=== PATIENT | male | born 1935 | race American Indian/Alaskan Native ===

== ENCOUNTER 2021-07-28 20:30 | Inpatient (IN) | payer MEDICARE, OTHER ==
[2021-07-28] MEDS ORDERED: SODIUM CHLORIDE 0.9% 1000 ML 1,000 ML IV ONE (20:50)
[2021-07-28] MEDS ORDERED: cefTRIAXone/NS 1 GM/50 ML 1 GM/50 ML BAG IV ONE (20:51)
--- NOTE | 2021-07-28 21:35 | XRay Report ---
CHEST 1 VIEW INDICATION / CLINICAL INFORMATION: Chest Pain. COMPARISON: 06/24/2020 FINDINGS: SUPPORT DEVICES: None. HEART / MEDIASTINUM: Stable. LUNGS / PLEURA: Widespread airspace disease involving the majority of the right lung and left mid and lower lung zones. No significant effusion. No pneumothorax. ADDITIONAL FINDINGS: No significant additional findings. IMPRESSION: 1. Fairly diffuse bilateral airspace opacities, suggesting multifocal pneumonia. Signer Name: Juancarlos Rust MD Signed: 07/28/2021 9:31 PM Workstation Name: [id number]
[2021-07-28 22:05] LABS: Hematocrit 28.9 % (35.5-45.6); Mean Corpuscular HGB Conc 31 % (32-34); Mean Corpuscular Volume 98 fl (84-94); Platelet Count 397 K/mm3 (140-440); Red Blood Count 2.96 M/mm3 (3.65-5.03)
[2021-07-28 22:06] LABS: Red Cell Distribution Width 25.1 % (13.2-15.2)
[2021-07-28 22:09] LABS: Basophils # (Auto) 0.1 K/mm3 (0.0-0.1); Monocytes # (Auto) 0.4 K/mm3 (0.0-0.8)
[2021-07-28 22:14] LABS: INR 1.09 (0.87-1.13)
[2021-07-28 22:15] LABS: Partial Thromboplastin Time 23.5 Sec. (24.2-36.6)
[2021-07-28 22:26] LABS: Albumin 2.5 g/dL (3.9-5); Calcium 7.6 mg/dL (8.4-10.2)
[2021-07-28] MEDS ORDERED: METOPROLOL TARTRATE 5 MG/5 ML INJ IV ONE (23:16)
[2021-07-28 23:30] LABS: Anisocytosis 2+; Basophils % (Manual) 0 % (0.0-1.8); Eosinophils % (Manual) 0 % (0.0-4.3); Monocytes % (Manual) 0 % (0.0-7.3); Total Cells Counted 100
[2021-07-28 23:31] LABS: Hypochromasia Few; Ovalocytes Few
[2021-07-28 23:32] LABS: Platelet Estimate Consistent w Auto
--- NOTE | 2021-07-29 00:39 | Emergency Department Report ---
ED General Adult HPI - General Chief complaint: Dyspnea/Respdistress Stated complaint: LETHARGIC Time Seen by Provider: 07/28/21 20:49 Source: family, EMS Mode of arrival: Stretcher Limitations: Other - History of Present Illness Initial comments: Pt IS 85 YEARS OLD NON VERBAL WITH dm htn RENAL DISEASE AND DEMENTIA came in due to family stating of being unresponsive with possible stemi. Pt's baseline is non verbal. Pt was 75% O2 on RA. FAMILY CALLED AMBULANCE FOR ALTERED MENTAL STATUS , HE IS NON VERBAL BASELINE BUT TODAY HE DIDN;T FOLLOW COMMANDS USUAL, HE WAS RECENTLY DISCHARGED FROM [facility] FOR ACUTE METABOLIC ENCEPHALOPATHY -: Gradual, hour(s) Severity scale (0 -10): 0 Improves with: none Worsens with: none Associated Symptoms: other (FEVER ) - Related Data Home Medications Medication Instructions Recorded Confirmed Last Taken Aspirin [Aspirin BABY CHEW TAB] 81 mg PO QDAY 06/23/20 06/23/20 Unknown Clopidogrel [Plavix] 1 tab PO DAILY 06/23/20 06/23/20 Unknown Finasteride 1 tab PO DAILY 06/23/20 06/23/20 Unknown Memantine 5 mg PO QDAY 06/23/20 06/23/20 Unknown OLANZapine [Zyprexa] 1 tab PO HS 06/23/20 06/23/20 Unknown PARoxetine HCL [PARoxetine] 1 tab PO DAILY 06/23/20 06/23/20 Unknown amLODIPine 1 tab PO DAILY 06/23/20 06/23/20 Unknown Previous Rx's Medication Instructions Recorded Last Taken Type AtorvaSTATin [Lipitor] 80 mg PO QHS #60 tablet 06/29/20 Unknown Rx Dextrose/Maltodextrin [Glucose 1 each PO DAILY #30 powd.pack 06/29/20 Unknown Rx Powder Packets] Lactose-Reduced Food [Ensure 237 ml PO DAILY #30 liquid 06/29/20 Unknown Rx Liquid] Metoprolol [Lopressor TAB] 25 mg PO BID #60 tablet 06/29/20 Unknown Rx Pantoprazole [Protonix TAB] 40 mg PO BIDAC #60 tablet 06/29/20 Unknown Rx Allergies Allergy/AdvReac Type Severity Reaction Status Date / Time No Known Allergies Allergy Unverified 06/23/20 11:35 ED Review of Systems ROS: Stated complaint: LETHARGIC Other details as noted in HPI Comment: Unobtainable due to pts medical conditions ED Past Medical Hx - Past Medical History Hx Hypertension: Yes Hx CVA: Yes (non verbal) Hx Diabetes: Yes Hx GERD: Yes Hx Renal Disease: Yes Hx Dementia: Yes Additional medical history: renal failure hd m/w/f, gerd, - Surgical History Hx Appendectomy: Yes Additional Surgical History: left arm fistula - Social History Smoking Status: Unknown if ever smoked - Medications Home Medications: Home Medications Medication Instructions Recorded Confirmed Last Taken Type Aspirin [Aspirin BABY CHEW TAB] 81 mg PO QDAY 06/23/20 06/23/20 Unknown History Clopidogrel [Plavix] 1 tab PO DAILY 06/23/20 06/23/20 Unknown History Finasteride 1 tab PO DAILY 06/23/20 06/23/20 Unknown History Memantine 5 mg PO QDAY 06/23/20 06/23/20 Unknown History OLANZapine [Zyprexa] 1 tab PO HS 06/23/20 06/23/20 Unknown History PARoxetine HCL [PARoxetine] 1 tab PO DAILY 06/23/20 06/23/20 Unknown History amLODIPine 1 tab PO DAILY 06/23/20 06/23/20 Unknown History AtorvaSTATin [Lipitor] 80 mg PO QHS #60 tablet 06/29/20 Unknown Rx Dextrose/Maltodextrin [Glucose 1 each PO DAILY #30 powd.pack 06/29/20 Unknown Rx Powder Packets] Lactose-Reduced Food [Ensure 237 ml PO DAILY #30 liquid 06/29/20 Unknown Rx Liquid] Metoprolol [Lopressor TAB] 25 mg PO BID #60 tablet 06/29/20 Unknown Rx Pantoprazole [Protonix TAB] 40 mg PO BIDAC #60 tablet 06/29/20 Unknown Rx ED Physical Exam - General Limitations: Other General appearance: other (NON VERBAL , DIAPHORETIC ) - Head Head exam: Present: atraumatic, normocephalic - Eye Eye exam: Present: normal appearance - ENT ENT exam: Present: mucous membranes moist - Neck Neck exam: Present: normal inspection - Respiratory Respiratory exam: Present: normal lung sounds bilaterally. Absent: respiratory distress - Cardiovascular Cardiovascular Exam: Present: normal rhythm, tachycardia. Absent: systolic murmur, diastolic murmur, rubs, gallop - GI/Abdominal GI/Abdominal exam: Present: normal bowel sounds, other (NG TUBE ) - Rectal Rectal exam: Present: deferred - Extremities Exam Extremities exam: Present: normal inspection - Back Exam Back exam: Present: normal inspection - Neurological Exam Neurological exam: Present: other (NON VERAL , POORLY FOLLOWING COMMANDS ) - Psychiatric Psychiatric exam: Present: normal affect, normal mood - Skin Skin exam: Present: warm, dry, intact, normal color. Absent: rash ED Course Vital Signs 07/28/21 07/28/21 07/28/21 21:30 21:54 22:18 Temperature 97.6 F Pulse Rate 95 H 92 H 96 H Respiratory 16 16 16 Rate Blood Pressure Blood Pressure 120/61 115/56 135/57 [Right] O2 Sat by Pulse 96 99 96 Oximetry 07/28/21 07/28/21 23:04 23:39 Temperature Pulse Rate 93 H 97 H Respiratory 16 Rate Blood Pressure 106/49 Blood Pressure 108/51 [Right] O2 Sat by Pulse 98 Oximetry - Reevaluation(s) Reevaluation #1: 07/29/21 00:22 WORK UP SHOWED : - AMS : SECONDAY TO SEPSIS - SEPSIS : PNEUMONIA NOTED , CULTURE FLUIDS AND ABX GIVEN , FEVER CONTROL - STEMI ON EKG : SPOKE WITH DR PASTOR , SENT HIMT HE EKG , THNKS IT IS OLD INFARCT , WE GOT HIS OLD EKG , SHOWED NORMAL SINUS, RE CONTACTED , WILL START HEPARIN , AND B BLOCKERS ED Medical Decision Making - Lab Data Result diagrams: 07/28/21 21:49 07/28/21 21:49 Critical care attestation.: If time is entered above; I have spent that time in minutes in the direct care of this critically ill patient, excluding procedure time. ED Disposition Clinical Impression: SOB (shortness of breath), Altered mental status, Sepsis, Pneumonia, Leukocytosis, CRF (chronic renal failure), Fever Disposition: 09 ADMITTED INPATIENT Is pt being admited?: Yes Does the pt Need Aspirin: No Condition: Stable Instructions: Bacterial Pneumonia (ED) Referrals: MARIKA TOUSSAINT MD [Primary Care Provider] - 3-5 Days
[2021-07-29] MEDS ORDERED: ACETAMINOPHEN 325 MG TAB PO PRN (00:47)
[2021-07-29] MEDS ORDERED: MORPHINE 2 MG/1 ML INJ IV PRN (00:47)
[2021-07-29] MEDS ORDERED: traMADol 50 MG TAB PO PRN (00:47)
[2021-07-29] MEDS ORDERED: NITROGLYCERIN 0.4 MG TAB SUBL SL PRN (00:47)
[2021-07-29] MEDS ORDERED: SODIUM CHLORIDE 0.9% 1000 ML 1,000 ML IV SCH (01:00)
--- NOTE | 2021-07-29 01:08 | History and Physical Report ---
History of Present Illness Date of examination: 07/29/21 Date of admission: 07/29/21 Chief complaint: Dyspnea Altered mental status History of present illness: 85 years male with history of hypertension ,diabetes CVA with hypoxia and debility. End-stage renal disease on hemodialysis, GERD, vascular dementia, cerebral atherosclerosis was brought to the emergency room because of unresponsiveness with possible STEMI. Patient is baseline nonverbal. Patient was found to have O2 sat 75% on room air. Family called ambulance for altered mental status. Patient is nonverbal but patient follows, In the emergency room EKG shows STEMI. Subsequently ER doctor talked with the on-call counter hand Dr. Daniels, who thinks it is old infarct, we got his old EKG. EKG showed normal sinus rhythm. Recontacted counter hand. We are going to put the patient in IMCU, put the patient on heparin and beta-cameron aspirin Plavix Lipitor. Echocardiogram serial cardiac enzyme Dr. orellana see the patient in the morning. In the emergency room room patient is also found to have sepsis chest x-ray shows multifocal pneumonia, WBCs 19.8. We are going to put the patient on pn eumonia pathway we put the patient on IV fluid neb treatment antibiotic. After initiating heparin drip patient is bleeding so we will have to hold the heparin drip aspirin Plavix. Patient hemoglobin dropped to 5.9. We are transfusing 2 unit of packed red blood cell. Consult GI and put the patient on Protonix 40 mg IV every 12 hours Past History Past Medical History: diabetes, ESRD, GERD, hypertension, renal failure, stroke, other (Dementia) Medications and Allergies Allergies Allergy/AdvReac Type Severity Reaction Status Date / Time No Known Allergies Allergy Unverified 06/23/20 11:35 Home Medications Medication Instructions Recorded Confirmed Last Taken Type Aspirin [Aspirin BABY CHEW TAB] 81 mg PO QDAY 06/23/20 06/23/20 Unknown History Clopidogrel [Plavix] 1 tab PO DAILY 06/23/20 06/23/20 Unknown History Finasteride 1 tab PO DAILY 06/23/20 06/23/20 Unknown History Memantine 5 mg PO QDAY 06/23/20 06/23/20 Unknown History OLANZapine [Zyprexa] 1 tab PO HS 06/23/20 06/23/20 Unknown History PARoxetine HCL [PARoxetine] 1 tab PO DAILY 06/23/20 06/23/20 Unknown History amLODIPine 1 tab PO DAILY 06/23/20 06/23/20 Unknown History AtorvaSTATin [Lipitor] 80 mg PO QHS #60 tablet 06/29/20 Unknown Rx Dextrose/Maltodextrin [Glucose 1 each PO DAILY #30 powd.pack 06/29/20 Unknown Rx Powder Packets] Lactose-Reduced Food [Ensure 237 ml PO DAILY #30 liquid 06/29/20 Unknown Rx Liquid] Metoprolol [Lopressor TAB] 25 mg PO BID #60 tablet 06/29/20 Unknown Rx Pantoprazole [Protonix TAB] 40 mg PO BIDAC #60 tablet 06/29/20 Unknown Rx Active Meds: Active Medications Acetaminophen (Acetaminophen 325 Mg Tab) 650 mg PO Q6H PRN PRN Reason: Pain, Mild (1-3) Amlodipine Besylate (Amlodipine 10 Mg Tab) mg PO DAILY [facility] Aspirin (Aspirin 81 Mg Tab Chew) 81 mg PO QDAY [facility]AM Atorvastatin Calcium (Atorvastatin 40 Mg Tab) 40 mg PO QHS LIAM Atorvastatin Calcium (Atorvastatin 40 Mg Tab) 80 mg PO QHS [facility]AM Clopidogrel Bisulfate (Clopidogrel 75 Mg Tab) mg PO DAILY [facility] Dextrose (Dextrose 50% In Water (25gm) 50 Ml Syringe) 50 ml IV Q30MIN PRN; Protocol PRN Reason: Hypoglycemia Finasteride (Finasteride 5 Mg Tab) mg PO DAILY [facility] Sodium Chloride (Nacl 0.9% 1000 Ml) 1,000 mls @ 100 mls/hr IV DIRECT [facility] Ceftriaxone Sodium (Rocephin/Ns 2 Gm/100 Ml) 2 gm in 100 mls @ 200 mls/hr IV Q24H [facility]; Protocol Azithromycin (Zithromax/Ns) 500 mg in 250 mls @ 250 mls/hr IV Q24H [facility]; Protocol Insulin Human Lispro (Insulin Lispro 100 Unit/Ml) 0 unit SUB-Q Q6HR [facility]; Protocol Memantine (Memantine 5 Mg Tab) 5 mg PO QDAY [facility] Metoprolol Tartrate (Metoprolol Tartrate 25 Mg Tab) 25 mg PO BID [facility] Miscellaneous Medication (Lactose-Reduced Food [Ensure Liquid]) 237 ml PO DAILY [facility] Miscellaneous Medication (Paroxetine Hcl [Paroxetine]) 1 tab PO DAILY [facility] Morphine Sulfate (Morphine 4 Mg/1 Ml Inj) 2 mg IV Q5MIN PRN PRN Reason: Chest Pain unrelieved by NTG Nitroglycerin (Nitroglycerin 0.4 Mg Tab Subl) 0.4 mg SL Q5M PRN PRN Reason: Chest Pain Olanzapine (Olanzapine 5 Mg Tab) mg PO HS [facility]AM Pantoprazole Sodium (Pantoprazole 40 Mg Tab) 40 mg PO QDAY [facility] Pantoprazole Sodium (Pantoprazole 40 Mg Tab) 40 mg PO BIDAC [facility] Sodium Chloride (Sodium Chloride 0.9% 10 Ml Flush Syringe) 10 ml IV PRN PRN PRN Reason: LINE FLUSH Tramadol HCl (Tramadol 50 Mg Tab) 50 mg PO Q6H PRN PRN Reason: Pain, Moderate (4-6) Review of Systems Constitutional: malaise, lethargy, other (Altered mental status) Exam - Constitutional Vitals: Temp Pulse Resp BP Pulse Ox 97.6 F 99 H 18 125/63 96 07/28/21 21:30 07/29/21 00:40 07/29/21 00:40 07/29/21 00:40 07/29/21 00:40 HEART Score - HEART Score History: Highly suspicious EKG: Significant ST-depression Age: > 65 Risk factors: > 3 risk factors or hx of atherosclerotic disease Troponin: Troponin T 0.099 ng/mL (0.00-0.029) H 07/28/21 21:49 0.099 Troponin: 1-3x normal limit HEART Score: 9 Results - Labs CBC & Chem 7: 07/29/21 04:23 07/29/21 04:23 Labs: Laboratory Last Values WBC 19.8 K/mm3 (4.5-11.0) H 07/28/21 21:49 RBC 2.96 M/mm3 (3.65-5.03) L 07/28/21 21:49 Hgb 9.0 gm/dl (11.8-15.2) L 07/28/21 21:49 Hct 28.9 % (35.5-45.6) L 07/28/21 21:49 MCV 98 fl (84-94) H 07/28/21 21:49 MCH 31 pg (28-32) 07/28/21 21:49 MCHC 31 % (32-34) L 07/28/21 21:49 RDW 25.1 % (13.2-15.2) H 07/28/21 21:49 Plt Count 397 K/mm3 (140-440) 07/28/21 21:49 [place] % (Auto) 2.0 % (0.0-7.3) 07/28/21 21:49 Eos % (Auto) 0.0 % (0.0-4.3) 07/28/21 21:49 [place] # (Auto) 0.4 K/mm3 (0.0-0.8) 07/28/21 21:49 Eos # (Auto) 0.0 K/mm3 (0.0-0.4) 07/28/21 21:49 Baso # (Auto) 0.1 K/mm3 (0.0-0.1) 07/28/21 21:49 Add Manual Diff Complete 07/28/21 21:49 Total Counted 100 07/28/21 21:49 Seg Neutrophils % [place] 07/28/21 21:49 Seg Neuts % (Manual) 97.0 % (40.0-70.0) H 07/28/21 21:49 Band Neutrophils % 0 % 07/28/21 21:49 Lymphocytes % (Manual) 3.0 % (13.4-35.0) L 07/28/21 21:49 Reactive Lymphs % (Man) 0 % 07/28/21 21:49 Monocytes % (Manual) 0 % (0.0-7.3) 07/28/21 21:49 Eosinophils % (Manual) 0 % (0.0-4.3) 07/28/21 21:49 Basophils % (Manual) 0 % (0.0-1.8) 07/28/21 21:49 Metamyelocytes % 0 % 07/28/21 21:49 Myelocytes % 0 % 07/28/21 21:49 Promyelocytes % 0 % 07/28/21 21:49 Blast Cells % 0 % 07/28/21 21:49 Nucleated RBC % Not Reportable 07/28/21 21:49 Seg Neutrophils # 19.6 K/mm3 (1.8-7.7) H 07/28/21 21:49 Seg Neutrophils # Man 19.2 K/mm3 (1.8-7.7) H 07/28/21 21:49 Band Neutrophils # 0.0 K/mm3 07/28/21 21:49 Lymphocytes # (Manual) 0.6 K/mm3 (1.2-5.4) L 07/28/21 21:49 Abs React Lymphs (Man) 0.0 K/mm3 07/28/21 21:49 Monocytes # (Manual) 0.0 K/mm3 (0.0-0.8) 07/28/21 21:49 Eosinophils # (Manual) 0.0 K/mm3 (0.0-0.4) 07/28/21 21:49 Basophils # (Manual) 0.0 K/mm3 (0.0-0.1) 07/28/21 21:49 Metamyelocytes # 0.0 K/mm3 07/28/21 21:49 Myelocytes # 0.0 K/mm3 07/28/21 21:49 Promyelocytes # 0.0 K/mm3 07/28/21 21:49 Blast Cells # 0.0 K/mm3 07/28/21 21:49 WBC Morphology Not Reportable 07/28/21 21:49 Hypersegmented Neuts Not Reportable 07/28/21 21:49 Hyposegmented Neuts Not Reportable 07/28/21 21:49 Hypogranular Neuts Not Reportable 07/28/21 21:49 Smudge Cells Not Reportable 07/28/21 21:49 Toxic Granulation Not Reportable 07/28/21 21:49 Toxic Vacuolation Not Reportable 07/28/21 21:49 Dohle Bodies Not Reportable 07/28/21 21:49 Pelger-Huet Anomaly Not Reportable 07/28/21 21:49 Bong Rods Not Reportable 07/28/21 21:49 Platelet Estimate Consistent w auto 07/28/21 21:49 Clumped Platelets Not Reportable 07/28/21 21:49 Plt Clumps, EDTA Not Reportable 07/28/21 21:49 Large Platelets Not Reportable 07/28/21 21:49 Giant Platelets Not Reportable 07/28/21 21:49 Platelet Satelliting Not Reportable 07/28/21 21:49 Plt Morphology Comment Not Reportable 07/28/21 21:49 RBC Morphology Not Reportable 07/28/21 21:49 Dimorphic RBCs Not Reportable 07/28/21 21:49 Polychromasia Not Reportable 07/28/21 21:49 Hypochromasia Few 07/28/21 21:49 Poikilocytosis Not Reportable 07/28/21 21:49 Anisocytosis 2+ 07/28/21 21:49 Microcytosis Few 07/28/21 21:49 Macrocytosis Not Reportable 07/28/21 21:49 Spherocytes Not Reportable 07/28/21 21:49 Pappenheimer Bodies Not Reportable 07/28/21 21:49 Sickle Cells Not Reportable 07/28/21 21:49 Target Cells Not Reportable 07/28/21 21:49 Tear Drop Cells Not Reportable 07/28/21 21:49 Ovalocytes Few 07/28/21 21:49 Helmet Cells Not Reportable 07/28/21 21:49 [place] Bodies Not Reportable 07/28/21 21:49 [place] Rings Not Reportable 07/28/21 21:49 [place] Cells Not Reportable 07/28/21 21:49 Bite Cells Not Reportable 07/28/21 21:49 Crenated Cell Not Reportable 07/28/21 21:49 Elliptocytes Not Reportable 07/28/21 21:49 Acanthocytes (Spur) Not Reportable 07/28/21 21:49 Rouleaux Not Reportable 07/28/21 21:49 Hemoglobin C Crystals Not Reportable 07/28/21 21:49 Schistocytes Not Reportable 07/28/21 21:49 Malaria parasites Not Reportable 07/28/21 21:49 Andrés Bodies Not Reportable 07/28/21 21:49 Hem Pathologist Commnt No 07/28/21 21:49 PT 15.3 Sec. (12.2-14.9) H 07/28/21 21:49 INR 1.09 (0.87-1.13) 07/28/21 21:49 APTT 23.5 Sec. (24.2-36.6) L 07/28/21 21:49 Sodium 134 mmol/L (137-145) L 07/28/21 21:49 Potassium 3.2 mmol/L (3.6-5.0) L 07/28/21 21:49 Chloride 97.2 mmol/L (98-107) L 07/28/21 21:49 Carbon Dioxide 22 mmol/L (22-30) 07/28/21 21:49 Anion Gap 18 mmol/L 02/21/22 21:49 BUN 46 mg/dL (9-20) H 07/28/21 21:49 Creatinine 3.8 mg/dL (0.8-1.3) H 07/28/21 21:49 Estimated GFR 18 ml/min 07/28/21 21:49 BUN/Creatinine Ratio 12 % 07/28/21 21:49 Glucose 188 mg/dL (75-100) H 07/28/21 21:49 Lactic Acid 1.90 mmol/L (0.7-2.0) 07/28/21 23:08 Calcium 7.6 mg/dL (8.4-10.2) L 07/28/21 21:49 Total Bilirubin 0.30 mg/dL (0.1-1.2) 07/28/21 21:49 AST 20 units/L (5-40) 07/28/21 21:49 ALT 6 units/L (7-56) L 07/28/21 21:49 Alkaline Phosphatase 89 units/L (35-129) 07/28/21 21:49 Troponin T 0.099 ng/mL (0.00-0.029) H 07/28/21 21:49 NT-Pro-B Natriuret Pep 81228 pg/mL (0-900) H 07/28/21 21:49 Total Protein 6.2 g/dL (6.3-8.2) L 07/28/21 21:49 Albumin 2.5 g/dL (3.9-5) L 07/28/21 21:49 Albumin/Globulin Ratio 0.7 % 07/28/21 21:49 Lipase 96 units/L (13-60) H 07/28/21 21:49 - Imaging and Cardiology Chest x-ray: report reviewed Assessment and Plan VTE prophylaxis?: Chemical Plan of care discussed with patient/family: Yes - Patient Problems (1) ACS (acute coronary syndrome) Current Visit: Yes Status: Acute Plan to address problem: Admit the patient to the IMCU. Aspirin 81 mg p.o. daily. Plavix 75 mg p.o. daily. Lipitor 40 mg p.o. daily. Echocardiogram. Cardiology evaluation. Heparin drip was initiated but patient was bleeding and hemoglobin dropped to 5.9. We need to hold the heparin. We are giving 2 unit of packed red blood cell. Recheck CBC in the morning (2) Pneumonia Current Visit: Yes Status: Acute Plan to address problem: Oxygen by nasal cannula 3 L/min. DuoNeb by nebulizer every 4 hours. Rocephin 2 g IV daily. Zithromax 500 mg IV daily. Blood cultures sputum culture. Recheck CBC in the morning (3) Fever Current Visit: Yes Status: Acute Plan to address problem: Tylenol 650 mg p.o. every 6 hours as needed. Rocephin 2 g IV daily. Zithromax 500 mg IV daily. Blood cultures sputum culture (4) Leukocytosis Current Visit: Yes Status: Acute Plan to address problem: Tylenol 650 mg p.o. every 6 hours as needed. Rocephin 2 g IV daily. Zithromax 500 mg IV daily. Blood cultures sputum culture (5) Sepsis Current Visit: Yes Status: Acute Plan to address problem: IV fluid normal saline at the rate of 100 cc/h. Rocephin 2 g IV daily. Zithromax 500 mg IV daily. Blood cultures sputum culture. Recheck CBC and lactic acid in the morning (6) Diabetes Current Visit: No Status: Acute Plan to address problem: Accu-Chek every 6 hours with Humalog moderate dose coverage. Diabetic education. Recheck BMP in the morning (7) End stage renal disease Current Visit: No Status: Acute Plan to address problem: Avoid nephrotoxic drug. Renally dose medication. Reconsult nephrology for hemodialysis. Recheck BMP in the morning (8) Gastroesophageal reflux disease Current Visit: No Status: Acute Qualifiers: Esophagitis presence: without esophagitis Qualified Code(s): K21.9 - Gastro-esophageal reflux disease without esophagitis Plan to address problem: Protonix 40 mg p.o. daily. We will continue the home medication (9) Hypertension Current Visit: No Status: Acute Qualifiers: Hypertension type: essential hypertension (10) Vascular dementia Current Visit: No Status: Acute Qualifiers: Dementia behavioral disturbance: without behavioral disturbance Qualified Code(s): F01.50 - Vascular dementia without behavioral disturbance Plan to address problem: . We will continue the home medication. Outpatient follow-up with neurologist (11) GIB (gastrointestinal bleeding) Current Visit: Yes Status: Acute Plan to address problem: After initiating heparin drip patient is bleeding so we will have to hold the heparin drip aspirin Plavix. Patient hemoglobin dropped to 5.9. We are transfusing 2 unit of packed red blood cell. Consult GI and put the patient on Protonix 40 mg IV every 12 hours (12) DVT prophylaxis Current Visit: No Status: Acute Plan to address problem: scd for DVT prophylaxis. Protonix 40 mg p.o. daily for GI prophylaxis. Patient is a full code
[2021-07-29] MEDS ORDERED: HEPARIN 10,000 UNITS/10 ML VIAL IV PRN (01:13)
--- NOTE | 2021-07-29 01:26 | Cat Scan Report ---
CT HEAD WITHOUT CONTRAST INDICATION / CLINICAL INFORMATION: Altered Mental Status. TECHNIQUE: All CT scans at this location are performed using CT dose reduction for ALARA by means of automated exposure control. COMPARISON: None available. FINDINGS: BRAIN PARENCHYMA: No acute intracranial hemorrhage. No evidence of recent infarct. No mass effect or midline shift. Severe chronic small vessel ischemic changes with confluent areas of hypoattenuation w ithin the periventricular and subcortical white matter. There is chronic encephalomalacia of the left cerebral hemisphere related to remote left MCA distribution infarct. Chronic left cerebellar hemisph ere infarct. VENTRICULAR SYSTEM/EXTRA-AXIAL SPACES: Age-related cerebral atrophy. No extra-axial fluid collection. ORBITS: Normal as visualized. SKELETAL SYSTEM/SOFT TISSUES: Normal bones and soft tissues. PARANASAL SINUSES/MASTOID AIR CELLS: No significant abnormality. ADDITIONAL FINDINGS: None. IMPRESSION: 1. No acute intracranial abnormality. 2. Age-related cerebral atrophy with severe chronic ischemic changes, to include large area of enceph alomalacia of the left cerebral hemisphere related to remote left MCA distribution infarct. Signer Name: Kelton Bunn MD Signed: 07/29/2021 1:22 AM Workstation Name: [id number]
[2021-07-29] MEDS ORDERED: HEPARIN/ 0.45% NACL DRIP 25,000 UNIT/500 ML BAG IV SCH (02:00)
[2021-07-29] MEDS: AZITHROMYCIN/NS 500 MG/250 ML 500 MG/250 ML BAG IV SCH ×2 (02:09→11:32)
[2021-07-29] MEDS ORDERED: ONDANSETRON 4 MG/2 ML INJ ONE (05:09)
[2021-07-29 05:13] LABS: Mean Corpuscular HGB Conc 31 % (32-34); Mean Corpuscular Volume 98 fl (84-94); Platelet Count 425 K/mm3 (140-440); Red Blood Count 1.95 M/mm3 (3.65-5.03)
[2021-07-29 05:14] LABS: Red Cell Distribution Width 25.3 % (13.2-15.2)
[2021-07-29 05:15] LABS: Hemoglobin 5.9 gm/dl (11.8-15.2)
[2021-07-29 05:16] LABS: Hematocrit 19.1 % (35.5-45.6)
[2021-07-29 05:17] LABS: Calcium 7.6 mg/dL (8.4-10.2)
[2021-07-29] MEDS ORDERED: SODIUM CHLORIDE 0.9% 500 ML 500 ML IV ONE (05:26)
[2021-07-29] MEDS ORDERED: ONDANSETRON 4 MG/2 ML INJ IV PRN (05:46)
[2021-07-29] MEDS ORDERED: PANTOPRAZOLE 40 MG INJ IV ONE (06:00)
[2021-07-29] MEDS: PANTOPRAZOLE 80 MG in SODIUM CHLORIDE 0.9% 100 ML IV SCH ×2 (06:15→17:17)
[2021-07-29 06:25] LABS: Anisocytosis 2+; Basophils % (Manual) 0 % (0.0-1.8); Eosinophils % (Manual) 0 % (0.0-4.3); Total Cells Counted 100
[2021-07-29 06:27] LABS: Hypochromasia 1+; Ovalocytes Few
[2021-07-29 06:28] LABS: Platelet Estimate Consistent w Auto; Tear Drop Cells Rare
[2021-07-29] MEDS ORDERED: PANTOPRAZOLE 40 MG TAB PO SCH ×2 (07:30→10:00)
--- NOTE | 2021-07-29 07:36 | Progress Note ---
Assessment and Plan Assessment and plan: History of present illness: 85 years male with history of hypertension ,diabetes CVA with hypoxia and debility. End-stage renal disease on hemodialysis, GERD, vascular dementia, cerebral atherosclerosis was brought to the emergency room because of unresponsiveness with possible STEMI. Patient is baseline nonverbal. Patient was found to have O2 sat 75% on room air. Family called ambulance for altered mental status. Patient is nonverbal but patient follows, In the emergency room EKG shows STEMI. Subsequently ER doctor talked with the on-call maintenance fitter Dr. Daniels, who thinks it is old infarct, we got his old EKG. EKG showed normal sinus rhythm. Recontacted maintenance fitter. We are going to put the patient in IMCU, put the patient on heparin and beta-cameron aspirin Plavix Lipitor. Echocardiogram serial cardiac enzyme Dr. orellana see the patient in the morning. In the emergency room room patient is also found to have sepsis chest x-ray shows multifocal pneumonia, WBCs 19.8. We are going to put the patient on pneumonia pathway we put the patient on IV fluid neb treatment antibiotic. After initiating heparin drip patient is bleeding so we will have to hold the heparin drip aspirin Plavix. Patient hemoglobin dropped to 5.9. We are transfusing 2 unit of packed red blood cell. Consult GI and put the patient on Protonix 40 mg IV every 12 hours hospital course: 07/29: hypotensive this AM. Ordered 1L NS bolus to which patient blood prssure responded. Has been normotensive since. Antiplatelet/anticoagulants held. Held antihtn meds due to hypotension this AM. IVF+Protonix gtt currently in light of GI bleed. CTA abd/pelvis ordered. Will follow GI recommendations. Assessment and Plan: #Gastrointestinal hemorrhage - GI bleed source rectal, was started on heparin initially overnight due to presumed ACS/STEMI and subsequently developed GI bleed. - Hgb: 5.9 - all anticoauglants and antiplatelets discontinued, d/w cardiology - NS bolus + NS maintenance fluid currently. - 2 units prbc ordered, follow up repeat h/h ordered - NPO - Protonix Gtt - serial H/H. - stat CTA abd and pelvis ordered, d/w nephrology. ok with contrast, plan for dialysis tomorrow if patient is stable. - Gastroenterology consulted, d/w Dr. Newton who will see patient. #melena - noted on rectal exam and in stool #Community acquired pneumonia - diffuse bilateral airspace disease - covid status unknown, will order RT PCR. - CXR: multifocal patchy airspace disease. appears to have RLL pneumonic process (please refer to official radiology report) - Ceftriaxone/Azithromycin IV x 5 day therapy ordered. # Sepsis -WBC: 24.9, HR: 100 -Bcx, Scx orderd on admission -Coronavirus pcr ordered - abx therapy as above #ESRD on hemodialysis - has left arm fistula. - Nephrology consulted, d/w Dr. Carlin, plan for dialysis tomorrrow. # CAD s/p PCI with stent - no symptoms of chest pain. - stent placed last year Jun 2020 for inferior wall [place] - presentation initially appeared to be stemi to ED physician but cardiology determined this was an old inf wall infarct noted by QS complexes in EKG this admission. - cardiology consulted. D/w Dr Ron who does not believe this is a stemi. Ok with d/c of antiplatelet agents and anticoagulants at this time - troponin 0.09, unchanged on serial measurements. Patient is an esrd patient thus cannot be extrapolated from. - atorvastatin 80 mg qhs #history of CVA - resume home atorvastatin - atorvastatin 80 mg qhs #blood loss anemia - GI related - managmeent as above - serial H/H measurements. #Advance care planning Disease education conducted, care plan discussed, diagnoses discussed, prognosis discussed, patient is full code, patient acknowledges understanding and agree with care plan, +30 minutes. Dispo: IMCU The high probability of a clinically significant, sudden or life threatening de terioration of the [multi] system(s) required my full and direct attention, intervention and personal management. The aggregate critical care time was [60] minutes. This time is in addition to time spent performing reported procedures but includes the following: [x] Data Review and interpretation [x] Patient assessment and monitoring of vital signs [x] Documentation [x] Medication orders and management Hospitalist Physical - Constitutional Vitals: Temp Pulse Resp BP Pulse Ox 98.6 F 100 H 24 94/41 96 07/29/21 07:01 07/29/21 07:01 07/29/21 07:01 07/29/21 07:01 07/29/21 07:01 HEART Score - HEART Score EKG: Significant ST-depression Age: > 65 Risk factors: > 3 risk factors or hx of atherosclerotic disease Troponin: Troponin T 0.095 ng/mL (0.00-0.029) H 07/29/21 05:49 Troponin: 1-3x normal limit Results - Labs CBC & Chem 7: 07/29/21 04:23 07/29/21 04:23 Labs: Laboratory Last Values WBC 24.9 K/mm3 (4.5-11.0) H 07/29/21 04:23 RBC 1.95 M/mm3 (3.65-5.03) L 07/29/21 04:23 Hgb 5.9 gm/dl (11.8-15.2) L* D 07/29/21 04:23 Hct 19.1 % (35.5-45.6) L* D 07/29/21 04:23 MCV 98 fl (84-94) H 07/29/21 04:23 MCH 30 pg (28-32) 07/29/21 04:23 MCHC 31 % (32-34) L 07/29/21 04:23 RDW 25.3 % (13.2-15.2) H 07/29/21 04:23 Plt Count 425 K/mm3 (140-440) 07/29/21 04:23 [place] % (Auto) 2.0 % (0.0-7.3) 07/28/21 21:49 Eos % (Auto) 0.0 % (0.0-4.3) 07/28/21 21:49 [place] # (Auto) 0.4 K/mm3 (0.0-0.8) 07/28/21 21:49 Eos # (Auto) 0.0 K/mm3 (0.0-0.4) 07/28/21 21:49 Baso # (Auto) 0.1 K/mm3 (0.0-0.1) 07/28/21 21:49 Add Manual Diff Complete 07/29/21 04:23 Total Counted 100 07/29/21 04:23 Seg Neutrophils % [employer] 07/29/21 04:23 Seg Neuts % (Manual) 95.0 % (40.0-70.0) H 07/29/21 04:23 Band Neutrophils % 0 % 07/29/21 04:23 Lymphocytes % (Manual) 4.0 % (13.4-35.0) L 07/29/21 04:23 Reactive Lymphs % (Man) 0 % 07/29/21 04:23 Monocytes % (Manual) 1.0 % (0.0-7.3) 07/29/21 04:23 Eosinophils % (Manual) 0 % (0.0-4.3) 07/29/21 04:23 Basophils % (Manual) 0 % (0.0-1.8) 07/29/21 04:23 Metamyelocytes % 0 % 07/29/21 04:23 Myelocytes % 0 % 07/29/21 04:23 Promyelocytes % 0 % 07/29/21 04:23 Blast Cells % 0 % 07/29/21 04:23 Nucleated RBC % 1.0 % (0.0-0.9) H 07/29/21 04:23 Seg Neutrophils # 19.6 K/mm3 (1.8-7.7) H 07/28/21 21:49 Seg Neutrophils # Man 23.7 K/mm3 (1.8-7.7) H 07/29/21 04:23 Band Neutrophils # 0.0 K/mm3 07/29/21 04:23 Lymphocytes # (Manual) 1.0 K/mm3 (1.2-5.4) L 07/29/21 04:23 Abs React Lymphs (Man) 0.0 K/mm3 07/29/21 04:23 Monocytes # (Manual) 0.2 K/mm3 (0.0-0.8) 07/29/21 04:23 Eosinophils # (Manual) 0.0 K/mm3 (0.0-0.4) 07/29/21 04:23 Basophils # (Manual) 0.0 K/mm3 (0.0-0.1) 07/29/21 04:23 Metamyelocytes # 0.0 K/mm3 07/29/21 04:23 Myelocytes # 0.0 K/mm3 07/29/21 04:23 Promyelocytes # 0.0 K/mm3 07/29/21 04:23 Blast Cells # 0.0 K/mm3 07/29/21 04:23 WBC Morphology Not Reportable 07/29/21 04:23 Hypersegmented Neuts Not Reportable 07/29/21 04:23 Hyposegmented Neuts Not Reportable 07/29/21 04:23 Hypogranular Neuts Not Reportable 07/29/21 04:23 Smudge Cells Not Reportable 07/29/21 04:23 Toxic Granulation Not Reportable 07/29/21 04:23 Toxic Vacuolation Not Reportable 07/29/21 04:23 Dohle Bodies Not Reportable 07/29/21 04:23 Pelger-Huet Anomaly Not Reportable 07/29/21 04:23 Bong Rods Not Reportable 07/29/21 04:23 Platelet Estimate Consistent w auto 07/29/21 04:23 Clumped Platelets Not Reportable 07/29/21 04:23 Plt Clumps, EDTA Not Reportable 07/29/21 04:23 Large Platelets Not Reportable 07/29/21 04:23 Giant Platelets Not Reportable 07/29/21 04:23 Platelet Satelliting Not Reportable 07/29/21 04:23 Plt Morphology Comment Not Reportable 07/29/21 04:23 RBC Morphology Not Reportable 07/29/21 04:23 Dimorphic RBCs Not Reportable 07/29/21 04:23 Polychromasia Not Reportable 07/29/21 04:23 Hypochromasia 1+ 07/29/21 04:23 Poikilocytosis Not Reportable 07/29/21 04:23 Anisocytosis 2+ 07/29/21 04:23 Microcytosis Not Reportable 07/29/21 04:23 Macrocytosis Not Reportable 07/29/21 04:23 Spherocytes Not Reportable 07/29/21 04:23 Pappenheimer Bodies Not Reportable 07/29/21 04:23 Sickle Cells Not Reportable 07/29/21 04:23 Target Cells Not Reportable 07/29/21 04:23 Tear Drop Cells Rare 07/29/21 04:23 Ovalocytes Few 07/29/21 04:23 Helmet Cells Not Reportable 07/29/21 04:23 [place] [employer] Bodies Not Reportable 07/29/21 04:23 [place] Rings Not Reportable 07/29/21 04:23 [place] Cells Not Reportable 07/29/21 04:23 Bite Cells Not Reportable 07/29/21 04:23 Crenated Cell Not Reportable 07/29/21 04:23 Elliptocytes Not Reportable 07/29/21 04:23 Acanthocytes (Spur) Not Reportable 07/29/21 04:23 Rouleaux Not Reportable 07/29/21 04:23 Hemoglobin C Crystals Not Reportable 07/29/21 04:23 Schistocytes Not Reportable 07/29/21 04:23 Malaria parasites Not Reportable 07/29/21 04:23 Andrés Bodies Not Reportable 07/29/21 04:23 Hem Pathologist Commnt No 07/29/21 04:23 PT 15.3 Sec. (12.2-14.9) H 07/28/21 21:49 INR 1.09 (0.87-1.13) 07/28/21 21:49 APTT 23.5 Sec. (24.2-36.6) L 07/28/21 21:49 Sodium 133 mmol/L (137-145) L 07/29/21 04:23 Potassium 3.6 mmol/L (3.6-5.0) 07/29/21 04:23 Chloride 99.4 mmol/L (98-107) 07/29/21 04:23 Carbon Dioxide 20 mmol/L (22-30) L 07/29/21 04:23 Anion Gap 17 mmol/L 07/29/21 04:23 BUN 72 mg/dL (9-20) H 07/29/21 04:23 Creatinine 4.2 mg/dL (0.8-1.3) H 07/29/21 04:23 Estimated GFR 16 ml/min 07/29/21 04:23 BUN/Creatinine Ratio 17 % 07/29/21 04:23 Glucose 168 mg/dL (75-100) H 07/29/21 04:23 Lactic Acid 1.90 mmol/L (0.7-2.0) 07/28/21 23:08 Calcium 7.6 mg/dL (8.4-10.2) L 07/29/21 04:23 Total Bilirubin 0.30 mg/dL (0.1-1.2) 07/28/21 21:49 AST 20 units/L (5-40) 07/28/21 21:49 ALT 6 units/L (7-56) L 07/28/21 21:49 Alkaline Phosphatase 89 units/L (35-129) 07/28/21 21:49 Troponin T 0.095 ng/mL (0.00-0.029) H 07/29/21 05:49 NT-Pro-B Natriuret Pep 80842 pg/mL (0-900) H 07/28/21 21:49 Total Protein 6.2 g/dL (6.3-8.2) L 07/28/21 21:49 Albumin 2.5 g/dL (3.9-5) L 07/28/21 21:49 Albumin/Globulin Ratio 0.7 % 07/28/21 21:49 Lipase 96 units/L (13-60) H 07/28/21 21:49 Blood Type AB POSITIVE 07/29/21 05:49 Antibody Screen Negative 07/29/21 05:49 Crossmatch See Detail 07/29/21 05:49 Active Medications - Current Medications Current Medications: Generic Name Dose Route Start Last Admin Trade Name Freq PRN Reason Stop Dose Admin Acetaminophen 650 mg 07/29/21 00:47 Acetaminophen 325 Mg Tab PO Q6H PRN Pain, Mild (1-3) Amlodipine Besylate 10 mg 07/29/21 10:00 Amlodipine 10 Mg Tab PO DAILY [facility] Aspirin 81 mg 07/29/21 10:00 Aspirin 81 Mg Tab Chew PO QDAY [facility] Atorvastatin Calcium 80 mg 07/29/21 22:00 Atorvastatin 40 Mg Tab PO QHS [facility] [place] Clopidogrel Bisulfate 75 mg 07/29/21 10:00 Clopidogrel 75 Mg Tab PO DAILY [facility] [place] Dextrose 0 ml 07/29/21 01:06 Dextrose 10% *Hypoglycemia IV DIRECT PRN Hypoglycemia Protocol Finasteride 5 mg 07/29/21 10:00 Finasteride 5 Mg Tab PO DAILY [facility] [place] Sodium Chloride 1,000 mls @ 100 mls/hr 07/29/21 01:00 Nacl 0.9% 1000 Ml IV DIRECT LIAM Ceftriaxone Sodium 2 gm in 100 mls @ 200 mls/hr 07/29/21 10:00 Rocephin/Ns 2 Gm/100 Ml IV Q24HR LIAM Protocol Azithromycin 500 mg in 250 mls @ 250 mls/hr 07/29/21 01:00 07/29/21 02:09 Zithromax/Ns IV 250 mls/hr Q24HR LIAM Administration Protocol Heparin Sodium/Sodium Chloride 25,000 unit in 500 mls @ 16 mls/hr 07/29/21 02:00 07/29/21 02:11 Heparin/ 0.45% Nacl-25,000 Unit/500 Ml IV 800 units/hr TITR LIAM 16 mls/hr Administration Protocol 800 UNITS/HR Pantoprazole Sodium 80 mg/ 100 mls @ 10 mls/hr 07/29/21 06:00 07/29/21 06:15 Sodium Chloride IV 8 mg/hr DIRECT LIAM 10 mls/hr Administration 8 MG/HR Insulin Human Lispro 0 unit 07/29/21 06:00 Insulin Lispro 100 Unit/Ml SUB-Q Q6HR [facility] [place] Protocol Memantine 5 mg 07/29/21 10:00 Memantine 5 Mg Tab PO QDAY [facility] Metoprolol Tartrate 25 mg 07/29/21 08:00 Metoprolol Tartrate 25 Mg Tab PO BID@0800,1700 [facility] Miscellaneous Medication 237 ml 07/29/21 10:00 Lactose-Reduced Food [Ensure Liquid] PO DAILY [facility] [place] Morphine Sulfate 2 mg 07/29/21 00:47 Morphine 2 Mg/1 Ml Inj IV Q5MIN PRN Chest Pain unrelieved by NTG Nitroglycerin 0.4 mg 07/29/21 00:47 Nitroglycerin 0.4 Mg Tab Subl SL Q5M PRN Chest Pain Olanzapine 5 mg 07/29/21 22:00 Olanzapine 5 Mg Tab PO HS [facility] [place] Ondansetron HCl 4 mg 07/29/21 05:46 Ondansetron 4 Mg/2 Ml Inj IV Q8H PRN Nausea And Vomiting Paroxetine HCl 40 mg 07/29/21 10:00 Paroxetine 20 Mg Tab PO DAILY [facility] [place] Sodium Chloride 10 ml 07/29/21 00:47 Sodium Chloride 0.9% 10 Ml Flush Syringe IV PRN PRN LINE FLUSH Tramadol HCl 50 mg 07/29/21 00:47 Tramadol 50 Mg Tab PO Q6H PRN Pain, Moderate (4-6)
[2021-07-29] MEDS ORDERED: METOPROLOL TARTRATE 25 MG TAB PO SCH (08:00)
[2021-07-29] MEDS: INSULIN LISPRO 100 UNIT/ML SUB-Q SCH ×3 (08:05→18:07)
--- NOTE | 2021-07-29 09:53 | Consultation ---
History of Present Illness - Reason for Consult Consult date: 07/29/21 end stage renal disease - History of Present Illness The patient is an 85 YO male with history significant for HTN, DM, CVA complicated by Aphasia, ESRD on HD(MWF), GERD, Anemia, Cerebral Atherosclerosis and Dementia who presented to [facility] ED 07/29 because of unresponsiveness. Patient is non-verbal at baseline. Patient was found to have O2 sat 75% on room air. In the emergency room EKG showed changes suspected of STEMI. Patient was started on Heparin, Beta-cameron, Aspirin, Plavix and Lipitor. CXR showed showed multifocal pneumonia and suspected of sepsis. He was placed on Pneumonia pathway. After initiating heparin drip patient was bleeding so the anticoagulants were stopped. Hemoglobin dropped to 5.9, s/p 2 units of pRBC with improvement in H/H. Nephrology was consulted for ESRD management. Past History Past Medical History: diabetes, ESRD, GERD, hypertension, renal failure, stroke, other (Dementia) Medications and Allergies Allergies Allergy/AdvReac Type Severity Reaction Status Date / Time No Known Allergies Allergy Unverified 06/23/20 11:35 Home Medications Medication Instructions Recorded Confirmed Last Taken Type Aspirin [Aspirin BABY CHEW TAB] 81 mg PO QDAY 06/23/20 06/23/20 Unknown History Clopidogrel [Plavix] 1 tab PO DAILY 06/23/20 06/23/20 Unknown History Finasteride 1 tab PO DAILY 06/23/20 06/23/20 Unknown History Memantine 5 mg PO QDAY 06/23/20 06/23/20 Unknown History OLANZapine [Zyprexa] 1 tab PO HS 06/23/20 06/23/20 Unknown History PARoxetine HCL [PARoxetine] 1 tab PO DAILY 06/23/20 06/23/20 Unknown History amLODIPine 1 tab PO DAILY 06/23/20 06/23/20 Unknown History AtorvaSTATin [Lipitor] 80 mg PO QHS #60 tablet 06/29/20 Unknown Rx Dextrose/Maltodextrin [Glucose 1 each PO DAILY #30 powd.pack 06/29/20 Unknown Rx Powder Packets] Lactose-Reduced Food [Ensure 237 ml PO DAILY #30 liquid 06/29/20 Unknown Rx Liquid] Metoprolol [Lopressor TAB] 25 mg PO BID #60 tablet 06/29/20 Unknown Rx Pantoprazole [Protonix TAB] 40 mg PO BIDAC #60 tablet 06/29/20 Unknown Rx Active Meds: Active Medications Acetaminophen (Acetaminophen 325 Mg Tab) 650 mg PO Q6H PRN PRN Reason: Pain, Mild (1-3) Aspirin (Aspirin 81 Mg Tab Chew) 81 mg PO QDAY [facility] Atorvastatin Calcium (Atorvastatin 40 Mg Tab) 80 mg PO QHS [facility] Clopidogrel Bisulfate (Clopidogrel 75 Mg Tab) 75 mg PO DAILY [facility] Dextrose (Dextrose 10% *Hypoglycemia) 0 ml IV DIRECT PRN; Protocol PRN Reason: Hypoglycemia Finasteride (Finasteride 5 Mg Tab) 5 mg PO QDAY [facility] Sodium Chloride (Nacl 0.9% 1000 Ml) 1,000 mls @ 100 mls/hr IV DIRECT LIAM Ceftriaxone Sodium (Rocephin/Ns 2 Gm/100 Ml) 2 gm in 100 mls @ 200 mls/hr IV Q24HR LIAM; Protocol Azithromycin (Zithromax/Ns) 500 mg in 250 mls @ 250 mls/hr IV Q24HR LIAM; Protocol Last Admin: 07/29/21 02:09 Dose: 250 mls/hr Pantoprazole Sodium 80 mg/ (Sodium Chloride) 100 mls @ 10 mls/hr IV DIRECT LIAM Last Admin: 07/29/21 06:15 Dose: 8 mg/hr, 10 mls/hr Insulin Human Lispro (Insulin Lispro 100 Unit/Ml) 0 unit SUB-Q Q6HR LIAM; Protocol Last Admin: 07/29/21 08:05 Dose: 2 unit Memantine (Memantine 5 Mg Tab) 5 mg PO QDAY [facility] Morphine Sulfate (Morphine 2 Mg/1 Ml Inj) 2 mg IV Q5MIN PRN PRN Reason: Chest Pain unrelieved by NTG Nitroglycerin (Nitroglycerin 0.4 Mg Tab Subl) 0.4 mg SL Q5M PRN PRN Reason: Chest Pain Olanzapine (Olanzapine 5 Mg Tab) 5 mg PO HS LIAM Ondansetron HCl (Ondansetron 4 Mg/2 Ml Inj) 4 mg IV Q8H PRN PRN Reason: Nausea And Vomiting Paroxetine HCl (Paroxetine 20 Mg Tab) 40 mg PO DAILY [facility] Sodium Chloride (Sodium Chloride 0.9% 10 Ml Flush Syringe) 10 ml IV PRN PRN PRN Reason: LINE FLUSH Tramadol HCl (Tramadol 50 Mg Tab) 50 mg PO Q6H PRN PRN Reason: Pain, Moderate (4-6) Review of Systems ROS unobtainable: due to mental status Exam - Vital Signs Vital signs: Vital Signs Temp Pulse Resp BP Pulse Ox 97.6 F 95 H 16 120/61 96 07/28/21 21:30 07/28/21 21:30 07/28/21 21:30 07/28/21 21:30 07/28/21 21:30 Results - Lab Results 07/29/21 19:39 07/29/21 04:23 Most recent lab results Calcium 7.6 mg/dL (8.4-10.2) L 07/29/21 04:23 Assessment and Plan 1. ESRD: Patient is on maintenance hemodialysis three times a week, MWF schedule. Hemodialysis: 06/24, 06/26, 06/28. 2. FEN: Mild hyperkalemia, improved. Monitor lytes and volume status. 3. Acute blood loss Anemia: 2/2 GI bleed. S/p PRBC. Epogen on dialysis days. Monitor. 4. GI bleed: Rectal bleed in the setting of anticoauglants and antiplatelets, now discontinued. Protonix gtt. Monitor H/H. CTA abd and pelvis ordered. Gastroenterology consulted. 5. Sepsis / Community acquired pneumonia, pOA: CXR showed diffuse bilateral airspace disease. Covid status unknown, test ordered. Ceftriaxone/Azithromycin. 6. H/o CAD s/p PCI with stent: No symptoms of chest pain. Stent placed last year Jun 2020 for inferior wall [place]. 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 Cardiology consulted. Atorvastatin. 7. H/o CVA with residual aphasia. 8. DM type: Monitor bl. glucose. Subjective: Patient seen and examined at the bedside. Examination: General appearance: well-developed, appears stated age, not in distress HEENT: atraumatic, dried blood in the face Neck: trachea midline Respiratory: Clear to Auscultation Heart: regular, S1S2, no murmur Abdomen: soft, normoactive bowel sounds, not tender, not distended Integumentary: no obvious rash Neurologic: able to move extremities, aphasic Ext: no edema Hemodialysis access: L FA AVF
[2021-07-29] MEDS ORDERED: ASPIRIN 81 MG TAB CHEW PO SCH (10:00)
[2021-07-29] MEDS ORDERED: LACTOSE REDUCED FOOD PO SCH (10:00)
[2021-07-29] MEDS ORDERED: amLODIPine 10 MG TAB PO SCH (10:00)
[2021-07-29] MEDS ORDERED: FINASTERIDE 5 MG TAB PO SCH (10:00)
[2021-07-29] MEDS ORDERED: CLOPIDOGREL 75 MG TAB PO SCH (10:00)
[2021-07-29] MEDS ORDERED: PANTOPRAZOLE 40 MG INJ IV SCH (10:00)
--- NOTE | 2021-07-29 10:23 | Electrocardiograph Report ---
[facility] Test Date: 2021-07-28 Test Time: 20:22:46 Pat Name: Fara [place] Department: Room: [facility] Gender: M Graduate Teaching Assistant: ORQUIDEA : [id number] Requested By: MARIAM TOLEDO Order Number: [id number] Reading MD: Mehran Castrejon Measurements Intervals [place] Rate: 111 P: 75 DE: 171 QRS: -16 QRSD: 92 T: 106 QT: 348 QTc: 460 Interpretive Statements Sinus tachycardia Paired ventricular premature complexes Inferior infarct, age undetermined. No previous ECG available for comparison Electronically Signed On 07-29-2021 10:22:40 EST by Mehran Castrejon
--- NOTE | 2021-07-29 11:17 | Consultation ---
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 Last evening, radiology asst were called to his house for alteration in mental status. On his presentation to the emergency room with fever of 101, leukocytosis with a white count of 20,000. Chest x-ray reported a right lower lobe pneumonia. ECG on presentation was reported as a possible STEMI. On my review, there were QS complexes in the inferior leads that more likely suggested an old inferior WA, and it was notable that the patient had no chest pain or cardiac symptomatology. 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 On his discharge EKG, there are QS complexes inferiorly, with residual ST elevation, no different from the current ECG. The ECG changes therefore represent his old inferior infarct. Laboratory exam shows a troponin level of 0.09, unchanged on serial measurements, not consistent with acute coronary syndrome more likely due to his chronic renal disease. This morning, his hematocrit on presentation dropped from 29 to 19, we have therefore directed that the heparin that was started earlier should be discontinued, and oral antiplatelet therapy will be on hold until possible GI bleeding status is ruled out and anemia stabilized. Past History Past Medical History: acute WA, CAD, diabetes, ESRD, GERD, hypertension, renal failure, stroke, other (Dementia) Past Surgical History: PTCA Medications and Allergies Allergies Allergy/AdvReac Type Severity Reaction Status Date / Time No Known Allergies Allergy Unverified 06/23/20 11:35 Home Medications Medication Instructions Recorded Confirmed Last Taken Type Aspirin [Aspirin BABY CHEW TAB] 81 mg PO QDAY 06/23/20 06/23/20 Unknown History Clopidogrel [Plavix] 1 tab PO DAILY 06/23/20 06/23/20 Unknown History Finasteride 1 tab PO DAILY 06/23/20 06/23/20 Unknown History Memantine 5 mg PO QDAY 06/23/20 06/23/20 Unknown History OLANZapine [Zyprexa] 1 tab PO HS 06/23/20 06/23/20 Unknown History PARoxetine HCL [PARoxetine] 1 tab PO DAILY 06/23/20 06/23/20 Unknown History amLODIPine 1 tab PO DAILY 06/23/20 06/23/20 Unknown History AtorvaSTATin [Lipitor] 80 mg PO QHS #60 tablet 06/29/20 Unknown Rx Dextrose/Maltodextrin [Glucose 1 each PO DAILY #30 powd.pack 06/29/20 Unknown Rx Powder Packets] Lactose-Reduced Food [Ensure 237 ml PO DAILY #30 liquid 06/29/20 Unknown Rx Liquid] Metoprolol [Lopressor TAB] 25 mg PO BID #60 tablet 06/29/20 Unknown Rx Pantoprazole [Protonix TAB] 40 mg PO BIDAC #60 tablet 06/29/20 Unknown Rx Active Meds: Active Medications Acetaminophen (Acetaminophen 325 Mg Tab) 650 mg PO Q6H PRN PRN Reason: Pain, Mild (1-3) Atorvastatin Calcium (Atorvastatin 40 Mg Tab) 80 mg PO QHS LIAM Dextrose (Dextrose 10% *Hypoglycemia) 0 ml IV DIRECT PRN; Protocol PRN Reason: Hypoglycemia Finasteride (Finasteride 5 Mg Tab) 5 mg PO QDAY LIAM Sodium Chloride (Nacl 0.9% 1000 Ml) 1,000 mls @ 100 mls/hr IV DIRECT LIAM Last Admin: 07/29/21 08:00 Dose: 100 mls/hr Ceftriaxone Sodium (Rocephin/Ns 2 Gm/100 Ml) 2 gm in 100 mls @ 200 mls/hr IV Q24HR LIAM; Protocol Azithromycin (Zithromax/Ns) 500 mg in 250 mls @ 250 mls/hr IV Q24HR LIAM; Protocol Last Admin: 07/29/21 02:09 Dose: 250 mls/hr Pantoprazole Sodium 80 mg/ (Sodium Chloride) 100 mls @ 10 mls/hr IV DIRECT LIAM Last Admin: 07/29/21 06:15 Dose: 8 mg/hr, 10 mls/hr Insulin Human Lispro (Insulin Lispro 100 Unit/Ml) 0 unit SUB-Q Q6HR LIAM; Protocol Last Admin: 07/29/21 08:05 Dose: 2 unit Memantine (Memantine 5 Mg Tab) 5 mg PO QDAY LIAM Morphine Sulfate (Morphine 2 Mg/1 Ml Inj) 2 mg IV Q5MIN PRN PRN Reason: Chest Pain unrelieved by NTG Nitroglycerin (Nitroglycerin 0.4 Mg Tab Subl) 0.4 mg SL Q5M PRN PRN Reason: Chest Pain Olanzapine (Olanzapine 5 Mg Tab) 5 mg PO HS LIAM Ondansetron HCl (Ondansetron 4 Mg/2 Ml Inj) 4 mg IV Q8H PRN PRN Reason: Nausea And Vomiting Paroxetine HCl (Paroxetine 20 Mg Tab) 40 mg PO DAILY LIAM Sodium Chloride (Sodium Chloride 0.9% 10 Ml Flush Syringe) 10 ml IV PRN PRN PRN Reason: LINE FLUSH Tramadol HCl (Tramadol 50 Mg Tab) 50 mg PO Q6H PRN PRN Reason: Pain, Moderate (4-6) Review of Systems ROS unobtainable: due to mental status Physical Examination Vital Signs Temp Pulse Resp BP Pulse Ox 97.6 F 95 H 16 120/61 96 07/28/21 21:30 07/28/21 21:30 07/28/21 21:30 07/28/21 21:30 07/28/21 21:30 General appearance: no acute distress, cachectic HEENT: Positive: PERRL Neck: Positive: neck supple Cardiac: Positive: Reg Rate and Rhythm Lungs: Positive: Decreased Breath Sounds Neuro: Positive: Grossly Intact Abdomen: Positive: Soft Male genitourinary: Positive: deferred Skin: Positive: Clear Extremities: Absent: edema Results 07/29/21 04:23 07/29/21 04:23 Cardiac Enzymes 07/28/21 Range/Units 21:49 AST 20 (5-40) units/L Coagulation 07/28/21 Range/Units 21:49 PT 15.3 H (12.2-14.9) Sec. INR 1.09 (0.87-1.13) APTT 23.5 L (24.2-36.6) Sec. CBC 07/28/21 07/29/21 Range/Units 21:49 04:23 WBC 19.8 H 24.9 H (4.5-11.0) K/mm3 RBC 2.96 L 1.95 L (3.65-5.03) M/mm3 Hgb 9.0 L 5.9 L* D (11.8-15.2) gm/dl Hct 28.9 L 19.1 L* D (35.5-45.6) % Plt Count 397 425 (140-440) K/mm3 [place] # (Auto) 0.4 (0.0-0.8) K/mm3 Eos # (Auto) 0.0 (0.0-0.4) K/mm3 Baso # (Auto) 0.1 (0.0-0.1) K/mm3 Comprehensive Metabolic Panel 07/28/21 07/29/21 Range/Units 21:49 04:23 Sodium 134 L 133 L (137-145) mmol/L Potassium 3.2 L 3.6 (3.6-5.0) mmol/L Chloride 97.2 L 99.4 (98-107) mmol/L Carbon Dioxide 22 20 L (22-30) mmol/L BUN 46 H 72 H (9-20) mg/dL Creatinine 3.8 H 4.2 H (0.8-1.3) mg/dL Glucose 188 H 168 H (75-100) mg/dL Calcium 7.6 L 7.6 L (8.4-10.2) mg/dL AST 20 (5-40) units/L ALT 6 L (7-56) units/L Alkaline Phosphatase 89 (35-129) units/L Total Protein 6.2 L (6.3-8.2) g/dL Albumin 2.5 L (3.9-5) g/dL EKG interpretations - Telemetry EKG Rhythm: Sinus Rhythm (With QS complexes and residual ST elevation in inferior leads consistent with prior WA) Assessment and Plan - Patient Problems (1) Coronary artery disease Current Visit: Yes Status: Acute Plan to address problem: Patient presented with fever, leukocytosis and a right lower lobe pneumonia chest x-ray. 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 Current ECG is not consistent with an acute STEMI, instead represents residual changes from his old inferior infarct. We will stop heparin therapy, and hold aspirin and Plavix until his anemia is stabilized and full evaluation of possible GI bleed is completed. Continue other guideline directed therapy for his coronary artery disease.
[2021-07-29] MEDS: cefTRIAXone/NS 2 GM/100 ML 2 GM/100 ML BAG IV SCH (11:32)
[2021-07-29] MEDS: MEMANTINE 5 MG TAB PO SCH (13:24)
[2021-07-29] MEDS: PARoxetine 20 MG TAB PO SCH (13:24)
--- NOTE | 2021-07-29 16:15 | Cat Scan Report ---
CTA ABDOMEN AND PELVIS WITHOUT AND WITH IV CONTRAST INDICATION: hematochezia. 100 ML OMNI 350 . TECHNIQUE: Axial CT images were obtained through the abdomen and pelvis before and after after injection of IV c ontrast. 3 plane MIP reconstructions were produced. All CT scans at this location are performed using CT dose reduction for ALARA by means of automated exposure control. COMPARISON: One view of the chest performed today. FINDINGS: VASCULAR FINDINGS: AORTA: Normal in caliber and contains diffuse calcified and noncalcified plaques. No dissection or ot her significant abnormality. CELIAC TRUNK: There is mild nonobstructive atherosclerosis without other significant abnormalities. SUPERIOR MESENTERIC ARTERY: There is mild nonobstructive atherosclerosis without other significant ab normalities. RENAL ARTERIES: Moderately obstructive calcified plaques are seen at the origin of the right renal ar james. Mildly obstructive calcified plaques are seen at the origin of the left renal artery. No other significant abnormality. INFERIOR MESENTERIC ARTERY: Not visualized. RIGHT ILIAC ARTERIES: Diffuse calcification is seen throughout the right iliac arteries with secondar y severe obstruction versus near total occlusion at the origin of the internal iliac artery. Severe o bstruction is also seen along the distal third of the right common iliac artery. No other significant obstruction or other significant abnormality. LEFT ILIAC ARTERIES: Diffuse calcification is seen throughout the left iliac arteries with secondary severe obstruction versus near total occlusion at the origin of the internal iliac artery. No other s ignificant obstruction or other significant abnormality. FEMORAL ARTERIES: There is moderate generalized atherosclerosis with secondary mild obstruction seen along the common femoral arteries. No other significant abnormality. NONTARGET STRUCTURES: ABDOMEN: The gallbladder is mildly distended and contains sludge and stones without wall thickening o r significant pericholecystic inflammation. There are numerous bilateral renal cysts and a nonenhanci ng solid posterior right lower renal pole measuring 2.5 x 2.4 cm on image 137 of series 5. An indeter minate complex lesion is seen along the left upper renal pole posteriorly measuring 1.8 x 1.6 cm on i mage 104 series 5. No active contrast extravasation is identified along the GI tract. A PEG tube is i n expected position. No other significant abnormalities. PELVIS: The prostate gland is mildly enlarged and moderately calcified. Multiple bladder diverticula are seen with generalized mild bladder wall thickening. No other significant abnormality. SKELETAL: The bones are demineralized. There are moderate degenerative changes throughout the spine a nd along the SI joints. No acute findings. ADDITIONAL FINDINGS: There is bibasilar pneumonia/atelectasis with small pleural effusions. There is severe coronary atherosclerosis. IMPRESSION: 1. No CT evidence of active contrast extravasation along the GI tract to suggest an active GI bleed. 2. No other acute findings to explain the patient's hematochezia. 3. Additional findings as above including indeterminate bilateral renal lesions and probable bibasila r pneumonia/atelectasis. A nonemergent renal ultrasound is suggested for further evaluation. 4. Additional vascular and nonvascular findings as above. Signer Name: Cristian Crane MD Signed: 07/29/2021 4:11 PM Workstation Name: [id number]
--- NOTE | 2021-07-29 17:38 | Consultation ---
History of Present Illness - Reason for Consult Consult date: 07/29/21 GI bleed Requesting physician: STEPHANIA MENDOZA - History of Present Illness Mr. Mg is an 85-year-old man with a history of CVA and aphasia, dementia, and end-stage renal disease on hemodialysis, who was brought to the hospital with mental status changes. Here, he was found to be septic with a fever and has multifocal pneumonia. His hemoglobin was noted to drop from 9 on admission to 5.9 with volume repletion. He was also hypotensive and noted to have dark stools that were Hemoccult positive. GI consultation is obtained for GI bleed. Patient is on Plavix after having had a stent placed in his coronary arteries in June 2020. His last hemoglobin was 8.2 in June 2020. I spoke with pt's . She states that he was hospitalized at [facility] for 13 days and was discharged to home a week ago. She states he had a feeding tube placed during that admission as he was admitted for poor p.o. intake and difficulty swallowing. She states that he also had another endoscopy done during that admission for coffee-ground emesis. She is not sure of the findings. Of note, she states that the patient had bowel movements where it looked like he was passing portions of a button or some other structure. She will bring it into the hospital and give it to the nurses for us to look at later. Past History Past Medical History: acute CO (June/2020), CAD, diabetes, ESRD, GERD, hypertension, renal failure, stroke, other (Dementia) Past Surgical History: PTCA, bowel surgery (Ruptured appendectomy with temporary colostomy approximately 1999), Other (G-tube placementin June 2020 per ) Medications and Allergies Allergies Allergy/AdvReac Type Severity Reaction Status Date / Time No Known Allergies Allergy Unverified 06/23/20 11:35 Home Medications Medication Instructions Recorded Confirmed Last Taken Type Aspirin [Aspirin BABY CHEW TAB] 81 mg PO QDAY 06/23/20 06/23/20 Unknown History Clopidogrel [Plavix] 1 tab PO DAILY 06/23/20 06/23/20 Unknown History Finasteride 1 tab PO DAILY 06/23/20 06/23/20 Unknown History Memantine 5 mg PO QDAY 06/23/20 06/23/20 Unknown History OLANZapine [Zyprexa] 1 tab PO HS 06/23/20 06/23/20 Unknown History PARoxetine HCL [PARoxetine] 1 tab PO DAILY 06/23/20 06/23/20 Unknown History amLODIPine 1 tab PO DAILY 06/23/20 06/23/20 Unknown History AtorvaSTATin [Lipitor] 80 mg PO QHS #60 tablet 06/29/20 Unknown Rx Dextrose/Maltodextrin [Glucose 1 each PO DAILY #30 powd.pack 06/29/20 Unknown Rx Powder Packets] Lactose-Reduced Food [Ensure 237 ml PO DAILY #30 liquid 06/29/20 Unknown Rx Liquid] Metoprolol [Lopressor TAB] 25 mg PO BID #60 tablet 06/29/20 Unknown Rx Pantoprazole [Protonix TAB] 40 mg PO BIDAC #60 tablet 06/29/20 Unknown Rx Active Meds: Active Medications Acetaminophen (Acetaminophen 325 Mg Tab) 650 mg PO Q6H PRN PRN Reason: Pain, Mild (1-3) Atorvastatin Calcium (Atorvastatin 40 Mg Tab) 80 mg PO QHS LIAM Dextrose (Dextrose 10% *Hypoglycemia) 0 ml IV DIRECT PRN; Protocol PRN Reason: Hypoglycemia Sodium Chloride (Nacl 0.9% 1000 Ml) 1,000 mls @ 100 mls/hr IV DIRECT LIAM Last Admin: 07/29/21 08:00 Dose: 100 mls/hr Ceftriaxone Sodium (Rocephin/Ns 2 Gm/100 Ml) 2 gm in 100 mls @ 200 mls/hr IV Q24HR LIAM; Protocol Last Admin: 07/29/21 11:32 Dose: 200 mls/hr Azithromycin (Zithromax/Ns) 500 mg in 250 mls @ 250 mls/hr IV Q24HR LIAM; Protocol Last Admin: 07/29/21 11:32 Dose: 250 mls/hr Pantoprazole Sodium 80 mg/ (Sodium Chloride) 100 mls @ 10 mls/hr IV DIRECT LIAM Last Admin: 07/29/21 17:17 Dose: 8 mg/hr, 10 mls/hr Insulin Human Lispro (Insulin Lispro 100 Unit/Ml) 0 unit SUB-Q Q6HR LIAM; Protocol Last Admin: 07/29/21 13:25 Dose: Not Given Memantine (Memantine 5 Mg Tab) 5 mg PO QDAY LIAM Last Admin: 07/29/21 13:24 Dose: 5 mg Morphine Sulfate (Morphine 2 Mg/1 Ml Inj) 2 mg IV Q5MIN PRN PRN Reason: Chest Pain unrelieved by NTG Nitroglycerin (Nitroglycerin 0.4 Mg Tab Subl) 0.4 mg SL Q5M PRN PRN Reason: Chest Pain Olanzapine (Olanzapine 5 Mg Tab) 5 mg PO HS [facility] Ondansetron HCl (Ondansetron 4 Mg/2 Ml Inj) 4 mg IV Q8H PRN PRN Reason: Nausea And Vomiting Paroxetine HCl (Paroxetine 20 Mg Tab) 40 mg PO DAILY [facility] Last Admin: 07/29/21 13:24 Dose: 40 mg Sodium Chloride (Sodium Chloride 0.9% 10 Ml Flush Syringe) 10 ml IV PRN PRN PRN Reason: LINE FLUSH Tramadol HCl (Tramadol 50 Mg Tab) 50 mg PO Q6H PRN PRN Reason: Pain, Moderate (4-6) Review of Systems ROS unobtainable: due to mental status Exam - Constitutional Vitals: Temp Pulse Resp BP Pulse Ox 98.6 F 97 H 13 165/63 96 07/29/21 07:01 07/29/21 16:34 07/29/21 16:46 07/29/21 16:31 07/29/21 16:46 General appearance: Present: no acute distress, cachectic - EENT Eyes: Present: PERRL, EOM intact - Respiratory Respiratory effort: normal Respiratory: bilateral: CTA (Anteriorly) - Cardiovascular Rhythm: regular Heart Sounds: Present: S1 & S2 - Abdominal General gastrointestinal: Present: soft, non-tender, other (Gastrostomy tube noted to be in place with normal surrounding skin. No blood noted in G-tube, and some black specks noted) - Rectal Rectal Exam: other (Dark brown stool, liquid.) Results - Labs CBC & Chem 7: 07/29/21 04:23 07/29/21 04:23 Labs: Abnormal lab results 07/28/21 07/28/21 07/28/21 Range/Units 21:49 21:49 21:49 WBC 19.8 H (4.5-11.0) K/mm3 RBC 2.96 L (3.65-5.03) M/mm3 Hgb 9.0 L (11.8-15.2) gm/dl Hct 28.9 L (35.5-45.6) % MCV 98 H (84-94) fl MCHC 31 L (32-34) % RDW 25.1 H (13.2-15.2) % Seg Neuts % (Manual) 97.0 H (40.0-70.0) % Lymphocytes % (Manual) 3.0 L (13.4-35.0) % Nucleated RBC % (0.0-0.9) % Seg Neutrophils # 19.6 H (1.8-7.7) K/mm3 Seg Neutrophils # Man 19.2 H (1.8-7.7) K/mm3 Lymphocytes # (Manual) 0.6 L (1.2-5.4) K/mm3 PT 15.3 H (12.2-14.9) Sec. APTT 23.5 L (24.2-36.6) Sec. Heparin Anti-Xa Level (0.3-0.7) U.I./ml Sodium 134 L (137-145) mmol/L Potassium 3.2 L (3.6-5.0) mmol/L Chloride 97.2 L (98-107) mmol/L Carbon Dioxide (22-30) mmol/L BUN 46 H (9-20) mg/dL Creatinine 3.8 H (0.8-1.3) mg/dL Glucose 188 H (75-100) mg/dL POC Glucose (70-105) mg/dL Lactic Acid (0.7-2.0) mmol/L Calcium 7.6 L (8.4-10.2) mg/dL ALT 6 L (7-56) units/L Troponin T 0.099 H (0.00-0.029) ng/mL NT-Pro-B Natriuret Pep (0-900) pg/mL Total Protein 6.2 L (6.3-8.2) g/dL Albumin 2.5 L (3.9-5) g/dL Lipase 96 H (13-60) units/L Crossmatch 07/28/21 07/28/21 07/29/21 Range/Units 21:49 21:49 04:23 WBC 24.9 H (4.5-11.0) K/mm3 RBC 1.95 L (3.65-5.03) M/mm3 Hgb 5.9 L* D (11.8-15.2) gm/dl Hct 19.1 L* D (35.5-45.6) % MCV 98 H (84-94) fl MCHC 31 L (32-34) % RDW 25.3 H (13.2-15.2) % Seg Neuts % (Manual) 95.0 H (40.0-70.0) % Lymphocytes % (Manual) 4.0 L (13.4-35.0) % Nucleated RBC % 1.0 H (0.0-0.9) % Seg Neutrophils # (1.8-7.7) K/mm3 Seg Neutrophils # Man 23.7 H (1.8-7.7) K/mm3 Lymphocytes # (Manual) 1.0 L (1.2-5.4) K/mm3 PT (12.2-14.9) Sec. APTT (24.2-36.6) Sec. Heparin Anti-Xa Level (0.3-0.7) U.I./ml Sodium (137-145) mmol/L Potassium (3.6-5.0) mmol/L Chloride (98-107) mmol/L Carbon Dioxide (22-30) mmol/L BUN (9-20) mg/dL Creatinine (0.8-1.3) mg/dL Glucose (75-100) mg/dL POC Glucose (70-105) mg/dL Lactic Acid 2.20 H* (0.7-2.0) mmol/L Calcium (8.4-10.2) mg/dL ALT (7-56) units/L Troponin T (0.00-0.029) ng/mL NT-Pro-B Natriuret Pep 97530 H (0-900) pg/mL Total Protein (6.3-8.2) g/dL Albumin (3.9-5) g/dL Lipase (13-60) units/L Crossmatch 07/29/21 07/29/21 07/29/21 Range/Units 04:23 05:49 05:49 WBC (4.5-11.0) K/mm3 RBC (3.65-5.03) M/mm3 Hgb (11.8-15.2) gm/dl Hct (35.5-45.6) % MCV (84-94) fl MCHC (32-34) % RDW (13.2-15.2) % Seg Neuts % (Manual) (40.0-70.0) % Lymphocytes % (Manual) (13.4-35.0) % Nucleated RBC % (0.0-0.9) % Seg Neutrophils # (1.8-7.7) K/mm3 Seg Neutrophils # Man (1.8-7.7) K/mm3 Lymphocytes # (Manual) (1.2-5.4) K/mm3 PT (12.2-14.9) Sec. APTT (24.2-36.6) Sec. Heparin Anti-Xa Level (0.3-0.7) U.I./ml Sodium 133 L (137-145) mmol/L Potassium (3.6-5.0) mmol/L Chloride (98-107) mmol/L Carbon Dioxide 20 L (22-30) mmol/L BUN 72 H (9-20) mg/dL Creatinine 4.2 H (0.8-1.3) mg/dL Glucose 168 H (75-100) mg/dL POC Glucose (70-105) mg/dL Lactic Acid (0.7-2.0) mmol/L Calcium 7.6 L (8.4-10.2) mg/dL ALT (7-56) units/L Troponin T 0.095 H (0.00-0.029) ng/mL NT-Pro-B Natriuret Pep (0-900) pg/mL Total Protein (6.3-8.2) g/dL Albumin (3.9-5) g/dL Lipase (13-60) units/L Crossmatch See Detail 07/29/21 07/29/21 Range/Units 07:39 12:41 WBC (4.5-11.0) K/mm3 RBC (3.65-5.03) M/mm3 Hgb (11.8-15.2) gm/dl Hct (35.5-45.6) % MCV (84-94) fl MCHC (32-34) % RDW (13.2-15.2) % Seg Neuts % (Manual) (40.0-70.0) % Lymphocytes % (Manual) (13.4-35.0) % Nucleated RBC % (0.0-0.9) % Seg Neutrophils # (1.8-7.7) K/mm3 Seg Neutrophils # Man (1.8-7.7) K/mm3 Lymphocytes # (Manual) (1.2-5.4) K/mm3 PT (12.2-14.9) Sec. APTT (24.2-36.6) Sec. Heparin Anti-Xa Level < 0.10 L (0.3-0.7) U.I./ml Sodium (137-145) mmol/L Potassium (3.6-5.0) mmol/L Chloride (98-107) mmol/L Carbon Dioxide (22-30) mmol/L BUN (9-20) mg/dL Creatinine (0.8-1.3) mg/dL Glucose (75-100) mg/dL POC Glucose 151 H (70-105) mg/dL Lactic Acid (0.7-2.0) mmol/L Calcium (8.4-10.2) mg/dL ALT (7-56) units/L Troponin T (0.00-0.029) ng/mL NT-Pro-B Natriuret Pep (0-900) pg/mL Total Protein (6.3-8.2) g/dL Albumin (3.9-5) g/dL Lipase (13-60) units/L Crossmatch Assessment and Plan 1. GI bleed -etiology unclear. I suspect that the drop in hemoglobin may be in part due to volume repletion. We do not know what his baseline hemoglobin is. Per , patient has had 2 recent endoscopies and a G-tube placed within the last month at [facility]. We will need to obtain those records. Meantime, I agree with stopping Plavix and aspirin. -IV PPI -Monitor hemoglobin and transfuse as needed -Treat sepsis -Review old records
[2021-07-29 20:02] LABS: Hemoglobin 9.6 gm/dl (11.8-15.2)
[2021-07-30] MEDS: INSULIN LISPRO 100 UNIT/ML SUB-Q SCH ×4 (00:52→19:52)
[2021-07-30] MEDS: PANTOPRAZOLE 80 MG in SODIUM CHLORIDE 0.9% 100 ML IV SCH (05:00)
[2021-07-30 05:34] LABS: Hematocrit 23.9 % (35.5-45.6); Hemoglobin 7.8 gm/dl (11.8-15.2); Mean Corpuscular HGB Conc 33 % (32-34); Mean Corpuscular Volume 92 fl (84-94); Platelet Count 303 K/mm3 (140-440); Red Blood Count 2.59 M/mm3 (3.65-5.03); Red Cell Distribution Width 18.8 % (13.2-15.2)
[2021-07-30 05:53] LABS: Calcium 7.4 mg/dL (8.4-10.2)
[2021-07-30 06:29] LABS: Basophils % (Manual) 0 % (0.0-1.8); Monocytes % (Manual) 0 % (0.0-7.3); Total Cells Counted 100
[2021-07-30 06:30] LABS: Anisocytosis 1+; Eosinophils % (Manual) 0 % (0.0-4.3); Hypochromasia 1+; Macrocytosis Few; Ovalocytes Few; Platelet Estimate Consistent w Auto
--- NOTE | 2021-07-30 08:50 | Progress Note ---
Assessment and Plan Assessment and plan: History of present illness: 85 years male with history of hypertension ,diabetes CVA with hypoxia and debility. End-stage renal disease on hemodialysis, GERD, vascular dementia, cerebral atherosclerosis was brought to the emergency room because of unresponsiveness with possible STEMI. Patient is baseline nonverbal. Patient was found to have O2 sat 75% on room air. Family called ambulance for altered mental status. Patient is nonverbal but patient follows, In the emergency room EKG shows STEMI. Subsequently ER doctor talked with the on-call tennis ball coverer hand Dr. Daniels, who thinks it is old infarct, we got his old EKG. EKG showed normal sinus rhythm. Recontacted tennis ball coverer hand. We are going to put the patient in IMCU, put the patient on heparin and beta-cameron aspirin Plavix Lipitor. Echocardiogram serial cardiac enzyme Dr. orellana see the patient in the morning. In the emergency room room patient is also found to have sepsis chest x-ray shows multifocal pneumonia, WBCs 19.8. We are going to put the patient on pneumonia pathway we put the patient on IV fluid neb treatment antibiotic. After initiating heparin drip patient is bleeding so we will have to hold the heparin drip aspirin Plavix. Patient hemoglobin dropped to 5.9. We are transfusing 2 unit of packed red blood cell. Consult GI and put the patient on Protonix 40 mg IV every 12 hours hospital course: 07/29: hypotensive this AM. Ordered 1L NS bolus to which patient blood prssure responded. Has been normotensive since. Antiplatelet/anticoagulants held. Held antihtn meds due to hypotension this AM. IVF+Protonix gtt currently in light of GI bleed. CTA abd/pelvis ordered. Will follow GI recommendations. 07/30: GI has no plans for endoscopy this admission. Bleeding appears to be resolved. Patient had prior endoscopy showing esophageal ulcers. No further GI bleed. H/H stable s/p 2 units prbc. D/w nephrology who plans dialysis for patient with UF. Advise RN to d/c fluids due to pulmonary congestion. Transfer to floor bed. Will order CBC for AM. Can likely be d/c in next 24-48hrs. Assessment and Plan: #Gastrointestinal hemorrhage - GI bleed source rectal, was started on heparin initially overnight due to presumed ACS/STEMI and subsequently developed GI bleed. - Hgb: 5.9 on admission, now 7.8. - all anticoauglants and antiplatelets discontinued, d/w cardiology - NS bolus + NS maintenance fluid currently. - 2 units prbc ordered, follow up repeat h/h ordered - NPO - Protonix Gtt, change to bid protonix. - serial H/H. - stat CTA abd and pelvis ordered, d/w nephrology. ok with contrast, plan for dialysis tomorrow if patient is stable. - Gastroenterology consulted, d/w Dr. Newton who will see patient. #acute hypoxic respiratory failure - likely volume overload, on 4l NC - d/c ivf - CXR ordered for AM. - fluid to be removed by dialysis. #melena - noted on rectal exam and in stool #Community acquired pneumonia - diffuse bilateral airspace disease - covid status unknown, will order RT PCR. - CXR: multifocal patchy airspace disease. appears to have RLL pneumonic process (please refer to official radiology report) - Ceftriaxone/Azithromycin IV x 5 day therapy ordered. # Sepsis -WBC: 24.9, HR: 100 -Bcx, Scx orderd on admission -Coronavirus pcr ordered - abx therapy as above #ESRD on hemodialysis - has left arm fistula. - Nephrology consulted, d/w Dr. Carlin, plan for dialysis tomorrrow. # CAD s/p PCI with stent - no symptoms of chest pain. - stent placed last year Jun 2020 for inferior wall GA - presentation initially appeared to be stemi to ED physician but cardiology determined this was an old inf wall infarct noted by QS complexes in EKG this admission. - cardiology consulted. D/w Dr Ron who does not believe this is a stemi. Ok with d/c of antiplatelet agents and anticoagulants at this time - troponin 0.09, unchanged on serial measurements. Patient is an esrd patient thus cannot be extrapolated from. - atorvastatin 80 mg qhs #history of CVA - resume home atorvastatin - atorvastatin 80 mg qhs #blood loss anemia - GI related - managmeent as above - serial H/H measurements. #Advance care planning Disease education conducted, care plan discussed, diagnoses discussed, prognosis discussed, patient is full code, patient acknowledges understanding and agree with care plan, +30 minutes. Dispo: IMCU The high probability of a clinically significant, sudden or life threatening deterioration of the [multi] system(s) required my full and direct attention, intervention and personal management. The aggregate critical care time was [60] minutes. This time is in addition to time spent performing reported procedures but includes the following: [x] Data Review and interpretation [x] Patient assessment and monitoring of vital signs [x] Documentation [x] Medication orders and management History Interval history: No complaints this AM. Hospitalist Physical - Physical exam Narrative exam: Physical Exam: VITAL SIGNS: Reviewed. GENERAL: The patient appears normally developed, Vital signs as documented. on 4l nc. HEAD: No signs of head trauma. EYES: Pupils are equal. Extraocular motions intact. EARS: Hearing grossly intact. MOUTH: Oropharynx is normal. NECK: No adenopathy, no JVD. CHEST: Chest with clear breath sounds bilaterally. No wheezes, rales, or rhonchi. CARDIAC: Regular rate and rhythm. S1 and S2, without murmurs, gallops, or rubs. VASCULAR: No Edema. Peripheral pulses normal and equal in all extremities. ABDOMEN: Soft, non tender and non distended. No rebound or guarding, and no masses palpated. Bowel Sounds normal. MUSCULOSKELETAL: Good range of motion of all major joints. Extremities without clubbing, cyanosis or edema. NEUROLOGIC EXAM: Alert and oriented x 4. no focal sensory or strength deficits. PSYCHIATRIC: Mood normal. SKIN: detail exam as documented in skin assessment - Constitutional Vitals: Temp Pulse Resp BP Pulse Ox 97.8 F 81 12 139/44 100 07/30/21 07:21 07/30/21 03:45 07/30/21 02:00 07/30/21 02:00 07/30/21 02:00 General appearance: Present: no acute distress, cachectic HEART Score - HEART Score EKG: Significant ST-depression Age: > 65 Risk factors: > 3 risk factors or hx of atherosclerotic disease Troponin: Troponin T 0.095 ng/mL (0.00-0.029) H 07/29/21 05:49 Troponin: 1-3x normal limit Results - Labs CBC & Chem 7: 07/30/21 05:13 07/30/21 05:13 Labs: Laboratory Last Values WBC 17.3 K/mm3 (4.5-11.0) H 07/30/21 05:13 RBC 2.59 M/mm3 (3.65-5.03) L 07/30/21 05:13 Hgb 7.8 gm/dl (11.8-15.2) L 07/30/21 05:13 Hct 23.9 % (35.5-45.6) L 07/30/21 05:13 MCV 92 fl (84-94) 07/30/21 05:13 MCH 30 pg (28-32) 07/30/21 05:13 MCHC 33 % (32-34) 07/30/21 05:13 RDW 18.8 % (13.2-15.2) H 07/30/21 05:13 Plt Count 303 K/mm3 (140-440) 07/30/21 05:13 [place] % (Auto) 2.0 % (0.0-7.3) 07/28/21 21:49 Eos % (Auto) 0.0 % (0.0-4.3) 07/28/21 21:49 [place] # (Auto) 0.4 K/mm3 (0.0-0.8) 07/28/21 21:49 Eos # (Auto) 0.0 K/mm3 (0.0-0.4) 07/28/21 21:49 Baso # (Auto) 0.1 K/mm3 (0.0-0.1) 07/28/21 21:49 Add Manual Diff Complete 07/30/21 05:13 Total Counted 100 07/30/21 05:13 Seg Neutrophils % Retail Operations Manager 07/30/21 05:13 Seg Neuts % (Manual) 97.0 % (40.0-70.0) H 07/30/21 05:13 Band Neutrophils % 0 % 07/30/21 05:13 Lymphocytes % (Manual) 3.0 % (13.4-35.0) L 07/30/21 05:13 Reactive Lymphs % (Man) 0 % 07/30/21 05:13 Monocytes % (Manual) 0 % (0.0-7.3) 07/30/21 05:13 Eosinophils % (Manual) 0 % (0.0-4.3) 07/30/21 05:13 Basophils % (Manual) 0 % (0.0-1.8) 07/30/21 05:13 Metamyelocytes % 0 % 07/30/21 05:13 Myelocytes % 0 % 07/30/21 05:13 Promyelocytes % 0 % 07/30/21 05:13 Blast Cells % 0 % 07/30/21 05:13 Nucleated RBC % Not Reportable 07/30/21 05:13 Seg Neutrophils # 19.6 K/mm3 (1.8-7.7) H 07/28/21 21:49 Seg Neutrophils # Man 16.8 K/mm3 (1.8-7.7) H 07/30/21 05:13 Band Neutrophils # 0.0 K/mm3 07/30/21 05:13 Lymphocytes # (Manual) 0.5 K/mm3 (1.2-5.4) L 07/30/21 05:13 Abs React Lymphs (Man) 0.0 K/mm3 07/30/21 05:13 Monocytes # (Manual) 0.0 K/mm3 (0.0-0.8) 07/30/21 05:13 Eosinophils # (Manual) 0.0 K/mm3 (0.0-0.4) 07/30/21 05:13 Basophils # (Manual) 0.0 K/mm3 (0.0-0.1) 07/30/21 05:13 Metamyelocytes # 0.0 K/mm3 07/30/21 05:13 Myelocytes # 0.0 K/mm3 07/30/21 05:13 Promyelocytes # 0.0 K/mm3 07/30/21 05:13 Blast Cells # 0.0 K/mm3 07/30/21 05:13 WBC Morphology Not Reportable 07/30/21 05:13 Hypersegmented Neuts Not Reportable 07/30/21 05:13 Hyposegmented Neuts Not Reportable 07/30/21 05:13 Hypogranular Neuts Not Reportable 07/30/21 05:13 Smudge Cells Not Reportable 07/30/21 05:13 Toxic Granulation Not Reportable 07/30/21 05:13 Toxic Vacuolation Not Reportable 07/30/21 05:13 Dohle Bodies Not Reportable 07/30/21 05:13 Pelger-Huet Anomaly Not Reportable 07/30/21 05:13 Bong Rods Not Reportable 07/30/21 05:13 Platelet Estimate Consistent w auto 07/30/21 05:13 Clumped Platelets Not Reportable 07/30/21 05:13 Plt Clumps, EDTA Not Reportable 07/30/21 05:13 Large Platelets Not Reportable 07/30/21 05:13 Giant Platelets Not Reportable 07/30/21 05:13 Platelet Satelliting Not Reportable 07/30/21 05:13 Plt Morphology Comment Not Reportable 07/30/21 05:13 RBC Morphology Not Reportable 07/30/21 05:13 Dimorphic RBCs Not Reportable 07/30/21 05:13 Polychromasia Not Reportable 07/30/21 05:13 Hypochromasia 1+ 07/30/21 05:13 Poikilocytosis Not Reportable 07/30/21 05:13 Anisocytosis 1+ 07/30/21 05:13 Microcytosis Not Reportable 07/30/21 05:13 Macrocytosis Few 07/30/21 05:13 Spherocytes Not Reportable 07/30/21 05:13 Pappenheimer Bodies Not Reportable 07/30/21 05:13 Sickle Cells Not Reportable 07/30/21 05:13 Target Cells Not Reportable 07/30/21 05:13 Tear Drop Cells Not Reportable 07/30/21 05:13 Ovalocytes Few 07/30/21 05:13 Helmet Cells Not Reportable 07/30/21 05:13 [place] Bodies Not Reportable 07/30/21 05:13 [place] Rings Not Reportable 07/30/21 05:13 [place] Cells Not Reportable 07/30/21 05:13 Bite Cells Not Reportable 07/30/21 05:13 Crenated Cell Not Reportable 07/30/21 05:13 Elliptocytes Not Reportable 07/30/21 05:13 Acanthocytes (Spur) Not Reportable 07/30/21 05:13 Rouleaux Not Reportable 07/30/21 05:13 Hemoglobin C Crystals Not Reportable 07/30/21 05:13 Schistocytes Not Reportable 07/30/21 05:13 Malaria parasites Not Reportable 07/30/21 05:13 Andrés Bodies Not Reportable 07/30/21 05:13 Hem Pathologist Commnt No 07/30/21 05:13 PT 15.3 Sec. (12.2-14.9) H 07/28/21 21:49 INR 1.09 (0.87-1.13) 07/28/21 21:49 APTT 23.5 Sec. (24.2-36.6) L 07/28/21 21:49 Heparin Anti-Xa Level < 0.10 U.I./ml (0.3-0.7) L 07/29/21 12:41 Sodium 137 mmol/L (137-145) 07/30/21 05:13 Potassium 3.4 mmol/L (3.6-5.0) L 07/30/21 05:13 Chloride 106.4 mmol/L (98-107) 07/30/21 05:13 Carbon Dioxide 17 mmol/L (22-30) L 07/30/21 05:13 Anion Gap 17 mmol/L 07/30/21 05:13 BUN 88 mg/dL (9-20) H 07/30/21 05:13 Creatinine 5.3 mg/dL (0.8-1.3) H 07/30/21 05:13 Estimated GFR 13 ml/min 07/30/21 05:13 BUN/Creatinine Ratio 17 % 07/30/21 05:13 Glucose 81 mg/dL (75-100) 07/30/21 05:13 POC Glucose 72 mg/dL (70-105) 07/30/21 05:30 Lactic Acid 1.90 mmol/L (0.7-2.0) 07/28/21 23:08 Calcium 7.4 mg/dL (8.4-10.2) L 07/30/21 05:13 Total Bilirubin 0.30 mg/dL (0.1-1.2) 07/28/21 21:49 AST 20 units/L (5-40) 07/28/21 21:49 ALT 6 units/L (7-56) L 07/28/21 21:49 Alkaline Phosphatase 89 units/L (35-129) 07/28/21 21:49 Troponin T 0.095 ng/mL (0.00-0.029) H 07/29/21 05:49 NT-Pro-B Natriuret Pep 00843 pg/mL (0-900) H 07/28/21 21:49 Total Protein 6.2 g/dL (6.3-8.2) L 07/28/21 21:49 Albumin 2.5 g/dL (3.9-5) L 07/28/21 21:49 Albumin/Globulin Ratio 0.7 % 07/28/21 21:49 Lipase 96 units/L (13-60) H 07/28/21 21:49 Blood Type AB POSITIVE 07/29/21 05:49 Antibody Screen Negative 07/29/21 05:49 Crossmatch See Detail 07/29/21 05:49 Microbiology: Microbiology 07/29/21 19:39 Peripheral/Venous Blood Culture - Preliminary Culture in Progress 07/29/21 19:39 Peripheral/Venous Blood Culture - Preliminary Culture in Progress Active Medications - Current Medications Current Medications: Generic Name Dose Route Start Last Admin Trade Name Freq PRN Reason Stop Dose Admin Acetaminophen 650 mg 07/29/21 00:47 07/29/21 23:23 Acetaminophen 325 Mg Tab PO 650 mg Q6H PRN Administration Pain, Mild (1-3) Atorvastatin Calcium 80 mg 07/29/21 22:00 07/29/21 23:23 Atorvastatin 40 Mg Tab PO 80 mg QHS LIAM Administration Dextrose 0 ml 07/29/21 01:06 Dextrose 10% *Hypoglycemia IV DIRECT PRN Hypoglycemia Protocol Sodium Chloride 1,000 mls @ 100 mls/hr 07/29/21 01:00 07/29/21 08:00 Nacl 0.9% 1000 Ml IV 100 mls/hr DIRECT LIAM Administration Ceftriaxone Sodium 2 gm in 100 mls @ 200 mls/hr 07/29/21 10:00 07/29/21 11:32 Rocephin/Ns 2 Gm/100 Ml IV 200 mls/hr Q24HR LIAM Administration Protocol Azithromycin 500 mg in 250 mls @ 250 mls/hr 07/29/21 01:00 07/29/21 11:32 Zithromax/Ns IV 250 mls/hr Q24HR LIAM Administration Protocol Pantoprazole Sodium 80 mg/ 100 mls @ 10 mls/hr 07/29/21 06:00 07/30/21 05:00 Sodium Chloride IV 8 mg/hr DIRECT LIAM 10 mls/hr Administration 8 MG/HR Potassium Chloride 10 meq in 100 mls @ 100 mls/hr 07/30/21 09:00 Kcl 10meq/100ml IV 07/30/21 12:59 Q1H LIAM Insulin Human Lispro 0 unit 07/29/21 06:00 07/30/21 06:33 Insulin Lispro 100 Unit/Ml SUB-Q Not Given Q6HR LIAM Protocol Memantine 5 mg 07/29/21 10:00 07/29/21 13:24 Memantine 5 Mg Tab PO 5 mg QDAY LIAM Administration Morphine Sulfate 2 mg 07/29/21 00:47 Morphine 2 Mg/1 Ml Inj IV Q5MIN PRN Chest Pain unrelieved by NTG Nitroglycerin 0.4 mg 07/29/21 00:47 Nitroglycerin 0.4 Mg Tab Subl SL Q5M PRN Chest Pain Olanzapine 5 mg 07/29/21 22:00 07/29/21 23:23 Olanzapine 5 Mg Tab PO 5 mg HS LIAM Administration Ondansetron HCl 4 mg 07/29/21 05:46 Ondansetron 4 Mg/2 Ml Inj IV Q8H PRN Nausea And Vomiting Paroxetine HCl 40 mg 07/29/21 10:00 07/29/21 13:24 Paroxetine 20 Mg Tab PO 40 mg DAILY LIAM Administration Sodium Chloride 10 ml 07/29/21 00:47 Sodium Chloride 0.9% 10 Ml Flush Syringe IV PRN PRN LINE FLUSH Tramadol HCl 50 mg 07/29/21 00:47 Tramadol 50 Mg Tab PO Q6H PRN Pain, Moderate (4-6) Nutrition/Malnutrition Assess - Dietary Evaluation Nutrition/Malnutrition Findings: Nutrition Notes Start: 07/29/21 15:44 Freq: Status: Active Protocol: Document 07/29/21 15:44 CHUY (Rec: 07/29/21 15:53 CHUY [id number]) Nutrition Notes Need for Assessment generated from: MD Order,Education Initial or Follow up Brief Note Current Diagnosis CKD (stage V CKD),Coronary Artery Disease,Diabetes,Sepsis ,Hypertension,Stroke Other Pertinent Diagnosis GI bleed, ESRD+HD, CAP, Anemia , Dementia, GERD, GA. Current Diet NPO (From 07/30 00:01). Height 5 ft 4 in Weight 58.967 kg [place] Body Weight (kg) 59.09 BMI 22.3 Weight change and time frame None reported at admission. Weight Status Appropriate Subjective/Other Information RD consult for Nutrition Education. Pt currently on NPO. Pt still on ED, not a candidate for Nutrition Education at the time, will assess feasibility on F/U. Percent of energy/protein needs met: Pt currently on NPO. Nutrition Intervention Follow-Up By: 08/05/21 Additional Comments Nutrition education will be provided on F/U, if feasible. When pertinent, monitor food tolerance, %PO intake of meals , and BM.
[2021-07-30] MEDS ORDERED: POTASSIUM CHLORIDE 10 MEQ 10 MEQ/100 ML BAG IV SCH (09:00)
[2021-07-30] MEDS ORDERED: HEPARIN 10,000 UNITS/10 ML VIAL IV PRN (10:05)
[2021-07-30] MEDS ORDERED: SODIUM CHLORIDE 0.9% 100 ML IV PRN (10:05)
--- NOTE | 2021-07-30 10:05 | Progress Note ---
Assessment and Plan 1. ESRD: Patient is on maintenance hemodialysis three times a week, MWF schedule. Hemodialysis: 07/30. 2. FEN: Hyperkalemia, replete K. Monitor lytes and volume status. 3. Acute blood loss Anemia: 2/2 GI bleed. S/p PRBC. Epogen on dialysis days. Monitor. 4. GI bleed: Rectal bleed in the setting of anticoauglants and antiplatelets, now discontinued. Protonix. Monitor H/H. Followed by GI. 5. Sepsis / Community acquired pneumonia, pOA: CXR showed diffuse bilateral airspace disease. Covid status unknown, test ordered. Ceftriaxone/Azithromycin. 6. H/o CAD s/p PCI with stent: No symptoms of chest pain. Stent placed last year Jun [address] 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 Followed by Cards. Atorvastatin. 7. H/o CVA with residual aphasia. 8. DM type: Monitor bl. glucose. Subjective: Patient seen and examined at the bedside. Examination: General appearance: well-developed, appears stated age, not in distress HEENT: atraumatic, dried blood in the face Neck: trachea midline Respiratory: Clear to Auscultation Heart: regular, S1S2, no murmur Abdomen: soft, normoactive bowel sounds, not tender, not distended Integumentary: no obvious rash Neurologic: able to move extremities, aphasic Ext: no edema Hemodialysis access: L FA AVF Subjective Date of service: 07/30/21 Objective - Vital Signs Vital signs: Vital Signs - 12hr 07/29/21 07/29/21 07/29/21 22:15 23:00 23:23 Temperature 98.5 F Pulse Rate 88 Pulse Rate [ From Monitor] Respiratory 13 15 Rate Blood Pressure O2 Sat by Pulse 100 Oximetry 07/29/21 07/30/21 07/30/21 23:30 00:00 00:02 Temperature 98.2 F Pulse Rate 86 92 H 87 Pulse Rate [ From Monitor] Respiratory 13 12 Rate Blood Pressure 97/43 O2 Sat by Pulse 100 100 Oximetry 07/30/21 07/30/21 07/30/21 00:30 01:00 01:30 Temperature Pulse Rate 83 81 82 Pulse Rate [ From Monitor] Respiratory 12 11 L 13 Rate Blood Pressure 118/38 118/38 139/44 O2 Sat by Pulse 100 100 100 Oximetry 07/30/21 07/30/21 07/30/21 02:00 03:45 04:00 Temperature 97.2 F L Pulse Rate 85 81 Pulse Rate [ 85 From Monitor] Respiratory 12 Rate Blood Pressure 139/44 O2 Sat by Pulse 100 Oximetry 07/30/21 07:21 Temperature 97.8 F Pulse Rate Pulse Rate [ From Monitor] Respiratory Rate Blood Pressure O2 Sat by Pulse Oximetry - Lab 07/31/21 07:00 07/31/21 07:00 Most recent lab results Calcium 7.4 mg/dL (8.4-10.2) L 07/30/21 05:13 Medications & Allergies - Medications Allergies/Adverse Reactions: Allergies No Known Allergies Allergy (Unverified 06/23/20 11:35) Home Medications: Home Medications Medication Instructions Recorded Confirmed Last Taken Type Aspirin [Aspirin BABY CHEW TAB] 81 mg PO QDAY 06/23/20 07/30/21 07/28/21 14:00 History Clopidogrel [Plavix] 1 tab PO DAILY 06/23/20 07/30/21 07/28/21 14:00 History Finasteride 1 tab PO DAILY 06/23/20 07/30/21 07/28/21 14:00 History Memantine 5 mg PO QDAY 06/23/20 07/30/21 07/28/21 14:00 History OLANZapine [Zyprexa] 1 tab PO HS 06/23/20 07/30/21 07/28/21 14:00 History PARoxetine HCL [PARoxetine] 1 tab PO DAILY 06/23/20 07/30/21 07/28/21 14:00 History amLODIPine 1 tab PO DAILY 06/23/20 07/30/21 07/28/21 14:00 History AtorvaSTATin [Lipitor] 80 mg PO QHS #60 tablet 06/29/20 07/30/21 07/28/21 14:00 Rx Dextrose/Maltodextrin [Glucose 1 each PO DAILY #30 powd.pack 06/29/20 07/30/21 07/28/21 14:00 Rx Powder Packets] Lactose-Reduced Food [Ensure 237 ml PO DAILY #30 liquid 06/29/20 07/30/21 07/28/21 14:00 Rx Liquid] Metoprolol [Lopressor TAB] 25 mg PO BID #60 tablet 06/29/20 07/30/21 07/28/21 14:00 Rx Pantoprazole [Protonix TAB] 40 mg PO BIDAC #60 tablet 06/29/20 07/30/21 07/28/21 14:00 Rx Active Medications: Generic Name Dose Route Start Last Admin Trade Name Freq PRN Reason Stop Dose Admin Acetaminophen 650 mg 07/29/21 00:47 07/29/21 23:23 Acetaminophen 325 Mg Tab PO 650 mg Q6H PRN Administration Pain, Mild (1-3) Atorvastatin Calcium 80 mg 07/29/21 22:00 07/29/21 23:23 Atorvastatin 40 Mg Tab PO 80 mg QHS LIAM Administration Dextrose 0 ml 07/29/21 01:06 Dextrose 10% *Hypoglycemia IV DIRECT PRN Hypoglycemia Protocol Sodium Chloride 1,000 mls @ 100 mls/hr 07/29/21 01:00 07/29/21 08:00 Nacl 0.9% 1000 Ml IV 100 mls/hr DIRECT LIAM Administration Ceftriaxone Sodium 2 gm in 100 mls @ 200 mls/hr 07/29/21 10:00 07/29/21 11:32 Rocephin/Ns 2 Gm/100 Ml IV 200 mls/hr Q24HR LIAM Administration Protocol Azithromycin 500 mg in 250 mls @ 250 mls/hr 07/29/21 01:00 07/29/21 11:32 Zithromax/Ns IV 250 mls/hr Q24HR LIAM Administration Protocol Pantoprazole Sodium 80 mg/ 100 mls @ 10 mls/hr 07/29/21 06:00 07/30/21 05:00 Sodium Chloride IV 8 mg/hr DIRECT LIAM 10 mls/hr Administration 8 MG/HR Potassium Chloride 10 meq in 100 mls @ 100 mls/hr 07/30/21 09:00 Kcl 10meq/100ml IV 07/30/21 12:59 Q1H LIAM Insulin Human Lispro 0 unit 07/29/21 06:00 07/30/21 06:33 Insulin Lispro 100 Unit/Ml SUB-Q Not Given Q6HR LIAM Protocol Memantine 5 mg 07/29/21 10:00 07/29/21 13:24 Memantine 5 Mg Tab PO 5 mg QDAY LIAM Administration Morphine Sulfate 2 mg 07/29/21 00:47 Morphine 2 Mg/1 Ml Inj IV Q5MIN PRN Chest Pain unrelieved by NTG Nitroglycerin 0.4 mg 07/29/21 00:47 Nitroglycerin 0.4 Mg Tab Subl SL Q5M PRN Chest Pain Olanzapine 5 mg 07/29/21 22:00 07/29/21 23:23 Olanzapine 5 Mg Tab PO 5 mg HS LIAM Administration Ondansetron HCl 4 mg 07/29/21 05:46 Ondansetron 4 Mg/2 Ml Inj IV Q8H PRN Nausea And Vomiting Paroxetine HCl 40 mg 07/29/21 10:00 07/29/21 13:24 Paroxetine 20 Mg Tab PO 40 mg DAILY LIAM Administration Sodium Chloride 10 ml 07/29/21 00:47 Sodium Chloride 0.9% 10 Ml Flush Syringe IV PRN PRN LINE FLUSH Tramadol HCl 50 mg 07/29/21 00:47 Tramadol 50 Mg Tab PO Q6H PRN Pain, Moderate (4-6)
[2021-07-30] MEDS: cefTRIAXone/NS 2 GM/100 ML 2 GM/100 ML BAG IV SCH (10:10)
[2021-07-30] MEDS: AZITHROMYCIN/NS 500 MG/250 ML 500 MG/250 ML BAG IV SCH (10:10)
[2021-07-30] MEDS ORDERED: POTASSIUM CHLORIDE 20 MEQ PACKET PO SCH (10:30)
[2021-07-30] MEDS: DEXTROSE 10% *Hypoglycemia IV PRN (11:46)
--- NOTE | 2021-07-30 11:48 | Electrocardiograph Report ---
[facility] Test Date: 2021-07-30 Test Time: 07:53:34 Pat Name: Fara [place] Department: Room: A264 1 Gender: M Central Office Associate: JEFF : 1935 Requested By: MARIAM TOLEDO Order Number: [id number] Reading MD: Mehran Castrejon Measurements Intervals [place] Rate: 95 P: 94 LA: 186 QRS: 46 QRSD: 102 T: 117 QT: 442 QTc: 556 Interpretive Statements Sinus rhythm Ventricular premature complex Prolonged QT interval Compared to ECG 07/28/2021 20:22:46 Prolonged QT interval now present Sinus tachycardia no longer present Myocardial infarct finding no longer present Electronically Signed On 07-30-2021 10:54:37 EST by Mehran Castrejon
[2021-07-30 16:33] LABS: Hepatitis B Surface Antigen Non-Reactive (Negative); Hepatitis C Virus Antibody Non-Reactive (NonReactive)
--- NOTE | 2021-07-30 16:58 | Progress Note ---
Assessment and Plan - Patient Problems (1) Coronary artery disease Current Visit: Yes Status: Acute Plan to address problem: Patient presented with fever, leukocytosis and a right lower lobe pneumonia chest x-ray. 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 Current ECG is not consistent with an acute STEMI, instead represents residual changes from his old inferior infarct. We will stop heparin therapy, and hold aspirin and Plavix until his anemia is stabilized and full evaluation of possible GI bleed is completed. Continue other guideline directed therapy for his coronary artery disease. Subjective Date of service: 07/30/21 Principal diagnosis: Pneumonia, sepsis Interval history: Patient appears lethargic, but is breathing comfortably no acute respiratory distress. No new cardiac events reported. Objective Vital Signs Temp Pulse Pulse Resp BP BP Pulse Ox 07/30/21 16:31 97.6 F 07/30/21 14:00 86 17 100 07/30/21 11:45 97.5 F L 07/30/21 10:00 85 83 18 98 07/30/21 07:21 97.8 F 07/30/21 04:00 97.2 F L 07/30/21 03:45 81 07/30/21 02:00 85 85 12 139/44 100 07/30/21 01:30 82 13 139/44 100 07/30/21 01:00 81 11 L 118/38 100 07/30/21 00:30 83 12 118/38 100 07/30/21 00:02 87 12 100 07/30/21 00:00 98.2 F 92 H 07/29/21 23:30 86 13 97/43 100 07/29/21 23:23 15 07/29/21 23:00 88 13 100 07/29/21 22:15 98.5 F 07/29/21 22:00 104 H 29 H 168/71 98 07/29/21 21:00 92 H 15 162/76 07/29/21 20:00 96 H 14 151/47 97 07/29/21 19:20 98.2 F 95 H 13 145/61 100 07/29/21 19:00 96 H 14 126/61 93 07/29/21 18:16 97 H 14 134/71 96 07/29/21 18:00 96 H 13 149/72 97 07/29/21 17:45 97 H 12 128/74 98 07/29/21 17:30 95 H 13 120/66 96 07/29/21 17:15 95 H 13 121/69 97 07/29/21 17:00 95 H 14 123/66 96 - Physical Examination General: Cachectic, Other (Chronically ill-appearing) HEENT: Positive: PERRL Neck: Positive: neck supple Cardiac: Positive: Reg Rate and Rhythm Lungs: Positive: Decreased Breath Sounds Neuro: Positive: Weakness (Generalized lethargy) Abdomen: Positive: Soft Skin: Positive: Clear Extremities: Absent: edema - Labs and Meds CBC 07/29/21 07/30/21 Range/Units 19:39 05:13 WBC 17.3 H (4.5-11.0) K/mm3 RBC 2.59 L (3.65-5.03) M/mm3 Hgb 9.6 L D 7.8 L (11.8-15.2) gm/dl Hct 29.0 L D 23.9 L (35.5-45.6) % Plt Count 303 (140-440) K/mm3 Comprehensive Metabolic Panel 07/30/21 Range/Units 05:13 Sodium 137 (137-145) mmol/L Potassium 3.4 L (3.6-5.0) mmol/L Chloride 106.4 (98-107) mmol/L Carbon Dioxide 17 L (22-30) mmol/L BUN 88 H (9-20) mg/dL Creatinine 5.3 H (0.8-1.3) mg/dL Glucose 81 (75-100) mg/dL Calcium 7.4 L (8.4-10.2) mg/dL
[2021-07-30] MEDS: MEMANTINE 5 MG TAB PO SCH (17:00)
[2021-07-30] MEDS: PARoxetine 20 MG TAB PO SCH (17:00)
[2021-07-30] MEDS ORDERED: MIDODRINE 5 MG TAB FEEDTUBE SCH (17:00)
[2021-07-30] MEDS: EPOETIN ALFA-EPBX 20,000 UNIT/1 ML VIAL SUB-Q PRN (18:45)
--- NOTE | 2021-07-30 21:19 | Progress Note ---
Assessment and Plan 1. GI bleed -etiology unclear. I suspect that the drop in hemoglobin may be in part due to volume repletion. Pt had Hgb = 7.2 on 07/18, at discharge from [facility]. On 07/10, IR placed a G-tube for malnutrition. On 07/15/21, he had an EGD showing ulcerative distal esophagitis, and a 4 cm HH. Hgb today 7.8, after transfusion yesterday. No clear ongoing bleed, with no blood in G-tube. -IV PPI -Monitor hemoglobin and transfuse as needed -Treat sepsis Subjective Date of service: 07/30/21 Principal diagnosis: Pneumonia, sepsis Interval history: No complaints of abd pain, N/V. Pt reportedly had dark stool overnight. Objective - Constitutional Vitals: Vital Signs - 12hr 07/30/21 07/30/21 07/30/21 10:00 11:45 14:00 Temperature 97.5 F L Pulse Rate 85 Pulse Rate [ 83 86 From Monitor] Respiratory 18 17 Rate Blood Pressure O2 Sat by Pulse 98 100 Oximetry O2 Sat by Pulse Oximetry [ Bilateral Throughout] 07/30/21 07/30/21 07/30/21 16:31 16:40 16:45 Temperature 97.6 F Pulse Rate 92 H 94 H Pulse Rate [ From Monitor] Respiratory Rate Blood Pressure 111/74 115/64 O2 Sat by Pulse Oximetry O2 Sat by Pulse Oximetry [ Bilateral Throughout] 07/30/21 07/30/21 07/30/21 17:00 17:04 17:05 Temperature Pulse Rate 97 H 95 H Pulse Rate [ 84 From Monitor] Respiratory 20 18 Rate Blood Pressure 116/60 100/64 O2 Sat by Pulse 100 Oximetry O2 Sat by Pulse 95 Oximetry [ Bilateral Throughout] 07/30/21 07/30/21 07/30/21 17:15 17:30 17:45 Temperature Pulse Rate 98 H 96 H 100 H Pulse Rate [ From Monitor] Respiratory Rate Blood Pressure 126/53 119/32 127/64 O2 Sat by Pulse Oximetry O2 Sat by Pulse Oximetry [ Bilateral Throughout] 07/30/21 07/30/21 07/30/21 18:00 18:15 18:30 Temperature Pulse Rate 103 H 100 H 96 H Pulse Rate [ From Monitor] Respiratory Rate Blood Pressure 120/57 113/63 109/74 O2 Sat by Pulse Oximetry O2 Sat by Pulse Oximetry [ Bilateral Throughout] 07/30/21 07/30/21 07/30/21 18:45 19:00 19:15 Temperature Pulse Rate 93 H 102 H 97 H Pulse Rate [ From Monitor] Respiratory Rate Blood Pressure 112/66 109/60 124/64 O2 Sat by Pulse Oximetry O2 Sat by Pulse Oximetry [ Bilateral Throughout] 07/30/21 07/30/21 07/30/21 19:30 19:40 19:55 Temperature 98.2 F Pulse Rate 98 H 86 98 H Pulse Rate [ From Monitor] Respiratory 21 Rate Blood Pressure 120/62 126/40 110/61 O2 Sat by Pulse Oximetry O2 Sat by Pulse 93 Oximetry [ Bilateral Throughout] 07/30/21 20:00 Temperature 97.4 F L Pulse Rate Pulse Rate [ From Monitor] Respiratory Rate Blood Pressure O2 Sat by Pulse Oximetry O2 Sat by Pulse Oximetry [ Bilateral Throughout] General appearance: Present: no acute distress, cachectic - EENT Eyes: PERRL, EOM intact - Gastrointestinal General gastrointestinal: Present: soft, non-tender, other (Gtube in place) - Labs CBC & Chem 7: 07/30/21 05:13 07/30/21 05:13 Labs: Abnormal lab results 07/30/21 07/30/21 07/30/21 Range/Units 05:13 05:13 11:25 WBC 17.3 H (4.5-11.0) K/mm3 RBC 2.59 L (3.65-5.03) M/mm3 Hgb 7.8 L (11.8-15.2) gm/dl Hct 23.9 L (35.5-45.6) % RDW 18.8 H (13.2-15.2) % Seg Neuts % (Manual) 97.0 H (40.0-70.0) % Lymphocytes % (Manual) 3.0 L (13.4-35.0) % Seg Neutrophils # Man 16.8 H (1.8-7.7) K/mm3 Lymphocytes # (Manual) 0.5 L (1.2-5.4) K/mm3 Potassium 3.4 L (3.6-5.0) mmol/L Carbon Dioxide 17 L (22-30) mmol/L BUN 88 H (9-20) mg/dL Creatinine 5.3 H (0.8-1.3) mg/dL POC Glucose 61 L (70-105) mg/dL Calcium 7.4 L (8.4-10.2) mg/dL 07/30/21 Range/Units 16:06 WBC (4.5-11.0) K/mm3 RBC (3.65-5.03) M/mm3 Hgb (11.8-15.2) gm/dl Hct (35.5-45.6) % RDW (13.2-15.2) % Seg Neuts % (Manual) (40.0-70.0) % Lymphocytes % (Manual) (13.4-35.0) % Seg Neutrophils # Man (1.8-7.7) K/mm3 Lymphocytes # (Manual) (1.2-5.4) K/mm3 Potassium (3.6-5.0) mmol/L Carbon Dioxide (22-30) mmol/L BUN (9-20) mg/dL Creatinine (0.8-1.3) mg/dL POC Glucose 68 L (70-105) mg/dL Calcium (8.4-10.2) mg/dL Medications & Allergies - Medications Allergies/Adverse Reactions: Allergies No Known Allergies Allergy (Unverified 06/23/20 11:35) Home Medications: Home Medications Medication Instructions Recorded Confirmed Last Taken Type Aspirin [Aspirin BABY CHEW TAB] 81 mg PO QDAY 06/23/20 07/30/21 07/28/21 14:00 History Clopidogrel [Plavix] 1 tab PO DAILY 06/23/20 07/30/21 07/28/21 14:00 History Finasteride 1 tab PO DAILY 06/23/20 07/30/21 07/28/21 14:00 History Memantine 5 mg PO QDAY 06/23/20 07/30/21 07/28/21 14:00 History OLANZapine [Zyprexa] 1 tab PO HS 06/23/20 07/30/21 07/28/21 14:00 History PARoxetine HCL [PARoxetine] 1 tab PO DAILY 06/23/20 07/30/21 07/28/21 14:00 History amLODIPine 1 tab PO DAILY 06/23/20 07/30/21 07/28/21 14:00 History AtorvaSTATin [Lipitor] 80 mg PO QHS #60 tablet 06/29/20 07/30/21 07/28/21 14:00 Rx Dextrose/Maltodextrin [Glucose 1 each PO DAILY #30 powd.pack 06/29/20 07/30/21 07/28/21 14:00 Rx Powder Packets] Lactose-Reduced Food [Ensure 237 ml PO DAILY #30 liquid 06/29/20 07/30/21 14:00 Rx Liquid] Metoprolol [Lopressor TAB] 25 mg PO BID #60 tablet 06/29/20 07/30/21 07/28/21 14:00 Rx Pantoprazole [Protonix TAB] 40 mg PO BIDAC #60 tablet 06/29/20 07/30/21 07/28/21 14:00 Rx Active Medications: Generic Name Dose Route Start Last Admin Trade Name Freq PRN Reason Stop Dose Admin Acetaminophen 650 mg 07/29/21 00:47 07/29/21 23:23 Acetaminophen 325 Mg Tab PO 650 mg Q6H PRN Administration Pain, Mild (1-3) Atorvastatin Calcium 80 mg 07/29/21 22:00 07/29/21 23:23 Atorvastatin 40 Mg Tab PO 80 mg QHS LIAM Administration Dextrose 0 ml 07/29/21 01:06 07/30/21 11:46 Dextrose 10% *Hypoglycemia IV 15 ml DIRECT PRN Administration Hypoglycemia Protocol Epoetin Nicolas-[id number] 20,000 unit 07/30/21 10:05 07/30/21 18:45 Epoetin Nicolas-Epbx 20,000 Unit/1 Ml Vial SUB-Q 20,000 unit ADRIENNE PRN Administration hemodialysis Heparin Sodium (Porcine) 3,000 unit 07/30/21 10:05 Heparin 10,000 Units/10 Ml Vial IV ADRIENNE PRN hemodialysis Ceftriaxone Sodium 2 gm in 100 mls @ 200 mls/hr 07/29/21 10:00 07/30/21 10:10 Rocephin/Ns 2 Gm/100 Ml IV 200 mls/hr Q24HR LIAM Administration Protocol Azithromycin 500 mg in 250 mls @ 250 mls/hr 07/29/21 01:00 07/30/21 10:10 Zithromax/Ns IV 250 mls/hr Q24HR LIAM Administration Protocol Sodium Chloride 100 mls @ 999 mls/hr 07/30/21 10:05 Nacl 0.9% IV ADRIENNE PRN Hypotension Insulin Human Lispro 0 unit 07/29/21 06:00 07/30/21 19:52 Insulin Lispro 100 Unit/Ml SUB-Q Not Given Q6HR [facility] Protocol Memantine 5 mg 07/29/21 10:00 07/30/21 17:00 Memantine 5 Mg Tab PO 5 mg QDAY LIAM Administration Morphine Sulfate 2 mg 07/29/21 00:47 Morphine 2 Mg/1 Ml Inj IV Q5MIN PRN Chest Pain unrelieved by NTG Nitroglycerin 0.4 mg 07/29/21 00:47 Nitroglycerin 0.4 Mg Tab Subl SL Q5M PRN Chest Pain Olanzapine 5 mg 07/29/21 22:00 07/29/21 23:23 Olanzapine 5 Mg Tab PO 5 mg HS [facility] Administration Ondansetron HCl 4 mg 07/29/21 05:46 Ondansetron 4 Mg/2 Ml Inj IV Q8H PRN Nausea And Vomiting Pantoprazole Sodium 40 mg 07/30/21 22:00 Pantoprazole 40 Mg Inj IV BID [facility] Paroxetine HCl 40 mg 07/29/21 10:00 07/30/21 17:00 Paroxetine 20 Mg Tab PO 40 mg DAILY LIAM Administration Sodium Chloride 10 ml 07/29/21 00:47 Sodium Chloride 0.9% 10 Ml Flush Syringe IV PRN PRN LINE FLUSH Tramadol HCl 50 mg 07/29/21 00:47 Tramadol 50 Mg Tab PO Q6H PRN Pain, Moderate (4-6) HEART Score - HEART Score EKG: Significant ST-depression Age: > 65 Risk factors: > 3 risk factors or hx of atherosclerotic disease Troponin: Troponin T 0.095 ng/mL (0.00-0.029) H 07/29/21 05:49 Troponin: 1-3x normal limit
[2021-07-30] MEDS: PANTOPRAZOLE 40 MG INJ IV SCH (22:29)
[2021-07-31] MEDS: DEXTROSE 10% *Hypoglycemia IV PRN (02:05)
[2021-07-31] MEDS: INSULIN LISPRO 100 UNIT/ML SUB-Q SCH ×3 (02:09→11:50)
[2021-07-31 07:34] LABS: Calcium 7.5 mg/dL (8.4-10.2)
--- NOTE | 2021-07-31 07:34 | Progress Note ---
Assessment and Plan Assessment and plan: History of present illness: 85 years male with history of hypertension ,diabetes CVA with hypoxia and debility. End-stage renal disease on hemodialysis, GERD, vascular dementia, cerebral atherosclerosis was brought to the emergency room because of unresponsiveness with possible STEMI. Patient is baseline nonverbal. Patient was found to have O2 sat 75% on room air. Family called ambulance for altered mental status. Patient is nonverbal but patient follows, In the emergency room EKG shows STEMI. Subsequently ER doctor talked with the on-call hand rounder Dr. Daniels, who thinks it is old infarct, we got his old EKG. EKG showed normal sinus rhythm. Recontacted hand rounder. We are going to put the patient in IMCU, put the patient on heparin and beta-cameron aspirin Plavix Lipitor. Echocardiogram serial cardiac enzyme Dr. orellana see the patient in the morning. In the emergency room room patient is also found to have sepsis chest x-ray shows multifocal pneumonia, WBCs 19.8. We are going to put the patient on pneumonia pathway we put the patient on IV fluid neb treatment antibiotic. After initiating heparin drip patient is bleeding so we will have to hold the heparin drip aspirin Plavix. Patient hemoglobin dropped to 5.9. We are transfusing 2 unit of packed red blood cell. Consult GI and put the patient on Protonix 40 mg IV every 12 hours hospital course: 07/29: hypotensive this AM. Ordered 1L NS bolus to which patient blood prssure responded. Has been normotensive since. Antiplatelet/anticoagulants held. Held antihtn meds due to hypotension this AM. IVF+Protonix gtt currently in light of GI bleed. CTA abd/pelvis ordered. Will follow GI recommendations. 07/30: GI has no plans for endoscopy this admission. Bleeding appears to be resolved. Patient had prior endoscopy showing esophageal ulcers. No further GI bleed. H/H stable s/p 2 units prbc. D/w nephrology who plans dialysis for patient with UF. Advise RN to d/c fluids due to pulmonary congestion. Transfer to floor bed. Will order CBC for AM. Can likely be d/c in next 24-48hrs. 07/31: HD yesterday. S/p removal of fluid. Home O2 eval ordered. Optimization of pulmonary function prior to dc. Transfer to floor. CXR demonstrates extensive pneumonia. Will order CT Chest to further characterize. Assessment and Plan: #Gastrointestinal hemorrhage - GI bleed source rectal, was started on heparin initially overnight due to presumed ACS/STEMI and subsequently developed GI bleed. - Hgb: 5.9 on admission, now 7.8. - all anticoauglants and antiplatelets discontinued, d/w cardiology - NS bolus + NS maintenance fluid currently. - 2 units prbc ordered, follow up repeat h/h ordered - NPO - Protonix Gtt, change to bid protonix. - serial H/H. - stat CTA abd and pelvis ordered, d/w nephrology. ok with contrast, plan for dialysis tomorrow if patient is stable. - Gastroenterology consulted, d/w Dr. Newton who will see patient. #acute hypoxic respiratory failure - likely volume overload and pneumonia, on 4l NC - d/c ivf - CXR demonstrates extensive pneumonia - fluid to be removed by dialysis. - CT Chest ordered #melena - noted on rectal exam and in stool #Community acquired pneumonia - diffuse bilateral airspace disease - covid status unknown, will order RT PCR. - CXR: multifocal patchy airspace disease. appears to have RLL pneumonic process (please refer to official radiology report) - Ceftriaxone/Azithromycin IV x 5 day therapy ordered. - CT Chest ordered. # Sepsis -WBC: 24.9, HR: 100 -Bcx, Scx orderd on admission -Coronavirus pcr ordered - abx therapy as above #ESRD on hemodialysis - has left arm fistula. - Nephrology consulted, d/w Dr. Carlin, plan for dialysis tomorrrow. # CAD s/p PCI with stent - no symptoms of chest pain. 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 - cardiology consulted. D/w Dr Ron who does not believe this is a stemi. Ok with d/c of antiplatelet agents and anticoagulants at this time - troponin 0.09, unchanged on serial measurements. Patient is an esrd patient thus cannot be extrapolated from. - atorvastatin 80 mg qhs #history of CVA - resume home atorvastatin - atorvastatin 80 mg qhs #blood loss anemia - GI related - managmeent as above - serial H/H measurements. #Advance care planning Disease education conducted, care plan discussed, diagnoses discussed, prognosis discussed, patient is full code, patient acknowledges understanding and agree with care plan, +30 minutes. Dispo: IMCU The high probability of a clinically significant, sudden or life threatening deterioration of the [multi] system(s) required my full and direct attention, intervention and personal management. The aggregate critical care time was [60] minutes. This time is in addition to time spent performing reported procedures but includes the following: [x] Data Review and interpretation [x] Patient assessment and monitoring of vital signs [x] Documentation [x] Medication orders and management Hospitalist Physical - Physical exam Narrative exam: Physical Exam: VITAL SIGNS: Reviewed. GENERAL: The patient appears normally developed, Vital signs as documented. on 4l nc. HEAD: No signs of head trauma. EYES: Pupils are equal. Extraocular motions intact. EARS: Hearing grossly intact. MOUTH: Oropharynx is normal. NECK: No adenopathy, no JVD. CHEST: Chest with clear breath sounds bilaterally. No wheezes, rales, or rhonchi. CARDIAC: Regular rate and rhythm. S1 and S2, without murmurs, gallops, or rubs. VASCULAR: No Edema. Peripheral pulses normal and equal in all extremities. ABDOMEN: Soft, non tender and non distended. No rebound or guarding, and no masses palpated. Bowel Sounds normal. MUSCULOSKELETAL: Good range of motion of all major joints. Extremities without clubbing, cyanosis or edema. NEUROLOGIC EXAM: Alert and oriented x 4. no focal sensory or strength deficits. PSYCHIATRIC: Mood normal. SKIN: detail exam as documented in skin assessment - Constitutional Vitals: Temp Pulse Resp BP Pulse Ox 98.2 F 89 15 112/40 95 07/31/21 07:18 07/31/21 06:00 07/31/21 06:00 07/31/21 06:00 07/31/21 06:00 General appearance: Present: no acute distress, cachectic HEART Score - HEART Score EKG: Significant ST-depression Age: > 65 Risk factors: > 3 risk factors or hx of atherosclerotic disease Troponin: Troponin T 0.095 ng/mL (0.00-0.029) H 07/29/21 05:49 Troponin: 1-3x normal limit Results - Labs CBC & Chem 7: 07/31/21 07:00 07/31/21 07:00 Labs: Laboratory Last Values WBC 17.3 K/mm3 (4.5-11.0) H 07/30/21 05:13 RBC 2.59 M/mm3 (3.65-5.03) L 07/30/21 05:13 Hgb 7.8 gm/dl (11.8-15.2) L 07/30/21 05:13 Hct 23.9 % (35.5-45.6) L 07/30/21 05:13 MCV 92 fl (84-94) 07/30/21 05:13 MCH 30 pg (28-32) 07/30/21 05:13 MCHC 33 % (32-34) 07/30/21 05:13 RDW 18.8 % (13.2-15.2) H 07/30/21 05:13 Plt Count 303 K/mm3 (140-440) 07/30/21 05:13 [place] % (Auto) 2.0 % (0.0-7.3) 07/28/21 21:49 Eos % (Auto) 0.0 % (0.0-4.3) 07/28/21 21:49 [place] # (Auto) 0.4 K/mm3 (0.0-0.8) 07/28/21 21:49 Eos # (Auto) 0.0 K/mm3 (0.0-0.4) 07/28/21 21:49 Baso # (Auto) 0.1 K/mm3 (0.0-0.1) 07/28/21 21:49 Add Manual Diff Complete 07/30/21 05:13 Total Counted 100 07/30/21 05:13 Seg Neutrophils % Stone Carriage Operator 07/30/21 05:13 Seg Neuts % (Manual) 97.0 % (40.0-70.0) H 07/30/21 05:13 Band Neutrophils % 0 % 07/30/21 05:13 Lymphocytes % (Manual) 3.0 % (13.4-35.0) L 07/30/21 05:13 Reactive Lymphs % (Man) 0 % 07/30/21 05:13 Monocytes % (Manual) 0 % (0.0-7.3) 07/30/21 05:13 Eosinophils % (Manual) 0 % (0.0-4.3) 07/30/21 05:13 Basophils % (Manual) 0 % (0.0-1.8) 07/30/21 05:13 Metamyelocytes % 0 % 07/30/21 05:13 Myelocytes % 0 % 07/30/21 05:13 Promyelocytes % 0 % 07/30/21 05:13 Blast Cells % 0 % 07/30/21 05:13 Nucleated RBC % Not Reportable 07/30/21 05:13 Seg Neutrophils # 19.6 K/mm3 (1.8-7.7) H 07/28/21 21:49 Seg Neutrophils # Man 16.8 K/mm3 (1.8-7.7) H 07/30/21 05:13 Band Neutrophils # 0.0 K/mm3 07/30/21 05:13 Lymphocytes # (Manual) 0.5 K/mm3 (1.2-5.4) L 07/30/21 05:13 Abs React Lymphs (Man) 0.0 K/mm3 07/30/21 05:13 Monocytes # (Manual) 0.0 K/mm3 (0.0-0.8) 07/30/21 05:13 Eosinophils # (Manual) 0.0 K/mm3 (0.0-0.4) 07/30/21 05:13 Basophils # (Manual) 0.0 K/mm3 (0.0-0.1) 07/30/21 05:13 Metamyelocytes # 0.0 K/mm3 07/30/21 05:13 Myelocytes # 0.0 K/mm3 07/30/21 05:13 Promyelocytes # 0.0 K/mm3 07/30/21 05:13 Blast Cells # 0.0 K/mm3 07/30/21 05:13 WBC Morphology Not Reportable 07/30/21 05:13 Hypersegmented Neuts Not Reportable 07/30/21 05:13 Hyposegmented Neuts Not Reportable 07/30/21 05:13 Hypogranular Neuts Not Reportable 07/30/21 05:13 Smudge Cells Not Reportable 07/30/21 05:13 Toxic Granulation Not Reportable 07/30/21 05:13 Toxic Vacuolation Not Reportable 07/30/21 05:13 Dohle Bodies Not Reportable 07/30/21 05:13 Pelger-Huet Anomaly Not Reportable 07/30/21 05:13 Bong Rods Not Reportable 07/30/21 05:13 Platelet Estimate Consistent w auto 07/30/21 05:13 Clumped Platelets Not Reportable 07/30/21 05:13 Plt Clumps, EDTA Not Reportable 07/30/21 05:13 Large Platelets Not Reportable 07/30/21 05:13 Giant Platelets Not Reportable 07/30/21 05:13 Platelet Satelliting Not Reportable 07/30/21 05:13 Plt Morphology Comment Not Reportable 07/30/21 05:13 RBC Morphology Not Reportable 07/30/21 05:13 Dimorphic RBCs Not Reportable 07/30/21 05:13 Polychromasia Not Reportable 07/30/21 05:13 Hypochromasia 1+ 07/30/21 05:13 Poikilocytosis Not Reportable 07/30/21 05:13 Anisocytosis 1+ 07/30/21 05:13 Microcytosis Not Reportable 07/30/21 05:13 Macrocytosis Few 07/30/21 05:13 Spherocytes Not Reportable 07/30/21 05:13 Pappenheimer Bodies Not Reportable 07/30/21 05:13 Sickle Cells Not Reportable 07/30/21 05:13 Target Cells Not Reportable 07/30/21 05:13 Tear Drop Cells Not Reportable 07/30/21 05:13 Ovalocytes Few 07/30/21 05:13 Helmet Cells Not Reportable 07/30/21 05:13 Rivas-Rodeo Bodies Not Reportable 07/30/21 05:13 Butler Rings Not Reportable 07/30/21 05:13 Grady Cells Not Reportable 07/30/21 05:13 Bite Cells Not Reportable 07/30/21 05:13 Crenated Cell Not Reportable 07/30/21 05:13 Elliptocytes Not Reportable 07/30/21 05:13 Acanthocytes (Spur) Not Reportable 07/30/21 05:13 Rouleaux Not Reportable 07/30/21 05:13 Hemoglobin C Crystals Not Reportable 07/30/21 05:13 Schistocytes Not Reportable 07/30/21 05:13 Malaria parasites Not Reportable 07/30/21 05:13 Andrés Bodies Not Reportable 07/30/21 05:13 Hem Pathologist Commnt No 07/30/21 05:13 PT 15.3 Sec. (12.2-14.9) H 07/28/21 21:49 INR 1.09 (0.87-1.13) 07/28/21 21:49 APTT 23.5 Sec. (24.2-36.6) L 07/28/21 21:49 Heparin Anti-Xa Level < 0.10 U.I./ml (0.3-0.7) L 07/29/21 12:41 Sodium 137 mmol/L (137-145) 07/30/21 05:13 Potassium 3.4 mmol/L (3.6-5.0) L 07/30/21 05:13 Chloride 106.4 mmol/L (98-107) 07/30/21 05:13 Carbon Dioxide 17 mmol/L (22-30) L 07/30/21 05:13 Anion Gap 17 mmol/L 07/30/21 05:13 BUN 88 mg/dL (9-20) H 07/30/21 05:13 Creatinine 5.3 mg/dL (0.8-1.3) H 07/30/21 05:13 Estimated GFR 13 ml/min 07/30/21 05:13 BUN/Creatinine Ratio 17 % 07/30/21 05:13 Glucose 81 mg/dL (75-100) 07/30/21 05:13 POC Glucose 106 mg/dL (70-105) H 07/31/21 05:57 Lactic Acid 1.90 mmol/L (0.7-2.0) 07/28/21 23:08 Calcium 7.4 mg/dL (8.4-10.2) L 07/30/21 05:13 Total Bilirubin 0.30 mg/dL (0.1-1.2) 07/28/21 21:49 AST 20 units/L (5-40) 07/28/21 21:49 ALT 6 units/L (7-56) L 07/28/21 21:49 Alkaline Phosphatase 89 units/L (35-129) 07/28/21 21:49 Troponin T 0.095 ng/mL (0.00-0.029) H 07/29/21 05:49 NT-Pro-B Natriuret Pep 64775 pg/mL (0-900) H 07/28/21 21:49 Total Protein 6.2 g/dL (6.3-8.2) L 07/28/21 21:49 Albumin 2.5 g/dL (3.9-5) L 07/28/21 21:49 Albumin/Globulin Ratio 0.7 % 07/28/21 21:49 Lipase 96 units/L (13-60) H 07/28/21 21:49 Nasal Screen MRSA (PCR) Negative (Negative) 07/30/21 06:15 Coronavirus (PCR) Negative (Negative) 07/30/21 08:34 Hepatitis A IgM Ab Non-reactive (NonReactive) 07/30/21 09:22 Hep Bs Antigen Non-reactive (Negative) 07/30/21 09:22 Hep B Core IgM Ab Non-reactive (NonReactive) 07/30/21 09:22 Hepatitis C Antibody Non-reactive (NonReactive) 07/30/21 09:22 Blood Type AB POSITIVE 07/29/21 05:49 Antibody Screen Negative 07/29/21 05:49 Crossmatch See Detail 07/29/21 05:49 Microbiology: Microbiology 07/29/21 19:39 Peripheral/Venous Blood Culture - Preliminary NO GROWTH AFTER 24 HOURS 07/29/21 19:39 Peripheral/Venous Blood Culture - Preliminary NO GROWTH AFTER 24 HOURS Active Medications - Current Medications Current Medications: Generic Name Dose Route Start Last Admin Trade Name Freq PRN Reason Stop Dose Admin Acetaminophen 650 mg 07/29/21 00:47 07/29/21 23:23 Acetaminophen 325 Mg Tab PO 650 mg Q6H PRN Administration Pain, Mild (1-3) Atorvastatin Calcium 80 mg 07/29/21 22:00 07/30/21 22:29 Atorvastatin 40 Mg Tab PO 80 mg QHS LIAM Administration Dextrose 0 ml 07/29/21 01:06 07/31/21 02:05 Dextrose 10% *Hypoglycemia IV 75 ml DIRECT PRN Administration Hypoglycemia Protocol Epoetin Nicolas-epbx 20,000 unit 07/30/21 10:05 07/30/21 18:45 Epoetin Nicolas-Epbx 20,000 Unit/1 Ml Vial SUB-Q 20,000 unit ADRIENNE PRN Administration hemodialysis Heparin Sodium (Porcine) 3,000 unit 07/30/21 10:05 Heparin 10,000 Units/10 Ml Vial IV ADRIENNE PRN hemodialysis Ceftriaxone Sodium 2 gm in 100 mls @ 200 mls/hr 07/29/21 10:00 07/30/21 10:10 Rocephin/Ns 2 Gm/100 Ml IV 200 mls/hr Q24HR LIAM Administration Protocol Azithromycin 500 mg in 250 mls @ 250 mls/hr 07/29/21 01:00 07/30/21 10:10 Zithromax/Ns IV 250 mls/hr Q24HR LIAM Administration Protocol Sodium Chloride 100 mls @ 999 mls/hr 07/30/21 10:05 Nacl 0.9% IV ADRIENNE PRN Hypotension Insulin Human Lispro 0 unit 07/29/21 06:00 07/31/21 06:25 Insulin Lispro 100 Unit/Ml SUB-Q Not Given Q6HR [facility] Protocol Memantine 5 mg 07/29/21 10:00 07/30/21 17:00 Memantine 5 Mg Tab PO 5 mg QDAY LIAM Administration Morphine Sulfate 2 mg 07/29/21 00:47 Morphine 2 Mg/1 Ml Inj IV Q5MIN PRN Chest Pain unrelieved by NTG Nitroglycerin 0.4 mg 07/29/21 00:47 Nitroglycerin 0.4 Mg Tab Subl SL Q5M PRN Chest Pain Olanzapine 5 mg 07/29/21 22:00 07/30/21 22:55 Olanzapine 5 Mg Tab PO 5 mg HS LIAM Administration Ondansetron HCl 4 mg 07/29/21 05:46 Ondansetron 4 Mg/2 Ml Inj IV Q8H PRN Nausea And Vomiting Pantoprazole Sodium 40 mg 07/30/21 22:00 07/30/21 22:29 Pantoprazole 40 Mg Inj IV 40 mg BID LIAM Administration Paroxetine HCl 40 mg 07/29/21 10:00 07/30/21 17:00 Paroxetine 20 Mg Tab PO 40 mg DAILY LIAM Administration Sodium Chloride 10 ml 07/29/21 00:47 Sodium Chloride 0.9% 10 Ml Flush Syringe IV PRN PRN LINE FLUSH Tramadol HCl 50 mg 07/29/21 00:47 Tramadol 50 Mg Tab PO Q6H PRN Pain, Moderate (4-6) Nutrition/Malnutrition Assess - Dietary Evaluation Nutrition/Malnutrition Findings: Nutrition Notes Start: 07/29/21 15:44 Freq: Status: Active Protocol: Document 07/30/21 17:22 CHUY (Rec: 07/30/21 17:47 CHUY [email or web address]) Nutrition Notes Initial or Follow up Assessment Current Diagnosis CKD (stage V CKD),Coronary Artery Disease,Diabetes,Sepsis ,Hypertension,Stroke Other Pertinent Diagnosis GI bleed, ESRD+HD, CAP, Anemia , Dementia, GERD, MA. Current Diet Clear Liquids Diet (since D ). Labs/Tests 07/30: K 3.4, CO2 17, BUN 88, Crea 5.3, Ca 7.4. Pertinent Medications 07/30: Nutritionally unremarkable. Height 5 ft 4 in Weight 58.967 kg Sullivan Body Weight (kg) 59.09 BMI 22.3 Weight change and time frame No body weight change reported in 1 day. Subjective/Other Information RD consult for risk of malnutrition assessment. No report available on Pt's PO intake of meals at the time. Pt presents swallow difficulty , Diarrhea, and GI bleed, according to Physical Assessment history notes. No DISPLAY MANAGER screen, nor bedside test for Swallowing Difficulty at the time reporterd; will revise at F/U. In Orders, there is an incomplete order for TF registered by the MD, but not consulted with RD. I will be revising it at F/U. Percent of energy/protein needs met: Prescribed Clear Liquids Diet provides for energy/protein needs (590 Kcal/16 g) during LOS Burn Absent Trauma Absent GI Symptoms Diarrhea,Other Difficulty In Swallowing Food Allergy No Skin Integrity/Comment Assessment WNL. #1 Nutrition Diagnosis No nutrition diagnosis at this time Is patient on ventilator? No Is Patient Ambulatory and/or Out of Bed No REE-([facility]-confined to bed) 1442.064 Calculation Used for Recommendations [facility] Additional Notes Protein: >1.2 g/Kg; >71 g/day. Fluids: 1 ml/Kcal, or as per MD. Nutrition Intervention Follow-Up By: 08/01/21 Additional Comments Continue monitoring food tolerance, %PO intake of meals , and BM.
[2021-07-31 07:41] LABS: Basophils # (Auto) 0.1 K/mm3 (0.0-0.1); Eosinophils # (Auto) 0.2 K/mm3 (0.0-0.4); Eosinophils % (Auto) 1.6 % (0.0-4.3); Monocytes # (Auto) 0.7 K/mm3 (0.0-0.8); Monocytes % (Auto) 4.6 % (0.0-7.3)
[2021-07-31 07:46] LABS: Hematocrit 23.5 % (35.5-45.6); Hemoglobin 7.8 gm/dl (11.8-15.2); Lymphocytes % (Auto) 5.6 % (13.4-35.0); Mean Corpuscular HGB Conc 33 % (32-34); Mean Corpuscular Volume 91 fl (84-94); Platelet Count 335 K/mm3 (140-440); Red Blood Count 2.58 M/mm3 (3.65-5.03); Red Cell Distribution Width 18.8 % (13.2-15.2)
[2021-07-31 07:47] LABS: Basophils % (Auto) 0.4 % (0.0-1.8); Lymphocytes # (Auto) 0.8 K/mm3 (1.2-5.4)
[2021-07-31] MEDS ORDERED: POTASSIUM CHLORIDE 20 MEQ PACKET PO SCH (08:30)
--- NOTE | 2021-07-31 08:58 | XRay Report ---
CHEST 1 VIEW INDICATION: interstitial edema. COMPARISON: 3 days prior FINDINGS: Support devices: None. Heart: Stable. Lungs/Pleura: There are extensive bilateral airspace opacities, significantly worsened. No pneumothor ax. IMPRESSION: 1. Extensive bilateral airspace disease. Signer Name: Markell Obando MD Signed: 07/31/2021 8:53 AM Workstation Name: [id number]
[2021-07-31] MEDS: cefTRIAXone/NS 2 GM/100 ML 2 GM/100 ML BAG IV SCH (10:34)
[2021-07-31] MEDS: AZITHROMYCIN/NS 500 MG/250 ML 500 MG/250 ML BAG IV SCH (10:34)
[2021-07-31] MEDS: MEMANTINE 5 MG TAB PO SCH (10:35)
[2021-07-31] MEDS: PARoxetine 20 MG TAB PO SCH (10:35)
[2021-07-31] MEDS: PANTOPRAZOLE 40 MG INJ IV SCH ×2 (10:35→21:15)
--- NOTE | 2021-07-31 11:07 | Progress Note ---
Assessment and Plan - Patient Problems (1) Coronary artery disease Current Visit: Yes Status: Acute Plan to address problem: Patient presented with fever, leukocytosis and a right lower lobe pneumonia chest x-ray. 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 Current ECG is not consistent with an acute STEMI, instead represents residual changes from his old inferior infarct. Antiplatelet therapy on hold for severe anemia. Continue other guideline directed therapy for his coronary artery disease. Subjective Date of service: 07/31/21 Principal diagnosis: Pneumonia, sepsis Interval history: Patient appears lethargic, but is breathing comfortably no acute respiratory distress. No new cardiac events reported. Objective Vital Signs Temp Pulse Pulse Resp BP Pulse Ox Pulse Ox 07/31/21 07:18 98.2 F 07/31/21 06:00 96 H 89 15 112/40 95 07/31/21 05:31 98 H 18 104/44 96 07/31/21 05:00 103 H 19 106/34 93 07/31/21 04:31 94 H 18 96/33 98 07/31/21 04:01 97 H 18 119/47 95 07/31/21 04:00 97.6 F 07/31/21 03:31 93 H 18 119/47 97 07/31/21 03:00 97 H 17 119/47 96 07/31/21 02:31 96 H 17 102/33 97 07/31/21 02:01 99 H 18 107/45 100 07/31/21 02:00 94 H 16 98 07/31/21 01:31 97 H 17 107/45 99 07/31/21 01:01 98 H 18 107/45 92 07/31/21 00:31 99 H 19 100/35 97 07/31/21 00:00 97.8 F 99 H 19 113/55 07/30/21 23:30 98 H 18 122/45 99 07/30/21 23:00 95 H 19 115/49 100 07/30/21 22:30 98 H 19 121/53 97 07/30/21 22:00 109 H 92 H 24 77/47 92 07/30/21 21:45 94 07/30/21 21:30 100 H 18 101/39 07/30/21 21:00 101 H 18 87/38 96 07/30/21 20:30 99 H 19 115/45 96 07/30/21 20:00 97.4 F L 101 H 22 110/61 83 L 07/30/21 19:55 98.2 F 98 H 21 110/61 93 07/30/21 19:40 86 126/40 07/30/21 19:30 96 H 22 120/62 81 L 07/30/21 19:15 97 H 124/64 07/30/21 19:00 97 H 22 112/66 07/30/21 18:45 93 H 112/66 07/30/21 18:30 96 H 21 113/63 96 07/30/21 18:15 100 H 113/63 07/30/21 18:00 104 H 26 H 127/64 77 L 07/30/21 17:45 100 H 127/64 07/30/21 17:30 97 H 20 126/53 98 07/30/21 17:15 98 H 126/53 07/30/21 17:05 84 18 100 07/30/21 17:04 95 H 20 100/64 95 07/30/21 17:00 97 H 22 116/60 07/30/21 16:45 94 H 115/64 07/30/21 16:40 92 H 111/74 07/30/21 16:31 97.6 F 07/30/21 16:30 95 H 18 105/67 94 07/30/21 16:00 101 H 18 120/52 53 L 07/30/21 15:30 91 H 17 120/52 96 07/30/21 15:00 97 H 21 120/52 97 07/30/21 14:30 97 H 21 124/54 98 07/30/21 14:00 100 H 86 23 118/48 89 07/30/21 13:30 91 H 19 118/48 95 07/30/21 13:00 98 H 20 123/80 96 07/30/21 12:30 94 H 20 123/80 95 07/30/21 12:00 94 H 17 123/80 90 07/30/21 11:45 97.5 F L 07/30/21 11:30 88 13 116/40 85 - Physical Examination General: Cachectic, Other (Chronically ill-appearing) HEENT: Positive: PERRL Neck: Positive: neck supple Cardiac: Positive: Reg Rate and Rhythm Lungs: Positive: Decreased Breath Sounds Neuro: Positive: Weakness (Generalized lethargy) Abdomen: Positive: Soft Skin: Positive: Clear Extremities: Absent: edema - Labs and Meds CBC 07/31/21 Range/Units 07:00 WBC 14.9 H (4.5-11.0) K/mm3 RBC 2.58 L (3.65-5.03) M/mm3 Hgb 7.8 L (11.8-15.2) gm/dl Hct 23.5 L (35.5-45.6) % Plt Count 335 (140-440) K/mm3 Lymph # (Auto) 0.8 L (1.2-5.4) K/mm3 [place] # (Auto) 0.7 (0.0-0.8) K/mm3 Eos # (Auto) 0.2 (0.0-0.4) K/mm3 Baso # (Auto) 0.1 (0.0-0.1) K/mm3 Comprehensive Metabolic Panel 07/31/21 Range/Units 07:00 Sodium 136 L (137-145) mmol/L Potassium 3.1 L (3.6-5.0) mmol/L Chloride 100.8 (98-107) mmol/L Carbon Dioxide 24 D (22-30) mmol/L BUN 35 H (9-20) mg/dL Creatinine 3.0 H (0.8-1.3) mg/dL Glucose 130 H (75-100) mg/dL Calcium 7.5 L (8.4-10.2) mg/dL
--- NOTE | 2021-07-31 11:54 | Consultation ---
History of Present Illness Consult date: 07/31/21 Requesting physician: STEPHANIA MENDOZA Reason for consult: hypoxemia, abnormal CXR/CT History of present illness: 85 y/o male found to have acute change in CXR and worsening respiratory failure. Pulmonary consulted to help with this. Past History Past Medical History: diabetes, ESRD, GERD, hypertension, renal failure, stroke, other (Dementia) Past Surgical History: PTCA, bowel surgery (Ruptured appendectomy with temporary colostomy approximately 1999), Other (G-tube placementin June 2020 per ) Medications and Allergies Allergies Allergy/AdvReac Type Severity Reaction Status Date / Time No Known Allergies Allergy Unverified 06/23/20 11:35 Home Medications Medication Instructions Recorded Confirmed Last Taken Type Aspirin [Aspirin BABY CHEW TAB] 81 mg PO QDAY 06/23/20 07/30/21 07/28/21 14:00 History Clopidogrel [Plavix] 1 tab PO DAILY 06/23/20 07/30/21 07/28/21 14:00 History Finasteride 1 tab PO DAILY 06/23/20 07/30/21 07/28/21 14:00 History Memantine 5 mg PO QDAY 06/23/20 07/30/21 07/28/21 14:00 History OLANZapine [Zyprexa] 1 tab PO HS 06/23/20 07/30/21 07/28/21 14:00 History PARoxetine HCL [PARoxetine] 1 tab PO DAILY 06/23/20 07/30/21 07/28/21 14:00 History amLODIPine 1 tab PO DAILY 06/23/20 07/30/21 07/28/21 14:00 History AtorvaSTATin [Lipitor] 80 mg PO QHS #60 tablet 06/29/20 07/30/21 07/28/21 14:00 Rx Dextrose/Maltodextrin [Glucose 1 each PO DAILY #30 powd.pack 06/29/20 07/30/21 07/28/21 14:00 Rx Powder Packets] Lactose-Reduced Food [Ensure 237 ml PO DAILY #30 liquid 06/29/20 07/30/21 07/28/21 14:00 Rx Liquid] Metoprolol [Lopressor TAB] 25 mg PO BID #60 tablet 06/29/20 07/30/21 07/28/21 14:00 Rx Pantoprazole [Protonix TAB] 40 mg PO BIDAC #60 tablet 06/29/20 07/30/21 07/28/21 14:00 Rx Active Meds: Active Medications Acetaminophen (Acetaminophen 325 Mg Tab) 650 mg PO Q6H PRN PRN Reason: Pain, Mild (1-3) Last Admin: 07/29/21 23:23 Dose: 650 mg Atorvastatin Calcium (Atorvastatin 40 Mg Tab) 80 mg PO QHS LIAM Last Admin: 07/30/21 22:29 Dose: 80 mg Dextrose (Dextrose 10% *Hypoglycemia) 0 ml IV DIRECT PRN; Protocol PRN Reason: Hypoglycemia Last Admin: 07/31/21 02:05 Dose: 75 ml Epoetin Nicolas-epbx (Epoetin Nicolas-Epbx 20,000 Unit/1 Ml Vial) 20,000 unit SUB-Q ADRIENNE PRN PRN Reason: hemodialysis Last Admin: 07/30/21 18:45 Dose: 20,000 unit Heparin Sodium (Porcine) (Heparin 10,000 Units/10 Ml Vial) 3,000 unit IV ADRIENNE PRN PRN Reason: hemodialysis Ceftriaxone Sodium (Rocephin/Ns 2 Gm/100 Ml) 2 gm in 100 mls @ 200 mls/hr IV Q24HR LIAM; Protocol Last Admin: 07/31/21 10:34 Dose: 200 mls/hr Azithromycin (Zithromax/Ns) 500 mg in 250 mls @ 250 mls/hr IV Q24HR LIAM; Protocol Last Admin: 07/31/21 10:34 Dose: 250 mls/hr Sodium Chloride (Nacl 0.9%) 100 mls @ 999 mls/hr IV ADRIENNE PRN PRN Reason: Hypotension Insulin Human Lispro (Insulin Lispro 100 Unit/Ml) 0 unit SUB-Q Q6HR LIAM; Protocol Last Admin: 07/31/21 11:50 Dose: Not Given Memantine (Memantine 5 Mg Tab) 5 mg PO QDAY LIAM Last Admin: 07/31/21 10:35 Dose: 5 mg Morphine Sulfate (Morphine 2 Mg/1 Ml Inj) 2 mg IV Q5MIN PRN PRN Reason: Chest Pain unrelieved by NTG Nitroglycerin (Nitroglycerin 0.4 Mg Tab Subl) 0.4 mg SL Q5M PRN PRN Reason: Chest Pain Olanzapine (Olanzapine 5 Mg Tab) 5 mg PO HS [facility] Last Admin: 07/30/21 22:55 Dose: 5 mg Ondansetron HCl (Ondansetron 4 Mg/2 Ml Inj) 4 mg IV Q8H PRN PRN Reason: Nausea And Vomiting Pantoprazole Sodium (Pantoprazole 40 Mg Inj) 40 mg IV BID [facility] Last Admin: 07/31/21 10:35 Dose: 40 mg Paroxetine HCl (Paroxetine 20 Mg Tab) 40 mg PO DAILY [facility] Last Admin: 07/31/21 10:35 Dose: 40 mg Potassium Chloride (Potassium Chloride 20 Meq Packet) 40 meq PO ONCE@0830 [facility] Stop: 07/31/21 13:00 Last Admin: 07/31/21 10:35 Dose: 40 meq Sodium Chloride (Sodium Chloride 0.9% 10 Ml Flush Syringe) 10 ml IV PRN PRN PRN Reason: LINE FLUSH Tramadol HCl (Tramadol 50 Mg Tab) 50 mg PO Q6H PRN PRN Reason: Pain, Moderate (4-6) Physical Examination Vital signs: Vital Signs Temp Pulse Resp BP Pulse Ox 97.6 F 95 H 16 120/61 96 07/28/21 21:30 07/28/21 21:30 07/28/21 21:30 07/28/21 21:30 07/28/21 21:30 Effort: mildly labored Ascultation: Bilateral: rales Results - Laboratory Findings CBC and BMP: 07/31/21 07:00 08/01/21 04:33 PT/INR, D-dimer PT 15.3 Sec. (12.2-14.9) H 07/28/21 21:49 INR 1.09 (0.87-1.13) 07/28/21 21:49 Abnormal lab findings: Abnormal Labs 07/28/21 07/28/21 07/28/21 21:49 21:49 21:49 WBC 19.8 H RBC 2.96 L Hgb 9.0 L Hct 28.9 L MCV 98 H MCHC 31 L RDW 25.1 H Lymph % (Auto) Lymph # (Auto) Seg Neutrophils % Seg Neuts % (Manual) 97.0 H Lymphocytes % (Manual) 3.0 L Nucleated RBC % Seg Neutrophils # 19.6 H Seg Neutrophils # Man 19.2 H Lymphocytes # (Manual) 0.6 L PT 15.3 H APTT 23.5 L Heparin Anti-Xa Level Sodium 134 L Potassium 3.2 L Chloride 97.2 L Carbon Dioxide BUN 46 H Creatinine 3.8 H Glucose 188 H POC Glucose Lactic Acid Calcium 7.6 L ALT 6 L Troponin T 0.099 H NT-Pro-B Natriuret Pep Total Protein 6.2 L Albumin 2.5 L Lipase 96 H Crossmatch 07/28/21 07/28/21 07/29/21 21:49 21:49 04:23 WBC 24.9 H RBC 1.95 L Hgb 5.9 L* D Hct 19.1 L* D MCV 98 H MCHC 31 L RDW 25.3 H Lymph % (Auto) Lymph # (Auto) Seg Neutrophils % Seg Neuts % (Manual) 95.0 H Lymphocytes % (Manual) 4.0 L Nucleated RBC % 1.0 H Seg Neutrophils # Seg Neutrophils # Man 23.7 H Lymphocytes # (Manual) 1.0 L PT APTT Heparin Anti-Xa Level Sodium Potassium Chloride Carbon Dioxide BUN Creatinine Glucose POC Glucose Lactic Acid 2.20 H* Calcium ALT Troponin T NT-Pro-B Natriuret Pep 77667 H Total Protein Albumin Lipase Crossmatch 07/29/21 07/29/21 07/29/21 04:23 05:49 05:49 WBC RBC Hgb Hct MCV MCHC RDW Lymph % (Auto) Lymph # (Auto) Seg Neutrophils % Seg Neuts % (Manual) Lymphocytes % (Manual) Nucleated RBC % Seg Neutrophils # Seg Neutrophils # Man Lymphocytes # (Manual) PT APTT Heparin Anti-Xa Level Sodium 133 L Potassium Chloride Carbon Dioxide 20 L BUN 72 H Creatinine 4.2 H Glucose 168 H POC Glucose Lactic Acid Calcium 7.6 L ALT Troponin T 0.095 H NT-Pro-B Natriuret Pep Total Protein Albumin Lipase Crossmatch See Detail 07/29/21 07/29/21 07/29/21 07:39 12:41 19:39 WBC RBC Hgb 9.6 L D Hct 29.0 L D MCV MCHC RDW Lymph % (Auto) Lymph # (Auto) Seg Neutrophils % Seg Neuts % (Manual) Lymphocytes % (Manual) Nucleated RBC % Seg Neutrophils # Seg Neutrophils # Man Lymphocytes # (Manual) PT APTT Heparin Anti-Xa Level < 0.10 L Sodium Potassium Chloride Carbon Dioxide BUN Creatinine Glucose POC Glucose 151 H Lactic Acid Calcium ALT Troponin T NT-Pro-B Natriuret Pep Total Protein Albumin Lipase Crossmatch 07/30/21 07/30/21 07/30/21 05:13 05:13 11:25 WBC 17.3 H RBC 2.59 L Hgb 7.8 L Hct 23.9 L MCV MCHC RDW 18.8 H Lymph % (Auto) Lymph # (Auto) Seg Neutrophils % Seg Neuts % (Manual) 97.0 H Lymphocytes % (Manual) 3.0 L Nucleated RBC % Seg Neutrophils # Seg Neutrophils # Man 16.8 H Lymphocytes # (Manual) 0.5 L PT APTT Heparin Anti-Xa Level Sodium Potassium 3.4 L Chloride Carbon Dioxide 17 L BUN 88 H Creatinine 5.3 H Glucose POC Glucose 61 L Lactic Acid Calcium 7.4 L ALT Troponin T NT-Pro-B Natriuret Pep Total Protein Albumin Lipase Crossmatch 07/30/21 07/31/21 07/31/21 16:06 01:49 05:57 WBC RBC Hgb Hct MCV MCHC RDW Lymph % (Auto) Lymph # (Auto) Seg Neutrophils % Seg Neuts % (Manual) Lymphocytes % (Manual) Nucleated RBC % Seg Neutrophils # Seg Neutrophils # Man Lymphocytes # (Manual) PT APTT Heparin Anti-Xa Level Sodium Potassium Chloride Carbon Dioxide BUN Creatinine Glucose POC Glucose 68 L 68 L 106 H Lactic Acid Calcium ALT Troponin T NT-Pro-B Natriuret Pep Total Protein Albumin Lipase Crossmatch 07/31/21 07/31/21 07/31/21 07:00 07:00 11:09 WBC 14.9 H RBC 2.58 L Hgb 7.8 L Hct 23.5 L MCV MCHC RDW 18.8 H Lymph % (Auto) 5.6 L Lymph # (Auto) 0.8 L Seg Neutrophils % 87.8 H Seg Neuts % (Manual) Lymphocytes % (Manual) Nucleated RBC % Seg Neutrophils # 13.1 H Seg Neutrophils # Man Lymphocytes # (Manual) PT APTT Heparin Anti-Xa Level Sodium 136 L Potassium 3.1 L Chloride Carbon Dioxide BUN 35 H Creatinine 3.0 H Glucose 130 H POC Glucose 134 H Lactic Acid Calcium 7.5 L ALT Troponin T NT-Pro-B Natriuret Pep Total Protein Albumin Lipase Crossmatch - Diagnostic Findings Chest x-ray: image reviewed (bilateral ground glass changes with some evidence of consolidation in the bases. CXR was not like this on admission.) Assessment and Plan 85 y/o male with acute respiratory failure and acute change in CXR while in house Aspiration vs pulmonary edema vs both. Continue dialysis and volume removal as tolerated. would not be opposed to abx therapy but if this is true aspiration pneumonitis, will resolve on its own and not necessarily a bacterial infection as oppose to injury from acid. Continue to wean FiO2 as tolerated.
--- NOTE | 2021-07-31 12:51 | Progress Note ---
Assessment and Plan 1. ESRD: Patient is on maintenance hemodialysis three times a week, MWF schedule. Hemodialysis: 07/30. 2. FEN: Hyperkalemia, replete K. Monitor lytes and volume status. 3. Acute blood loss Anemia: 2/2 GI bleed. S/p PRBC. Epogen on dialysis days. Monitor. 4. GI bleed: Rectal bleed in the setting of anticoauglants and antiplatelets, now discontinued. Protonix. Monitor H/H. Followed by GI. 5. Sepsis / Community acquired pneumonia, pOA: CXR showed diffuse bilateral airspace disease. Covid status unknown, test ordered. Ceftriaxone/Azithromycin. 6. H/o CAD s/p PCI with stent: No symptoms of chest pain. Stent placed last year Jun 2020 for inferior wall OR. 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 Followed by Cards. Atorvastatin. 7. H/o CVA with residual aphasia. 8. DM type: Monitor bl. glucose. Subjective: Patient seen and examined at the bedside. Examination: General appearance: well-developed, appears stated age, not in distress HEENT: atraumatic, dried blood in the face Neck: trachea midline Respiratory: Clear to Auscultation Heart: regular, S1S2, no murmur Abdomen: soft, normoactive bowel sounds, not tender, not distended Integumentary: no obvious rash Neurologic: able to move extremities, aphasic Ext: no edema Hemodialysis access: L FA AVF Subjective Date of service: 07/31/21 Principal diagnosis: Pneumonia, sepsis Objective - Vital Signs Vital signs: Vital Signs - 12hr 07/31/21 07/31/21 07/31/21 01:01 01:31 02:00 Temperature Pulse Rate 98 H 97 H Pulse Rate [ 94 H From Monitor] Respiratory 18 17 16 Rate Blood Pressure 107/45 107/45 O2 Sat by Pulse 92 99 98 Oximetry 07/31/21 07/31/21 07/31/21 02:01 02:31 03:00 Temperature Pulse Rate 99 H 96 H 97 H Pulse Rate [ From Monitor] Respiratory 18 17 17 Rate Blood Pressure 107/45 102/33 119/47 O2 Sat by Pulse 100 97 96 Oximetry 07/31/21 07/31/21 07/31/21 03:31 04:00 04:01 Temperature 97.6 F Pulse Rate 93 H 97 H Pulse Rate [ From Monitor] Respiratory 18 18 Rate Blood Pressure 119/47 119/47 O2 Sat by Pulse 97 95 Oximetry 07/31/21 07/31/21 07/31/21 04:31 05:00 05:31 Temperature Pulse Rate 94 H 103 H 98 H Pulse Rate [ From Monitor] Respiratory 18 19 18 Rate Blood Pressure 96/33 106/34 104/44 O2 Sat by Pulse 98 93 96 Oximetry 07/31/21 07/31/21 07/31/21 06:00 06:31 07:00 Temperature Pulse Rate 96 H 99 H 97 H Pulse Rate [ 89 From Monitor] Respiratory 15 20 18 Rate Blood Pressure 112/40 112/40 107/78 O2 Sat by Pulse 95 92 96 Oximetry 07/31/21 07/31/21 07/31/21 07:18 07:31 08:00 Temperature 98.2 F Pulse Rate 108 H 96 H Pulse Rate [ From Monitor] Respiratory 18 17 Rate Blood Pressure 107/78 104/42 O2 Sat by Pulse 97 95 Oximetry 07/31/21 07/31/21 07/31/21 08:31 09:00 09:31 Temperature Pulse Rate 97 H 96 H 103 H Pulse Rate [ From Monitor] Respiratory 17 19 28 H Rate Blood Pressure 104/42 103/37 103/37 O2 Sat by Pulse 93 93 87 Oximetry 07/31/21 07/31/21 07/31/21 10:00 10:31 11:00 Temperature Pulse Rate 96 H 98 H 100 H Pulse Rate [ 76 From Monitor] Respiratory 17 18 17 Rate Blood Pressure 98/38 98/38 97/36 O2 Sat by Pulse 91 89 91 Oximetry 07/31/21 11:27 Temperature 97.8 F Pulse Rate Pulse Rate [ From Monitor] Respiratory Rate Blood Pressure O2 Sat by Pulse Oximetry - Lab 07/31/21 07:00 07/31/21 07:00 Most recent lab results Calcium 7.5 mg/dL (8.4-10.2) L 07/31/21 07:00 Medications & Allergies - Medications Allergies/Adverse Reactions: Allergies No Known Allergies Allergy (Unverified 06/23/20 11:35) Home Medications: Home Medications Medication Instructions Recorded Confirmed Last Taken Type Aspirin [Aspirin BABY CHEW TAB] 81 mg PO QDAY 06/23/20 07/30/21 07/28/21 14:00 History Clopidogrel [Plavix] 1 tab PO DAILY 06/23/20 07/30/21 07/28/21 14:00 History Finasteride 1 tab PO DAILY 06/23/20 07/30/21 07/28/21 14:00 History Memantine 5 mg PO QDAY 06/23/20 07/30/21 07/28/21 14:00 History OLANZapine [Zyprexa] 1 tab PO HS 06/23/20 07/30/21 07/28/21 14:00 History PARoxetine HCL [PARoxetine] 1 tab PO DAILY 06/23/20 07/30/21 07/28/21 14:00 History amLODIPine 1 tab PO DAILY 06/23/20 07/30/21 07/28/21 14:00 History AtorvaSTATin [Lipitor] 80 mg PO QHS #60 tablet 06/29/20 07/30/21 07/28/21 14:00 Rx Dextrose/Maltodextrin [Glucose 1 each PO DAILY #30 powd.pack 06/29/20 07/30/21 07/28/21 14:00 Rx Powder Packets] Lactose-Reduced Food [Ensure 237 ml PO DAILY #30 liquid 06/29/20 07/30/21 07/28/21 14:00 Rx Liquid] Metoprolol [Lopressor TAB] 25 mg PO BID #60 tablet 06/29/20 07/30/21 07/28/21 14:00 Rx Pantoprazole [Protonix TAB] 40 mg PO BIDAC #60 tablet 06/29/20 07/30/21 07/28/21 14:00 Rx Active Medications: Generic Name Dose Route Start Last Admin Trade Name Freq PRN Reason Stop Dose Admin Acetaminophen 650 mg 07/29/21 00:47 07/29/21 23:23 Acetaminophen 325 Mg Tab PO 650 mg Q6H PRN Administration Pain, Mild (1-3) Atorvastatin Calcium 80 mg 07/29/21 22:00 07/30/21 22:29 Atorvastatin 40 Mg Tab PO 80 mg QHS LIAM Administration Dextrose 0 ml 07/29/21 01:06 07/31/21 02:05 Dextrose 10% *Hypoglycemia IV 75 ml DIRECT PRN Administration Hypoglycemia Protocol Epoetin Nicolas-epbx 20,000 unit 07/30/21 10:05 07/30/21 18:45 Epoetin Nicolas-Epbx 20,000 Unit/1 Ml Vial SUB-Q 20,000 unit ADRIENNE PRN Administration hemodialysis Heparin Sodium (Porcine) 3,000 unit 07/30/21 10:05 Heparin 10,000 Units/10 Ml Vial IV ADRIENNE PRN hemodialysis Ceftriaxone Sodium 2 gm in 100 mls @ 200 mls/hr 07/29/21 10:00 07/31/21 10:34 Rocephin/Ns 2 Gm/100 Ml IV 200 mls/hr Q24HR LIAM Administration Protocol Azithromycin 500 mg in 250 mls @ 250 mls/hr 07/29/21 01:00 07/31/21 10:34 Zithromax/Ns IV 250 mls/hr Q24HR LIAM Administration Protocol Sodium Chloride 100 mls @ 999 mls/hr 07/30/21 10:05 Nacl 0.9% IV ADRIENNE PRN Hypotension Insulin Human Lispro 0 unit 07/29/21 06:00 07/31/21 11:50 Insulin Lispro 100 Unit/Ml SUB-Q Not Given Q6HR COUNTS INCLUDE 234 BEDS AT THE [facility] Protocol Memantine 5 mg 07/29/21 10:00 07/31/21 10:35 Memantine 5 Mg Tab PO 5 mg QDAY LIAM Administration Morphine Sulfate 2 mg 07/29/21 00:47 Morphine 2 Mg/1 Ml Inj IV Q5MIN PRN Chest Pain unrelieved by NTG Nitroglycerin 0.4 mg 07/29/21 00:47 Nitroglycerin 0.4 Mg Tab Subl SL Q5M PRN Chest Pain Olanzapine 5 mg 07/29/21 22:00 07/30/21 22:55 Olanzapine 5 Mg Tab PO 5 mg HS LIAM Administration Ondansetron HCl 4 mg 07/29/21 05:46 Ondansetron 4 Mg/2 Ml Inj IV Q8H PRN Nausea And Vomiting Pantoprazole Sodium 40 mg 07/30/21 22:00 07/31/21 10:35 Pantoprazole 40 Mg Inj IV 40 mg BID LIAM Administration Paroxetine HCl 40 mg 07/29/21 10:00 07/31/21 10:35 Paroxetine 20 Mg Tab PO 40 mg DAILY LIAM Administration Potassium Chloride 40 meq 07/31/21 08:30 07/31/21 10:35 Potassium Chloride 20 Meq Packet PO 07/31/21 13:00 40 meq ONCE@0830 LIAM Administration Sodium Chloride 10 ml 07/29/21 00:47 Sodium Chloride 0.9% 10 Ml Flush Syringe IV PRN PRN LINE FLUSH Tramadol HCl 50 mg 07/29/21 00:47 Tramadol 50 Mg Tab PO Q6H PRN Pain, Moderate (4-6)
--- NOTE | 2021-07-31 14:14 | Cat Scan Report ---
CT CHEST WITHOUT CONTRAST INDICATION / CLINICAL INFORMATION: pneumonia. TECHNIQUE: Axial CT images were obtained through the chest without contrast. All CT scans at this [facility] ation are performed using CT dose reduction for ALARA by means of automated exposure control. COMPARISON: Chest x-ray 07/28/2021 FINDINGS: CHEST LOWER NECK: Soft tissues of the lower neck including the thyroid demonstrate no significant abnormali ty evidence of acute pathology. THORACIC AORTA: Moderate atherosclerotic calcification without acute abnormality. PULMONARY ARTERY: Grossly unremarkable. Main pulmonary artery may be upper limits of normal in size t o minimally enlarged. HEART: No significant abnormality. CORONARY ARTERY CALCIFICATION: Present -- Severe. MEDIASTINUM / HODAN: No significant abnormality. ESOPHAGUS: Not well visualized. LYMPH NODES: Borderline minimally enlarged lower right paratracheal lymph nodes are suggested. Hilar adenopathy not excluded. LUNGS: Extensive diffuse bilateral regions of airspace and groundglass attenuation are demonstrated i n the setting of emphysema. Thickening of intralobular septal lines as well as areas of lung consolid ation are present. Additional calcification along the posterior lateral margin of the left upper lobe . Consolidative changes are most apparent within the lower lobes. Multiple thin-walled cysts are pres ent within the right greater than left lower lobe. PLEURA: Small dependent bilateral pleural effusions. Pleural calcifications along the posterior pleur al surfaces of the lower lobes and left upper lobe. No pneumothorax. THORACIC SOFT TISSUES: No significant abnormality of the chest wall or upper thoracic musculature. OSSEOUS STRUCTURES: Remote lateral fractures of the right rib cage. Additional remote anterolateral f ractures of the left rib cage. No acute osseous findings. UPPER ABDOMEN: Percutaneous gastrostomy tube terminates within the mid fundus. Gallbladder demonstrat es high attenuation sludge and/or vicarious excretion of contrast. Trace amount of perihepatic ascite s not excluded. Complex right renal cyst measuring 3.9 cm maximum dimension. Left kidney not well vis ualized. ADDITIONAL CHEST FINDINGS: None. IMPRESSION: 1. Extensive bilateral regions of lung attenuation as detailed above the setting of emphysematous ana gs. The appearance is most suggestive of infectious process, superimposed pulmonary edema not entirel y excluded. 2. Small dependent bilateral pleural effusions. 3. Borderline to minimally enlarged right paratracheal and possibly hilar adenopathy. The reactive. 4. Complex lower pole cyst of the right kidney. When stable and if it would alter management, further imaging using MRI renal mass protocol may be useful. Signer Name: Matthias Hill II, MD Signed: 07/31/2021 2:09 PM Workstation Name: [id number]
--- NOTE | 2021-07-31 16:01 | Progress Note ---
Assessment and Plan 1. GI bleed -hemoglobin stable at 7.8. I suspect that the drop in hemoglobin may be in part due to volume repletion. Pt had Hgb = 7.2 on 07/18, at discharge from [facility]. On 07/10, IR placed a G-tube for malnutrition. On 07/15/21, he had an EGD showing ulcerative distal esophagitis, and a 4 cm HH. No clear ongoing bleed, with no blood in G-tube. -Would keep on twice a day PPI at time of discharge -Monitor hemoglobin and transfuse as needed -Treat sepsis We will sign off. Please call as needed. Subjective Date of service: 07/31/21 Principal diagnosis: Pneumonia, sepsis Interval history: Patient lying in bed with tube feeding infusing. at bedside. No reported complaints. Objective - Constitutional Vitals: Vital Signs - 12hr 07/31/21 07/31/21 07/31/21 04:00 04:01 04:31 Temperature 97.6 F Pulse Rate 97 H 94 H Pulse Rate [ From Monitor] Respiratory 18 18 Rate Blood Pressure 119/47 96/33 O2 Sat by Pulse 95 98 Oximetry 07/31/21 07/31/21 07/31/21 05:00 05:31 06:00 Temperature Pulse Rate 103 H 98 H 96 H Pulse Rate [ 89 From Monitor] Respiratory 19 18 15 Rate Blood Pressure 106/34 104/44 112/40 O2 Sat by Pulse 93 96 95 Oximetry 07/31/21 07/31/21 07/31/21 06:31 07:00 07:18 Temperature 98.2 F Pulse Rate 99 H 97 H Pulse Rate [ From Monitor] Respiratory 20 18 Rate Blood Pressure 112/40 107/78 O2 Sat by Pulse 92 96 Oximetry 07/31/21 07/31/21 07/31/21 07:31 08:00 08:31 Temperature Pulse Rate 108 H 96 H 97 H Pulse Rate [ From Monitor] Respiratory 18 17 17 Rate Blood Pressure 107/78 104/42 104/42 O2 Sat by Pulse 97 95 93 Oximetry 07/31/21 07/31/21 07/31/21 09:00 09:31 10:00 Temperature Pulse Rate 96 H 103 H 96 H Pulse Rate [ 76 From Monitor] Respiratory 19 28 H 17 Rate Blood Pressure 103/37 103/37 98/38 O2 Sat by Pulse 93 87 91 Oximetry 02/24/22 02/24/22 02/24/22 10:31 11:00 11:21 Temperature Pulse Rate 98 H 100 H 100 H Pulse Rate [ From Monitor] Respiratory 18 17 20 Rate Blood Pressure 98/38 97/36 97/36 O2 Sat by Pulse 89 91 86 Oximetry 07/31/21 07/31/21 07/31/21 11:27 11:31 11:41 Temperature 97.8 F Pulse Rate 99 H 101 H Pulse Rate [ From Monitor] Respiratory 20 18 Rate Blood Pressure 97/36 97/36 O2 Sat by Pulse 90 96 Oximetry 07/31/21 07/31/21 11:51 12:01 Temperature Pulse Rate 103 H Pulse Rate [ From Monitor] Respiratory 23 Rate Blood Pressure 97/36 97/36 O2 Sat by Pulse 96 75 L Oximetry General appearance: Present: no acute distress - EENT Eyes: PERRL, EOM intact - Respiratory Respiratory effort: normal - Gastrointestinal General gastrointestinal: Present: soft, non-tender, other (G-tube in place) - Labs CBC & Chem 7: 07/31/21 07:00 07/31/21 07:00 Labs: Abnormal lab results 07/30/21 07/31/21 07/31/21 Range/Units 16:06 01:49 05:57 WBC (4.5-11.0) K/mm3 RBC (3.65-5.03) M/mm3 Hgb (11.8-15.2) gm/dl Hct (35.5-45.6) % RDW (13.2-15.2) % Lymph % (Auto) (13.4-35.0) % Lymph # (Auto) (1.2-5.4) K/mm3 Seg Neutrophils % (40.0-70.0) % Seg Neutrophils # (1.8-7.7) K/mm3 Sodium (137-145) mmol/L Potassium (3.6-5.0) mmol/L BUN (9-20) mg/dL Creatinine (0.8-1.3) mg/dL Glucose (75-100) mg/dL POC Glucose 68 L 68 L 106 H (70-105) mg/dL Calcium (8.4-10.2) mg/dL 07/31/21 07/31/21 07/31/21 Range/Units 07:00 07:00 11:09 WBC 14.9 H (4.5-11.0) K/mm3 RBC 2.58 L (3.65-5.03) M/mm3 Hgb 7.8 L (11.8-15.2) gm/dl Hct 23.5 L (35.5-45.6) % RDW 18.8 H (13.2-15.2) % Lymph % (Auto) 5.6 L (13.4-35.0) % Lymph # (Auto) 0.8 L (1.2-5.4) K/mm3 Seg Neutrophils % 87.8 H (40.0-70.0) % Seg Neutrophils # 13.1 H (1.8-7.7) K/mm3 Sodium 136 L (137-145) mmol/L Potassium 3.1 L (3.6-5.0) mmol/L BUN 35 H (9-20) mg/dL Creatinine 3.0 H (0.8-1.3) mg/dL Glucose 130 H (75-100) mg/dL POC Glucose 134 H (70-105) mg/dL Calcium 7.5 L (8.4-10.2) mg/dL Medications & Allergies - Medications Allergies/Adverse Reactions: Allergies No Known Allergies Allergy (Unverified 06/23/20 11:35) Home Medications: Home Medications Medication Instructions Recorded Confirmed Last Taken Type Aspirin [Aspirin BABY CHEW TAB] 81 mg PO QDAY 06/23/20 07/30/21 07/28/21 14:00 History Clopidogrel [Plavix] 1 tab PO DAILY 06/23/20 07/30/21 07/28/21 14:00 History Finasteride 1 tab PO DAILY 06/23/20 07/30/21 07/28/21 14:00 History Memantine 5 mg PO QDAY 06/23/20 07/30/21 07/28/21 14:00 History OLANZapine [Zyprexa] 1 tab PO HS 06/23/20 07/30/21 07/28/21 14:00 History PARoxetine HCL [PARoxetine] 1 tab PO DAILY 06/23/20 07/30/21 07/28/21 14:00 History amLODIPine 1 tab PO DAILY 06/23/20 07/30/21 07/28/21 14:00 History AtorvaSTATin [Lipitor] 80 mg PO QHS #60 tablet 06/29/20 07/30/21 07/28/21 14:00 Rx Dextrose/Maltodextrin [Glucose 1 each PO DAILY #30 powd.pack 06/29/20 07/30/21 07/28/21 14:00 Rx Powder Packets] Lactose-Reduced Food [Ensure 237 ml PO DAILY #30 liquid 06/29/20 07/30/21 0 07/28/21 14:00 Rx Liquid] Metoprolol [Lopressor TAB] 25 mg PO BID #60 tablet 06/29/20 07/30/21 07/28/21 14:00 Rx Pantoprazole [Protonix TAB] 40 mg PO BIDAC #60 tablet 06/29/20 07/30/21 07/28/21 14:00 Rx Active Medications: Generic Name Dose Route Start Last Admin Trade Name Freq PRN Reason Stop Dose Admin Acetaminophen 650 mg 07/29/21 00:47 07/29/21 23:23 Acetaminophen 325 Mg Tab PO 650 mg Q6H PRN Administration Pain, Mild (1-3) Atorvastatin Calcium 80 mg 07/29/21 22:00 07/30/21 22:29 Atorvastatin 40 Mg Tab PO 80 mg QHS LIAM Administration Dextrose 0 ml 07/29/21 01:06 07/31/21 02:05 Dextrose 10% *Hypoglycemia IV 75 ml DIRECT PRN Administration Hypoglycemia Protocol Epoetin Nicolas-epbx 20,000 unit 07/30/21 10:05 07/30/21 18:45 Epoetin Nicolas-Epbx 20,000 Unit/1 Ml Vial SUB-Q 20,000 unit ADRIENNE PRN Administration hemodialysis Heparin Sodium (Porcine) 3,000 unit 07/30/21 10:05 Heparin 10,000 Units/10 Ml Vial IV ADRIENNE PRN hemodialysis Ceftriaxone Sodium 2 gm in 100 mls @ 200 mls/hr 07/29/21 10:00 07/31/21 10:34 Rocephin/Ns 2 Gm/100 Ml IV 200 mls/hr Q24HR LIAM Administration Protocol Azithromycin 500 mg in 250 mls @ 250 mls/hr 07/29/21 01:00 07/31/21 10:34 Zithromax/Ns IV 250 mls/hr Q24HR LIAM Administration Protocol Sodium Chloride 100 mls @ 999 mls/hr 07/30/21 10:05 Nacl 0.9% IV ADRIENNE PRN Hypotension Insulin Human Lispro 0 unit 07/29/21 06:00 07/31/21 11:50 Insulin Lispro 100 Unit/Ml SUB-Q Not Given Q6HR [facility] Protocol Memantine 5 mg 07/29/21 10:00 07/31/21 10:35 Memantine 5 Mg Tab PO 5 mg QDAY LIAM Administration Morphine Sulfate 2 mg 07/29/21 00:47 Morphine 2 Mg/1 Ml Inj IV Q5MIN PRN Chest Pain unrelieved by NTG Nitroglycerin 0.4 mg 07/29/21 00:47 Nitroglycerin 0.4 Mg Tab Subl SL Q5M PRN Chest Pain Olanzapine 5 mg 07/29/21 22:00 07/30/21 22:55 Olanzapine 5 Mg Tab PO 5 mg HS [facility] Administration Ondansetron HCl 4 mg 07/29/21 05:46 Ondansetron 4 Mg/2 Ml Inj IV Q8H PRN Nausea And Vomiting Pantoprazole Sodium 40 mg 07/30/21 22:00 07/31/21 10:35 Pantoprazole 40 Mg Inj IV 40 mg BID LIAM Administration Paroxetine HCl 40 mg 07/29/21 10:00 07/31/21 10:35 Paroxetine 20 Mg Tab PO 40 mg DAILY [facility] Administration Sodium Chloride 10 ml 07/29/21 00:47 Sodium Chloride 0.9% 10 Ml Flush Syringe IV PRN PRN LINE FLUSH Tramadol HCl 50 mg 07/29/21 00:47 Tramadol 50 Mg Tab PO Q6H PRN Pain, Moderate (4-6) HEART Score - HEART Score EKG: Significant ST-depression Age: > 65 Risk factors: > 3 risk factors or hx of atherosclerotic disease Troponin: Troponin T 0.095 ng/mL (0.00-0.029) H 07/29/21 05:49 Troponin: 1-3x normal limit
[2021-08-01] MEDS: INSULIN LISPRO 100 UNIT/ML SUB-Q SCH ×2 (04:38→12:46)
[2021-08-01 05:28] LABS: Calcium 7.7 mg/dL (8.4-10.2)
--- NOTE | 2021-08-01 10:10 | Progress Note ---
Assessment and Plan - Patient Problems (1) Coronary artery disease Current Visit: Yes Status: Acute Plan to address problem: Patient presented with fever, leukocytosis and a right lower lobe pneumonia chest x-ray. 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 Current ECG is not consistent with an acute STEMI, instead represents residual changes from his old inferior infarct. Antiplatelet therapy on hold for severe anemia. Continue other guideline directed therapy for his coronary artery disease. Subjective Date of service: 08/01/21 Principal diagnosis: Pneumonia, sepsis Interval history: Patient appears lethargic, but is breathing comfortably no acute respiratory distress. No new cardiac events reported. Routine dialysis is planned for today. Objective Vital Signs Temp Pulse Pulse Resp BP Pulse Ox 08/01/21 07:36 97.8 F 19 124/54 08/01/21 05:48 92 08/01/21 03:45 98.7 F 104 H 18 104/47 90 07/31/21 23:45 98.3 F 18 123/56 07/31/21 23:00 98 H 92 07/31/21 19:37 98.3 F 101 H 17 135/60 88 07/31/21 19:00 94 07/31/21 16:04 97.4 F L 19 129/54 07/31/21 14:00 78 22 96 07/31/21 12:01 97/36 75 L 07/31/21 11:51 103 H 23 97/36 96 07/31/21 11:41 101 H 18 97/36 96 07/31/21 11:31 99 H 20 97/36 90 07/31/21 11:27 97.8 F 07/31/21 11:21 100 H 20 97/36 86 07/31/21 11:00 100 H 17 97/36 91 07/31/21 10:31 98 H 18 98/38 89 - Physical Examination General: Cachectic, Other (Chronically ill-appearing) HEENT: Positive: PERRL Neck: Positive: neck supple Cardiac: Positive: Reg Rate and Rhythm Lungs: Positive: Decreased Breath Sounds Neuro: Positive: Weakness (Generalized lethargy) Abdomen: Positive: Soft Skin: Positive: Clear Extremities: Absent: edema - Labs and Meds Comprehensive Metabolic Panel 08/01/21 Range/Units 04:33 Sodium 138 (137-145) mmol/L Potassium 3.7 (3.6-5.0) mmol/L Chloride 103.4 (98-107) mmol/L Carbon Dioxide 22 (22-30) mmol/L BUN 44 H (9-20) mg/dL Creatinine 4.5 H (0.8-1.3) mg/dL Glucose 117 H (75-100) mg/dL Calcium 7.7 L (8.4-10.2) mg/dL
[2021-08-01] MEDS: EPOETIN ALFA-EPBX 20,000 UNIT/1 ML VIAL SUB-Q PRN (10:42)
[2021-08-01] MEDS ORDERED: POTASSIUM CHLORIDE ER 20 MEQ TAB PO ONE (12:00)
--- NOTE | 2021-08-01 13:13 | Progress Note ---
Assessment and Plan 1. ESRD: Patient is on maintenance hemodialysis three times a week, MWF schedule. Hemodialysis: 07/30, 08/01. 2. FEN: Hyperkalemia, K level is better. Monitor lytes and volume status. 3. Acute blood loss Anemia: 2/2 GI bleed. S/p PRBC. Epogen on dialysis days. Monitor. 4. GI bleed: Rectal bleed in the setting of anticoauglants and antiplatelets, now discontinued. Protonix. Monitor H/H. Followed by GI. 5. Sepsis / Community acquired pneumonia, pOA: CXR showed diffuse bilateral airspace disease. Covid negative. Ceftriaxone. S/p Azithromycin. 6. H/o CAD s/p PCI with stent: No symptoms of chest pain. Stent placed last year Jun 2020 for inferior wall PA. 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 Followed by Cards. Atorvastatin. 7. H/o CVA with residual aphasia. 8. DM type: Monitor bl. glucose. Subjective: Patient seen and examined at the bedside. Examination: General appearance: well-developed, appears stated age, not in distress HEENT: atraumatic Neck: trachea midline Respiratory: Clear to Auscultation Heart: regular, S1S2, no murmur Abdomen: soft, normoactive bowel sounds, not tender, not distended Integumentary: no obvious rash Neurologic: somnolent Ext: no edema Hemodialysis access: L FA AVF Subjective Date of service: 08/01/21 Principal diagnosis: Pneumonia, sepsis Objective - Vital Signs Vital signs: Vital Signs - 12hr 08/01/21 08/01/21 08/01/21 03:45 05:48 07:36 Temperature 98.7 F 97.8 F Pulse Rate 104 H Respiratory 18 19 Rate Blood Pressure 104/47 124/54 Blood Pressure [Right] O2 Sat by Pulse 90 92 Oximetry O2 Sat by Pulse Oximetry [ Bilateral Throughout] 08/01/21 08/01/21 08/01/21 09:30 09:40 09:45 Temperature 97.0 F L Pulse Rate 99 H 97 H 98 H Respiratory 16 Rate Blood Pressure 81/35 107/58 112/58 Blood Pressure [Right] O2 Sat by Pulse Oximetry O2 Sat by Pulse 96 Oximetry [ Bilateral Throughout] 08/01/21 08/01/21 08/01/21 10:00 10:15 10:30 Temperature Pulse Rate 100 H 98 H 96 H Respiratory Rate Blood Pressure 116/53 114/54 118/55 Blood Pressure [Right] O2 Sat by Pulse Oximetry O2 Sat by Pulse Oximetry [ Bilateral Throughout] 08/01/21 08/01/21 08/01/21 10:45 11:00 11:15 Temperature Pulse Rate 96 H 97 H 96 H Respiratory Rate Blood Pressure 122/58 132/60 135/63 Blood Pressure [Right] O2 Sat by Pulse Oximetry O2 Sat by Pulse Oximetry [ Bilateral Throughout] 08/01/21 08/01/21 08/01/21 11:30 11:45 12:00 Temperature Pulse Rate 105 H 94 H 94 H Respiratory Rate Blood Pressure 138/68 126/62 135/69 Blood Pressure [Right] O2 Sat by Pulse Oximetry O2 Sat by Pulse Oximetry [ Bilateral Throughout] 08/01/21 08/01/21 08/01/21 12:15 12:20 12:30 Temperature 95.6 F L Pulse Rate 95 H 89 74 Respiratory 18 Rate Blood Pressure 129/67 138/72 Blood Pressure 126/80 [Right] O2 Sat by Pulse 96 Oximetry O2 Sat by Pulse Oximetry [ Bilateral Throughout] 08/01/21 12:52 Temperature 98.2 F Pulse Rate 94 H Respiratory 18 Rate Blood Pressure 139/76 Blood Pressure [Right] O2 Sat by Pulse Oximetry O2 Sat by Pulse 96 Oximetry [ Bilateral Throughout] - Lab 07/31/21 07:00 08/01/21 04:33 Most recent lab results Calcium 7.7 mg/dL (8.4-10.2) L 08/01/21 04:33 Medications & Allergies - Medications Allergies/Adverse Reactions: Allergies No Known Allergies Allergy (Unverified 06/23/20 11:35) Home Medications: Home Medications Medication Instructions Recorded Confirmed Last Taken Type Aspirin [Aspirin BABY CHEW TAB] 81 mg PO QDAY 06/23/20 07/30/21 07/28/21 14:00 History Clopidogrel [Plavix] 1 tab PO DAILY 06/23/20 07/30/21 07/28/21 14:00 History Finasteride 1 tab PO DAILY 06/23/20 07/30/21 07/28/21 14:00 History Memantine 5 mg PO QDAY 06/23/20 07/30/21 07/28/21 14:00 History OLANZapine [Zyprexa] 1 tab PO HS 06/23/20 07/30/21 07/28/21 14:00 History PARoxetine HCL [PARoxetine] 1 tab PO DAILY 06/23/20 07/30/21 07/28/21 14:00 History amLODIPine 1 tab PO DAILY 06/23/20 07/30/21 07/28/21 14:00 History AtorvaSTATin [Lipitor] 80 mg PO QHS #60 tablet 06/29/20 07/30/21 07/28/21 14:00 Rx Dextrose/Maltodextrin [Glucose 1 each PO DAILY #30 powd.pack 06/29/20 07/30/21 07/28/21 14:00 Rx Powder Packets] Lactose-Reduced Food [Ensure 237 ml PO DAILY #30 liquid 06/29/20 07/30/21 07/28/21 14:00 Rx Liquid] Metoprolol [Lopressor TAB] 25 mg PO BID #60 tablet 06/29/20 07/30/21 07/28/21 14:00 Rx Pantoprazole [Protonix TAB] 40 mg PO BIDAC #60 tablet 06/29/20 07/30/21 07/28/21 14:00 Rx Active Medications: Generic Name Dose Route Start Last Admin Trade Name Freq PRN Reason Stop Dose Admin Acetaminophen 650 mg 07/29/21 00:47 07/29/21 23:23 Acetaminophen 325 Mg Tab PO 650 mg Q6H PRN Administration Pain, Mild (1-3) Atorvastatin Calcium 80 mg 07/29/21 22:00 07/31/21 21:15 Atorvastatin 40 Mg Tab PO 80 mg QHS LIAM Administration Dextrose 0 ml 07/29/21 01:06 07/31/21 02:05 Dextrose 10% *Hypoglycemia IV 75 ml DIRECT PRN Administration Hypoglycemia Protocol Epoetin Nicolas-epbx 20,000 unit 07/30/21 10:05 08/01/21 10:42 Epoetin Nicolas-Epbx 20,000 Unit/1 Ml Vial SUB-Q 20,000 unit ADRIENNE PRN Administration hemodialysis Heparin Sodium (Porcine) 3,000 unit 07/30/21 10:05 08/01/21 09:48 Heparin 10,000 Units/10 Ml Vial IV 3,000 unit ADRIENNE PRN Administration hemodialysis Ceftriaxone Sodium 2 gm in 100 mls @ 200 mls/hr 07/29/21 10:00 07/31/21 10:34 Rocephin/Ns 2 Gm/100 Ml IV 08/02/21 10:29 200 mls/hr Q24HR LIAM Administration Protocol Sodium Chloride 100 mls @ 999 mls/hr 07/30/21 10:05 Nacl 0.9% IV ADRIENNE PRN Hypotension Insulin Human Lispro 0 unit 07/29/21 06:00 08/01/21 04:38 Insulin Lispro 100 Unit/Ml SUB-Q Not Given Q6HR [facility] Protocol Memantine 5 mg 07/29/21 10:00 07/31/21 10:35 Memantine 5 Mg Tab PO 5 mg QDAY LIAM Administration Morphine Sulfate 2 mg 07/29/21 00:47 Morphine 2 Mg/1 Ml Inj IV Q5MIN PRN Chest Pain unrelieved by NTG Nitroglycerin 0.4 mg 07/29/21 00:47 Nitroglycerin 0.4 Mg Tab Subl SL Q5M PRN Chest Pain Olanzapine 5 mg 07/29/21 22:00 07/31/21 21:15 Olanzapine 5 Mg Tab PO 5 mg HS LIAM Administration Ondansetron HCl 4 mg 07/29/21 05:46 Ondansetron 4 Mg/2 Ml Inj IV Q8H PRN Nausea And Vomiting Pantoprazole Sodium 40 mg 07/30/21 22:00 07/31/21 21:15 Pantoprazole 40 Mg Inj IV 40 mg BID LIAM Administration Paroxetine HCl 40 mg 07/29/21 10:00 07/31/21 10:35 Paroxetine 20 Mg Tab PO 40 mg DAILY LIAM Administration Sodium Chloride 10 ml 07/29/21 00:47 07/31/21 21:17 Sodium Chloride 0.9% 10 Ml Flush Syringe IV 10 ml PRN PRN Administration LINE FLUSH Tramadol HCl 50 mg 07/29/21 00:47 Tramadol 50 Mg Tab PO Q6H PRN Pain, Moderate (4-6)
[2021-08-01] MEDS ORDERED: LIPASE 10,500/PROTEASE 25,000/AMYLASE 43,750 (UNITS) DR CAP FEEDTUBE PRN (13:28)
[2021-08-01] MEDS ORDERED: SIMPLE SYRUP 15 ML FEEDTUBE PRN ×2 (13:28)
[2021-08-01] MEDS ORDERED: SODIUM BICARBONATE 325 MG TAB FEEDTUBE PRN (13:28)
[2021-08-01] MEDS: PARoxetine 20 MG TAB PO SCH (14:23)
[2021-08-01] MEDS: PANTOPRAZOLE 40 MG INJ IV SCH ×2 (14:35→21:28)
[2021-08-01] MEDS: cefTRIAXone/NS 2 GM/100 ML 2 GM/100 ML BAG IV SCH (14:35)
[2021-08-01] MEDS: MEMANTINE 5 MG TAB PO SCH (14:35)
[2021-08-01] MEDS ORDERED: POTASSIUM CHLORIDE 20 MEQ PACKET FEEDTUBE ONE (15:00)
[2021-08-01] MEDS: AZITHROMYCIN/NS 500 MG/250 ML 500 MG/250 ML BAG IV SCH (15:47)
--- NOTE | 2021-08-01 19:15 | Progress Note ---
Assessment and Plan Assessment and plan: 85 years male with history of hypertension ,diabetes CVA with hypoxia and debility. End-stage renal disease on hemodialysis, GERD, vascular dementia, cerebral atherosclerosis was brought to the emergency room because of unresponsiveness with possible STEMI. Patient is baseline nonverbal. Patient was found to have O2 sat 75% on room air. Family called ambulance for altered mental status. Patient is nonverbal but patient follows some commands. In the emergency room EKG with possible STEMI. Subsequently ER doctor talked with the on-call lead technician Dr. Daniels, who thinks it is old infarct, we got his old EKG. EKG showed normal sinus rhythm. After initiating heparin drip, hemoglobin dropped to 5.9. Heparin and Plavix held, and ordered 2 unit of packed red blood cell. In the emergency room room patient is also found to have sepsis chest x-ray shows multifocal pneumonia, WBCs 19.8. Patient admitted to ICU. hospital course: 07/29: hypotensive this AM. Ordered 1L NS bolus to which patient blood prssure responded. Has been normotensive since. Antiplatelet/anticoagulants held. Held antihtn meds due to hypotension this AM. IVF+Protonix gtt currently in light of GI bleed. CTA abd/pelvis unremarkable. Will follow GI recommendations. 07/30: GI has no plans for endoscopy this admission since no ongoing GI bleed. Patient had prior endoscopy showing esophageal ulcers. No further GI bleed. H/H stable s/p 2 units prbc. D/w nephrology who plans dialysis for patient with UF. Advise RN to d/c fluids due to pulmonary congestion. Transfer to floor bed. Will order CBC for AM. Can likely be d/c in next 24-48hrs. 07/31: HD yesterday. S/p removal of fluid. Home O2 eval ordered. Optimization of pulmonary function prior to dc. Transfer to floor. CXR demonstrates extensive pneumonia. Will order CT Chest to further characterize. Assessment and Plan: #Acute on chronic anemia, suspected gastrointestinal hemorrhage - was started on heparin in ED due to presumed ACS/STEMI and hemoglobin dropping rapidly, 5.9 -Heparin stopped since no acute AK - all anticoauglants and antiplatelets discontinued, d/w cardiology - NS bolus + NS maintenance fluid currently. - 2 units prbc infused and hemoglobin stable since -On PPI - serial H/H. -CTA abdomen pelvis unremarkable. -Stool reported positive for blood in ED - Gastroenterology consulted, and followingno ongoing GI bleed, per GI evaluation #acute hypoxic respiratory failure - likely volume overload and pneumonia, on 4l NC - CXR demonstrates extensive pneumonia - fluid to be removed by dialysis. #Community acquired pneumonia - diffuse bilateral airspace disease with emphysema on CT - covid status unknown, will order RT PCR. - CXR: multifocal patchy airspace disease. appears to have RLL pneumonic process (please refer to official radiology report) - Ceftriaxone/Azithromycin IV x 5 day therapy ordered. # Sepsis -WBC: 24.9, HR: 100 -Bcx, Scx orderd on admission -Coronavirus pcr ordered - abx therapy as above #ESRD on hemodialysis - has left arm fistula. - Nephrology consulted, d/w Dr. Carlin, plan for dialysis tomorrrow. # CAD s/p PCI with stent - no symptoms of chest pain. 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 - cardiology consulted. D/w Dr Ron who does not believe this is a stemi. Ok with d/c of antiplatelet agents and anticoagulants at this time - troponin 0.09, unchanged on serial measurements. Patient is an esrd patient thus cannot be extrapolated from. - atorvastatin 80 mg qhs #history of CVA - resume home atorvastatin - atorvastatin 80 mg qhs #Acute on chronic anemia in the setting of ESRD - managmeent as above - serial H/H measurements. Dementia, CVA, nonverbal -Awake, nonverbal with limited interaction #Advance care planning Disease education conducted, care plan discussed, diagnoses discussed, prognosis discussed, patient is full code, patient acknowledges understanding and agree with care plan, +30 minutes. History Interval history: Patient is awake, nonverbal and follows some simple, stated not in acute distress. Remains on O2 and tube feeds via PEG. O2 weaned from 8 to 3 L. Hospitalist Physical - Constitutional Vitals: Temp Pulse Resp BP Pulse Ox 98.7 F 94 H 16 104/51 96 08/01/21 15:29 08/01/21 12:52 08/01/21 15:29 08/01/21 15:29 08/01/21 12:52 General appearance: Present: no acute distress, disheveled - EENT Eyes: Present: PERRL ENT: other (Mild facial asymmetry from a previous stroke) - Neck Neck: Present: supple - Respiratory Respiratory effort: normal Respiratory: left: rales, bilateral: diminished - Cardiovascular Rhythm: regular - Extremities Extremities: No edema - Abdominal General gastrointestinal: soft, non-tender, non-distended, normal bowel sounds - Integumentary Integumentary: Absent: rash - Neurologic Neurologic: other (Awake, nonverbal, limited interaction, see with chronic hemiparesis, bedbound) HEART Score - HEART Score EKG: Significant ST-depression Age: > 65 Risk factors: > 3 risk factors or hx of atherosclerotic disease Troponin: Troponin T 0.095 ng/mL (0.00-0.029) H 07/29/21 05:49 Troponin: 1-3x normal limit Results - Labs CBC & Chem 7: 08/03/21 11:28 08/03/21 11:28 Labs: Laboratory Last Values WBC 14.9 K/mm3 (4.5-11.0) H 07/31/21 07:00 RBC 2.58 M/mm3 (3.65-5.03) L 07/31/21 07:00 Hgb 7.8 gm/dl (11.8-15.2) L 07/31/21 07:00 Hct 23.5 % (35.5-45.6) L 07/31/21 07:00 MCV 91 fl (84-94) 07/31/21 07:00 MCH 30 pg (28-32) 07/31/21 07:00 MCHC 33 % (32-34) 07/31/21 07:00 RDW 18.8 % (13.2-15.2) H 07/31/21 07:00 Plt Count 335 K/mm3 (140-440) 07/31/21 07:00 Lymph % (Auto) 5.6 % (13.4-35.0) L 07/31/21 07:00 [place] % (Auto) 4.6 % (0.0-7.3) 07/31/21 07:00 Eos % (Auto) 1.6 % (0.0-4.3) 07/31/21 07:00 Baso % (Auto) 0.4 % (0.0-1.8) 07/31/21 07:00 Lymph # (Auto) 0.8 K/mm3 (1.2-5.4) L 07/31/21 07:00 [place] # (Auto) 0.7 K/mm3 (0.0-0.8) 07/31/21 07:00 Eos # (Auto) 0.2 K/mm3 (0.0-0.4) 07/31/21 07:00 Baso # (Auto) 0.1 K/mm3 (0.0-0.1) 07/31/21 07:00 Add Manual Diff Complete 07/31/21 07:00 Total Counted 100 07/30/21 05:13 Seg Neutrophils % 87.8 % (40.0-70.0) H 07/31/21 07:00 Seg Neuts % (Manual) 97.0 % (40.0-70.0) H 07/30/21 05:13 Band Neutrophils % 0 % 07/30/21 05:13 Lymphocytes % (Manual) 3.0 % (13.4-35.0) L 07/30/21 05:13 Reactive Lymphs % (Man) 0 % 07/30/21 05:13 Monocytes % (Manual) 0 % (0.0-7.3) 07/30/21 05:13 Eosinophils % (Manual) 0 % (0.0-4.3) 07/30/21 05:13 Basophils % (Manual) 0 % (0.0-1.8) 07/30/21 05:13 Metamyelocytes % 0 % 07/30/21 05:13 Myelocytes % 0 % 07/30/21 05:13 Promyelocytes % 0 % 07/30/21 05:13 Blast Cells % 0 % 07/30/21 05:13 Nucleated RBC % Not Reportable 07/30/21 05:13 Seg Neutrophils # 13.1 K/mm3 (1.8-7.7) H 07/31/21 07:00 Seg Neutrophils # Man 16.8 K/mm3 (1.8-7.7) H 07/30/21 05:13 Band Neutrophils # 0.0 K/mm3 07/30/21 05:13 Lymphocytes # (Manual) 0.5 K/mm3 (1.2-5.4) L 07/30/21 05:13 Abs React Lymphs (Man) 0.0 K/mm3 07/30/21 05:13 Monocytes # (Manual) 0.0 K/mm3 (0.0-0.8) 07/30/21 05:13 Eosinophils # (Manual) 0.0 K/mm3 (0.0-0.4) 07/30/21 05:13 Basophils # (Manual) 0.0 K/mm3 (0.0-0.1) 07/30/21 05:13 Metamyelocytes # 0.0 K/mm3 07/30/21 05:13 Myelocytes # 0.0 K/mm3 07/30/21 05:13 Promyelocytes # 0.0 K/mm3 07/30/21 05:13 Blast Cells # 0.0 K/mm3 07/30/21 05:13 WBC Morphology Not Reportable 07/30/21 05:13 Hypersegmented Neuts Not Reportable 07/30/21 05:13 Hyposegmented Neuts Not Reportable 07/30/21 05:13 Hypogranular Neuts Not Reportable 07/30/21 05:13 Smudge Cells Not Reportable 07/30/21 05:13 Toxic Granulation Not Reportable 07/30/21 05:13 Toxic Vacuolation Not Reportable 07/30/21 05:13 Dohle Bodies Not Reportable 07/30/21 05:13 Pelger-Huet Anomaly Not Reportable 07/30/21 05:13 Bong Rods Not Reportable 07/30/21 05:13 Platelet Estimate Consistent w auto 07/30/21 05:13 Clumped Platelets Not Reportable 07/30/21 05:13 Plt Clumps, EDTA Not Reportable 07/30/21 05:13 Large Platelets Not Reportable 07/30/21 05:13 Giant Platelets Not Reportable 07/30/21 05:13 Platelet Satelliting Not Reportable 07/30/21 05:13 Plt Morphology Comment Not Reportable 07/30/21 05:13 RBC Morphology Not Reportable 07/30/21 05:13 Dimorphic RBCs Not Reportable 07/30/21 05:13 Polychromasia Not Reportable 07/30/21 05:13 Hypochromasia 1+ 07/30/21 05:13 Poikilocytosis Not Reportable 07/30/21 05:13 Anisocytosis 1+ 07/30/21 05:13 Microcytosis Not Reportable 07/30/21 05:13 Macrocytosis Few 07/30/21 05:13 Spherocytes Not Reportable 07/30/21 05:13 Pappenheimer Bodies Not Reportable 07/30/21 05:13 Sickle Cells Not Reportable 07/30/21 05:13 Target Cells Not Reportable 07/30/21 05:13 Tear Drop Cells Not Reportable 07/30/21 05:13 Ovalocytes Few 07/30/21 05:13 Helmet Cells Not Reportable 07/30/21 05:13 [place] Bodies Not Reportable 07/30/21 05:13 [place] Rings Not Reportable 07/30/21 05:13 [place] Cells Not Reportable 07/30/21 05:13 Bite Cells Not Reportable 07/30/21 05:13 Crenated Cell Not Reportable 07/30/21 05:13 Elliptocytes Not Reportable 07/30/21 05:13 Acanthocytes (Spur) Not Reportable 07/30/21 05:13 Rouleaux Not Reportable 07/30/21 05:13 Hemoglobin C Crystals Not Reportable 07/30/21 05:13 Schistocytes Not Reportable 07/30/21 05:13 Malaria parasites Not Reportable 07/30/21 05:13 Andrés Bodies Not Reportable 07/30/21 05:13 Hem Pathologist Commnt No 07/30/21 05:13 PT 15.3 Sec. (12.2-14.9) H 07/28/21 21:49 INR 1.09 (0.87-1.13) 07/28/21 21:49 APTT 23.5 Sec. (24.2-36.6) L 07/28/21 21:49 Heparin Anti-Xa Level < 0.10 U.I./ml (0.3-0.7) L 07/29/21 12:41 Sodium 138 mmol/L (137-145) 08/01/21 04:33 Potassium 3.7 mmol/L (3.6-5.0) 08/01/21 04:33 Chloride 103.4 mmol/L (98-107) 08/01/21 04:33 Carbon Dioxide 22 mmol/L (22-30) 08/01/21 04:33 Anion Gap 16 mmol/L 08/01/21 04:33 BUN 44 mg/dL (9-20) H 08/01/21 04:33 Creatinine 4.5 mg/dL (0.8-1.3) H 08/01/21 04:33 Estimated GFR 15 ml/min 08/01/21 04:33 BUN/Creatinine Ratio 10 % 08/01/21 04:33 Glucose 117 mg/dL (75-100) H 08/01/21 04:33 POC Glucose 113 mg/dL (70-105) H 08/01/21 04:38 Lactic Acid 1.90 mmol/L (0.7-2.0) 07/28/21 23:08 Calcium 7.7 mg/dL (8.4-10.2) L 08/01/21 04:33 Total Bilirubin 0.30 mg/dL (0.1-1.2) 07/28/21 21:49 AST 20 units/L (5-40) 07/28/21 21:49 ALT 6 units/L (7-56) L 07/28/21 21:49 Alkaline Phosphatase 89 units/L (35-129) 07/28/21 21:49 Troponin T 0.095 ng/mL (0.00-0.029) H 07/29/21 05:49 NT-Pro-B Natriuret Pep 77999 pg/mL (0-900) H 07/28/21 21:49 Total Protein 6.2 g/dL (6.3-8.2) L 07/28/21 21:49 Albumin 2.5 g/dL (3.9-5) L 07/28/21 21:49 Albumin/Globulin Ratio 0.7 % 07/28/21 21:49 Lipase 96 units/L (13-60) H 07/28/21 21:49 Nasal Screen MRSA (PCR) Negative (Negative) 07/30/21 06:15 Coronavirus (PCR) Negative (Negative) 07/30/21 08:34 Hepatitis A IgM Ab Non-reactive (NonReactive) 07/30/21 09:22 Hep Bs Antigen Non-reactive (Negative) 07/30/21 09:22 Hep B Core IgM Ab Non-reactive (NonReactive) 07/30/21 09:22 Hepatitis C Antibody Non-reactive (NonReactive) 07/30/21 09:22 Blood Type AB POSITIVE 07/29/21 05:49 Antibody Screen Negative 07/29/21 05:49 Crossmatch See Detail 07/29/21 05:49 Microbiology: Microbiology 07/29/21 19:39 Peripheral/Venous Blood Culture - Preliminary NO GROWTH AFTER 48 HOURS 07/29/21 19:39 Peripheral/Venous Blood Culture - Preliminary NO GROWTH AFTER 48 HOURS Active Medications - Current Medications Current Medications: Generic Name Dose Route Start Last Admin Trade Name Freq PRN Reason Stop Dose Admin Acetaminophen 650 mg 07/29/21 00:47 07/29/21 23:23 Acetaminophen 325 Mg Tab PO 650 mg Q6H PRN Administration Pain, Mild (1-3) Lipase/Protease/Amylase 1 each 08/01/21 13:28 Lipase 10,500/Protease 25,000/Amylase 43,750 (Units) Dr Tyler FEEDTUBE PRN PRN For Clogged Feeding Tube Atorvastatin Calcium 80 mg 07/29/21 22:00 07/31/21 21:15 Atorvastatin 40 Mg Tab PO 80 mg QHS LIAM Administration Dextrose 0 ml 07/29/21 01:06 07/31/21 02:05 Dextrose 10% *Hypoglycemia IV 75 ml DIRECT PRN Administration Hypoglycemia Protocol Epoetin Nicolas-epbx 20,000 unit 07/30/21 10:05 08/01/21 10:42 Epoetin Nicolas-Epbx 20,000 Unit/1 Ml Vial SUB-Q 20,000 unit ADRIENNE PRN Administration hemodialysis Heparin Sodium (Porcine) 3,000 unit 07/30/21 10:05 08/01/21 09:48 Heparin 10,000 Units/10 Ml Vial IV 3,000 unit ADRIENNE PRN Administration hemodialysis Ceftriaxone Sodium 2 gm in 100 mls @ 200 mls/hr 07/29/21 10:00 08/01/21 14:35 Rocephin/Ns 2 Gm/100 Ml IV 08/02/21 10:29 200 mls/hr Q24HR LIAM Administration Protocol Sodium Chloride 100 mls @ 999 mls/hr 07/30/21 10:05 Nacl 0.9% IV ADRIENNE PRN Hypotension Insulin Human Lispro 0 unit 07/29/21 06:00 08/01/21 04:38 Insulin Lispro 100 Unit/Ml SUB-Q Not Given Q6HR LIAM Protocol Memantine 5 mg 07/29/21 10:00 08/01/21 14:35 Memantine 5 Mg Tab PO 5 mg QDAY LIAM Administration Morphine Sulfate 2 mg 07/29/21 00:47 Morphine 2 Mg/1 Ml Inj IV Q5MIN PRN Chest Pain unrelieved by NTG Nitroglycerin 0.4 mg 07/29/21 00:47 Nitroglycerin 0.4 Mg Tab Subl SL Q5M PRN Chest Pain Olanzapine 5 mg 07/29/21 22:00 07/31/21 21:15 Olanzapine 5 Mg Tab PO 5 mg HS LIAM Administration Ondansetron HCl 4 mg 07/29/21 05:46 Ondansetron 4 Mg/2 Ml Inj IV Q8H PRN Nausea And Vomiting Pantoprazole Sodium 40 mg 07/30/21 22:00 08/01/21 14:35 Pantoprazole 40 Mg Inj IV 40 mg BID LIAM Administration Paroxetine HCl 40 mg 07/29/21 10:00 08/01/21 14:23 Paroxetine 20 Mg Tab PO 40 mg DAILY LIAM Administration Simple Syrup 15 ml 08/01/21 13:28 Simple Syrup 15 Ml FEEDTUBE PRN PRN Hypoglycemia Simple Syrup 30 ml 08/01/21 13:28 Simple Syrup 15 Ml FEEDTUBE PRN PRN Hypoglycemia Sodium Bicarbonate 325 mg 08/01/21 13:28 Sodium Bicarbonate 325 Mg Tab FEEDTUBE PRN PRN For Clogged Feeding Tube Sodium Chloride 10 ml 07/29/21 00:47 07/31/21 21:17 Sodium Chloride 0.9% 10 Ml Flush Syringe IV 10 ml PRN PRN Administration LINE FLUSH Tramadol HCl 50 mg 07/29/21 00:47 Tramadol 50 Mg Tab PO Q6H PRN Pain, Moderate (4-6) Nutrition/Malnutrition Assess - Dietary Evaluation Nutrition/Malnutrition Findings: Nutrition Notes Start: 07/29/21 15:44 Freq: Status: Active Protocol: Document 08/01/21 12:51 CHUY (Rec: 08/01/21 13:31 CHUY [id number]) Nutrition Notes Initial or Follow up Reassessment Current Diagnosis CKD (stage V CKD),Coronary Artery Disease,Diabetes,Sepsis ,Hypertension,Stroke Other Pertinent Diagnosis GI bleed, ESRD+HD, CAP, Anemia , Dementia, GERD, AK. Current Diet TF-Nepro w/CARBSTEADY @ 35 ml/ hr (since D 07/30). Labs/Tests 08/01: BUN 44, Crea 4.5, Glu 117, Ca 7.7. Pertinent Medications 08/01: Nutritionally unremarkable. Height 5 ft 4 in Weight 58.9 kg [place] Body Weight (kg) 59.09 BMI 22.3 Weight change and time frame 0.67 Kg body weight loss in 2 days reported. Weight Status Appropriate Subjective/Other Information RD consult for routine F/U on dietary advancement. RN note 08/01: tf in progress w/nephro at 35cc/hr per peg. 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 Spoke on the phone with RN and told me that Pt is not consuming anything PO, just the TF. Percent of energy/protein needs met: Prescribed TF-Nepro w/ CARBSTEADY @ 35 ml/hr provides for energy/protein needs (1, 500 Kcal/68 g) during LOS, 104 % Kcal; 95% AA. Burn Absent Trauma Absent GI Symptoms Diarrhea Difficulty In Swallowing Food Allergy No Skin Integrity/Comment Assessment WNL. Current % PO Other #1 Nutrition Diagnosis Inadequate oral intake Etiology Uncertain, but including difficulty swallowing. As Evidenced by Signs and Symptoms Pt has PEG tube placed SENIOR HR MANAGER, according to RN notes. Is patient on ventilator? No Is Patient Ambulatory and/or Out of Bed No REE-([facility]-confined to bed) [phone] Calculation Used for Recommendations [facility] Additional Notes Protein: >1.2 g/Kg; >71 g/day. Fluids: 1 ml/Kcal, or as per MD. Nutrition Intervention Change Diet Order: d/c Clear Liquids Diet. Nutrition Support: Continue Nepro wCARBSTEADY @ 35 ml/hr. Flush: 150 ml water Q 4 hr, or as per MD. Kcal 1,500 Protein (gm) 68 Carbohydrates (gm) 134 Fat (gm) 80 Fluid (mL) 606 Fiber (gm) 11 % RDI: 104% Kcal; 95% AA. Goal #1 Provide at least 75% of energy /protein needs through Enteral Feeding during LOS. Goal #2 Maintain body weight within +/ -3% of admission body weight during LOS. Follow-Up By: 08/05/21 Additional Comments Continue monitoring TF tolerance and BM.
[2021-08-02] MEDS: INSULIN LISPRO 100 UNIT/ML SUB-Q SCH ×7 (01:19→18:10)
[2021-08-02] MEDS: MEMANTINE 5 MG TAB PO SCH (10:45)
[2021-08-02] MEDS: cefTRIAXone/NS 2 GM/100 ML 2 GM/100 ML BAG IV SCH (10:45)
[2021-08-02] MEDS: LANSOPRAZOLE 30 MG SOLUTAB FEEDTUBE SCH ×2 (10:45→23:10)
[2021-08-02] MEDS: PARoxetine 20 MG TAB PO SCH (10:47)
--- NOTE | 2021-08-02 12:46 | Progress Note ---
Assessment and Plan - Patient Problems (1) Coronary artery disease Current Visit: Yes Status: Acute Plan to address problem: Patient presented with fever, leukocytosis and a right lower lobe pneumonia chest x-ray. 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 Current ECG is not consistent with an acute STEMI, instead represents residual changes from his old inferior infarct. Antiplatelet therapy on hold for severe anemia. Continue other guideline directed therapy for his coronary artery disease. Subjective Date of service: 08/02/21 Principal diagnosis: Pneumonia, sepsis Interval history: Patient appears comfortable, no acute respiratory distress. No new cardiac events reported. Objective Vital Signs Temp Pulse Resp BP Pulse Ox Pulse Ox 08/02/21 10:00 99 H 18 97 08/02/21 08:05 97.4 F L 78 18 103/51 97 08/02/21 05:00 96 08/02/21 04:18 99.0 F 100 H 18 156/68 95 08/01/21 23:53 94 08/01/21 22:10 96 08/01/21 19:44 98.3 F 103 H 18 113/61 90 08/01/21 17:00 97 08/01/21 15:29 98.7 F 16 104/51 08/01/21 12:52 98.2 F 94 H 18 139/76 96 - Physical Examination General: Cachectic, Other (Chronically ill-appearing) HEENT: Positive: PERRL Neck: Positive: neck supple Cardiac: Positive: Reg Rate and Rhythm Lungs: Positive: Decreased Breath Sounds Neuro: Positive: Weakness (Generalized lethargy) Abdomen: Positive: Soft Skin: Positive: Clear Extremities: Absent: edema
--- NOTE | 2021-08-02 13:51 | Progress Note ---
Assessment and Plan 1. ESRD: Patient is on maintenance hemodialysis three times a week, MWF schedule. Hemodialysis: 07/30, 08/01. 2. FEN: Hyperkalemia, K level is better. Monitor lytes and volume status. 3. Acute blood loss Anemia: 2/2 GI bleed. S/p PRBC. Epogen on dialysis days. Monitor. 4. GI bleed: Rectal bleed in the setting of anticoauglants and antiplatelets, now discontinued. Protonix. Monitor H/H. Followed by GI. 5. Sepsis / Community acquired pneumonia, pOA: CXR showed diffuse bilateral airspace disease. Covid negative. Ceftriaxone. S/p Azithromycin. 6. H/o CAD s/p PCI with stent: No symptoms of chest pain. Stent placed last year Jun 2020 for inferior wall IA. 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 Followed by Cards. Atorvastatin. 7. H/o CVA with residual aphasia. 8. DM type: Monitor bl. glucose. Subjective: Patient seen and examined at the bedside. Examination: General appearance: well-developed, appears stated age, not in distress HEENT: atraumatic Neck: trachea midline Respiratory: Clear to Auscultation Heart: regular, S1S2, no murmur Abdomen: soft, normoactive bowel sounds, not tender, not distended Integumentary: no obvious rash Neurologic: alert Ext: no edema Hemodialysis access: L FA AVF Subjective Date of service: 08/02/21 Principal diagnosis: Pneumonia, sepsis Objective - Vital Signs Vital signs: Vital Signs - 12hr 08/02/21 08/02/21 08/02/21 04:18 05:00 08:05 Temperature 99.0 F 97.4 F L Pulse Rate 100 H 78 Respiratory 18 18 Rate Blood Pressure 156/68 103/51 O2 Sat by Pulse 95 96 97 Oximetry 08/02/21 08/02/21 08/02/21 10:00 11:50 11:51 Temperature 98.7 F Pulse Rate 99 H 79 Respiratory 18 18 Rate Blood Pressure 101/66 O2 Sat by Pulse 97 97 Oximetry - Lab 08/03/21 11:28 08/03/21 11:28 Most recent lab results Calcium 7.7 mg/dL (8.4-10.2) L 08/01/21 04:33 Medications & Allergies - Medications Allergies/Adverse Reactions: Allergies No Known Allergies Allergy (Unverified 06/23/20 11:35) Home Medications: Home Medications Medication Instructions Recorded Confirmed Last Taken Type Aspirin [Aspirin BABY CHEW TAB] 81 mg PO QDAY 06/23/20 07/30/21 07/28/21 14:00 History Clopidogrel [Plavix] 1 tab PO DAILY 06/23/20 07/30/21 07/28/21 14:00 History Finasteride 1 tab PO DAILY 06/23/20 07/30/21 07/28/21 14:00 History Memantine 5 mg PO QDAY 06/23/20 07/30/21 07/28/21 14:00 History OLANZapine [Zyprexa] 1 tab PO HS 06/23/20 07/30/21 07/28/21 14:00 History PARoxetine HCL [PARoxetine] 1 tab PO DAILY 06/23/20 07/30/21 07/28/21 14:00 History amLODIPine 1 tab PO DAILY 06/23/20 07/30/21 07/28/21 14:00 History AtorvaSTATin [Lipitor] 80 mg PO QHS #60 tablet 06/29/20 07/30/21 07/28/21 14:00 Rx Dextrose/Maltodextrin [Glucose 1 each PO DAILY #30 powd.pack 06/29/20 07/30/21 07/28/21 14:00 Rx Powder Packets] Lactose-Reduced Food [Ensure 237 ml PO DAILY #30 liquid 06/29/20 07/30/21 07/28/21 14:00 Rx Liquid] Metoprolol [Lopressor TAB] 25 mg PO BID #60 tablet 06/29/20 07/30/21 07/28/21 14:00 Rx Pantoprazole [Protonix TAB] 40 mg PO BIDAC #60 tablet 06/29/20 07/30/21 07/28/21 14:00 Rx Active Medications: Generic Name Dose Route Start Last Admin Trade Name Freq PRN Reason Stop Dose Admin Acetaminophen 650 mg 07/29/21 00:47 07/29/21 23:23 Acetaminophen 325 Mg Tab PO 650 mg Q6H PRN Administration Pain, Mild (1-3) Lipase/Protease/Amylase 1 each 08/01/21 13:28 Lipase 10,500/Protease 25,000/Amylase 43,750 (Units) Dr Tyler FEEDTUBE PRN PRN For Clogged Feeding Tube Atorvastatin Calcium 80 mg 07/29/21 22:00 08/01/21 21:28 Atorvastatin 40 Mg Tab PO 80 mg QHS LIAM Administration Dextrose 0 ml 07/29/21 01:06 07/31/21 02:05 Dextrose 10% *Hypoglycemia IV 75 ml DIRECT PRN Administration Hypoglycemia Protocol Epoetin Nicolas-epbx 20,000 unit 07/30/21 10:05 08/01/21 10:42 Epoetin Nicolas-Epbx 20,000 Unit/1 Ml Vial SUB-Q 20,000 unit ADRIENNE PRN Administration hemodialysis Heparin Sodium (Porcine) 3,000 unit 07/30/21 10:05 08/01/21 09:48 Heparin 10,000 Units/10 Ml Vial IV 3,000 unit ADRIENNE PRN Administration hemodialysis Sodium Chloride 100 mls @ 999 mls/hr 07/30/21 10:05 Nacl 0.9% IV ADRIENNE PRN Hypotension Insulin Human Lispro 0 unit 07/29/21 06:00 08/02/21 12:48 Insulin Lispro 100 Unit/Ml SUB-Q 2 unit Q6HR LIAM Administration Protocol Lansoprazole 30 mg 08/02/21 10:00 08/02/21 10:45 Lansoprazole 30 Mg Solutab FEEDTUBE 30 mg BID LIAM Administration Memantine 5 mg 07/29/21 10:00 08/02/21 10:45 Memantine 5 Mg Tab PO 5 mg QDAY LIAM Administration Morphine Sulfate 2 mg 07/29/21 00:47 Morphine 2 Mg/1 Ml Inj IV Q5MIN PRN Chest Pain unrelieved by NTG Nitroglycerin 0.4 mg 07/29/21 00:47 Nitroglycerin 0.4 Mg Tab Subl SL Q5M PRN Chest Pain Olanzapine 5 mg 07/29/21 22:00 08/01/21 21:28 Olanzapine 5 Mg Tab PO 5 mg HS LIAM Administration Ondansetron HCl 4 mg 07/29/21 05:46 Ondansetron 4 Mg/2 Ml Inj IV Q8H PRN Nausea And Vomiting Paroxetine HCl 40 mg 07/29/21 10:00 08/02/21 10:47 Paroxetine 20 Mg Tab PO 40 mg DAILY LIAM Administration Simple Syrup 15 ml 08/01/21 13:28 Simple Syrup 15 Ml FEEDTUBE PRN PRN Hypoglycemia Simple Syrup 30 ml 08/01/21 13:28 Simple Syrup 15 Ml FEEDTUBE PRN PRN Hypoglycemia Sodium Bicarbonate 325 mg 08/01/21 13:28 Sodium Bicarbonate 325 Mg Tab FEEDTUBE PRN PRN For Clogged Feeding Tube Sodium Chloride 10 ml 07/29/21 00:47 08/01/21 21:29 Sodium Chloride 0.9% 10 Ml Flush Syringe IV 10 ml PRN PRN Administration LINE FLUSH Tramadol HCl 50 mg 07/29/21 00:47 Tramadol 50 Mg Tab PO Q6H PRN Pain, Moderate (4-6)
--- NOTE | 2021-08-02 17:17 | Progress Note ---
Assessment and Plan Assessment and plan: 85 years male with history of hypertension ,diabetes CVA with hypoxia and debility. End-stage renal disease on hemodialysis, GERD, vascular dementia, cerebral atherosclerosis was brought to the emergency room because of unresponsiveness with possible STEMI. Patient is baseline nonverbal. Patient was found to have O2 sat 75% on room air. Family called ambulance for altered mental status. Patient is nonverbal but patient follows, In the emergency room EKG shows STEMI. Subsequently ER doctor talked with the on-call compliance testing analyst Dr. Daniels, who thinks it is old infarct, we got his old EKG. EKG showed normal sinus rhythm. Recontacted compliance testing analyst. We are going to put the patient in IMCU, put the patient on heparin and beta-cameron aspirin Plavix Lipitor. Echocardiogram serial cardiac enzyme Dr. orellana see the patient in the morning. In the emergency room room patient is also found to have sepsis chest x-ray shows multifocal pneumonia, WBCs 19.8. We are going to put the patient on pneumonia pathway we put the patient on IV fluid neb treatment antibiotic. After initiating heparin drip patient is bleeding so we will have to hold the heparin drip aspirin Plavix. Patient hemoglobin dropped to 5.9. We are transfusing 2 unit of packed red blood cell. Consult GI and put the patient on Protonix 40 mg IV every 12 hours Assessment and Plan: Patient was brought to ED for altered mental status with history of CVA dementia, nonverbal Suspected sepsis with hypotension, leukocytosis but afebrile CXR and CT showed multifocal pneumonia with emphysema Admitted to ICU, treated with Rocephin and azithromycin, leukocytosis improved but not resolved Remains afebrile, blood cultures negative Likely aspiration pneumonia, patient has been tube feeds chronically Hypotension resolved with IV fluids Acute hypoxic respiratory failure, resolved O2 progressively weaned to room air Acute on chronic anemia the setting of ESRD Hemoglobin dropped from a 9-5.9 in ED after initiating heparin infusion for possible acute [place], discontinued after few hours Reportedly stool positive for occult blood, unclear if patient really had melena Received PRBC x2 and hemoglobin stable since. GI consulted and evaluated and determined no ongoing acute GI bleed CT abdomen pelvis unremarkable Recent EGD on 07/15 showed recent esophagitis. Continue PPI # CAD s/p PCI with stent - no symptoms of chest pain. - stent placed last year Jun 2020 for inferior wall [place] - presentation initially appeared to be stemi to ED physician but cardiology determined this was an old inf wall infarct noted by QS complexes in EKG this admission. - cardiology consulted. D/w Dr Ron who does not believe this is a stemi. Ok with d/c of antiplatelet agents and anticoagulants at this time - troponin 0.09, unchanged on serial measurements. Patient is an esrd patient thus cannot be extrapolated from. - atorvastatin 80 mg qhs #ESRD on hemodialysis - has left arm fistula. - Nephrology consulted, receiving dialysis #history of CVA with right hemiparesis, nonverbal at baseline with dementia -Brought to ER with altered mental status, improved and currently seems to be at his baseline mental status -Patient is awake, nonverbal, interacts in a very limited fashion. - resume home atorvastatin - atorvastatin 80 mg qhs Current dysphagia, on tube feeds via PEG Dysphagia likely from stroke Continue tube feeds, tolerating #Advance care planning Disease education conducted, care plan discussed, diagnoses discussed, prognosis discussed, patient is full code, patient acknowledges understanding and agree with care plan, +30 minutes. Discussed with the nursing staff. History Interval history: Patient remains hemodynamically stable, afebrile, O2 further weaned to room air, tolerating tube feeds. Awake but nonverbal. Hospitalist Physical - Constitutional Vitals: Temp Pulse Resp BP Pulse Ox 98.5 F 92 H 18 118/62 96 08/02/21 15:49 08/02/21 15:49 08/02/21 15:49 08/02/21 15:49 08/02/21 15:49 General appearance: Present: no acute distress, disheveled, other (Awake but nonverbal) - EENT Eyes: Present: PERRL ENT: other (Mild facial asymmetry from previous stroke) - Respiratory Respiratory effort: normal Respiratory: bilateral: diminished - Cardiovascular Rhythm: regular - Extremities Extremities: No edema - Abdominal General gastrointestinal: soft, non-distended, normal bowel sounds, other (PEG tube in place) - Integumentary Integumentary: Present: rash - Neurologic Neurologic: other (Patient is awake but nonverbal with history of dementia and CVA. Interacts very limited. Right-sided knee paresis.) HEART Score - HEART Score EKG: Significant ST-depression Age: > 65 Risk factors: > 3 risk factors or hx of atherosclerotic disease Troponin: Troponin T 0.095 ng/mL (0.00-0.029) H 07/29/21 05:49 Troponin: 1-3x normal limit Results - Labs CBC & Chem 7: 08/03/21 11:28 08/03/21 11:28 Labs: Laboratory Last Values WBC 14.9 K/mm3 (4.5-11.0) H 07/31/21 07:00 RBC 2.58 M/mm3 (3.65-5.03) L 07/31/21 07:00 Hgb 7.8 gm/dl (11.8-15.2) L 07/31/21 07:00 Hct 23.5 % (35.5-45.6) L 07/31/21 07:00 MCV 91 fl (84-94) 07/31/21 07:00 MCH 30 pg (28-32) 07/31/21 07:00 MCHC 33 % (32-34) 07/31/21 07:00 RDW 18.8 % (13.2-15.2) H 07/31/21 07:00 Plt Count 335 K/mm3 (140-440) 07/31/21 07:00 Lymph % (Auto) 5.6 % (13.4-35.0) L 07/31/21 07:00 [place] % (Auto) 4.6 % (0.0-7.3) 07/31/21 07:00 Eos % (Auto) 1.6 % (0.0-4.3) 07/31/21 07:00 Baso % (Auto) 0.4 % (0.0-1.8) 07/31/21 07:00 Lymph # (Auto) 0.8 K/mm3 (1.2-5.4) L 07/31/21 07:00 [place] # (Auto) 0.7 K/mm3 (0.0-0.8) 07/31/21 07:00 Eos # (Auto) 0.2 K/mm3 (0.0-0.4) 07/31/21 07:00 Baso # (Auto) 0.1 K/mm3 (0.0-0.1) 07/31/21 07:00 Add Manual Diff Complete 07/31/21 07:00 Total Counted 100 07/30/21 05:13 Seg Neutrophils % 87.8 % (40.0-70.0) H 07/31/21 07:00 Seg Neuts % (Manual) 97.0 % (40.0-70.0) H 07/30/21 05:13 Band Neutrophils % 0 % 07/30/21 05:13 Lymphocytes % (Manual) 3.0 % (13.4-35.0) L 07/30/21 05:13 Reactive Lymphs % (Man) 0 % 07/30/21 05:13 Monocytes % (Manual) 0 % (0.0-7.3) 07/30/21 05:13 Eosinophils % (Manual) 0 % (0.0-4.3) 07/30/21 05:13 Basophils % (Manual) 0 % (0.0-1.8) 07/30/21 05:13 Metamyelocytes % 0 % 07/30/21 05:13 Myelocytes % 0 % 07/30/21 05:13 Promyelocytes % 0 % 07/30/21 05:13 Blast Cells % 0 % 07/30/21 05:13 Nucleated RBC % Not Reportable 07/30/21 05:13 Seg Neutrophils # 13.1 K/mm3 (1.8-7.7) H 07/31/21 07:00 Seg Neutrophils # Man 16.8 K/mm3 (1.8-7.7) H 07/30/21 05:13 Band Neutrophils # 0.0 K/mm3 07/30/21 05:13 Lymphocytes # (Manual) 0.5 K/mm3 (1.2-5.4) L 07/30/21 05:13 Abs React Lymphs (Man) 0.0 K/mm3 07/30/21 05:13 Monocytes # (Manual) 0.0 K/mm3 (0.0-0.8) 07/30/21 05:13 Eosinophils # (Manual) 0.0 K/mm3 (0.0-0.4) 07/30/21 05:13 Basophils # (Manual) 0.0 K/mm3 (0.0-0.1) 07/30/21 05:13 Metamyelocytes # 0.0 K/mm3 07/30/21 05:13 Myelocytes # 0.0 K/mm3 07/30/21 05:13 Promyelocytes # 0.0 K/mm3 07/30/21 05:13 Blast Cells # 0.0 K/mm3 07/30/21 05:13 WBC Morphology Not Reportable 07/30/21 05:13 Hypersegmented Neuts Not Reportable 07/30/21 05:13 Hyposegmented Neuts Not Reportable 07/30/21 05:13 Hypogranular Neuts Not Reportable 07/30/21 05:13 Smudge Cells Not Reportable 07/30/21 05:13 Toxic Granulation Not Reportable 07/30/21 05:13 Toxic Vacuolation Not Reportable 07/30/21 05:13 Dohle Bodies Not Reportable 07/30/21 05:13 Pelger-Huet Anomaly Not Reportable 07/30/21 05:13 Bong Rods Not Reportable 07/30/21 05:13 Platelet Estimate Consistent w auto 07/30/21 05:13 Clumped Platelets Not Reportable 07/30/21 05:13 Plt Clumps, EDTA Not Reportable 07/30/21 05:13 Large Platelets Not Reportable 07/30/21 05:13 Giant Platelets Not Reportable 07/30/21 05:13 Platelet Satelliting Not Reportable 07/30/21 05:13 Plt Morphology Comment Not Reportable 07/30/21 05:13 RBC Morphology Not Reportable 07/30/21 05:13 Dimorphic RBCs Not Reportable 07/30/21 05:13 Polychromasia Not Reportable 07/30/21 05:13 Hypochromasia 1+ 07/30/21 05:13 Poikilocytosis Not Reportable 07/30/21 05:13 Anisocytosis 1+ 07/30/21 05:13 Microcytosis Not Reportable 07/30/21 05:13 Macrocytosis Few 07/30/21 05:13 Spherocytes Not Reportable 07/30/21 05:13 Pappenheimer Bodies Not Reportable 07/30/21 05:13 Sickle Cells Not Reportable 07/30/21 05:13 Target Cells Not Reportable 07/30/21 05:13 Tear Drop Cells Not Reportable 07/30/21 05:13 Ovalocytes Few 07/30/21 05:13 Helmet Cells Not Reportable 07/30/21 05:13 [place] Bodies Not Reportable 07/30/21 05:13 [place] Rings Not Reportable 07/30/21 05:13 [place] Cells Not Reportable 07/30/21 05:13 Bite Cells Not Reportable 07/30/21 05:13 Crenated Cell Not Reportable 07/30/21 05:13 Elliptocytes Not Reportable 07/30/21 05:13 Acanthocytes (Spur) Not Reportable 07/30/21 05:13 Rouleaux Not Reportable 07/30/21 05:13 Hemoglobin C Crystals Not Reportable 07/30/21 05:13 Schistocytes Not Reportable 07/30/21 05:13 Malaria parasites Not Reportable 07/30/21 05:13 Andrés Bodies Not Reportable 07/30/21 05:13 Hem Pathologist Commnt No 07/30/21 05:13 PT 15.3 Sec. (12.2-14.9) H 07/28/21 21:49 INR 1.09 (0.87-1.13) 07/28/21 21:49 APTT 23.5 Sec. (24.2-36.6) L 07/28/21 21:49 Heparin Anti-Xa Level < 0.10 U.I./ml (0.3-0.7) L 07/29/21 12:41 Sodium 138 mmol/L (137-145) 08/01/21 04:33 Potassium 3.7 mmol/L (3.6-5.0) 08/01/21 04:33 Chloride 103.4 mmol/L (98-107) 08/01/21 04:33 Carbon Dioxide 22 mmol/L (22-30) 08/01/21 04:33 Anion Gap 16 mmol/L 08/01/21 04:33 BUN 44 mg/dL (9-20) H 08/01/21 04:33 Creatinine 4.5 mg/dL (0.8-1.3) H 08/01/21 04:33 Estimated GFR 15 ml/min 08/01/21 04:33 BUN/Creatinine Ratio 10 % 08/01/21 04:33 Glucose 117 mg/dL (75-100) H 08/01/21 04:33 POC Glucose 158 mg/dL (70-105) H 08/02/21 11:47 Lactic Acid 1.90 mmol/L (0.7-2.0) 07/28/21 23:08 Calcium 7.7 mg/dL (8.4-10.2) L 08/01/21 04:33 Total Bilirubin 0.30 mg/dL (0.1-1.2) 07/28/21 21:49 AST 20 units/L (5-40) 07/28/21 21:49 ALT 6 units/L (7-56) L 07/28/21 21:49 Alkaline Phosphatase 89 units/L (35-129) 07/28/21 21:49 Troponin T 0.095 ng/mL (0.00-0.029) H 07/29/21 05:49 NT-Pro-B Natriuret Pep 89189 pg/mL (0-900) H 07/28/21 21:49 Total Protein 6.2 g/dL (6.3-8.2) L 07/28/21 21:49 Albumin 2.5 g/dL (3.9-5) L 07/28/21 21:49 Albumin/Globulin Ratio 0.7 % 07/28/21 21:49 Lipase 96 units/L (13-60) H 07/28/21 21:49 Nasal Screen MRSA (PCR) Negative (Negative) 07/30/21 06:15 Coronavirus (PCR) Negative (Negative) 07/30/21 08:34 Hepatitis A IgM Ab Non-reactive (NonReactive) 07/30/21 09:22 Hep Bs Antigen Non-reactive (Negative) 07/30/21 09:22 Hep B Core IgM Ab Non-reactive (NonReactive) 07/30/21 09:22 Hepatitis C Antibody Non-reactive (NonReactive) 07/30/21 09:22 Blood Type AB POSITIVE 07/29/21 05:49 Antibody Screen Negative 07/29/21 05:49 Crossmatch See Detail 07/29/21 05:49 Microbiology: Microbiology 07/29/21 19:39 Peripheral/Venous Blood Culture - Preliminary NO GROWTH AFTER 72 HOURS 07/29/21 19:39 Peripheral/Venous Blood Culture - Preliminary NO GROWTH AFTER 72 HOURS Active Medications - Current Medications Current Medications: Generic Name Dose Route Start Last Admin Trade Name Freq PRN Reason Stop Dose Admin Acetaminophen 650 mg 07/29/21 00:47 07/29/21 23:23 Acetaminophen 325 Mg Tab PO 650 mg Q6H PRN Administration Pain, Mild (1-3) Lipase/Protease/Amylase 1 each 08/01/21 13:28 Lipase 10,500/Protease 25,000/Amylase 43,750 (Units) Dr Tyler FEEDTUBE PRN PRN For Clogged Feeding Tube Atorvastatin Calcium 80 mg 07/29/21 22:00 08/01/21 21:28 Atorvastatin 40 Mg Tab PO 80 mg QHS LIAM Administration Dextrose 0 ml 07/29/21 01:06 07/31/21 02:05 Dextrose 10% *Hypoglycemia IV 75 ml DIRECT PRN Administration Hypoglycemia Protocol Epoetin Nicolas-epbx 20,000 unit 07/30/21 10:05 08/01/21 10:42 Epoetin Nicolas-Epbx 20,000 Unit/1 Ml Vial SUB-Q 20,000 unit ADRIENNE PRN Administration hemodialysis Heparin Sodium (Porcine) 3,000 unit 07/30/21 10:05 08/01/21 09:48 Heparin 10,000 Units/10 Ml Vial IV 3,000 unit ADRIENNE PRN Administration hemodialysis Sodium Chloride 100 mls @ 999 mls/hr 07/30/21 10:05 Nacl 0.9% IV ADRIENNE PRN Hypotension Insulin Human Lispro 0 unit 07/29/21 06:00 08/02/21 12:48 Insulin Lispro 100 Unit/Ml SUB-Q 2 unit Q6HR LIAM Administration Protocol Lansoprazole 30 mg 08/02/21 10:00 08/02/21 10:45 Lansoprazole 30 Mg Solutab FEEDTUBE 30 mg BID LIAM Administration Memantine 5 mg 07/29/21 10:00 08/02/21 10:45 Memantine 5 Mg Tab PO 5 mg QDAY LIAM Administration Morphine Sulfate 2 mg 07/29/21 00:47 Morphine 2 Mg/1 Ml Inj IV Q5MIN PRN Chest Pain unrelieved by NTG Nitroglycerin 0.4 mg 07/29/21 00:47 Nitroglycerin 0.4 Mg Tab Subl SL Q5M PRN Chest Pain Olanzapine 5 mg 07/29/21 22:00 08/01/21 21:28 Olanzapine 5 Mg Tab PO 5 mg HS LIAM Administration Ondansetron HCl 4 mg 07/29/21 05:46 Ondansetron 4 Mg/2 Ml Inj IV Q8H PRN Nausea And Vomiting Paroxetine HCl 40 mg 07/29/21 10:00 08/02/21 10:47 Paroxetine 20 Mg Tab PO 40 mg DAILY LIAM Administration Simple Syrup 15 ml 08/01/21 13:28 Simple Syrup 15 Ml FEEDTUBE PRN PRN Hypoglycemia Simple Syrup 30 ml 08/01/21 13:28 Simple Syrup 15 Ml FEEDTUBE PRN PRN Hypoglycemia Sodium Bicarbonate 325 mg 08/01/21 13:28 Sodium Bicarbonate 325 Mg Tab FEEDTUBE PRN PRN For Clogged Feeding Tube Sodium Chloride 10 ml 07/29/21 00:47 08/01/21 21:29 Sodium Chloride 0.9% 10 Ml Flush Syringe IV 10 ml PRN PRN Administration LINE FLUSH Tramadol HCl 50 mg 07/29/21 00:47 Tramadol 50 Mg Tab PO Q6H PRN Pain, Moderate (4-6) Nutrition/Malnutrition Assess - Dietary Evaluation Nutrition/Malnutrition Findings: Nutrition Notes Start: 07/29/21 15:44 Freq: Status: Active Protocol: Document 08/01/21 12:51 CHUY (Rec: 08/01/21 13:31 CHUY [id number]) Nutrition Notes Initial or Follow up Reassessment Current Diagnosis CKD (stage V CKD),Coronary Artery Disease,Diabetes,Sepsis ,Hypertension,Stroke Other Pertinent Diagnosis GI bleed, ESRD+HD, CAP, Anemia , Dementia, GERD, [place]. Current Diet TF-Nepro w/CARBSTEADY @ 35 ml/ hr (since D 07/30). Labs/Tests 08/01: BUN 44, Crea 4.5, Glu 117, Ca 7.7. Pertinent Medications 08/01: Nutritionally unremarkable. Height 5 ft 4 in Weight 58.9 kg [place] Body Weight (kg) 59.09 BMI 22.3 Weight change and time frame 0.67 Kg body weight loss in 2 days reported. Weight Status Appropriate Subjective/Other Information RD consult for routine F/U on dietary advancement. RN note 08/01: tf in progress w/nephro at 35cc/hr per peg. Pt has PEG tube placed [employer], according to RN notes. Spoke on the phone with RN and told me that Pt is not consuming anything PO, just the TF. Percent of energy/protein needs met: Prescribed TF-Nepro w/ CARBSTEADY @ 35 ml/hr provides for energy/protein needs (1, 500 Kcal/68 g) during LOS, 104 % Kcal; 95% AA. Burn Absent Trauma Absent GI Symptoms Diarrhea Difficulty In Swallowing Food Allergy No Skin Integrity/Comment Assessment WNL. Current % PO Other #1 Nutrition Diagnosis Inadequate oral intake Etiology Uncertain, but including difficulty swallowing. As Evidenced by Signs and Symptoms Pt has PEG tube placed [employer], according to RN notes. Is patient on ventilator? No Is Patient Ambulatory and/or Out of Bed No REE-([facility]-confined to bed) 1441.260 Calculation Used for Recommendations [facility] Additional Notes Protein: >1.2 g/Kg; >71 g/day. Fluids: 1 ml/Kcal, or as per MD. Nutrition Intervention Change Diet Order: d/c Clear Liquids Diet. Nutrition Support: Continue Nepro wCARBSTEADY @ 35 ml/hr. Flush: 150 ml water Q 4 hr, or as per MD. Kcal 1,500 Protein (gm) 68 Carbohydrates (gm) 134 Fat (gm) 80 Fluid (mL) 606 Fiber (gm) 11 % RDI: 104% Kcal; 95% AA. Goal #1 Provide at least 75% of energy /protein needs through Enteral Feeding during LOS. Goal #2 Maintain body weight within +/ -3% of admission body weight during LOS. Follow-Up By: 08/05/21 Additional Comments Continue monitoring TF tolerance and BM.
[2021-08-03] MEDS: INSULIN LISPRO 100 UNIT/ML SUB-Q SCH ×4 (07:35→17:03)
[2021-08-03] MEDS: LANSOPRAZOLE 30 MG SOLUTAB FEEDTUBE SCH ×2 (10:15→22:13)
[2021-08-03] MEDS: MEMANTINE 5 MG TAB PO SCH (10:15)
[2021-08-03] MEDS: PARoxetine 20 MG TAB PO SCH (10:16)
[2021-08-03 13:12] LABS: Hematocrit 25.1 % (35.5-45.6); Hemoglobin 8.1 gm/dl (11.8-15.2); Mean Corpuscular HGB Conc 32 % (32-34); Mean Corpuscular Volume 96 fl (84-94); Platelet Count 320 K/mm3 (140-440); Red Blood Count 2.62 M/mm3 (3.65-5.03)
[2021-08-03 13:13] LABS: Red Cell Distribution Width 21.5 % (13.2-15.2)
[2021-08-03 13:28] LABS: Albumin 2.1 g/dL (3.9-5); Calcium 7.9 mg/dL (8.4-10.2)
[2021-08-03 14:30] LABS: Anisocytosis 1+; Band Neutrophils # (Manual) 0.2 K/mm3; Basophils % (Manual) 0 % (0.0-1.8); Eosinophils % (Manual) 0 % (0.0-4.3); Large Platelets Rare; Macrocytosis 1+; Myelocytes # (Manual) 0.3 K/mm3; Platelet Estimate Consistent w Auto; Total Cells Counted 100
--- NOTE | 2021-08-03 14:35 | Progress Note ---
Assessment and Plan - Patient Problems (1) Coronary artery disease Current Visit: Yes Status: Acute Plan to address problem: Patient presented with fever, leukocytosis and a right lower lobe pneumonia chest x-ray. Antiplatelet therapy on hold for severe anemia. Continue other guideline directed therapy for his coronary artery disease. Subjective Date of service: 08/03/21 Principal diagnosis: Pneumonia, sepsis Interval history: Patient appears comfortable, no acute respiratory distress. No new cardiac events reported. Objective Vital Signs Temp Pulse Resp BP Pulse Ox 08/03/21 10:00 92 H 18 97 08/03/21 07:45 98.7 F 88 18 141/69 92 08/03/21 04:23 98.6 F 67 16 127/36 99 08/03/21 00:22 98.6 F 93 H 20 142/66 97 08/02/21 22:00 100 08/02/21 19:47 98.7 F 91 H 19 151/56 100 08/02/21 15:49 98.5 F 92 H 18 118/62 96 - Physical Examination General: Cachectic, Other (Chronically ill-appearing) HEENT: Positive: PERRL Neck: Positive: neck supple Cardiac: Positive: Irregularly Regular Lungs: Positive: Decreased Breath Sounds Neuro: Positive: Weakness (Generalized lethargy) Abdomen: Positive: Soft Skin: Positive: Clear Extremities: Absent: edema - Labs and Meds Cardiac Enzymes 08/03/21 Range/Units 11:28 AST 26 (5-40) units/L CBC 08/03/21 Range/Units 11:28 WBC 15.0 H (4.5-11.0) K/mm3 RBC 2.62 L (3.65-5.03) M/mm3 Hgb 8.1 L (11.8-15.2) gm/dl Hct 25.1 L (35.5-45.6) % Plt Count 320 (140-440) K/mm3 Comprehensive Metabolic Panel 08/03/21 Range/Units 11:28 Sodium 137 (137-145) mmol/L Potassium 4.0 (3.6-5.0) mmol/L Chloride 98.6 (98-107) mmol/L Carbon Dioxide 27 (22-30) mmol/L BUN 38 H (9-20) mg/dL Creatinine 4.5 H (0.8-1.3) mg/dL Glucose 179 H (75-100) mg/dL Calcium 7.9 L (8.4-10.2) mg/dL AST 26 (5-40) units/L ALT 17 (7-56) units/L Alkaline Phosphatase 142 H (35-129) units/L Total Protein 6.1 L (6.3-8.2) g/dL Albumin 2.1 L (3.9-5) g/dL
--- NOTE | 2021-08-03 21:23 | Progress Note ---
Assessment and Plan 1. ESRD: Patient is on maintenance hemodialysis three times a week, MWF schedule. Hemodialysis: 07/30, 08/01. 2. FEN: Hyperkalemia, K level is better. Monitor lytes and volume status. 3. Acute blood loss Anemia: 2/2 GI bleed. S/p PRBC. Epogen on dialysis days. Monitor. 4. GI bleed: Rectal bleed in the setting of anticoauglants and antiplatelets, now discontinued. Protonix. Monitor H/H. Followed by GI. 5. Sepsis / Community acquired pneumonia, pOA: CXR showed diffuse bilateral airspace disease. Covid negative. S/p Abx. 6. Acute hypoxic respiratory failure: NC O2, wean as tolerated 7. H/o CAD s/p PCI with stent: No symptoms of chest pain. Stent placed Jun 2020 for inferior wall [place]. Followed by Cards. Atorvastatin. 8. H/o CVA with residual aphasia. 9. DM type: Monitor bl. glucose. Subjective: Patient seen and examined at the bedside. Examination: General appearance: well-developed, appears stated age, not in distress, NC O2 HEENT: atraumatic Neck: trachea midline Respiratory: Clear to Auscultation Heart: regular, S1S2, no murmur Abdomen: soft, normoactive bowel sounds, not tender, not distended Integumentary: no obvious rash Neurologic: lethargic Ext: no edema Hemodialysis access: L FA AVF Subjective Date of service: 08/03/21 Principal diagnosis: Pneumonia, sepsis Objective - Vital Signs Vital signs: Vital Signs - 12hr 08/03/21 08/03/21 08/03/21 10:00 15:49 19:03 Temperature 97.4 F L 98.6 F Pulse Rate 92 H 72 91 H Respiratory 18 18 20 Rate Blood Pressure 121/52 100/44 O2 Sat by Pulse 97 96 94 Oximetry - Lab 08/03/21 11:28 08/03/21 11:28 Most recent lab results Calcium 7.9 mg/dL (8.4-10.2) L 08/03/21 11:28 Medications & Allergies - Medications Allergies/Adverse Reactions: Allergies No Known Allergies Allergy (Unverified 06/23/20 11:35) Home Medications: Home Medications Medication Instructions Recorded Confirmed Last Taken Type Aspirin [Aspirin BABY CHEW TAB] 81 mg PO QDAY 06/23/20 07/30/21 07/28/21 14:00 History Clopidogrel [Plavix] 1 tab PO DAILY 06/23/20 07/30/21 07/28/21 14:00 History Finasteride 1 tab PO DAILY 06/23/20 07/30/21 07/28/21 14:00 History Memantine 5 mg PO QDAY 06/23/20 07/30/21 07/28/21 14:00 History OLANZapine [Zyprexa] 1 tab PO HS 06/23/20 07/30/21 07/28/21 14:00 History PARoxetine HCL [PARoxetine] 1 tab PO DAILY 06/23/20 07/30/21 07/28/21 14:00 History amLODIPine 1 tab PO DAILY 06/23/20 07/30/21 07/28/21 14:00 History AtorvaSTATin [Lipitor] 80 mg PO QHS #60 tablet 06/29/20 07/30/21 07/28/21 14:00 Rx Dextrose/Maltodextrin [Glucose 1 each PO DAILY #30 powd.pack 06/29/20 07/30/21 07/28/21 14:00 Rx Powder Packets] Lactose-Reduced Food [Ensure 237 ml PO DAILY #30 liquid 06/29/20 07/30/21 07/28/21 14:00 Rx Liquid] Metoprolol [Lopressor TAB] 25 mg PO BID #60 tablet 06/29/20 07/30/21 07/28/21 14:00 Rx Pantoprazole [Protonix TAB] 40 mg PO BIDAC #60 tablet 06/29/20 07/30/21 07/28/21 14:00 Rx Active Medications: Generic Name Dose Route Start Last Admin Trade Name Freq PRN Reason Stop Dose Admin Acetaminophen 650 mg 07/29/21 00:47 07/29/21 23:23 Acetaminophen 325 Mg Tab PO 650 mg Q6H PRN Administration Pain, Mild (1-3) Lipase/Protease/Amylase 1 each 08/01/21 13:28 Lipase 10,500/Protease 25,000/Amylase 43,750 (Units) Dr Tyler FEEDTUBE PRN PRN For Clogged Feeding Tube Atorvastatin Calcium 80 mg 07/29/21 22:00 08/02/21 23:09 Atorvastatin 40 Mg Tab PO 80 mg QHS LIAM Administration Dextrose 0 ml 07/29/21 01:06 07/31/21 02:05 Dextrose 10% *Hypoglycemia IV 75 ml DIRECT PRN Administration Hypoglycemia Protocol Epoetin Nicolas-epbx 20,000 unit 07/30/21 10:05 08/01/21 10:42 Epoetin Nicolas-Epbx 20,000 Unit/1 Ml Vial SUB-Q 20,000 unit ADRIENNE PRN Administration hemodialysis Heparin Sodium (Porcine) 3,000 unit 07/30/21 10:05 08/01/21 09:48 Heparin 10,000 Units/10 Ml Vial IV 3,000 unit ADRIENNE PRN Administration hemodialysis Sodium Chloride 100 mls @ 999 mls/hr 07/30/21 10:05 Nacl 0.9% IV ADRIENNE PRN Hypotension Insulin Human Lispro 0 unit 07/29/21 06:00 08/03/21 17:03 Insulin Lispro 100 Unit/Ml SUB-Q Not Given Q6HR LIAM Protocol Lansoprazole 30 mg 08/02/21 10:00 08/03/21 10:15 Lansoprazole 30 Mg Solutab FEEDTUBE 30 mg BID LIAM Administration Memantine 5 mg 07/29/21 10:00 08/03/21 10:15 Memantine 5 Mg Tab PO 5 mg QDAY LIAM Administration Nitroglycerin 0.4 mg 07/29/21 00:47 Nitroglycerin 0.4 Mg Tab Subl SL Q5M PRN Chest Pain Olanzapine 5 mg 07/29/21 22:00 08/02/21 23:10 Olanzapine 5 Mg Tab PO 5 mg HS LIAM Administration Ondansetron HCl 4 mg 07/29/21 05:46 Ondansetron 4 Mg/2 Ml Inj IV Q8H PRN Nausea And Vomiting Paroxetine HCl 40 mg 07/29/21 10:00 08/03/21 10:16 Paroxetine 20 Mg Tab PO 40 mg DAILY LIAM Administration Simple Syrup 15 ml 08/01/21 13:28 Simple Syrup 15 Ml FEEDTUBE PRN PRN Hypoglycemia Simple Syrup 30 ml 08/01/21 13:28 Simple Syrup 15 Ml FEEDTUBE PRN PRN Hypoglycemia Sodium Bicarbonate 325 mg 08/01/21 13:28 Sodium Bicarbonate 325 Mg Tab FEEDTUBE PRN PRN For Clogged Feeding Tube Sodium Chloride 10 ml 07/29/21 00:47 08/01/21 21:29 Sodium Chloride 0.9% 10 Ml Flush Syringe IV 10 ml PRN PRN Administration LINE FLUSH
--- NOTE | 2021-08-03 21:28 | Progress Note ---
Assessment and Plan Assessment and plan: 85 years male with history of hypertension ,diabetes CVA with hypoxia and debility. End-stage renal disease on hemodialysis, GERD, vascular dementia, cerebral atherosclerosis was brought to the emergency room because of unresponsiveness with possible STEMI. Patient is baseline nonverbal. Patient was found to have O2 sat 75% on room air. Family called ambulance for altered mental status. Patient is nonverbal but patient follows, In the emergency room EKG shows STEMI. Subsequently ER doctor talked with the on-call network support technician Dr. Daniels, who thinks it is old infarct, we got his old EKG. EKG showed normal sinus rhythm. Recontacted network support technician. We are going to put the patient in IMCU, put the patient on heparin and beta-cameron aspirin Plavix Lipitor. Echocardiogram serial cardiac enzyme Dr. orellana see the patient in the morning. In the emergency room room patient is also found to have sepsis chest x-ray shows multifocal pneumonia, WBCs 19.8. We are going to put the patient on pneumonia pathway we put the patient on IV fluid neb treatment antibiotic. After initiating heparin drip patient is bleeding so we will have to hold the heparin drip aspirin Plavix. Patient hemoglobin dropped to 5.9. We are transfusing 2 unit of packed red blood cell. Consult GI and put the patient on Protonix 40 mg IV every 12 hours Assessment and Plan: Patient was brought to ED for altered mental status with history of CVA dementia, nonverbal Suspected sepsis with hypotension, leukocytosis but afebrile CXR and CT showed multifocal pneumonia with emphysema Admitted to ICU, treated with Rocephin and azithromycin, leukocytosis improved but not resolved Remains afebrile, blood cultures negative Likely aspiration pneumonia, patient has been tube feeds chronically Hypotension resolved with IV fluids Acute hypoxic respiratory failure, improving O2 weaned to 3 L Acute on chronic anemia the setting of ESRD Hemoglobin dropped from a 9-5.9 in ED after initiating heparin infusion for possible acute OK, discontinued after few hours Reportedly stool positive for occult blood, unclear if patient really had melena Received PRBC x2 and hemoglobin stable since. GI consulted and evaluated and determined no ongoing acute GI bleed CT abdomen pelvis unremarkable Recent EGD on 07/15 showed recent esophagitis. Continue PPI # CAD s/p PCI with stent - no symptoms of chest pain. - stent placed last year Jun 2020 for inferior wall OK - presentation initially appeared to be stemi to ED physician but cardiology determined this was an old inf wall infarct noted by QS complexes in EKG this admission. - cardiology consulted. D/w Dr Ron who does not believe this is a stemi. Ok with d/c of antiplatelet agents and anticoagulants at this time - troponin 0.09, unchanged on serial measurements. Patient is an esrd patient thus cannot be extrapolated from. - atorvastatin 80 mg qhs -Echo: LVEF 55%, normal atria, normal RV size and function, sclerotic aortic valve with moderate stenosis. #ESRD on hemodialysis - has left arm fistula. - Nephrology consulted, receiving dialysis #history of CVA with right hemiparesis and aphasic/nonverbal at baseline with dementia -Brought to ER with altered mental status, improved and currently seems to be at his baseline mental status -Patient is awake, nonverbal, interacts in a very limited fashion. - resume home atorvastatin - atorvastatin 80 mg qhs Current dysphagia, on tube feeds via PEG Dysphagia likely from stroke Continue tube feeds, tolerating #Advance care planning Disease education conducted, care plan discussed, diagnoses discussed, prognosis discussed, patient is full code, patient acknowledges understanding and agree with care plan, +30 minutes. Discussed with the nursing staff. History Interval history: Patient is awake nonverbal. Appears stable. Patient is placed back on O2, currently on 3 L. Was on room air yesterday. Does not appear to have any respi ratory distress. Reported tolerating tube feeds. Hospitalist Physical - Constitutional Vitals: Temp Pulse Resp BP Pulse Ox 98.6 F 91 H 20 100/44 94 08/03/21 19:03 08/03/21 19:03 08/03/21 19:03 08/03/21 19:03 08/03/21 19:03 General appearance: Present: no acute distress, disheveled, other (Awake but nonverbal) - EENT Eyes: Present: PERRL ENT: other (Mild facial asymmetry from previous stroke) - Neck Neck: Present: supple - Respiratory Respiratory effort: normal Respiratory: left: rales, bilateral: diminished - Extremities Extremities: No edema - Abdominal General gastrointestinal: soft, non-tender, non-distended, normal bowel sounds, other (PEG tube in place) - Integumentary Integumentary: Absent: rash - Neurologic Neurologic: other (Awake, nonverbal chronically, interacts in a limited fashion. Right hemiparesis with facial asymmetry from old stroke) HEART Score - HEART Score EKG: Significant ST-depression Age: > 65 Risk factors: > 3 risk factors or hx of atherosclerotic disease Troponin: Troponin T 0.095 ng/mL (0.00-0.029) H 07/29/21 05:49 Troponin: 1-3x normal limit Results - Labs CBC & Chem 7: 08/03/21 11:28 08/03/21 11:28 Labs: Laboratory Last Values WBC 15.0 K/mm3 (4.5-11.0) H 08/03/21 11:28 RBC 2.62 M/mm3 (3.65-5.03) L 08/03/21 11:28 Hgb 8.1 gm/dl (11.8-15.2) L 08/03/21 11:28 Hct 25.1 % (35.5-45.6) L 08/03/21 11:28 MCV 96 fl (84-94) H 08/03/21 11:28 MCH 31 pg (28-32) 08/03/21 11:28 MCHC 32 % (32-34) 08/03/21 11:28 RDW 21.5 % (13.2-15.2) H 08/03/21 11:28 Plt Count 320 K/mm3 (140-440) 08/03/21 11:28 Lymph % (Auto) 5.6 % (13.4-35.0) L 07/31/21 07:00 Randall % (Auto) 4.6 % (0.0-7.3) 07/31/21 07:00 Eos % (Auto) 1.6 % (0.0-4.3) 07/31/21 07:00 Baso % (Auto) 0.4 % (0.0-1.8) 07/31/21 07:00 Lymph # (Auto) 0.8 K/mm3 (1.2-5.4) L 07/31/21 07:00 Randall # (Auto) 0.7 K/mm3 (0.0-0.8) 07/31/21 07:00 Eos # (Auto) 0.2 K/mm3 (0.0-0.4) 07/31/21 07:00 Baso # (Auto) 0.1 K/mm3 (0.0-0.1) 07/31/21 07:00 Add Manual Diff Complete 08/03/21 11:28 Total Counted 100 08/03/21 11:28 Seg Neutrophils % 87.8 % (40.0-70.0) H 07/31/21 07:00 Seg Neuts % (Manual) 88.0 % (40.0-70.0) H 08/03/21 11:28 Band Neutrophils % 1.0 % 08/03/21 11:28 Lymphocytes % (Manual) 5.0 % (13.4-35.0) L 08/03/21 11:28 Reactive Lymphs % (Man) 0 % 08/03/21 11:28 Monocytes % (Manual) 1.0 % (0.0-7.3) 08/03/21 11:28 Eosinophils % (Manual) 0 % (0.0-4.3) 08/03/21 11:28 Basophils % (Manual) 0 % (0.0-1.8) 08/03/21 11:28 Metamyelocytes % 3.0 % 08/03/21 11:28 Myelocytes % 2.0 % 08/03/21 11:28 Promyelocytes % 0 % 08/03/21 11:28 Blast Cells % 0 % 08/03/21 11:28 Nucleated RBC % 1.0 % (0.0-0.9) H 08/03/21 11:28 Seg Neutrophils # 13.1 K/mm3 (1.8-7.7) H 07/31/21 07:00 Seg Neutrophils # Man 13.2 K/mm3 (1.8-7.7) H 08/03/21 11:28 Band Neutrophils # 0.2 K/mm3 08/03/21 11:28 Lymphocytes # (Manual) 0.8 K/mm3 (1.2-5.4) L 08/03/21 11:28 Abs React Lymphs (Man) 0.0 K/mm3 08/03/21 11:28 Monocytes # (Manual) 0.2 K/mm3 (0.0-0.8) 08/03/21 11:28 Eosinophils # (Manual) 0.0 K/mm3 (0.0-0.4) 08/03/21 11:28 Basophils # (Manual) 0.0 K/mm3 (0.0-0.1) 08/03/21 11:28 Metamyelocytes # 0.5 K/mm3 08/03/21 11:28 Myelocytes # 0.3 K/mm3 08/03/21 11:28 Promyelocytes # 0.0 K/mm3 08/03/21 11:28 Blast Cells # 0.0 K/mm3 08/03/21 11:28 WBC Morphology Not Reportable 08/03/21 11:28 Hypersegmented Neuts Not Reportable 08/03/21 11:28 Hyposegmented Neuts Not Reportable 08/03/21 11:28 Hypogranular Neuts Not Reportable 08/03/21 11:28 Smudge Cells Not Reportable 08/03/21 11:28 Toxic Granulation Not Reportable 08/03/21 11:28 Toxic Vacuolation Not Reportable 08/03/21 11:28 Dohle Bodies Not Reportable 08/03/21 11:28 Pelger-Huet Anomaly Not Reportable 08/03/21 11:28 Bong Rods Not Reportable 08/03/21 11:28 Platelet Estimate Consistent w auto 08/03/21 11:28 Clumped Platelets Not Reportable 08/03/21 11:28 Plt Clumps, EDTA Not Reportable 08/03/21 11:28 Large Platelets Rare 08/03/21 11:28 Giant Platelets Not Reportable 08/03/21 11:28 Platelet Satelliting Not Reportable 08/03/21 11:28 Plt Morphology Comment Not Reportable 08/03/21 11:28 RBC Morphology Not Reportable 08/03/21 11:28 Dimorphic RBCs Not Reportable 08/03/21 11:28 Polychromasia 1+ 08/03/21 11:28 Hypochromasia Not Reportable 08/03/21 11:28 Poikilocytosis Not Reportable 08/03/21 11:28 Anisocytosis 1+ 08/03/21 11:28 Microcytosis Not Reportable 08/03/21 11:28 Macrocytosis 1+ 08/03/21 11:28 Spherocytes Not Reportable 08/03/21 11:28 Pappenheimer Bodies Not Reportable 08/03/21 11:28 Sickle Cells Not Reportable 08/03/21 11:28 Target Cells Not Reportable 08/03/21 11:28 Tear Drop Cells Not Reportable 08/03/21 11:28 Ovalocytes Not Reportable 08/03/21 11:28 Helmet Cells Not Reportable 08/03/21 11:28 [place] Bodies Not Reportable 08/03/21 11:28 Court[place] Rings Not Reportable 08/03/21 11:28 Kimberley Cells Not Reportable 08/03/21 11:28 Bite Cells Not Reportable 08/03/21 11:28 Crenated Cell Not Reportable 08/03/21 11:28 Elliptocytes Not Reportable 08/03/21 11:28 Acanthocytes (Spur) Not Reportable 08/03/21 11:28 Rouleaux Not Reportable 08/03/21 11:28 Hemoglobin C Crystals Not Reportable 08/03/21 11:28 Schistocytes Not Reportable 08/03/21 11:28 Malaria parasites Not Reportable 08/03/21 11:28 Andrés Bodies Not Reportable 08/03/21 11:28 Hem Pathologist Commnt No 08/03/21 11:28 PT 15.3 Sec. (12.2-14.9) H 07/28/21 21:49 INR 1.09 (0.87-1.13) 07/28/21 21:49 APTT 23.5 Sec. (24.2-36.6) L 07/28/21 21:49 Heparin Anti-Xa Level < 0.10 U.I./ml (0.3-0.7) L 07/29/21 12:41 Sodium 137 mmol/L (137-145) 08/03/21 11:28 Potassium 4.0 mmol/L (3.6-5.0) 08/03/21 11:28 Chloride 98.6 mmol/L (98-107) 08/03/21 11:28 Carbon Dioxide 27 mmol/L (22-30) 08/03/21 11:28 Anion Gap 15 mmol/L 08/03/21 11:28 BUN 38 mg/dL (9-20) H 08/03/21 11:28 Creatinine 4.5 mg/dL (0.8-1.3) H 08/03/21 11:28 Estimated GFR 15 ml/min 08/03/21 11:28 BUN/Creatinine Ratio 8 % 08/03/21 11:28 Glucose 179 mg/dL (75-100) H 08/03/21 11:28 POC Glucose 146 mg/dL (70-105) H 08/03/21 15:47 Lactic Acid 1.90 mmol/L (0.7-2.0) 07/28/21 23:08 Calcium 7.9 mg/dL (8.4-10.2) L 08/03/21 11:28 Total Bilirubin 0.30 mg/dL (0.1-1.2) 08/03/21 11:28 AST 26 units/L (5-40) 08/03/21 11:28 ALT 17 units/L (7-56) 08/03/21 11:28 Alkaline Phosphatase 142 units/L (35-129) H 08/03/21 11:28 Troponin T 0.095 ng/mL (0.00-0.029) H 07/29/21 05:49 NT-Pro-B Natriuret Pep 44920 pg/mL (0-900) H 07/28/21 21:49 Total Protein 6.1 g/dL (6.3-8.2) L 08/03/21 11:28 Albumin 2.1 g/dL (3.9-5) L 08/03/21 11:28 Albumin/Globulin Ratio 0.5 % 08/03/21 11:28 Lipase 96 units/L (13-60) H 07/28/21 21:49 Nasal Screen MRSA (PCR) Negative (Negative) 07/30/21 06:15 Coronavirus (PCR) Negative (Negative) 07/30/21 08:34 Hepatitis A IgM Ab Non-reactive (NonReactive) 07/30/21 09:22 Hep Bs Antigen Non-reactive (Negative) 07/30/21 09:22 Hep B Core IgM Ab Non-reactive (NonReactive) 07/30/21 09:22 Hepatitis C Antibody Non-reactive (NonReactive) 07/30/21 09:22 Blood Type AB POSITIVE 07/29/21 05:49 Antibody Screen Negative 07/29/21 05:49 Crossmatch See Detail 07/29/21 05:49 Microbiology: Microbiology 07/29/21 19:39 Peripheral/Venous Blood Culture - Final NO GROWTH AFTER 5 DAYS 07/29/21 19:39 Peripheral/Venous Blood Culture - Final NO GROWTH AFTER 5 DAYS Mcpherson/IV: Voiding Method Diaper Active Medications - Current Medications Current Medications: Generic Name Dose Route Start Last Admin Trade Name Freq PRN Reason Stop Dose Admin Acetaminophen 650 mg 07/29/21 00:47 07/29/21 23:23 Acetaminophen 325 Mg Tab PO 650 mg Q6H PRN Administration Pain, Mild (1-3) Lipase/Protease/Amylase 1 each 08/01/21 13:28 Lipase 10,500/Protease 25,000/Amylase 43,750 (Units) Dr Tyler FEEDTUBE PRN PRN For Clogged Feeding Tube Atorvastatin Calcium 80 mg 07/29/21 22:00 08/02/21 23:09 Atorvastatin 40 Mg Tab PO 80 mg QHS LIAM Administration Dextrose 0 ml 07/29/21 01:06 07/31/21 02:05 Dextrose 10% *Hypoglycemia IV 75 ml DIRECT PRN Administration Hypoglycemia Protocol Epoetin Nicolas-epbx 20,000 unit 07/30/21 10:05 08/01/21 10:42 Epoetin Nicolas-Epbx 20,000 Unit/1 Ml Vial SUB-Q 20,000 unit ADRIENNE PRN Administration hemodialysis Heparin Sodium (Porcine) 3,000 unit 07/30/21 10:05 08/01/21 09:48 Heparin 10,000 Units/10 Ml Vial IV 3,000 unit ADRIENNE PRN Administration hemodialysis Sodium Chloride 100 mls @ 999 mls/hr 07/30/21 10:05 Nacl 0.9% IV ADRIENNE PRN Hypotension Insulin Human Lispro 0 unit 07/29/21 06:00 08/03/21 17:03 Insulin Lispro 100 Unit/Ml SUB-Q Not Given Q6HR LIAM Protocol Lansoprazole 30 mg 08/02/21 10:00 08/03/21 10:15 Lansoprazole 30 Mg Solutab FEEDTUBE 30 mg BID LIAM Administration Memantine 5 mg 07/29/21 10:00 08/03/21 10:15 Memantine 5 Mg Tab PO 5 mg QDAY LIAM Administration Nitroglycerin 0.4 mg 07/29/21 00:47 Nitroglycerin 0.4 Mg Tab Subl SL Q5M PRN Chest Pain Olanzapine 5 mg 07/29/21 22:00 08/02/21 23:10 Olanzapine 5 Mg Tab PO 5 mg HS LIAM Administration Ondansetron HCl 4 mg 07/29/21 05:46 Ondansetron 4 Mg/2 Ml Inj IV Q8H PRN Nausea And Vomiting Paroxetine HCl 40 mg 07/29/21 10:00 08/03/21 10:16 Paroxetine 20 Mg Tab PO 40 mg DAILY LIAM Administration Simple Syrup 15 ml 08/01/21 13:28 Simple Syrup 15 Ml FEEDTUBE PRN PRN Hypoglycemia Simple Syrup 30 ml 08/01/21 13:28 Simple Syrup 15 Ml FEEDTUBE PRN PRN Hypoglycemia Sodium Bicarbonate 325 mg 08/01/21 13:28 Sodium Bicarbonate 325 Mg Tab FEEDTUBE PRN PRN For Clogged Feeding Tube Sodium Chloride 10 ml 07/29/21 00:47 08/01/21 21:29 Sodium Chloride 0.9% 10 Ml Flush Syringe IV 10 ml PRN PRN Administration LINE FLUSH Nutrition/Malnutrition Assess - Dietary Evaluation Nutrition/Malnutrition Findings: Nutrition Notes Start: 07/29/21 15:44 Freq: Status: Active Protocol: Document 08/01/21 12:51 CHUY (Rec: 08/01/21 13:31 CHUY [id number]) Nutrition Notes Initial or Follow up Reassessment Current Diagnosis CKD (stage V CKD),Coronary Artery Disease,Diabetes,Sepsis ,Hypertension,Stroke Other Pertinent Diagnosis GI bleed, ESRD+HD, CAP, Anemia , Dementia, GERD, OK. Current Diet TF-Nepro w/CARBSTEADY @ 35 ml/ hr (since D 07/30). Labs/Tests 08/01: BUN 44, Crea 4.5, Glu 117, Ca 7.7. Pertinent Medications 08/01: Nutritionally unremarkable. Height 5 ft 4 in Weight 58.9 kg Pooler Body Weight (kg) 59.09 BMI 22.3 Weight change and time frame 0.67 Kg body weight loss in 2 days reported. Weight Status Appropriate Subjective/Other Information RD consult for routine F/U on dietary advancement. RN note 08/01: tf in progress w/nephro at 35cc/hr per peg. Pt has PEG tube placed [employer], according to RN notes. Spoke on the phone with RN and told me that Pt is not consuming anything PO, just the TF. Percent of energy/protein needs met: Prescribed TF-Nepro w/ CARBSTEADY @ 35 ml/hr provides for energy/protein needs (1, 500 Kcal/68 g) during LOS, 104 % Kcal; 95% AA. Burn Absent Trauma Absent GI Symptoms Diarrhea Difficulty In Swallowing Food Allergy No Skin Integrity/Comment Assessment WNL. Current % PO Other #1 Nutrition Diagnosis Inadequate oral intake Etiology Uncertain, but including difficulty swallowing. As Evidenced by Signs and Symptoms Pt has PEG tube placed [employer], according to RN notes. Is patient on ventilator? No Is Patient Ambulatory and/or Out of Bed No REE-([facility]-confined to bed) [phone] Calculation Used for Recommendations [facility] Additional Notes Protein: >1.2 g/Kg; >71 g/day. Fluids: 1 ml/Kcal, or as per MD. Nutrition Intervention Change Diet Order: d/c Clear Liquids Diet. Nutrition Support: Continue Nepro wCARBSTEADY @ 35 ml/hr. Flush: 150 ml water Q 4 hr, or as per MD. Kcal 1,500 Protein (gm) 68 Carbohydrates (gm) 134 Fat (gm) 80 Fluid (mL) 606 Fiber (gm) 11 % RDI: 104% Kcal; 95% AA. Goal #1 Provide at least 75% of energy /protein needs through Enteral Feeding during LOS. Goal #2 Maintain body weight within +/ -3% of admission body weight during LOS. Follow-Up By: 08/05/21 Additional Comments Continue monitoring TF tolerance and BM.
[2021-08-04] MEDS: INSULIN LISPRO 100 UNIT/ML SUB-Q SCH ×4 (00:15→19:00)
[2021-08-04] MEDS ORDERED: AMPICILLIN/SULBACTA 1.5GM/50ML 1.5 GM/50 ML BAG IV SCH ×2 (08:00→09:00)
--- NOTE | 2021-08-04 09:58 | XRay Report ---
CHEST 1 VIEW INDICATION / CLINICAL INFORMATION: for aspiration. COMPARISON: 07/31/2021 FINDINGS: SUPPORT DEVICES: None. HEART / MEDIASTINUM: Stable. LUNGS / PLEURA: No significant interval change in diffuse bilateral airspace disease. No significant effusion. No pneumothorax. ADDITIONAL FINDINGS: No significant additional findings. IMPRESSION: 1. No significant change. Signer Name: Juancarlos Rust MD Signed: 08/04/2021 9:54 AM Workstation Name: [employer]
[2021-08-04] MEDS: LANSOPRAZOLE 30 MG SOLUTAB FEEDTUBE SCH ×2 (10:01→23:05)
[2021-08-04] MEDS: MEMANTINE 5 MG TAB PO SCH (10:01)
[2021-08-04] MEDS: PARoxetine 20 MG TAB PO SCH (10:01)
--- NOTE | 2021-08-04 11:30 | Progress Note ---
Assessment and Plan - Patient Problems (1) Coronary artery disease Current Visit: Yes Status: Acute Plan to address problem: Patient presented with fever, leukocytosis and a right lower lobe pneumonia chest x-ray. Antiplatelet therapy on hold for severe anemia. Continue other guideline directed therapy for his coronary artery disease. His respiratory status is worsening, with worsening chest x-ray, worsening oxygen saturation. Will defer to internal medicine and pulmonary for management of his bilateral pneumonia. Subjective Date of service: 08/04/21 Principal diagnosis: Pneumonia, sepsis Interval history: Patient appears lethargic, with reports of poor oxygen saturation. Chest x-ray today shows a dense consolidation of the right upper lobe. No new cardiac events reported. Objective Vital Signs Temp Pulse Resp BP BP Pulse Ox 08/04/21 09:03 97.9 F 85 18 100/79 96 08/04/21 07:57 91 08/04/21 05:06 97.9 F 20 116/45 08/03/21 23:01 97.5 F L 22 126/56 08/03/21 22:57 18 97 08/03/21 22:00 94 08/03/21 20:15 91 H 08/03/21 19:03 98.6 F 91 H 20 100/44 94 08/03/21 15:49 97.4 F L 72 18 121/52 96 - Physical Examination General: Cachectic, Other (Chronically ill-appearing) HEENT: Positive: PERRL Neck: Positive: neck supple Cardiac: Positive: Reg Rate and Rhythm Lungs: Positive: Decreased Breath Sounds Neuro: Positive: Weakness (Generalized lethargy) Abdomen: Positive: Soft Skin: Positive: Clear Extremities: Absent: edema - Labs and Meds Cardiac Enzymes 08/03/21 Range/Units 11:28 AST 26 (5-40) units/L CBC 08/03/21 Range/Units 11:28 WBC 15.0 H (4.5-11.0) K/mm3 RBC 2.62 L (3.65-5.03) M/mm3 Hgb 8.1 L (11.8-15.2) gm/dl Hct 25.1 L (35.5-45.6) % Plt Count 320 (140-440) K/mm3 Comprehensive Metabolic Panel 08/03/21 Range/Units 11:28 Sodium 137 (137-145) mmol/L Potassium 4.0 (3.6-5.0) mmol/L Chloride 98.6 (98-107) mmol/L Carbon Dioxide 27 (22-30) mmol/L BUN 38 H (9-20) mg/dL Creatinine 4.5 H (0.8-1.3) mg/dL Glucose 179 H (75-100) mg/dL Calcium 7.9 L (8.4-10.2) mg/dL AST 26 (5-40) units/L ALT 17 (7-56) units/L Alkaline Phosphatase 142 H (35-129) units/L Total Protein 6.1 L (6.3-8.2) g/dL Albumin 2.1 L (3.9-5) g/dL
--- NOTE | 2021-08-04 13:01 | Progress Note ---
Assessment and Plan 1. ESRD: Patient is on maintenance hemodialysis three times a week, MWF schedule. Hemodialysis: 07/30, 08/01. HD today. 2. FEN: Hyperkalemia, K level is better. Monitor lytes and volume status. 3. Acute blood loss Anemia: 2/2 GI bleed. S/p PRBC. Epogen on dialysis days. Monitor. 4. GI bleed: Rectal bleed in the setting of anticoauglants and antiplatelets, now discontinued. Protonix. Monitor H/H. Followed by GI. 5. Sepsis / Community acquired pneumonia, pOA: CXR showed diffuse bilateral airspace disease. Covid negative. S/p Abx. 6. Acute hypoxic respiratory failure: Supplemental O2, wean as tolerated. Volume control thru HD. 7. H/o CAD s/p PCI with stent: No symptoms of chest pain. 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 Followed by Cards. Atorvastatin. 8. H/o CVA with residual aphasia. 9. DM type: Monitor bl. glucose. Subjective: Patient seen and examined at the bedside. Examination: General appearance: well-developed, appears stated age, not in distress, O2 by mask HEENT: atraumatic Neck: trachea midline Respiratory: Clear to Auscultation Heart: regular, S1S2, no murmur Abdomen: soft, normoactive bowel sounds, not tender, not distended Integumentary: no obvious rash Neurologic: lethargic, not following any command Ext: no edema Hemodialysis access: L FA AVF Subjective Date of service: 08/04/21 Principal diagnosis: Pneumonia, sepsis Objective - Vital Signs Vital signs: Vital Signs - 12hr 08/04/21 08/04/21 08/04/21 05:06 07:57 09:03 Temperature 97.9 F 97.9 F Pulse Rate 85 Respiratory 20 18 Rate Blood Pressure 116/45 Blood Pressure 100/79 [Right] O2 Sat by Pulse 91 96 Oximetry 08/04/21 12:28 Temperature 97.9 F Pulse Rate 43 L Respiratory 18 Rate Blood Pressure Blood Pressure 149/69 [Right] O2 Sat by Pulse 87 Oximetry - Lab 08/03/21 11:28 08/03/21 11:28 Most recent lab results Calcium 7.9 mg/dL (8.4-10.2) L 08/03/21 11:28 Medications & Allergies - Medications Allergies/Adverse Reactions: Allergies No Known Allergies Allergy (Unverified 06/23/20 11:35) Home Medications: Home Medications Medication Instructions Recorded Confirmed Last Taken Type Aspirin [Aspirin BABY CHEW TAB] 81 mg PO QDAY 06/23/20 07/30/21 07/28/21 14:00 History Clopidogrel [Plavix] 1 tab PO DAILY 06/23/20 07/30/21 07/28/21 14:00 History Finasteride 1 tab PO DAILY 06/23/20 07/30/21 07/28/21 14:00 History Memantine 5 mg PO QDAY 06/23/20 07/30/21 07/28/21 14:00 History OLANZapine [Zyprexa] 1 tab PO HS 06/23/20 07/30/21 07/28/21 14:00 History PARoxetine HCL [PARoxetine] 1 tab PO DAILY 06/23/20 07/30/21 07/28/21 14:00 H istory amLODIPine 1 tab PO DAILY 06/23/20 07/30/21 07/28/21 14:00 History AtorvaSTATin [Lipitor] 80 mg PO QHS #60 tablet 06/29/20 07/30/21 07/28/21 14:00 Rx Dextrose/Maltodextrin [Glucose 1 each PO DAILY #30 powd.pack 06/29/20 07/30/21 07/28/21 14:00 Rx Powder Packets] Lactose-Reduced Food [Ensure 237 ml PO DAILY #30 liquid 06/29/20 07/30/21 07/28/21 14:00 Rx Liquid] Metoprolol [Lopressor TAB] 25 mg PO BID #60 tablet 06/29/20 07/30/21 07/28/21 14:00 Rx Pantoprazole [Protonix TAB] 40 mg PO BIDAC #60 tablet 06/29/20 07/30/21 07/28/21 14:00 Rx Active Medications: Generic Name Dose Route Start Last Admin Trade Name Freq PRN Reason Stop Dose Admin Acetaminophen 650 mg 07/29/21 00:47 07/29/21 23:23 Acetaminophen 325 Mg Tab PO 650 mg Q6H PRN Administration Pain, Mild (1-3) Lipase/Protease/Amylase 1 each 08/01/21 13:28 Lipase 10,500/Protease 25,000/Amylase 43,750 (Units) Dr Cap FEEDTUBE PRN PRN For Clogged Feeding Tube Atorvastatin Calcium 80 mg 07/29/21 22:00 08/03/21 22:13 Atorvastatin 40 Mg Tab PO 80 mg QHS LIAM Administration Dextrose 0 ml 07/29/21 01:06 07/31/21 02:05 Dextrose 10% *Hypoglycemia IV 75 ml DIRECT PRN Administration Hypoglycemia Protocol Epoetin Nicolas-epbx 20,000 unit 07/30/21 10:05 08/01/21 10:42 Epoetin Nicolas-Epbx 20,000 Unit/1 Ml Vial SUB-Q 20,000 unit ADRIENNE PRN Administration hemodialysis Heparin Sodium (Porcine) 3,000 unit 07/30/21 10:05 08/01/21 09:48 Heparin 10,000 Units/10 Ml Vial IV 3,000 unit ADRIENNE PRN Administration hemodialysis Sodium Chloride 100 mls @ 999 mls/hr 07/30/21 10:05 Nacl 0.9% IV ADRIENNE PRN Hypotension Piperacillin Sod/Tazobactam Sod 2.25 gm in 50 mls @ 100 mls/hr 08/04/21 13:00 Zosyn/Ns 2.25 Gm/50ml IV Q8H [facility] Protocol Insulin Human Lispro 0 unit 07/29/21 06:00 08/04/21 06:45 Insulin Lispro 100 Unit/Ml SUB-Q Not Given Q6HR [facility] Protocol Lansoprazole 30 mg 08/02/21 10:00 08/04/21 10:01 Lansoprazole 30 Mg Solutab FEEDTUBE 30 mg BID LIAM Administration Memantine 5 mg 07/29/21 10:00 08/04/21 10:01 Memantine 5 Mg Tab PO 5 mg QDAY LIAM Administration Nitroglycerin 0.4 mg 07/29/21 00:47 Nitroglycerin 0.4 Mg Tab Subl SL Q5M PRN Chest Pain Olanzapine 5 mg 07/29/21 22:00 08/03/21 22:12 Olanzapine 5 Mg Tab PO 5 mg HS LIAM Administration Ondansetron HCl 4 mg 07/29/21 05:46 Ondansetron 4 Mg/2 Ml Inj IV Q8H PRN Nausea And Vomiting Paroxetine HCl 40 mg 07/29/21 10:00 08/04/21 10:01 Paroxetine 20 Mg Tab PO 40 mg DAILY LIAM Administration Simple Syrup 15 ml 08/01/21 13:28 Simple Syrup 15 Ml FEEDTUBE PRN PRN Hypoglycemia Simple Syrup 30 ml 08/01/21 13:28 Simple Syrup 15 Ml FEEDTUBE PRN PRN Hypoglycemia Sodium Bicarbonate 325 mg 08/01/21 13:28 Sodium Bicarbonate 325 Mg Tab FEEDTUBE PRN PRN For Clogged Feeding Tube Sodium Chloride 10 ml 07/29/21 00:47 08/01/21 21:29 Sodium Chloride 0.9% 10 Ml Flush Syringe IV 10 ml PRN PRN Administration LINE FLUSH
[2021-08-04 13:03] LABS: ABG Base Excess 5.3 mmol/L (-2.0-3.0); ABG HCO3 30.1 mmol/L (20.0-26.0); ABG Methemoglobin 0.4 % (0.0-1.5); ABG Oxygen Saturation 96.9 % (95.0-99.0); ABG PCO2 45.5 mm Hg; ABG PH 7.438 pH Units (7.350-7.450); ABG PO2 82.4 mm Hg (80.0-90.0)
[2021-08-04 16:13] LABS: Red Blood Count 2.72 M/mm3 (3.65-5.03)
[2021-08-04 16:14] LABS: Hematocrit 25.8 % (35.5-45.6); Hemoglobin 8.9 gm/dl (11.8-15.2); Mean Corpuscular HGB Conc 35 % (32-34); Mean Corpuscular Volume 95 fl (84-94); Platelet Count 262 K/mm3 (140-440); Red Cell Distribution Width 20.9 % (13.2-15.2)
[2021-08-04 16:35] LABS: Albumin 2.4 g/dL (3.9-5); Calcium 7.9 mg/dL (8.4-10.2)
[2021-08-04 16:54] LABS: Anisocytosis 1+; Band Neutrophils # (Manual) 0.9 K/mm3; Basophils % (Manual) 0 % (0.0-1.8); Large Platelets Few; Macrocytosis 1+; Myelocytes # (Manual) 1.5 K/mm3; Platelet Estimate Consistent w Auto; Target Cells 1+; Total Cells Counted 100
[2021-08-04] MEDS: PIPERACIL-TAZO 2.25 GM/50 ML 2.25 GM/50 ML BAG IV SCH ×2 (17:36→23:05)
--- NOTE | 2021-08-04 19:24 | Progress Note ---
Assessment and Plan Assessment and plan: 85 years male with history of hypertension ,diabetes CVA with hypoxia and debility. End-stage renal disease on hemodialysis, GERD, vascular dementia, cerebral atherosclerosis was brought to the emergency room because of unresponsiveness with possible STEMI. Patient is baseline nonverbal. Patient was found to have O2 sat 75% on room air. Family called ambulance for altered mental status. Patient is nonverbal but patient follows, In the emergency room EKG shows STEMI. Subsequently ER doctor talked with the on-call technical service rep Dr. Daniels, who thinks it is old infarct, we got his old EKG. EKG showed normal sinus rhythm. Recontacted technical service rep. We are going to put the patient in IMCU, put the patient on heparin and beta-cameron aspirin Plavix Lipitor. Echocardiogram serial cardiac enzyme Dr. orellana see the patient in the morning. In the emergency room room patient is also found to have sepsis chest x-ray shows multifocal pneumonia, WBCs 19.8. We are going to put the patient on pneumonia pathway we put the patient on IV fluid neb treatment antibiotic. After initiating heparin drip patient is bleeding so we will have to hold the heparin drip aspirin Plavix. Patient hemoglobin dropped to 5.9. We are transfusing 2 unit of packed red blood cell. Consult GI and put the patient on Protonix 40 mg IV every 12 hours Assessment and Plan: Patient was brought to ED for altered mental status with history of CVA, right hemiparesis, dementia, nonverbal 07/29/2021: Acute on chronic hypoxic respiratory failure, from another episode of acute aspiration versus pulmonary edema Patient was found to be more hypoxic this morning with obtundation. Oxygen supplementation hiked from nasal cannula to nonrebreather mask. Patient appeared to have another episode of aspiration. ABG 7.43, 45, 82, on NRB. Chest x-ray showed diffuse bilateral pulmonary infiltrates, pneumonia versus pulmonary edema, not much changed and actually slightly better than the previous x-ray. Leukocytosis worse 30 K and lactic acid flat 2.1, unchanged from the p revious measurements. Blood cultures repeated and patient started on Zosyn empirically. No significant wheezes, however placed on nebs. Tube feeds temporarily held. Hemodynamically stable. Dialysis staff deemed the patient unstable for dialysis in dialysis unit and therefore transferred to [facility]. Patient will get dialysis in [facility]. Continue aspiration precautions. Called and updated. Suspected sepsis with hypotension, leukocytosis but afebrile CXR and CT showed multifocal pneumonia with emphysema Admitted to ICU, treated with Rocephin and azithromycin, leukocytosis improved but not resolved Remains afebrile, blood cultures negative Likely aspiration pneumonia, patient has been tube feeds chronically Hypotension resolved with IV fluids Acute hypoxic respiratory failure, improving O2 weaned to 3 L Acute on chronic anemia the setting of ESRD Hemoglobin dropped from a 9-5.9 in ED after initiating heparin infusion for possible acute NV, discontinued after few hours Reportedly stool positive for occult blood, unclear if patient really had melena Received PRBC x2 and hemoglobin stable since. GI consulted and evaluated and determined no ongoing acute GI bleed CT abdomen pelvis unremarkable Recent EGD on 07/15 at [facility] showed erosive esophagitis. Continue PPI # CAD s/p PCI with stent - no symptoms of chest pain. - stent placed last year Jun 2020 for inferior wall NV - presentation initially appeared to be stemi to ED physician but cardiology determined this was an old inf wall infarct noted by QS complexes in EKG this admission. - cardiology consulted. D/w Dr Ron who does not believe this is a stemi. Ok with d/c of antiplatelet agents and anticoagulants at this time - troponin 0.09, unchanged on serial measurements. Patient is an esrd patient thus cannot be extrapolated from. - atorvastatin 80 mg qhs -Echo: LVEF 55%, normal atria, normal RV size and function, sclerotic aortic valve with moderate stenosis. #ESRD on hemodialysis - has left arm fistula. - Nephrology consulted, receiving dialysis #history of CVA with right hemiparesis and aphasic/nonverbal at baseline with dementia -Brought to ER with altered mental status, improved and currently seems to be at his baseline mental status -Patient is awake, nonverbal, interacts in a very limited fashion. - resume home atorvastatin - atorvastatin 80 mg qhs Chronic dysphagia, on tube feeds via PEG placed about 1week prior to this admission at [facility]. Dysphagia likely from stroke Continue tube feeds, tolerating #Advance care planning Disease education conducted, care plan discussed, diagnoses discussed, prognosis discussed, patient is full code, patient acknowledges understanding and agree with care plan, +30 minutes. Discussed with the nursing staff. History Interval history: Patient found to be more hypoxic this morning with obtundation. Oxygen supplementation hiked from nasal cannula to nonrebreather mask. Patient appeared to have another episode of aspiration. ABG 7.43, 45, 82, on NRB. Chest x-ray showed diffuse bilateral pulmonary infiltrates, pneumonia versus pulmonary edema, not much changed and actually slightly better than the previous x-ray. Leukocytosis worse 30 K and lactic acid flat 2.1, unchanged from the previous measurements. Blood cultures repeated and patient started on Zosyn empirically. No significant wheezes, however placed on nebs. Tube feeds temporarily held. Hemodynamically stable. Dialysis staff deemed the patient unstable for dialysis in dialysis unit and therefore transferred to [facility]. Patient will get dialysis in [facility]. Hospitalist Physical - Constitutional Vitals: Temp Pulse Resp BP Pulse Ox 98.9 F 92 H 18 142/69 91 08/04/21 16:46 08/04/21 16:46 08/04/21 16:46 08/04/21 16:46 08/04/21 16:46 General appearance: Present: no acute distress, disheveled, other (Obtunded, on NRB) - EENT Eyes: Present: PERRL ENT: other (NRB in place. Eyes closed.) - Neck Neck: Present: supple - Respiratory Respiratory effort: normal Respiratory: bilateral: diminished - Cardiovascular Rhythm: other (Failure regular rhythm with history of A. fib) - Extremities Extremities: No edema - Abdominal General gastrointestinal: non-distended, normal bowel sounds, other (PEG tube in place) - Integumentary Integumentary: Absent: rash - Neurologic Neurologic: other (Attending with a baseline nonverbal status. Chronic left hemiparesis from previous stroke) HEART Score - HEART Score EKG: Significant ST-depression Age: > 65 Risk factors: > 3 risk factors or hx of atherosclerotic disease Troponin: Troponin T 0.095 ng/mL (0.00-0.029) H 07/29/21 05:49 Troponin: 1-3x normal limit Results - Labs CBC & Chem 7: 08/04/21 15:26 08/04/21 15:26 Labs: Laboratory Last Values WBC 30.4 K/mm3 (4.5-11.0) H 08/04/21 15: RBC 2.72 M/mm3 (3.65-5.03) L 08/04/21 15:26 Hgb 8.9 gm/dl (11.8-15.2) L 08/04/21 15:26 Hct 25.8 % (35.5-45.6) L 08/04/21 15:26 MCV 95 fl (84-94) H 08/04/21 15:26 MCH 33 pg (28-32) H 08/04/21 15:26 MCHC 35 % (32-34) H 08/04/21 15:26 RDW 20.9 % (13.2-15.2) H 08/04/21 15:26 Plt Count 262 K/mm3 (140-440) 08/04/21 15:26 Lymph % (Auto) Linting Machine Operator 08/04/21 15:26 [place] % (Auto) Linting Machine Operator 08/04/21 15:26 Eos % (Auto) Linting Machine Operator 08/04/21 15:26 Baso % (Auto) Linting Machine Operator 08/04/21 15:26 Lymph # (Auto) Linting Machine Operator 08/04/21 15:26 [place] # (Auto) Linting Machine Operator 08/04/21 15:26 Eos # (Auto) Linting Machine Operator 08/04/21 15:26 Baso # (Auto) Linting Machine Operator 08/04/21 15:26 Add Manual Diff Complete 08/04/21 15:26 Total Counted 100 08/04/21 15:26 Seg Neutrophils % Linting Machine Operator 08/04/21 15:26 Seg Neuts % (Manual) 82.0 % (40.0-70.0) H 08/04/21 15:26 Band Neutrophils % 3.0 % 08/04/21 15:26 Lymphocytes % (Manual) 4.0 % (13.4-35.0) L 08/04/21 15:26 Reactive Lymphs % (Man) 0 % 08/04/21 15:26 Monocytes % (Manual) 4.0 % (0.0-7.3) 08/04/21 15:26 Eosinophils % (Manual) 2.0 % (0.0-4.3) 08/04/21 15:26 Basophils % (Manual) 0 % (0.0-1.8) 08/04/21 15:26 Metamyelocytes % 0 % 08/04/21 15:26 Myelocytes % 5.0 % 08/04/21 15:26 Promyelocytes % 0 % 08/04/21 15:26 Blast Cells % 0 % 08/04/21 15:26 Nucleated RBC % Not Reportable 08/04/21 15:26 Seg Neutrophils # Linting Machine Operator 08/04/21 15:26 Seg Neutrophils # Man 24.9 K/mm3 (1.8-7.7) H 08/04/21 15:26 Band Neutrophils # 0.9 K/mm3 08/04/21 15:26 Lymphocytes # (Manual) 1.2 K/mm3 (1.2-5.4) 08/04/21 15:26 Abs React Lymphs (Man) 0.0 K/mm3 08/04/21 15:26 Monocytes # (Manual) 1.2 K/mm3 (0.0-0.8) H 08/04/21 15:26 Eosinophils # (Manual) 0.6 K/mm3 (0.0-0.4) H 08/04/21 15:26 Basophils # (Manual) 0.0 K/mm3 (0.0-0.1) 08/04/21 15:26 Metamyelocytes # 0.0 K/mm3 08/04/21 15:26 Myelocytes # 1.5 K/mm3 08/04/21 15:26 Promyelocytes # 0.0 K/mm3 08/04/21 15:26 Blast Cells # 0.0 K/mm3 08/04/21 15:26 WBC Morphology Not Reportable 08/04/21 15:26 Hypersegmented Neuts Not Reportable 08/04/21 15:26 Hyposegmented Neuts Not Reportable 08/04/21 15:26 Hypogranular Neuts Not Reportable 08/04/21 15:26 Smudge Cells Not Reportable 08/04/21 15:26 Toxic Granulation Not Reportable 08/04/21 15:26 Toxic Vacuolation Not Reportable 08/04/21 15:26 Dohle Bodies Not Reportable 08/04/21 15:26 Pelger-Huet Anomaly Not Reportable 08/04/21 15:26 Bong Rods Not Reportable 08/04/21 15:26 Platelet Estimate Consistent w auto 08/04/21 15:26 Clumped Platelets Not Reportable 08/04/21 15:26 Plt Clumps, EDTA Not Reportable 08/04/21 15:26 Large Platelets Few 08/04/21 15:26 Giant Platelets Not Reportable 08/04/21 15:26 Platelet Satelliting Not Reportable 08/04/21 15:26 Plt Morphology Comment Not Reportable 08/04/21 15:26 RBC Morphology Not Reportable 08/04/21 15:26 Dimorphic RBCs Not Reportable 08/04/21 15:26 Polychromasia 1+ 08/04/21 15:26 Hypochromasia Not Reportable 08/04/21 15:26 Poikilocytosis Not Reportable 08/04/21 15:26 Anisocytosis 1+ 08/04/21 15:26 Microcytosis Not Reportable 08/04/21 15:26 Macrocytosis 1+ 08/04/21 15:26 Spherocytes Not Reportable 08/04/21 15:26 Pappenheimer Bodies Not Reportable 08/04/21 15:26 Sickle Cells Not Reportable 08/04/21 15:26 Target Cells 1+ 08/04/21 15:26 Tear Drop Cells Not Reportable 08/04/21 15:26 Ovalocytes Not Reportable 08/04/21 15:26 Helmet Cells Not Reportable 08/04/21 15:26 [place] Bodies Not Reportable 08/04/21 15:26 [place] Rings Not Reportable 08/04/21 15:26 Kimber[place] Cells Not Reportable 08/04/21 15:26 Bite Cells Not Reportable 08/04/21 15:26 Crenated Cell Not Reportable 08/04/21 15:26 Elliptocytes Not Reportable 08/04/21 15:26 Acanthocytes (Spur) Not Reportable 08/04/21 15:26 Rouleaux Not Reportable 08/04/21 15:26 Hemoglobin C Crystals Not Reportable 08/04/21 15:26 Schistocytes Not Reportable 08/04/21 15:26 Malaria parasites Not Reportable 08/04/21 15:26 Andrés Bodies Not Reportable 08/04/21 15:26 Hem Pathologist Commnt No 08/04/21 15:26 PT 15.3 Sec. (12.2-14.9) H 07/28/21 21:49 INR 1.09 (0.87-1.13) 07/28/21 21:49 APTT 23.5 Sec. (24.2-36.6) L 07/28/21 21:49 Heparin Anti-Xa Level < 0.10 U.I./ml (0.3-0.7) L 07/29/21 12:41 ABG pH 7.438 pH Units (7.350-7.450) 08/04/21 11:55 ABG pCO2 45.5 mm Hg 08/04/21 11:55 ABG pO2 82.4 mm Hg (80.0-90.0) 08/04/21 11:55 ABG HCO3 30.1 mmol/L (20.0-26.0) H 08/04/21 11:55 ABG O2 Saturation 96.9 % (95.0-99.0) 08/04/21 11:55 ABG O2 Content 12.4 (0.0-44) 08/04/21 11:55 ABG Base Excess 5.3 mmol/L (-2.0-3.0) H 08/04/21 11:55 ABG Hemoglobin 9.3 gm/dl (14.0-18.0) L 08/04/21 11:55 ABG Carboxyhemoglobin 1.8 % (0.0-5.0) 08/04/21 11:55 ABG Methemoglobin 0.4 % (0.0-1.5) 08/04/21 11:55 Oxyhemoglobin 94.7 % (95.0-99.0) L 08/04/21 11:55 FiO2 98 % 08/04/21 11:55 Sodium 144 mmol/L (137-145) D 08/04/21 15:26 Potassium 4.3 mmol/L (3.6-5.0) 08/04/21 15:26 Chloride 102.4 mmol/L (98-107) 08/04/21 15:26 Carbon Dioxide 27 mmol/L (22-30) 08/04/21 15:26 Anion Gap 19 mmol/L 08/04/21 15:26 BUN 53 mg/dL (9-20) H 08/04/21 15:26 Creatinine 6.4 mg/dL (0.8-1.3) H 08/04/21 15:26 Estimated GFR 10 ml/min 08/04/21 15:26 BUN/Creatinine Ratio 8 % 08/04/21 15:26 Glucose 115 mg/dL (75-100) H 08/04/21 15:26 POC Glucose 98 mg/dL (70-105) 08/04/21 15:40 Lactic Acid 2.10 mmol/L (0.7-2.0) H* 08/04/21 15:26 Calcium 7.9 mg/dL (8.4-10.2) L 08/04/21 15:26 Total Bilirubin 0.40 mg/dL (0.1-1.2) 08/04/21 15:26 AST 29 units/L (5-40) 08/04/21 15:26 ALT 17 units/L (7-56) 08/04/21 15:26 Alkaline Phosphatase 128 units/L (35-129) 08/04/21 15:26 Troponin T 0.095 ng/mL (0.00-0.029) H 07/29/21 05:49 NT-Pro-B Natriuret Pep 36836 pg/mL (0-900) H 07/28/21 21:49 Total Protein 5.7 g/dL (6.3-8.2) L 08/04/21 15:26 Albumin 2.4 g/dL (3.9-5) L 08/04/21 15:26 Albumin/Globulin Ratio 0.7 % 08/04/21 15:26 Lipase 96 units/L (13-60) H 07/28/21 21:49 Nasal Screen MRSA (PCR) Negative (Negative) 07/30/21 06:15 Coronavirus (PCR) Negative (Negative) 07/30/21 08:34 Hepatitis A IgM Ab Non-reactive (NonReactive) 07/30/21 09:22 Hep Bs Antigen Non-reactive (Negative) 07/30/21 09:22 Hep B Core IgM Ab Non-reactive (NonReactive) 07/30/21 09:22 Hepatitis C Antibody Non-reactive (NonReactive) 07/30/21 09:22 Blood Type AB POSITIVE 07/29/21 05:49 Antibody Screen Negative 07/29/21 05:49 Crossmatch See Detail 07/29/21 05:49 Microbiology: Microbiology 08/04/21 15:26 Peripheral/Venous Blood Culture - Preliminary Culture in Progress 08/04/21 15:26 Peripheral/Venous Blood Culture - Preliminary Culture in Progress 07/29/21 19:39 Peripheral/Venous Blood Culture - Final NO GROWTH AFTER 5 DAYS 07/29/21 19:39 Peripheral/Venous Blood Culture - Final NO GROWTH AFTER 5 DAYS Mcpherson/IV: Voiding Method Diaper Active Medications - Current Medications Current Medications: Generic Name Dose Route Start Last Admin Trade Name Freq PRN Reason Stop Dose Admin Acetaminophen 650 mg 07/29/21 00:47 07/29/21 23:23 Acetaminophen 325 Mg Tab PO 650 mg Q6H PRN Administration Pain, Mild (1-3) Lipase/Protease/Amylase 1 each 08/01/21 13:28 Lipase 10,500/Protease 25,000/Amylase 43,750 (Units) Dr Tyler FEEDTUBE PRN PRN For Clogged Feeding Tube Arformoterol Tartrate 15 mcg 08/04/21 20:00 Arformoterol 15 Mcg/2 Ml Nebu IH Q12HRT [facility] Atorvastatin Calcium 80 mg 07/29/21 22:00 08/03/21 22:13 Atorvastatin 40 Mg Tab PO 80 mg QHS LIAM Administration Budesonide 0.5 mg 08/04/21 20:00 Budesonide 0.5 Mg/2 Ml Nebu IH Q12HRT [facility] Dextrose 0 ml 07/29/21 01:06 07/31/21 02:05 Dextrose 10% *Hypoglycemia IV 75 ml DIRECT PRN Administration Hypoglycemia Protocol Epoetin Nicolas-epbx 20,000 unit 07/30/21 10:05 08/01/21 10:42 Epoetin Nicolas-Epbx 20,000 Unit/1 Ml Vial SUB-Q 20,000 unit ADRIENNE PRN Administration hemodialysis Heparin Sodium (Porcine) 3,000 unit 07/30/21 10:05 08/01/21 09:48 Heparin 10,000 Units/10 Ml Vial IV 3,000 unit ADRIENNE PRN Administration hemodialysis Sodium Chloride 100 mls @ 999 mls/hr 07/30/21 10:05 Nacl 0.9% IV ADRIENNE PRN Hypotension Piperacillin Sod/Tazobactam Sod 2.25 gm in 50 mls @ 100 mls/hr 08/04/21 13:00 08/04/21 17:36 Zosyn/Ns 2.25 Gm/50ml IV 100 mls/hr Q8H LIAM Administration Protocol Insulin Human Lispro 0 unit 07/29/21 06:00 08/04/21 16:45 Insulin Lispro 100 Unit/Ml SUB-Q Not Given Q6HR [facility] Protocol Lansoprazole 30 mg 08/02/21 10:00 08/04/21 10:01 Lansoprazole 30 Mg Solutab FEEDTUBE 30 mg BID LIAM Administration Memantine 5 mg 07/29/21 10:00 08/04/21 10:01 Memantine 5 Mg Tab PO 5 mg QDAY LIAM Administration Nitroglycerin 0.4 mg 07/29/21 00:47 Nitroglycerin 0.4 Mg Tab Subl SL Q5M PRN Chest Pain Olanzapine 5 mg 07/29/21 22:00 08/03/21 22:12 Olanzapine 5 Mg Tab PO 5 mg HS LIAM Administration Ondansetron HCl 4 mg 07/29/21 05:46 Ondansetron 4 Mg/2 Ml Inj IV Q8H PRN Nausea And Vomiting Paroxetine HCl 40 mg 07/29/21 10:00 08/04/21 10:01 Paroxetine 20 Mg Tab PO 40 mg DAILY LIAM Administration Simple Syrup 15 ml 08/01/21 13:28 Simple Syrup 15 Ml FEEDTUBE PRN PRN Hypoglycemia Simple Syrup 30 ml 08/01/21 13:28 Simple Syrup 15 Ml FEEDTUBE PRN PRN Hypoglycemia Sodium Bicarbonate 325 mg 08/01/21 13:28 Sodium Bicarbonate 325 Mg Tab FEEDTUBE PRN PRN For Clogged Feeding Tube Sodium Chloride 10 ml 07/29/21 00:47 08/01/21 21:29 Sodium Chloride 0.9% 10 Ml Flush Syringe IV 10 ml PRN PRN Administration LINE FLUSH Nutrition/Malnutrition Assess - Dietary Evaluation Nutrition/Malnutrition Findings: Nutrition Notes Start: 07/29/21 15:44 Freq: Status: Active Protocol: Document 08/01/21 12:51 CHUY (Rec: 08/01/21 13:31 CHUY [id number]) Nutrition Notes Initial or Follow up Reassessment Current Diagnosis CKD (stage V CKD),Coronary Artery Disease,Diabetes,Sepsis ,Hypertension,Stroke Other Pertinent Diagnosis GI bleed, ESRD+HD, CAP, Anemia , Dementia, GERD, NV. Current Diet TF-Nepro w/CARBSTEADY @ 35 ml/ hr (since D 07/30). Labs/Tests 08/01: BUN 44, Crea 4.5, Glu 117, Ca 7.7. Pertinent Medications 08/01: Nutritionally unremarkable. Height 5 ft 4 in Weight 58.9 kg [place] Body Weight (kg) 59.09 BMI 22.3 Weight change and time frame 0.67 Kg body weight loss in 2 days reported. Weight Status Appropriate Subjective/Other Information RD consult for routine F/U on dietary advancement. RN note 08/01: tf in progress w/nephro at 35cc/hr per peg. Pt has PEG tube placed CUSHION STUFFER, according to RN notes. Spoke on the phone with RN and told me that Pt is not consuming anything PO, just the TF. Percent of energy/protein needs met: Prescribed TF-Nepro w/ CARBSTEADY @ 35 ml/hr provides for energy/protein needs (1, 500 Kcal/68 g) during LOS, 104 % Kcal; 95% AA. Burn Absent Trauma Absent GI Symptoms Diarrhea Difficulty In Swallowing Food Allergy No Skin Integrity/Comment Assessment WNL. Current % PO Other #1 Nutrition Diagnosis Inadequate oral intake Etiology Uncertain, but including difficulty swallowing. As Evidenced by Signs and Symptoms Pt has PEG tube placed CUSHION STUFFER, according to RN notes. Is patient on ventilator? No Is Patient Ambulatory and/or Out of Bed No REE-([facility]-confined to bed) [phone] Calculation Used for Recommendations [facility] Additional Notes Protein: >1.2 g/Kg; >71 g/day. Fluids: 1 ml/Kcal, or as per MD. Nutrition Intervention Change Diet Order: d/c Clear Liquids Diet. Nutrition Support: Continue Nepro wCARBSTEADY @ 35 ml/hr. Flush: 150 ml water Q 4 hr, or as per MD. Kcal 1,500 Protein (gm) 68 Carbohydrates (gm) 134 Fat (gm) 80 Fluid (mL) 606 Fiber (gm) 11 % RDI: 104% Kcal; 95% AA. Goal #1 Provide at least 75% of energy /protein needs through Enteral Feeding during LOS. Goal #2 Maintain body weight within +/ -3% of admission body weight during LOS. Follow-Up By: 08/05/21 Additional Comments Continue monitoring TF tolerance and BM.
[2021-08-04 20:58] LABS: ABG Base Excess 6.5 mmol/L (-2.0-3.0); ABG HCO3 30.6 mmol/L (20.0-26.0); ABG Methemoglobin 0.4 % (0.0-1.5); ABG Oxygen Saturation 99.4 % (95.0-99.0); ABG PCO2 41.9 mm Hg; ABG PH 7.481 pH Units (7.350-7.450); ABG PO2 245.4 mm Hg (80.0-90.0)
[2021-08-04] MEDS: EPOETIN ALFA-EPBX 20,000 UNIT/1 ML VIAL SUB-Q PRN (23:07)
[2021-08-04] MEDS: ARFORMOTEROL 15 MCG/2 ML NEBU IH SCH (23:15)
[2021-08-04] MEDS: BUDESONIDE 0.5 MG/2 ML NEBU IH SCH (23:15)
[2021-08-05] MEDS: INSULIN LISPRO 100 UNIT/ML SUB-Q SCH ×4 (00:49→18:58)
[2021-08-05] MEDS: PIPERACIL-TAZO 2.25 GM/50 ML 2.25 GM/50 ML BAG IV SCH ×3 (04:17→20:09)
[2021-08-05] MEDS: ARFORMOTEROL 15 MCG/2 ML NEBU IH SCH ×2 (07:36→20:23)
[2021-08-05] MEDS: BUDESONIDE 0.5 MG/2 ML NEBU IH SCH ×2 (07:36→20:23)
--- NOTE | 2021-08-05 08:32 | Cat Scan Report ---
NONENHANCED CT SCAN OF THE HEAD: INDICATION / CLINICAL INFORMATION: 85 years Male; Encephalopathy. TECHNIQUE: Routine CT head without contrast. All CT scans at this location are performed using CT dos e reduction for ALARA by means of automated exposure control. COMPARISON: None. FINDINGS: BRAIN / INTRACRANIAL CONTENTS: Abnormal CT scan No intracerebral hemorrhage or space taking lesion in the brain However, subacute infarction seen in the right cerebellar hemisphere, left occipital lobe and in the right frontal lobe. No hemorrhagic changes are seen in the areas of subacute infarction. Encephalomalacia is seen in the left frontal lobe, left external parietal occipital border zone with compensatory enlargement of left lateral ventricle. Moderate cortical involution is seen. CRANIOCERVICAL JUNCTION: No significant abnormality. ORBITS: No significant abnormality of visualized orbits. SINUSES / MASTOIDS: No significant abnormality of the visualized paranasal sinuses or mastoid air saud ls. ADDITIONAL FINDINGS: None. IMPRESSION: No intracerebral hemorrhage or space taking lesion Subacute infarctions in the right frontal lobe and in the right cerebellar hemisphere Signer Name: Shabbir Cruz MD Signed: 08/05/2021 8:28 AM Workstation Name: [id number]
--- NOTE | 2021-08-05 08:56 | Progress Note ---
Assessment and Plan 1. ESRD: Patient is on maintenance hemodialysis three times a week, MWF schedule. Hemodialysis: 07/30, 08/01, 08/04. 2. FEN: Hyperkalemia, K level is better. Monitor lytes and volume status. 3. Acute hypoxic respiratory failure: 2/2 aspiration. Currently on BIPAP, wean as tolerated. Volume control thru HD. 4. Acute blood loss Anemia: 2/2 GI bleed. S/p PRBC. Epogen on dialysis days. Monitor. 5. GI bleed: Rectal bleed in the setting of anticoauglants and antiplatelets, now discontinued. Protonix. Monitor H/H. Followed by GI. 6. Sepsis / Community acquired pneumonia, pOA: CXR showed diffuse bilateral airspace disease. Covid negative. S/p Abx. 7. H/o CAD s/p PCI with stent: No symptoms of chest pain. Stent placed Jun 2020 for inferior wall OR. Followed by Cards. Atorvastatin. 8. H/o CVA with residual aphasia. 9. DM type: Monitor bl. glucose. Subjective: Patient seen and examined at the bedside. Examination: General appearance: well-developed, appears stated age, not in distress, on BIPAP HEENT: atraumatic Neck: trachea midline Respiratory: coarse breath sounds Heart: regular, S1S2, no murmur Abdomen: soft, normoactive bowel sounds, not tender, not distended Integumentary: no obvious rash Neurologic: obtunded Ext: no edema Hemodialysis access: L FA AVF Subjective Date of service: 08/05/21 Principal diagnosis: Pneumonia, sepsis Objective - Vital Signs Vital signs: Vital Signs - 12hr 08/04/21 08/04/21 08/04/21 21:00 21:01 21:15 Temperature Pulse Rate 101 H 100 H 102 H Pulse Rate [ From Monitor] Respiratory 18 Rate Blood Pressure 120/82 136/61 114/77 O2 Sat by Pulse 81 L Oximetry O2 Sat by Pulse Oximetry [ Bilateral Throughout] 08/04/21 08/04/21 08/04/21 21:30 21:45 22:00 Temperature Pulse Rate 103 H 103 H 105 H Pulse Rate [ 105 H From Monitor] Respiratory 21 22 Rate Blood Pressure 120/57 121/20 120/102 O2 Sat by Pulse 92 95 Oximetry O2 Sat by Pulse Oximetry [ Bilateral Throughout] 08/04/21 08/04/21 08/04/21 22:01 22:15 22:30 Temperature Pulse Rate 104 H 85 105 H Pulse Rate [ From Monitor] Respiratory 21 Rate Blood Pressure 125/75 125/75 110/35 O2 Sat by Pulse Oximetry O2 Sat by Pulse Oximetry [ Bilateral Throughout] 08/04/21 08/04/21 08/04/21 22:31 22:45 22:50 Temperature Pulse Rate 108 H 105 H 104 H Pulse Rate [ From Monitor] Respiratory 22 Rate Blood Pressure 110/35 89/41 113/38 O2 Sat by Pulse Oximetry O2 Sat by Pulse Oximetry [ Bilateral Throughout] 08/04/21 08/04/21 08/04/21 23:00 23:01 23:10 Temperature Pulse Rate 102 H 101 H 103 H Pulse Rate [ From Monitor] Respiratory 19 20 Rate Blood Pressure 143/38 143/38 143/108 O2 Sat by Pulse Oximetry O2 Sat by Pulse Oximetry [ Bilateral Throughout] 08/04/21 08/04/21 08/04/21 23:15 23:30 23:31 Temperature Pulse Rate 105 H 105 H 105 H Pulse Rate [ From Monitor] Respiratory 20 Rate Blood Pressure 139/78 158/53 158/53 O2 Sat by Pulse Oximetry O2 Sat by Pulse Oximetry [ Bilateral Throughout] 08/04/21 08/05/21 08/05/21 23:45 00:00 00:01 Temperature 98.9 F Pulse Rate 104 H 104 H Pulse Rate [ From Monitor] Respiratory 19 Rate Blood Pressure 146/31 146/31 O2 Sat by Pulse Oximetry O2 Sat by Pulse Oximetry [ Bilateral Throughout] 08/05/21 08/05/21 08/05/21 00:10 00:31 01:01 Temperature 99.4 F Pulse Rate 105 H 104 H 102 H Pulse Rate [ From Monitor] Respiratory 28 H 20 19 Rate Blood Pressure 100/57 90/51 138/117 O2 Sat by Pulse Oximetry O2 Sat by Pulse 99 Oximetry [ Bilateral Throughout] 08/05/21 08/05/21 08/05/21 01:31 02:00 02:31 Temperature Pulse Rate 102 H 101 H 100 H Pulse Rate [ From Monitor] Respiratory 28 H 18 38 H Rate Blood Pressure 82/54 75/51 105/69 O2 Sat by Pulse Oximetry O2 Sat by Pulse Oximetry [ Bilateral Throughout] 08/05/21 08/05/2122 03:01 03:14 03:30 Temperature Pulse Rate 98 H 99 H 99 H Pulse Rate [ From Monitor] Respiratory 17 20 16 Rate Blood Pressure 78/45 144/99 122/81 O2 Sat by Pulse 99 Oximetry O2 Sat by Pulse Oximetry [ Bilateral Throughout] 08/05/21 08/05/21 08/05/21 04:00 04:01 04:30 Temperature 98.1 F Pulse Rate 96 H 98 H Pulse Rate [ From Monitor] Respiratory 17 17 Rate Blood Pressure 117/45 126/51 O2 Sat by Pulse Oximetry O2 Sat by Pulse Oximetry [ Bilateral Throughout] 08/05/21 08/05/21 08/05/21 05:00 05:30 06:00 Temperature Pulse Rate 97 H 98 H 96 H Pulse Rate [ From Monitor] Respiratory 17 17 20 Rate Blood Pressure 125/48 120/55 133/41 O2 Sat by Pulse Oximetry O2 Sat by Pulse Oximetry [ Bilateral Throughout] 08/05/21 08/05/21 07:26 08:00 Temperature 99.3 F Pulse Rate 98 H Pulse Rate [ From Monitor] Respiratory 19 Rate Blood Pressure 138/52 O2 Sat by Pulse 98 Oximetry O2 Sat by Pulse Oximetry [ Bilateral Throughout] - Lab 08/05/21 11:27 08/04/21 15:26 Most recent lab results ABG pH 7.481 pH Units (7.350-7.450) H 08/04/21 20:50 ABG pCO2 41.9 mm Hg 08/04/21 20:50 ABG pO2 245.4 mm Hg (80.0-90.0) H 08/04/21 20:50 ABG HCO3 30.6 mmol/L (20.0-26.0) H 08/04/21 20:50 ABG O2 Saturation 99.4 % (95.0-99.0) H 08/04/21 20:50 Calcium 7.9 mg/dL (8.4-10.2) L 08/04/21 15:26 Medications & Allergies - Medications Allergies/Adverse Reactions: Allergies No Known Allergies Allergy (Unverified 06/23/20 11:35) Home Medications: Home Medications Medication Instructions Recorded Confirmed Last Taken Type Aspirin [Aspirin BABY CHEW TAB] 81 mg PO QDAY 06/23/20 07/30/21 07/28/21 14:00 History Clopidogrel [Plavix] 1 tab PO DAILY 06/23/20 07/30/21 07/28/21 14:00 History Finasteride 1 tab PO DAILY 06/23/20 07/30/21 07/28/21 14:00 History Memantine 5 mg PO QDAY 06/23/20 07/30/21 07/28/21 14:00 History OLANZapine [Zyprexa] 1 tab PO HS 06/23/20 07/30/21 07/28/21 14:00 History PARoxetine HCL [PARoxetine] 1 tab PO DAILY 06/23/20 07/30/21 07/28/21 14:00 History amLODIPine 1 tab PO DAILY 06/23/20 07/30/21 07/28/21 14:00 History AtorvaSTATin [Lipitor] 80 mg PO QHS #60 tablet 06/29/20 07/30/21 07/28/21 14:00 Rx Dextrose/Maltodextrin [Glucose 1 each PO DAILY #30 powd.pack 06/29/20 07/30/21 07/28/21 14:00 Rx Powder Packets] Lactose-Reduced Food [Ensure 237 ml PO DAILY #30 liquid 06/29/20 07/30/21 07/28/21 14:00 Rx Liquid] Metoprolol [Lopressor TAB] 25 mg PO BID #60 tablet 06/29/20 07/30/21 07/28/21 14:00 Rx Pantoprazole [Protonix TAB] 40 mg PO BIDAC #60 tablet 06/29/20 07/30/21 07/28/21 14:00 Rx Active Medications: Generic Name Dose Route Start Last Admin Trade Name Freq PRN Reason Stop Dose Admin Acetaminophen 650 mg 07/29/21 00:47 07/29/21 23:23 Acetaminophen 325 Mg Tab PO 650 mg Q6H PRN Administration Pain, Mild (1-3) Lipase/Protease/Amylase 1 each 08/01/21 13:28 Lipase 10,500/Protease 25,000/Amylase 43,750 (Units) Dr Tyler FEEDTUBE PRN PRN For Clogged Feeding Tube Arformoterol Tartrate 15 mcg 08/04/21 20:00 08/05/21 07:36 Arformoterol 15 Mcg/2 Ml Nebu IH 15 mcg Q12HRT LIAM Administration Atorvastatin Calcium 80 mg 07/29/21 22:00 08/04/21 23:04 Atorvastatin 40 Mg Tab PO 80 mg QHS LIAM Administration Budesonide 0.5 mg 08/04/21 20:00 08/05/21 07:36 Budesonide 0.5 Mg/2 Ml Nebu IH 0.5 mg Q12HRT LIAM Administration Dextrose 0 ml 07/29/21 01:06 07/31/21 02:05 Dextrose 10% *Hypoglycemia IV 75 ml DIRECT PRN Administration Hypoglycemia Protocol Epoetin Nicolas-epbx 20,000 unit 07/30/21 10:05 08/04/21 23:07 Epoetin Nicolas-Epbx 20,000 Unit/1 Ml Vial SUB-Q 20,000 unit ADRIENNE PRN Administration hemodialysis Heparin Sodium (Porcine) 3,000 unit 07/30/21 10:05 08/01/21 09:48 Heparin 10,000 Units/10 Ml Vial IV 3,000 unit ADRIENNE PRN Administration hemodialysis Sodium Chloride 100 mls @ 999 mls/hr 07/30/21 10:05 Nacl 0.9% IV ADRIENNE PRN Hypotension Piperacillin Sod/Tazobactam Sod 2.25 gm in 50 mls @ 100 mls/hr 08/04/21 13:00 08/05/21 04:17 Zosyn/Ns 2.25 Gm/50ml IV 100 mls/hr Q8H LIAM Administration Protocol Insulin Human Lispro 0 unit 07/29/21 06:00 08/05/21 05:30 Insulin Lispro 100 Unit/Ml SUB-Q Not Given Q6HR [facility] Protocol Lansoprazole 30 mg 08/02/21 10:00 08/04/21 23:05 Lansoprazole 30 Mg Solutab FEEDTUBE 30 mg BID LIAM Administration Memantine 5 mg 07/29/21 10:00 08/04/21 10:01 Memantine 5 Mg Tab PO 5 mg QDAY LIAM Administration Nitroglycerin 0.4 mg 07/29/21 00:47 Nitroglycerin 0.4 Mg Tab Subl SL Q5M PRN Chest Pain Olanzapine 5 mg 07/29/21 22:00 08/04/21 23:05 Olanzapine 5 Mg Tab PO 5 mg HS LIAM Administration Ondansetron HCl 4 mg 07/29/21 05:46 Ondansetron 4 Mg/2 Ml Inj IV Q8H PRN Nausea And Vomiting Paroxetine HCl 40 mg 07/29/21 10:00 08/04/21 10:01 Paroxetine 20 Mg Tab PO 40 mg DAILY LIAM Administration Simple Syrup 15 ml 08/01/21 13:28 Simple Syrup 15 Ml FEEDTUBE PRN PRN Hypoglycemia Simple Syrup 30 ml 08/01/21 13:28 Simple Syrup 15 Ml FEEDTUBE PRN PRN Hypoglycemia Sodium Bicarbonate 325 mg 08/01/21 13:28 Sodium Bicarbonate 325 Mg Tab FEEDTUBE PRN PRN For Clogged Feeding Tube Sodium Chloride 10 ml 07/29/21 00:47 08/01/21 21:29 Sodium Chloride 0.9% 10 Ml Flush Syringe IV 10 ml PRN PRN Administration LINE FLUSH
[2021-08-05] MEDS: MEMANTINE 5 MG TAB PO SCH (10:25)
[2021-08-05] MEDS: PARoxetine 20 MG TAB PO SCH (10:25)
[2021-08-05] MEDS: LANSOPRAZOLE 30 MG SOLUTAB FEEDTUBE SCH ×2 (10:25→21:14)
--- NOTE | 2021-08-05 10:46 | Progress Note ---
<JANUSZ FLORES - Last Filed: 08/05/21 18:28> Assessment and Plan Assessment and plan: This is a 85-year-old male with past medical history of HTN, DM, ESRF on HD, Previous CVA with debility, vascular dementia, GERD, and cerebral atherosclerosis who was initially admitted on the floor for unresponsiveness and possible STEMI which was later determine as an old infarct, no intervention required at this time. Patient antiplatelets and ASA were held this admit due to anemia and possible GIB. Patient was upgraded to IMCU overnight on 08/04 for worsening mental status and possible sepsis secondary to multifocal pneumonia and emphesema. Repeat CT head on 08/05 reveals subacute infarctions in the right frontal lobe and in the right cerebellar hemisphere. Hospital Course to Date: 08/05: CT head also noted with new subacute CVA, patient is not a candidate for ASA due to recent anemia and possible GIB. Orders placed for lipid panel, patient is already on statin therapy, and neurology consulted for further recommendations. Patient remains obtunded on the Bipap. Recent ABG and CXR noted, will wean off bipap since patient is still alerted. Plan for possible HD today per Nephro. Hypoglycemic this am, most likely due to NPO status. Resume TF once patient off bipap. Thorough discussion with patient's spouse,Fernanda Mg, at the bedside. She was notified of patient worsen condition, new CT head result, and overall poor prognosis. CODE status was also addressed. Patient's voiced that she knows her is tired and might not recover from this, she is leaning towards AND/DNR and possible comfort care. However she wants her children and the patient's children to be involve in that decision she will get back to us with a final decision. All questions and concerns were voiced at this time. Case management is aware and assisting with possible placement arrangement. Assessment and Plan #New Subacute CVA #H/o CVA with right hemiparesis - Aphasic/nonverbal at baseline with dementia - Initially brought to ER with altered mental status, however improved back to his baseline mental status on the floor - CT head on admit with no acute abnormality - Worsen mentation on 08/04 transfer to IMCU - Repeat CT head with subacute infarctions in the right frontal lobe and in the right cerebellar hemisphere. - Patient remains obtunded this am - Orders placed for Lipid panel - ASA and plavix held on admit due to anemia and possible GIB - Continue statin therapy - Neurology consulted for further recommendations - Aspiration precaution HOB above 30 #Acute Hypoxemic Respiratory Failure 2/2 #Pulmonary Edema vs #Multifocal Pneumonia #Concern for Possible Aspiration - CXR and CT showed multifocal pneumonia with emphysema - Remains on Bipap this am: 90% Fio2, 14/6. SPO2 at 100% - Recent ABG noted-PaO2 in the high 200s, PaCO2 41.6 - Plan to wean off Bipap since patient is still alerted - Pulmonary is on the case - Continue O2 supplementation and wean as tolerated - Continue SPO2 monitoring for SPO2 goal above 92% - Continue IV Abx - Aspiration precaution HOB above 30 - Plan for possible HD today per Nephro #Sepsis #Multifocal Pneumonia #Leukocytosis #Lactic Acidosis-improved - CXR and CT showed multifocal pneumonia with emphysema - Patient remains afebrile, does not required any pressors - Delmer in WBCs probably reactive to new CVA - Lactic acid back down to less than 2 - Repeat Blood culture with NGTD - Continue IV Abx- zosyn for now - Continue to F/U on culture date - Daily CBC monitor - Consider ID consult if febrile or/and if leukocytosis persists #CAD s/p PCI with Stent - presentation initially appeared to be STEMI to ED physician but cardiology determined this was an old inf wall infarct noted by QS complexes in EKG this admission. - no symptoms of chest pain. - stent placed last year Jun 2020 for inferior wall VA - cardiology consulted. D/w Dr Ron who does not believe this is a stemi. Ok with d/c of antiplatelet agents and anticoagulants at this time - troponin 0.09, unchanged on serial measurements. Patient is an esrd patient thus cannot be extrapolated from. - atorvastatin 80 mg qhs - Echo: LVEF 55%, normal atria, normal RV size and function, sclerotic aortic valve with moderate stenosis. #Chronic Dysphagia - PEG placed about 1week prior to this admission at [facility]. - Dysphagia likely from stroke - TF currently on hold - Resume TF once off bipap #Hypoglycemia #H/o Diabetes - Most likely due to NPO status - Resume TF once off Bipap - Continue SSI Q6hrs - Avoid Hypoglycemia - Continue Hypoglycemic protocol #Acute on chronic anemia the setting of ESRD #Acute blood loss Anemia #Possible GI Bleed - Hemoglobin dropped from a 9-5.9 in ED after initiating heparin infusion for possible acute VA, discontinued after few hours - Reportedly stool positive for occult blood, unclear if patient really had melena - Received PRBC x2 and hemoglobin stable since. - GI consulted and evaluated and determined no ongoing acute GI bleed - ASA and Plavix held - CT abdomen pelvis unremarkable - Recent EGD on 07/15 at [facility] showed erosive esophagitis. - Continue PPI- Prevacid #ESRD on hemodialysis - has left arm fistula and is anuric - Nephrology consulted - Continue HD per Nephro - Strict intake and output - Avoid nephrotoxic medications; Renally dose medications - Monitor and replace electrolytes as needed #GI/DVT Prophylaxis - Continue PPI- Prevacid - BLE doppler negative for DVT - SCDs to bilateral lower extremities while in bed The high probability of a clinically significant, sudden or life threatening deterioration of the [multiple] system(s) required my full and direct attention, intervention and personal management. The aggregate critical care time was [90] minutes. This time is in addition to time spent performing reported procedures but includes the following: [x] Data Review and interpretation [x] Patient assessment and monitoring of vital signs [x] Documentation [x] Medication orders and management Disposition Plan: IMCU Total Time Spent with Patient (Minutes): 90 History Interval history: Patient seen and examined at this time. Patient is obtunded on Bipap, SPO2 at 100%. Vital signs remains stable. TF is on hold while on continuous Bipap. Hospitalist Physical - Constitutional Vitals: Temp Pulse Resp BP Pulse Ox 99.3 F 98 H 19 138/52 98 08/05/21 08:00 08/05/21 07:26 08/05/21 07:26 08/05/21 07:26 08/05/21 07:26 General appearance: Present: no acute distress, disheveled, other (Obtunded, on Bipap) - EENT Eyes: Present: irregular pupil - Respiratory Respiratory effort: normal Respiratory: bilateral: diminished - Cardiovascular Rhythm: regular Heart Sounds: Present: S1 & S2 - Extremities Extremities: no ischemia, pulses intact, pulses symmetrical Peripheral Pulses: within normal limits - Abdominal General gastrointestinal: soft, non-distended, normal bowel sounds - Integumentary Integumentary: Present: warm, dry - Psychiatric Psychiatric: other (TAYE- Obtunded, on Bipap) - Neurologic Neurologic: other (TAYE- Obtunded, on Bipap) - Allied Health Allied health notes reviewed: nursing, case management HEART Score - HEART Score EKG: Significant ST-depression Age: > 65 Risk factors: > 3 risk factors or hx of atherosclerotic disease Troponin: Troponin T 0.095 ng/mL (0.00-0.029) H 07/29/21 05:49 Troponin: 1-3x normal limit Results - Labs CBC & Chem 7: 08/05/21 11:27 08/04/21 15:26 Labs: Laboratory Last Values WBC 30.4 K/mm3 (4.5-11.0) H 08/04/21 15:26 RBC 2.72 M/mm3 (3.65-5.03) L 08/04/21 15:26 Hgb 8.9 gm/dl (11.8-15.2) L 08/04/21 15:26 Hct 25.8 % (35.5-45.6) L 08/04/21 15:26 MCV 95 fl (84-94) H 08/04/21 15:26 MCH 33 pg (28-32) H 08/04/21 15:26 MCHC 35 % (32-34) H 08/04/21 15:26 RDW 20.9 % (13.2-15.2) H 08/04/21 15:26 Plt Count 262 K/mm3 (140-440) 08/04/21 15:26 Lymph % (Auto) Hl7 Developer 08/04/21 15:26 [place] % (Auto) Hl7 Developer 08/04/21 15:26 Eos % (Auto) Hl7 Developer 08/04/21 15:26 Baso % (Auto) Hl7 Developer 08/04/21 15:26 Lymph # (Auto) Hl7 Developer 08/04/21 15:26 [place] # (Auto) Hl7 Developer 08/04/21 15:26 Eos # (Auto) Hl7 Developer 08/04/21 15:26 Baso # (Auto) Hl7 Developer 08/04/21 15:26 Add Manual Diff Complete 08/04/21 15:26 Total Counted 100 08/04/21 15:26 Seg Neutrophils % Hl7 Developer 08/04/21 15:26 Seg Neuts % (Manual) 82.0 % (40.0-70.0) H 08/04/21 15:26 Band Neutrophils % 3.0 % 08/04/21 15:26 Lymphocytes % (Manual) 4.0 % (13.4-35.0) L 08/04/21 15:26 Reactive Lymphs % (Man) 0 % 08/04/21 15:26 Monocytes % (Manual) 4.0 % (0.0-7.3) 08/04/21 15:26 Eosinophils % (Manual) 2.0 % (0.0-4.3) 08/04/21 15:26 Basophils % (Manual) 0 % (0.0-1.8) 08/04/21 15:26 Metamyelocytes % 0 % 08/04/21 15: Myelocytes % 5.0 % 08/04/21 15: Promyelocytes % 0 % 08/04/21 15: Blast Cells % 0 % 08/04/21 15: Nucleated RBC % Not Reportable 08/04/21 15:26 Seg Neutrophils # Hl7 Developer 08/04/21 15:26 Seg Neutrophils # Man 24.9 K/mm3 (1.8-7.7) H 08/04/21 15:26 Band Neutrophils # 0.9 K/mm3 08/04/21 15:26 Lymphocytes # (Manual) 1.2 K/mm3 (1.2-5.4) 08/04/21 15:26 Abs React Lymphs (Man) 0.0 K/mm3 08/04/21 15:26 Monocytes # (Manual) 1.2 K/mm3 (0.0-0.8) H 08/04/21 15:26 Eosinophils # (Manual) 0.6 K/mm3 (0.0-0.4) H 08/04/21 15:26 Basophils # (Manual) 0.0 K/mm3 (0.0-0.1) 08/04/21 15:26 Metamyelocytes # 0.0 K/mm3 08/04/21 15:26 Myelocytes # 1.5 K/mm3 08/04/21 15:26 Promyelocytes # 0.0 K/mm3 08/04/21 15:26 Blast Cells # 0.0 K/mm3 08/04/21 15:26 WBC Morphology Not Reportable 08/04/21 15:26 Hypersegmented Neuts Not Reportable 08/04/21 15:26 Hyposegmented Neuts Not Reportable 08/04/21 15:26 Hypogranular Neuts Not Reportable 08/04/21 15:26 Smudge Cells Not Reportable 08/04/21 15:26 Toxic Granulation Not Reportable 08/04/21 15:26 Toxic Vacuolation Not Reportable 08/04/21 15:26 Dohle Bodies Not Reportable 08/04/21 15:26 Pelger-Huet Anomaly Not Reportable 08/04/21 15:26 Bong Rods Not Reportable 08/04/21 15:26 Platelet Estimate Consistent w auto 08/04/21 15:26 Clumped Platelets Not Reportable 08/04/21 15:26 Plt Clumps, EDTA Not Reportable 08/04/21 15:26 Large Platelets Few 08/04/21 15:26 Giant Platelets Not Reportable 08/04/21 15:26 Platelet Satelliting Not Reportable 08/04/21 15:26 Plt Morphology Comment Not Reportable 08/04/21 15:26 RBC Morphology Not Reportable 08/04/21 15:26 Dimorphic RBCs Not Reportable 08/04/21 15:26 Polychromasia 1+ 08/04/21 15:26 Hypochromasia Not Reportable 08/04/21 15:26 Poikilocytosis Not Reportable 08/04/21 15:26 Anisocytosis 1+ 08/04/21 15:26 Microcytosis Not Reportable 08/04/21 15:26 Macrocytosis 1+ 08/04/21 15:26 Spherocytes Not Reportable 08/04/21 15:26 Pappenheimer Bodies Not Reportable 08/04/21 15:26 Sickle Cells Not Reportable 08/04/21 15:26 Target Cells 1+ 08/04/21 15:26 Tear Drop Cells Not Reportable 08/04/21 15:26 Ovalocytes Not Reportable 08/04/21 15:26 Helmet Cells Not Reportable 08/04/21 15:26 [place] Bodies Not Reportable 08/04/21 15:26 Webber Rings Not Reportable 08/04/21 15:26 [place] Cells Not Reportable 08/04/21 15:26 Bite Cells Not Reportable 08/04/21 15:26 Crenated Cell Not Reportable 08/04/21 15:26 Elliptocytes Not Reportable 08/04/21 15:26 Acanthocytes (Spur) Not Reportable 08/04/21 15:26 Rouleaux Not Reportable 08/04/21 15:26 Hemoglobin C Crystals Not Reportable 08/04/21 15:26 Schistocytes Not Reportable 08/04/21 15:26 Malaria parasites Not Reportable 08/04/21 15:26 Andrés Bodies Not Reportable 08/04/21 15:26 Hem Pathologist Commnt No 08/04/21 15:26 PT 15.3 Sec. (12.2-14.9) H 07/28/21 21:49 INR 1.09 (0.87-1.13) 07/28/21 21:49 APTT 23.5 Sec. (24.2-36.6) L 07/28/21 21:49 Heparin Anti-Xa Level < 0.10 U.I./ml (0.3-0.7) L 07/29/21 12:41 ABG pH 7.481 pH Units (7.350-7.450) H 08/04/21 20:50 ABG pCO2 41.9 mm Hg 08/04/21 20:50 ABG pO2 245.4 mm Hg (80.0-90.0) H 08/04/21 20:50 ABG HCO3 30.6 mmol/L (20.0-26.0) H 08/04/21 20:50 ABG O2 Saturation 99.4 % (95.0-99.0) H 08/04/21 20:50 ABG O2 Content 11.2 (0.0-44) 08/04/21 20:50 ABG Base Excess 6.5 mmol/L (-2.0-3.0) H 08/04/21 20:50 ABG Hemoglobin 7.7 gm/dl (14.0-18.0) L 08/04/21 20:50 ABG Carboxyhemoglobin 1.9 % (0.0-5.0) 08/04/21 20:50 ABG Methemoglobin 0.4 % (0.0-1.5) 08/04/21 20:50 Oxyhemoglobin 97.1 % (95.0-99.0) 08/04/21 20:50 FiO2 100 % 08/04/21 20:50 Sodium 144 mmol/L (137-145) D 08/04/21 15:26 Potassium 4.3 mmol/L (3.6-5.0) 08/04/21 15:26 Chloride 102.4 mmol/L (98-107) 08/04/21 15:26 Carbon Dioxide 27 mmol/L (22-30) 08/04/21 15:26 Anion Gap 19 mmol/L 08/04/21 15:26 BUN 53 mg/dL (9-20) H 08/04/21 15:26 Creatinine 6.4 mg/dL (0.8-1.3) H 08/04/21 15:26 Estimated GFR 10 ml/min 08/04/21 15:26 BUN/Creatinine Ratio 8 % 08/04/21 15:26 Glucose 115 mg/dL (75-100) H 08/04/21 15:26 POC Glucose 87 mg/dL (70-105) 08/05/21 05:15 Lactic Acid 2.10 mmol/L (0.7-2.0) H* 08/04/21 15:26 Calcium 7.9 mg/dL (8.4-10.2) L 08/04/21 15:26 Total Bilirubin 0.40 mg/dL (0.1-1.2) 08/04/21 15:26 AST 29 units/L (5-40) 08/04/21 15:26 ALT 17 units/L (7-56) 08/04/21 15:26 Alkaline Phosphatase 128 units/L (35-129) 08/04/21 15:26 Troponin T 0.095 ng/mL (0.00-0.029) H 07/29/21 05:49 NT-Pro-B Natriuret Pep 83873 pg/mL (0-900) H 07/28/21 21:49 Total Protein 5.7 g/dL (6.3-8.2) L 08/04/21 15:26 Albumin 2.4 g/dL (3.9-5) L 08/04/21 15:26 Albumin/Globulin Ratio 0.7 % 08/04/21 15:26 Lipase 96 units/L (13-60) H 07/28/21 21:49 Nasal Screen MRSA (PCR) Negative (Negative) 07/30/21 06:15 Coronavirus (PCR) Negative (Negative) 07/30/21 08:34 Hepatitis A IgM Ab Non-reactive (NonReactive) 07/30/21 09:22 Hep Bs Antigen Non-reactive (Negative) 07/30/21 09:22 Hep B Core IgM Ab Non-reactive (NonReactive) 07/30/21 09:22 Hepatitis C Antibody Non-reactive (NonReactive) 07/30/21 09:22 Blood Type AB POSITIVE 07/29/21 05:49 Antibody Screen Negative 07/29/21 05:49 Crossmatch See Detail 07/29/21 05:49 Microbiology: Microbiology 08/04/21 15:26 Peripheral/Venous Blood Culture - Preliminary Culture in Progress 08/04/21 15:26 Peripheral/Venous Blood Culture - Preliminary Culture in Progress Mcpherson/IV: Voiding Method Diaper Active Medications - Current Medications Current Medications: Generic Name Dose Route Start Last Admin Trade Name Freq PRN Reason Stop Dose Admin Acetaminophen 650 mg 07/29/21 00:47 07/29/21 23:23 Acetaminophen 325 Mg Tab PO 650 mg Q6H PRN Administration Pain, Mild (1-3) Lipase/Protease/Amylase 1 each 08/01/21 13:28 Lipase 10,500/Protease 25,000/Amylase 43,750 (Units) Dr Tyler FEEDTUBE PRN PRN For Clogged Feeding Tube Arformoterol Tartrate 15 mcg 08/04/21 20:00 08/05/21 07:36 Arformoterol 15 Mcg/2 Ml Nebu IH 15 mcg Q12HRT LIAM Administration Atorvastatin Calcium 80 mg 07/29/21 22:00 08/04/21 23:04 Atorvastatin 40 Mg Tab PO 80 mg QHS LIAM Administration Budesonide 0.5 mg 08/04/21 20:00 08/05/21 07:36 Budesonide 0.5 Mg/2 Ml Nebu IH 0.5 mg Q12HRT LIAM Administration Dextrose 0 ml 07/29/21 01:06 07/31/21 02:05 Dextrose 10% *Hypoglycemia IV 75 ml DIRECT PRN Administration Hypoglycemia Protocol Epoetin Nicolas-epbx 20,000 unit 07/30/21 10:05 08/04/21 23:07 Epoetin Nicolas-Epbx 20,000 Unit/1 Ml Vial SUB-Q 20,000 unit ADRIENNE PRN Administration hemodialysis Heparin Sodium (Porcine) 3,000 unit 07/30/21 10:05 08/01/21 09:48 Heparin 10,000 Units/10 Ml Vial IV 3,000 unit ADRIENNE PRN Administration hemodialysis Sodium Chloride 100 mls @ 999 mls/hr 07/30/21 10:05 Nacl 0.9% IV ADRIENNE PRN Hypotension Piperacillin Sod/Tazobactam Sod 2.25 gm in 50 mls @ 100 mls/hr 08/04/21 13:00 08/05/21 04:17 Zosyn/Ns 2.25 Gm/50ml IV 100 mls/hr Q8H LIAM Administration Protocol Insulin Human Lispro 0 unit 07/29/21 06:00 08/05/21 05:30 Insulin Lispro 100 Unit/Ml SUB-Q Not Given Q6HR [facility] Protocol Lansoprazole 30 mg 08/02/21 10:00 08/04/21 23:05 Lansoprazole 30 Mg Solutab FEEDTUBE 30 mg BID LIAM Administration Memantine 5 mg 07/29/21 10:00 08/04/21 10:01 Memantine 5 Mg Tab PO 5 mg QDAY LIAM Administration Nitroglycerin 0.4 mg 07/29/21 00:47 Nitroglycerin 0.4 Mg Tab Subl SL Q5M PRN Chest Pain Olanzapine 5 mg 07/29/21 22:00 08/04/21 23:05 Olanzapine 5 Mg Tab PO 5 mg HS LIAM Administration Ondansetron HCl 4 mg 07/29/21 05:46 Ondansetron 4 Mg/2 Ml Inj IV Q8H PRN Nausea And Vomiting Paroxetine HCl 40 mg 07/29/21 10:00 08/04/21 10:01 Paroxetine 20 Mg Tab PO 40 mg DAILY LIAM Administration Simple Syrup 15 ml 08/01/21 13:28 Simple Syrup 15 Ml FEEDTUBE PRN PRN Hypoglycemia Simple Syrup 30 ml 08/01/21 13:28 Simple Syrup 15 Ml FEEDTUBE PRN PRN Hypoglycemia Sodium Bicarbonate 325 mg 08/01/21 13:28 Sodium Bicarbonate 325 Mg Tab FEEDTUBE PRN PRN For Clogged Feeding Tube Sodium Chloride 10 ml 07/29/21 00:47 08/01/21 21:29 Sodium Chloride 0.9% 10 Ml Flush Syringe IV 10 ml PRN PRN Administration LINE FLUSH Nutrition/Malnutrition Assess - Dietary Evaluation Nutrition/Malnutrition Findings: Nutrition Notes Start: 07/29/21 15:44 Freq: Status: Active Protocol: Document 08/01/21 12:51 CHUY (Rec: 08/01/21 13:31 CHUY [id number]) Nutrition Notes Initial or Follow up Reassessment Current Diagnosis CKD (stage V CKD),Coronary Artery Disease,Diabetes,Sepsis ,Hypertension,Stroke Other Pertinent Diagnosis GI bleed, ESRD+HD, CAP, Anemia , Dementia, GERD, VA. Current Diet TF-Nepro w/CARBSTEADY @ 35 ml/ hr (since D 07/30). Labs/Tests 08/01: BUN 44, Crea 4.5, Glu 117, Ca 7.7. Pertinent Medications 08/01: Nutritionally unremarkable. Height 5 ft 4 in Weight 58.9 kg [place] Body Weight (kg) 59.09 BMI 22.3 Weight change and time frame 0.67 Kg body weight loss in 2 days reported. Weight Status Appropriate Subjective/Other Information RD consult for routine F/U on dietary advancement. RN note 08/01: tf in progress w/nephro at 35cc/hr per peg. Pt has PEG tube placed COURT DEPUTY, according to RN notes. Spoke on the phone with RN and told me that Pt is not consuming anything PO, just the TF. Percent of energy/protein needs met: Prescribed TF-Nepro w/ CARBSTEADY @ 35 ml/hr provides for energy/protein needs (1, 500 Kcal/68 g) during LOS, 104 % Kcal; 95% AA. Burn Absent Trauma Absent GI Symptoms Diarrhea Difficulty In Swallowing Food Allergy No Skin Integrity/Comment Assessment WNL. Current % PO Other #1 Nutrition Diagnosis Inadequate oral intake Etiology Uncertain, but including difficulty swallowing. As Evidenced by Signs and Symptoms Pt has PEG tube placed COURT DEPUTY, according to RN notes. Is patient on ventilator? No Is Patient Ambulatory and/or Out of Bed No REE-([facility]-confined to bed) [phone] Calculation Used for Recommendations [facility] Additional Notes Protein: >1.2 g/Kg; >71 g/day. Fluids: 1 ml/Kcal, or as per MD. Nutrition Intervention Change Diet Order: d/c Clear Liquids Diet. Nutrition Support: Continue Nepro wCARBSTEADY @ 35 ml/hr. Flush: 150 ml water Q 4 hr, or as per MD. Kcal 1,500 Protein (gm) 68 Carbohydrates (gm) 134 Fat (gm) 80 Fluid (mL) 606 Fiber (gm) 11 % RDI: 104% Kcal; 95% AA. Goal #1 Provide at least 75% of energy /protein needs through Enteral Feeding during LOS. Goal #2 Maintain body weight within +/ -3% of admission body weight during LOS. Follow-Up By: 08/05/21 Additional Comments Continue monitoring TF tolerance and BM. <SUSANA VICTOR - Last Filed: 08/06/21 07:37> Assessment and Plan Assessment and plan: I saw and evaluated the patient. I agree with the findings and the plan of care as documented in the Nurse Practitioner's~note, with the following corrections and additions. Hospitalist Physical - Constitutional Vitals: Temp Pulse Resp BP Pulse Ox 99.4 F 116 H 32 H 125/81 95 08/06/21 04:00 08/06/21 06:40 08/06/21 06:40 08/06/21 06:40 08/06/21 06:40 HEART Score - HEART Score Troponin: Troponin T 0.095 ng/mL (0.00-0.029) H 07/29/21 05:49 Results - Labs CBC & Chem 7: 08/06/21 04:13 08/06/21 04:13 Labs: Laboratory Last Values WBC 31.1 K/mm3 (4.5-11.0) H 08/06/21 04:13 RBC 2.42 M/mm3 (3.65-5.03) L 08/06/21 04:13 Hgb 7.7 gm/dl (11.8-15.2) L 08/06/21 04:13 Hct 22.7 % (35.5-45.6) L 08/06/21 04:13 MCV 94 fl (84-94) 08/06/21 04:13 MCH 32 pg (28-32) 08/06/21 04:13 MCHC 34 % (32-34) 08/06/21 04:13 RDW 20.2 % (13.2-15.2) H 08/06/21 04:13 Plt Count 218 K/mm3 (140-440) 08/06/21 04:13 Lymph % (Auto) Hl7 Developer 08/04/21 15:26 [place] % (Auto) Hl7 Developer 08/04/21 15:26 Eos % (Auto) Hl7 Developer 08/04/21 15:26 Baso % (Auto) Hl7 Developer 08/04/21 15:26 Lymph # (Auto) Hl7 Developer 08/04/21 15:26 [place] # (Auto) Hl7 Developer 08/04/21 15:26 Eos # (Auto) Hl7 Developer 08/04/21 15:26 Baso # (Auto) Hl7 Developer 08/04/21 15:26 Add Manual Diff Complete 08/05/21 11:27 Total Counted 100 08/05/21 11:27 Seg Neutrophils % Hl7 Developer 08/05/21 11:27 Seg Neuts % (Manual) 91.0 % (40.0-70.0) H 08/05/21 11:27 Band Neutrophils % 5.0 % 08/05/21 11:27 Lymphocytes % (Manual) 0 % (13.4-35.0) L 08/05/21 11:27 Reactive Lymphs % (Man) 0 % 08/05/21 11:27 Monocytes % (Manual) 4.0 % (0.0-7.3) 08/05/21 11:27 Eosinophils % (Manual) 0 % (0.0-4.3) 08/05/21 11:27 Basophils % (Manual) 0 % (0.0-1.8) 08/05/21 11:27 Metamyelocytes % 0 % 08/05/21 11:27 Myelocytes % 0 % 08/05/21 11:27 Promyelocytes % 0 % 08/05/21 11:27 Blast Cells % 0 % 08/05/21 11:27 Nucleated RBC % Not Reportable 08/05/21 11:27 Seg Neutrophils # Hl7 Developer 08/04/21 15:26 Seg Neutrophils # Man 28.3 K/mm3 (1.8-7.7) H 08/05/21 11:27 Band Neutrophils # 1.6 K/mm3 08/05/21 11:27 Lymphocytes # (Manual) 0.0 K/mm3 (1.2-5.4) L 08/05/21 11:27 Abs React Lymphs (Man) 0.0 K/mm3 08/05/21 11:27 Monocytes # (Manual) 1.2 K/mm3 (0.0-0.8) H 08/05/21 11:27 Eosinophils # (Manual) 0.0 K/mm3 (0.0-0.4) 08/05/21 11:27 Basophils # (Manual) 0.0 K/mm3 (0.0-0.1) 08/05/21 11:27 Metamyelocytes # 0.0 K/mm3 08/05/21 11:27 Myelocytes # 0.0 K/mm3 08/05/21 11:27 Promyelocytes # 0.0 K/mm3 08/05/21 11:27 Blast Cells # 0.0 K/mm3 08/05/21 11:27 WBC Morphology Not Reportable 08/05/21 11:27 Hypersegmented Neuts Not Reportable 08/05/21 11:27 Hyposegmented Neuts Not Reportable 08/05/21 11:27 Hypogranular Neuts Not Reportable 08/05/21 11:27 Smudge Cells Not Reportable 08/05/21 11:27 Toxic Granulation Not Reportable 08/05/21 11:27 Toxic Vacuolation Not Reportable 08/05/21 11:27 Dohle Bodies Not Reportable 08/05/21 11:27 Pelger-Huet Anomaly Not Reportable 08/05/21 11:27 Bong Rods Not Reportable 08/05/21 11:27 Platelet Estimate Consistent w auto 08/05/21 11:27 Clumped Platelets Not Reportable 08/05/21 11:27 Plt Clumps, EDTA Not Reportable 08/05/21 11:27 Large Platelets Few 08/05/21 11:27 Giant Platelets Not Reportable 08/05/21 11:27 Platelet Satelliting Not Reportable 08/05/21 11:27 Plt Morphology Comment Not Reportable 08/05/21 11:27 RBC Morphology Not Reportable 08/05/21 11:27 Dimorphic RBCs Not Reportable 08/05/21 11:27 Polychromasia Not Reportable 08/05/21 11:27 Hypochromasia Not Reportable 08/05/21 11:27 Poikilocytosis Not Reportable 08/05/21 11:27 Anisocytosis 1+ 08/05/21 11:27 Microcytosis Not Reportable 08/05/21 11:27 Macrocytosis Few 08/05/21 11:27 Spherocytes Not Reportable 08/05/21 11:27 Pappenheimer Bodies Not Reportable 08/05/21 11:27 Sickle Cells Not Reportable 08/05/21 11:27 Target Cells 1+ 08/05/21 11:27 Tear Drop Cells Not Reportable 08/05/21 11:27 Ovalocytes Not Reportable 08/05/21 11:27 Helmet Cells Not Reportable 08/05/21 11:27 [place] Bodies Not Reportable 08/05/21 11:27 Webber Rings Not Reportable 08/05/21 11:27 [place] Cells Not Reportable 08/05/21 11:27 Bite Cells Not Reportable 08/05/21 11:27 Crenated Cell Not Reportable 08/05/21 11:27 Elliptocytes Not Reportable 08/05/21 11:27 Acanthocytes (Spur) Not Reportable 08/05/21 11:27 Rouleaux Not Reportable 08/05/21 11:27 Hemoglobin C Crystals Not Reportable 08/05/21 11:27 Schistocytes Not Reportable 08/05/21 11:27 Malaria parasites Not Reportable 08/05/21 11:27 Andrés Bodies Not Reportable 08/05/21 11:27 Hem Pathologist Commnt No 08/05/21 11:27 PT 15.3 Sec. (12.2-14.9) H 07/28/21 21:49 INR 1.09 (0.87-1.13) 07/28/21 21:49 APTT 23.5 Sec. (24.2-36.6) L 07/28/21 21:49 Heparin Anti-Xa Level < 0.10 U.I./ml (0.3-0.7) L 07/29/21 12:41 ABG pH 7.481 pH Units (7.350-7.450) H 08/04/21 20:50 ABG pCO2 41.9 mm Hg 08/04/21 20:50 ABG pO2 245.4 mm Hg (80.0-90.0) H 08/04/21 20:50 ABG HCO3 30.6 mmol/L (20.0-26.0) H 08/04/21 20:50 ABG O2 Saturation 99.4 % (95.0-99.0) H 08/04/21 20:50 ABG O2 Content 11.2 (0.0-44) 08/04/21 20:50 ABG Base Excess 6.5 mmol/L (-2.0-3.0) H 08/04/21 20:50 ABG Hemoglobin 7.7 gm/dl (14.0-18.0) L 08/04/21 20:50 ABG Carboxyhemoglobin 1.9 % (0.0-5.0) 08/04/21 20:50 ABG Methemoglobin 0.4 % (0.0-1.5) 08/04/21 20:50 Oxyhemoglobin 97.1 % (95.0-99.0) 08/04/21 20:50 FiO2 100 % 08/04/21 20:50 Sodium 143 mmol/L (137-145) 08/06/21 04:13 Potassium 4.2 mmol/L (3.6-5.0) 08/06/21 04:13 Chloride 100.5 mmol/L (98-107) 08/06/21 04:13 Carbon Dioxide 28 mmol/L (22-30) 08/06/21 04:13 Anion Gap 19 mmol/L 08/06/21 04:13 BUN 49 mg/dL (9-20) H 08/06/21 04:13 Creatinine 5.4 mg/dL (0.8-1.3) H 08/06/21 04:13 Estimated GFR 12 ml/min 08/06/21 04:13 BUN/Creatinine Ratio 9 % 08/06/21 04:13 Glucose 189 mg/dL (75-100) H 08/06/21 04:13 POC Glucose 185 mg/dL (70-105) H 08/06/21 05:34 Lactic Acid 1.80 mmol/L (0.7-2.0) 08/05/21 11:27 Calcium 8.2 mg/dL (8.4-10.2) L 08/06/21 04:13 Total Bilirubin 0.60 mg/dL (0.1-1.2) 08/06/21 04:13 AST 39 units/L (5-40) 08/06/21 04:13 ALT 15 units/L (7-56) 08/06/21 04:13 Alkaline Phosphatase 136 units/L (35-129) H 08/06/21 04:13 Troponin T 0.095 ng/mL (0.00-0.029) H 07/29/21 05:49 NT-Pro-B Natriuret Pep 92318 pg/mL (0-900) H 07/28/21 21:49 Total Protein 6.0 g/dL (6.3-8.2) L 08/06/21 04:13 Albumin 2.0 g/dL (3.9-5) L 08/06/21 04:13 Albumin/Globulin Ratio 0.5 % 08/06/21 04:13 Triglycerides 62 mg/dL (2-149) 08/06/21 04:13 Cholesterol 64 mg/dL (50-199) 08/06/21 04:13 LDL Cholesterol Direct 11 mg/dL (50-130) L 08/06/21 04:13 HDL Cholesterol 36 mg/dL (40-59) L 08/06/21 04:13 Cholesterol/HDL Ratio 1.77 % 08/06/21 04:13 Lipase 96 units/L (13-60) H 07/28/21 21:49 Procalcitonin 27.52 ng/mL (<0.15) 08/04/21 15:26 Nasal Screen MRSA (PCR) Negative (Negative) 07/30/21 06:15 Coronavirus (PCR) Negative (Negative) 07/30/21 08:34 Hepatitis A IgM Ab Non-reactive (NonReactive) 07/30/21 09:22 Hep Bs Antigen Non-reactive (Negative) 07/30/21 09:22 Hep B Core IgM Ab Non-reactive (NonReactive) 07/30/21 09:22 Hepatitis C Antibody Non-reactive (NonReactive) 07/30/21 09:22 Blood Type AB POSITIVE 07/29/21 05:49 Antibody Screen Negative 07/29/21 05:49 Crossmatch See Detail 07/29/21 05:49 Microbiology: Microbiology 08/04/21 15:26 Peripheral/Venous Blood Culture - Preliminary NO GROWTH AFTER 24 HOURS 08/04/21 15:26 Peripheral/Venous Blood Culture - Preliminary NO GROWTH AFTER 24 HOURS Mcpherson/IV: Voiding Method Condom Catheter Active Medications - Current Medications Current Medications: Generic Name Dose Route Start Last Admin Trade Name Freq PRN Reason Stop Dose Admin Acetaminophen 650 mg 07/29/21 00:47 07/29/21 23:23 Acetaminophen 325 Mg Tab PO 650 mg Q6H PRN Administration Pain, Mild (1-3) Lipase/Protease/Amylase 1 each 08/01/21 13:28 Lipase 10,500/Protease 25,000/Amylase 43,750 (Units) Dr Tyler FEEDTUBE PRN PRN For Clogged Feeding Tube Arformoterol Tartrate 15 mcg 08/04/21 20:00 08/05/21 20:23 Arformoterol 15 Mcg/2 Ml Nebu IH 15 mcg Q12HRT LIAM Administration Atorvastatin Calcium 80 mg 07/29/21 22:00 08/05/21 21:14 Atorvastatin 40 Mg Tab PO 80 mg QHS LIAM Administration Budesonide 0.5 mg 08/04/21 20:00 08/05/21 20:23 Budesonide 0.5 Mg/2 Ml Nebu IH 0.5 mg Q12HRT LIAM Administration Dextrose 0 ml 07/29/21 01:06 07/31/21 02:05 Dextrose 10% *Hypoglycemia IV 75 ml DIRECT PRN Administration Hypoglycemia Protocol Epoetin Nicolas-epbx 20,000 unit 07/30/21 10:05 08/04/21 23:07 Epoetin Nicolas-Epbx 20,000 Unit/1 Ml Vial SUB-Q 20,000 unit ADRIENNE PRN Administration hemodialysis Heparin Sodium (Porcine) 3,000 unit 07/30/21 10:05 08/01/21 09:48 Heparin 10,000 Units/10 Ml Vial IV 3,000 unit ADRIENNE PRN Administration hemodialysis Sodium Chloride 100 mls @ 999 mls/hr 07/30/21 10:05 Nacl 0.9% IV ADRIENNE PRN Hypotension Piperacillin Sod/Tazobactam Sod 2.25 gm in 50 mls @ 100 mls/hr 08/04/21 13:00 08/06/21 04:12 Zosyn/Ns 2.25 Gm/50ml IV 100 mls/hr Q8H LIAM Administration Protocol Insulin Human Lispro 0 unit 07/29/21 06:00 08/06/21 06:09 Insulin Lispro 100 Unit/Ml SUB-Q 2 unit Q6HR LIAM Administration Protocol Lansoprazole 30 mg 08/02/21 10:00 08/05/21 21:14 Lansoprazole 30 Mg Solutab FEEDTUBE 30 mg BID LIAM Administration Memantine 5 mg 07/29/21 10:00 08/05/21 10:25 Memantine 5 Mg Tab PO 5 mg QDAY LIAM Administration Nitroglycerin 0.4 mg 07/29/21 00:47 Nitroglycerin 0.4 Mg Tab Subl SL Q5M PRN Chest Pain Olanzapine 5 mg 07/29/21 22:00 08/05/21 21:14 Olanzapine 5 Mg Tab PO 5 mg HS LIAM Administration Ondansetron HCl 4 mg 07/29/21 05:46 Ondansetron 4 Mg/2 Ml Inj IV Q8H PRN Nausea And Vomiting Paroxetine HCl 40 mg 07/29/21 10:00 08/05/21 10:25 Paroxetine 20 Mg Tab PO 40 mg DAILY LIAM Administration Simple Syrup 15 ml 08/01/21 13:28 Simple Syrup 15 Ml FEEDTUBE PRN PRN Hypoglycemia Simple Syrup 30 ml 08/01/21 13:28 Simple Syrup 15 Ml FEEDTUBE PRN PRN Hypoglycemia Sodium Bicarbonate 325 mg 08/01/21 13:28 Sodium Bicarbonate 325 Mg Tab FEEDTUBE PRN PRN For Clogged Feeding Tube Sodium Chloride 10 ml 07/29/21 00:47 08/01/21 21:29 Sodium Chloride 0.9% 10 Ml Flush Syringe IV 10 ml PRN PRN Administration LINE FLUSH Nutrition/Malnutrition Assess - Dietary Evaluation Nutrition/Malnutrition Findings: Nutrition Notes Start: 07/29/21 15:44 Freq: Status: Active Protocol: Document 08/05/21 15:49 CHUY (Rec: 08/05/21 16:04 CHUY [id number]) Nutrition Notes Initial or Follow up Brief Note Current Diet NPO (since 08/04 am). Height 5 ft 4 in Weight 57 kg [place] Body Weight (kg) 59.09 BMI 21.5 Weight change and time frame 1.9 Kg body weight loss in 4 days reported. Weight Status Appropriate Subjective/Other Information RD consult for routine F/U on TF tolerance and continuation. Pt was d/c from TF on 08/04 am due to breathing complications. I spoke with RN and told me that Pt has been more stable today, and perhaps will resume TF this evening. Will reassess on F/U. Percent of energy/protein needs met: Pt currently on NPO. Nutrition Intervention Nutrition Support: TF d/c temporarily. Follow-Up By: 08/07/21 Additional Comments When pertinent, continue monitoring TF tolerance and BM .
[2021-08-05 12:28] LABS: Hematocrit 23.8 % (35.5-45.6); Hemoglobin 7.6 gm/dl (11.8-15.2); Mean Corpuscular HGB Conc 32 % (32-34); Mean Corpuscular Volume 95 fl (84-94); Platelet Count 211 K/mm3 (140-440); Red Blood Count 2.51 M/mm3 (3.65-5.03)
[2021-08-05 12:32] LABS: Red Cell Distribution Width 20.1 % (13.2-15.2)
[2021-08-05] MEDS ORDERED: D5W/0.45% NACL 1,000 ML IV SCH (13:00)
--- NOTE | 2021-08-05 13:04 | Progress Note ---
Assessment and Plan - Patient Problems (1) Coronary artery disease Current Visit: Yes Status: Acute Plan to address problem: Patient presented with fever, leukocytosis and a right lower lobe pneumonia chest x-ray. Antiplatelet therapy on hold for severe anemia. Continue other guideline directed therapy for his coronary artery disease. He is now in the ICU, being managed for worsening bilateral pneumonia. Subjective Date of service: 08/05/21 Principal diagnosis: Pneumonia, sepsis Interval history: Patient is comfortably no acute distress. He was transferred to the unit for close observation of worsening bilateral pneumonia. Objective Vital Signs Temp Pulse Pulse Resp Resp BP BP 08/05/21 12:00 98 F 08/05/21 10:10 08/05/21 08:00 99.3 F 08/05/21 07:51 18 08/05/21 07:26 98 H 19 138/52 08/05/21 06:00 96 H 20 133/41 08/05/21 05:30 98 H 17 120/55 08/05/21 05:00 97 H 17 125/48 08/05/21 04:30 98 H 17 126/51 08/05/21 04:01 96 H 17 117/45 08/05/21 04:00 98.1 F 08/05/21 03:30 99 H 16 122/81 08/05/21 03:14 99 H 20 144/99 08/05/21 03:01 98 H 17 78/45 08/05/21 02:31 100 H 38 H 105/69 08/05/21 02:00 101 H 18 75/51 08/05/21 01:31 102 H 28 H 82/54 08/05/21 01:01 102 H 19 138/117 08/05/21 00:31 104 H 20 90/51 08/05/21 00:10 99.4 F 105 H 28 H 100/57 08/05/21 00:01 104 H 19 146/31 08/05/21 00:00 98.9 F 08/04/21 23:45 104 H 146/31 08/04/21 23:31 105 H 20 158/53 08/04/21 23:30 105 H 158/53 08/04/21 23:15 105 H 139/78 08/04/21 23:10 103 H 20 143/108 08/04/21 23:01 101 H 19 143/38 08/04/21 23:00 102 H 143/38 08/04/21 22:50 104 H 113/38 08/04/21 22:45 105 H 89/41 08/04/21 22:31 108 H 22 110/35 08/04/21 22:30 105 H 110/35 08/04/21 22:15 85 125/75 08/04/21 22:01 104 H 21 125/75 08/04/21 22:00 105 H 105 H 22 120/102 08/04/21 21:45 103 H 121/20 08/04/21 21:30 103 H 21 120/57 08/04/21 21:15 102 H 114/77 08/04/21 21:01 100 H 18 136/61 08/04/21 21:00 101 H 120/82 08/04/21 20:45 99.5 F 98 H 18 126/49 08/04/21 20:39 100 H 20 133/107 08/04/21 20:31 99 H 21 133/107 08/04/21 20:01 101 H 18 133/107 08/04/21 19:54 99.5 F 08/04/21 19:35 08/04/21 19:30 103 H 21 119/65 08/04/21 19:00 108 H 23 108/59 08/04/21 18:32 111 H 29 H 08/04/21 16:46 98.9 F 92 H 18 142/69 Pulse Ox Pulse Ox 08/05/21 12:00 08/05/21 10:10 94 08/05/21 08:00 08/05/21 07:51 08/05/21 07:26 98 08/05/21 06:00 08/05/21 05:30 08/05/21 05:00 08/05/21 04:30 08/05/21 04:01 08/05/21 04:00 08/05/21 03:30 08/05/21 03:14 99 08/05/21 03:01 08/05/21 02:31 08/05/21 02:00 08/05/21 01:31 08/05/21 01:01 08/05/21 00:31 08/05/21 00:10 99 08/05/21 00:01 08/05/21 00:00 08/04/21 23:45 08/04/21 23:31 08/04/21 23:30 08/04/21 23:15 08/04/21 23:10 08/04/21 23:01 08/04/21 23:00 08/04/21 22:50 08/04/21 22:45 08/04/21 22:31 08/04/21 22:30 08/04/21 22:15 08/04/21 22:01 08/04/21 22:00 95 08/04/21 21:45 08/04/21 21:30 92 08/04/21 21:15 08/04/21 21:01 81 L 08/04/21 21:00 08/04/21 20:45 96 08/04/21 20:39 96 08/04/21 20:31 08/04/21 20:01 08/04/21 19:54 08/04/21 19:35 88 08/04/21 19:30 08/04/21 19:00 95 08/04/21 18:32 72 L 08/04/21 16:46 91 - Physical Examination General: Cachectic, Other (Chronically ill-appearing) HEENT: Positive: PERRL Neck: Positive: neck supple Cardiac: Positive: Reg Rate and Rhythm Lungs: Positive: Decreased Breath Sounds Neuro: Positive: Weakness (Generalized lethargy) Abdomen: Positive: Soft Skin: Positive: Clear Extremities: Absent: edema - Labs and Meds Cardiac Enzymes 08/04/21 Range/Units 15:26 AST 29 (5-40) units/L CBC 08/04/21 08/05/21 Range/Units 15:26 11:27 WBC 30.4 H 31.1 H (4.5-11.0) K/mm3 RBC 2.72 L 2.51 L (3.65-5.03) M/mm3 Hgb 8.9 L 7.6 L (11.8-15.2) gm/dl Hct 25.8 L 23.8 L (35.5-45.6) % Plt Count 262 211 (140-440) K/mm3 Lymph # (Auto) Facilities Officer [place] # (Auto) Facilities Officer Eos # (Auto) Facilities Officer Baso # (Auto) Facilities Officer Comprehensive Metabolic Panel 08/04/21 Range/Units 15:26 Sodium 144 D (137-145) mmol/L Potassium 4.3 (3.6-5.0) mmol/L Chloride 102.4 (98-107) mmol/L Carbon Dioxide 27 (22-30) mmol/L BUN 53 H (9-20) mg/dL Creatinine 6.4 H (0.8-1.3) mg/dL Glucose 115 H (75-100) mg/dL Calcium 7.9 L (8.4-10.2) mg/dL AST 29 (5-40) units/L ALT 17 (7-56) units/L Alkaline Phosphatase 128 (35-129) units/L Total Protein 5.7 L (6.3-8.2) g/dL Albumin 2.4 L (3.9-5) g/dL
--- NOTE | 2021-08-05 13:50 | Vascular Lab Report ---
DUPLEX DOPPLER LOWER EXTREMITY VEINS, BILATERAL INDICATION / CLINICAL INFORMATION: r/o DVT. TECHNIQUE: Duplex doppler imaging was performed through the veins of both lower extremities using niki ous compression and other maneuvers. COMPARISON: None available. FINDINGS: RIGHT COMMON FEMORAL VEIN: Negative. RIGHT FEMORAL VEIN: Negative. RIGHT POPLITEAL VEIN: Negative. RIGHT CALF VEINS: Negative. LEFT COMMON FEMORAL VEIN: Negative. LEFT FEMORAL VEIN: Negative. LEFT POPLITEAL VEIN: Negative. LEFT CALF VEINS: Negative. ADDITIONAL FINDINGS: None. IMPRESSION: 1. No sonographic evidence for DVT in either lower extremity. Scribed by: Teresa Hagan RDMS, KYREE, BLAKE Scribed: 08/05/2021 10:52 AM I have reviewed the images, agree with this report, and edited this report as needed. Signer Name: Paul Mcdaniels MD Signed: 08/05/2021 1:45 PM Workstation Name: [id number]
[2021-08-05 16:57] LABS: Band Neutrophils # (Manual) 1.6 K/mm3; Basophils % (Manual) 0 % (0.0-1.8); Eosinophils % (Manual) 0 % (0.0-4.3); Total Cells Counted 100
[2021-08-05 16:58] LABS: Anisocytosis 1+; Large Platelets Few; Macrocytosis Few; Platelet Estimate Consistent w Auto; Target Cells 1+
[2021-08-06] MEDS: INSULIN LISPRO 100 UNIT/ML SUB-Q SCH ×4 (01:07→18:09)
[2021-08-06] MEDS: PIPERACIL-TAZO 2.25 GM/50 ML 2.25 GM/50 ML BAG IV SCH ×3 (04:12→20:52)
[2021-08-06 04:50] LABS: Hematocrit 22.7 % (35.5-45.6); Hemoglobin 7.7 gm/dl (11.8-15.2); Mean Corpuscular HGB Conc 34 % (32-34); Mean Corpuscular Volume 94 fl (84-94); Platelet Count 218 K/mm3 (140-440); Red Blood Count 2.42 M/mm3 (3.65-5.03)
[2021-08-06 04:55] LABS: Red Cell Distribution Width 20.2 % (13.2-15.2)
[2021-08-06 05:17] LABS: Calcium 8.2 mg/dL (8.4-10.2); Chol/HDL Ratio 1.77 %
[2021-08-06] MEDS: BUDESONIDE 0.5 MG/2 ML NEBU IH SCH ×2 (07:49→21:17)
[2021-08-06] MEDS: ARFORMOTEROL 15 MCG/2 ML NEBU IH SCH ×2 (07:49→21:17)
--- NOTE | 2021-08-06 09:10 | XRay Report ---
CHEST - 1 VIEW INDICATION: Increased Work of breathing COMPARISON: 08/04/2021 FINDINGS: SUPPORT DEVICES: None. HEART: Stable cardiomediastinal silhouette. LUNGS/PLEURA: Persistent moderate patchy multifocal airspace disease and diffuse interstitial promin ence. ADDITIONAL FINDINGS: None. IMPRESSION: Unchanged exam. Signer Name: Elvis Moreno MD Signed: 08/06/2021 9:06 AM Workstation Name: [id number]
[2021-08-06] MEDS: LANSOPRAZOLE 30 MG SOLUTAB FEEDTUBE SCH ×2 (09:48→22:36)
[2021-08-06] MEDS: MEMANTINE 5 MG TAB PO SCH (09:48)
[2021-08-06] MEDS: PARoxetine 20 MG TAB PO SCH (10:45)
--- NOTE | 2021-08-06 10:45 | Progress Note ---
Assessment and Plan 1. ESRD: Patient is on maintenance hemodialysis three times a week, MWF schedule. Hemodialysis: 07/30, 08/01, 08/04. HD today. 2. FEN: Hyperkalemia, K level is better. Monitor lytes and volume status. 3. Acute hypoxic respiratory failure: 2/2 aspiration. Currently on BIPAP, wean as tolerated. Volume control thru HD. 4. Acute blood loss Anemia: 2/2 GI bleed. S/p PRBC. Epogen on dialysis days. Monitor. 5. GI bleed: Rectal bleed in the setting of anticoauglants and antiplatelets, now discontinued. Protonix. Monitor H/H. Followed by GI. 6. Sepsis / Community acquired pneumonia, pOA: CXR showed diffuse bilateral airspace disease. Covid negative. S/p Abx. 7. H/o CAD s/p PCI with stent: No symptoms of chest pain. 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 Followed by Cards. Atorvastatin. 8. H/o CVA with residual aphasia. 9. DM type: Monitor bl. glucose. Subjective: Patient seen and examined at the bedside. Examination: General appearance: well-developed, appears stated age, not in distress, on BIPAP HEENT: atraumatic Neck: trachea midline Respiratory: coarse breath sounds Heart: regular, S1S2, no murmur Abdomen: soft, normoactive bowel sounds, not tender, not distended Integumentary: no obvious rash Neurologic: obtunded Ext: no edema Hemodialysis access: L FA AVF Subjective Date of service: 08/06/21 Principal diagnosis: Pneumonia, sepsis Objective - Vital Signs Vital signs: Vital Signs - 12hr 08/05/21 08/05/21 08/05/21 23:00 23:04 23:11 Temperature Pulse Rate 111 H 112 H 112 H Pulse Rate [ Bilateral Throughout] Pulse Rate [ From Monitor] Respiratory 22 22 Rate Respiratory Rate [Bilateral Throughout] Blood Pressure 119/57 119/57 O2 Sat by Pulse 100 100 Oximetry 08/05/21 08/06/21 08/06/21 23:30 00:00 00:30 Temperature 99.4 F Pulse Rate 109 H 112 H 109 H Pulse Rate [ Bilateral Throughout] Pulse Rate [ 110 H From Monitor] Respiratory 21 18 21 Rate Respiratory Rate [Bilateral Throughout] Blood Pressure 124/51 124/51 124/51 O2 Sat by Pulse 100 100 94 Oximetry 08/06/21 08/06/21 08/06/21 01:00 01:30 02:00 Temperature Pulse Rate 109 H 110 H 109 H Pulse Rate [ Bilateral Throughout] Pulse Rate [ From Monitor] Respiratory 20 20 18 Rate Respiratory Rate [Bilateral Throughout] Blood Pressure 115/25 114/28 106/34 O2 Sat by Pulse 90 91 93 Oximetry 08/06/21 08/06/21 08/06/21 02:05 02:30 03:00 Temperature Pulse Rate 116 H 110 H 109 H Pulse Rate [ Bilateral Throughout] Pulse Rate [ From Monitor] Respiratory 30 H 22 21 Rate Respiratory Rate [Bilateral Throughout] Blood Pressure 125/81 112/30 128/58 O2 Sat by Pulse 97 92 93 Oximetry 08/06/21 08/06/21 08/06/21 03:30 04:00 04:30 Temperature 99.4 F Pulse Rate 110 H 108 H 108 H Pulse Rate [ Bilateral Throughout] Pulse Rate [ 109 H From Monitor] Respiratory 23 23 26 H Rate Respiratory Rate [Bilateral Throughout] Blood Pressure 111/56 121/60 108/62 O2 Sat by Pulse 98 98 97 Oximetry 08/06/21 08/06/21 08/06/21 05:00 05:30 06:00 Temperature Pulse Rate 108 H 113 H 119 H Pulse Rate [ Bilateral Throughout] Pulse Rate [ From Monitor] Respiratory 15 31 H 29 H Rate Respiratory Rate [Bilateral Throughout] Blood Pressure 118/59 134/75 149/87 O2 Sat by Pulse 92 84 86 Oximetry 08/06/21 08/06/21 08/06/21 06:30 06:40 07:00 Temperature Pulse Rate 116 H 116 H 115 H Pulse Rate [ Bilateral Throughout] Pulse Rate [ From Monitor] Respiratory 29 H 32 H 34 H Rate Respiratory Rate [Bilateral Throughout] Blood Pressure 125/81 125/81 111/70 O2 Sat by Pulse 91 95 90 Oximetry 08/06/21 08/06/21 08/06/21 07:30 07:49 08:00 Temperature Pulse Rate 113 H 113 H Pulse Rate [ 11 L Bilateral Throughout] Pulse Rate [ 113 H From Monitor] Respiratory 36 H 34 H Rate Respiratory 25 H Rate [Bilateral Throughout] Blood Pressure 90/42 125/64 O2 Sat by Pulse 89 99 97 Oximetry 08/06/21 08:30 Temperature Pulse Rate 116 H Pulse Rate [ Bilateral Throughout] Pulse Rate [ From Monitor] Respiratory 36 H Rate Respiratory Rate [Bilateral Throughout] Blood Pressure 154/54 O2 Sat by Pulse 93 Oximetry - Lab 08/06/21 04:13 08/06/21 04:13 Most recent lab results ABG pH 7.481 pH Units (7.350-7.450) H 08/04/21 20:50 ABG pCO2 41.9 mm Hg 08/04/21 20:50 ABG pO2 245.4 mm Hg (80.0-90.0) H 08/04/21 20:50 ABG HCO3 30.6 mmol/L (20.0-26.0) H 08/04/21 20:50 ABG O2 Saturation 99.4 % (95.0-99.0) H 08/04/21 20:50 Calcium 8.2 mg/dL (8.4-10.2) L 08/06/21 04:13 Medications & Allergies - Medications Allergies/Adverse Reactions: Allergies No Known Allergies Allergy (Unverified 06/23/20 11:35) Home Medications: Home Medications Medication Instructions Recorded Confirmed Last Taken Type Aspirin [Aspirin BABY CHEW TAB] 81 mg PO QDAY 06/23/20 07/30/21 07/28/21 14:00 History Clopidogrel [Plavix] 1 tab PO DAILY 06/23/20 07/30/21 07/28/21 14:00 History Finasteride 1 tab PO DAILY 06/23/20 07/30/21 07/28/21 14:00 History Memantine 5 mg PO QDAY 06/23/20 07/30/21 07/28/21 14:00 History OLANZapine [Zyprexa] 1 tab PO HS 06/23/20 07/30/21 07/28/21 14:00 History PARoxetine HCL [PARoxetine] 1 tab PO DAILY 06/23/20 07/30/21 07/28/21 14:00 History amLODIPine 1 tab PO DAILY 06/23/20 07/30/21 07/28/21 14:00 History AtorvaSTATin [Lipitor] 80 mg PO QHS #60 tablet 06/29/20 07/30/21 07/28/21 14:00 Rx Dextrose/Maltodextrin [Glucose 1 each PO DAILY #30 powd.pack 06/29/20 07/30/21 07/28/21 14:00 Rx Powder Packets] Lactose-Reduced Food [Ensure 237 ml PO DAILY #30 liquid 06/29/20 07/30/21 07/28/21 14:00 Rx Liquid] Metoprolol [Lopressor TAB] 25 mg PO BID #60 tablet 06/29/20 07/30/21 07/28/21 14:00 Rx Pantoprazole [Protonix TAB] 40 mg PO BIDAC #60 tablet 06/29/20 07/30/21 07/28/21 14:00 Rx Active Medications: Generic Name Dose Route Start Last Admin Trade Name Freq PRN Reason Stop Dose Admin Acetaminophen 650 mg 07/29/21 00:47 07/29/21 23:23 Acetaminophen 325 Mg Tab PO 650 mg Q6H PRN Administration Pain, Mild (1-3) Lipase/Protease/Amylase 1 each 08/01/21 13:28 Lipase 10,500/Protease 25,000/Amylase 43,750 (Units) Dr Tyler FEEDTUBE PRN PRN For Clogged Feeding Tube Arformoterol Tartrate 15 mcg 08/04/21 20:00 08/06/21 07:49 Arformoterol 15 Mcg/2 Ml Nebu IH 15 mcg Q12HRT LIAM Administration Atorvastatin Calcium 80 mg 07/29/21 22:00 08/05/21 21:14 Atorvastatin 40 Mg Tab PO 80 mg QHS LIAM Administration Budesonide 0.5 mg 08/04/21 20:00 08/06/21 07:49 Budesonide 0.5 Mg/2 Ml Nebu IH 0.5 mg Q12HRT LIAM Administration Dextrose 0 ml 07/29/21 01:06 07/31/21 02:05 Dextrose 10% *Hypoglycemia IV 75 ml DIRECT PRN Administration Hypoglycemia Protocol Epoetin Nicolas-epbx 20,000 unit 07/30/21 10:05 08/04/21 23:07 Epoetin Nicolas-Epbx 20,000 Unit/1 Ml Vial SUB-Q 20,000 unit ADRIENNE PRN Administration hemodialysis Heparin Sodium (Porcine) 3,000 unit 07/30/21 10:05 08/01/21 09:48 Heparin 10,000 Units/10 Ml Vial IV 3,000 unit ADRIENNE PRN Administration hemodialysis Sodium Chloride 100 mls @ 999 mls/hr 07/30/21 10:05 Nacl 0.9% IV ADRIENNE PRN Hypotension Piperacillin Sod/Tazobactam Sod 2.25 gm in 50 mls @ 100 mls/hr 08/04/21 13:00 08/06/21 04:12 Zosyn/Ns 2.25 Gm/50ml IV 100 mls/hr Q8H LIAM Administration Protocol Insulin Human Lispro 0 unit 07/29/21 06:00 08/06/21 06:09 Insulin Lispro 100 Unit/Ml SUB-Q 2 unit Q6HR LIAM Administration Protocol Lansoprazole 30 mg 08/02/21 10:00 08/06/21 09:48 Lansoprazole 30 Mg Solutab FEEDTUBE 30 mg BID LIAM Administration Memantine 5 mg 07/29/21 10:00 08/06/21 09:48 Memantine 5 Mg Tab PO 5 mg QDAY LIAM Administration Nitroglycerin 0.4 mg 07/29/21 00:47 Nitroglycerin 0.4 Mg Tab Subl SL Q5M PRN Chest Pain Olanzapine 5 mg 07/29/21 22:00 08/05/21 21:14 Olanzapine 5 Mg Tab PO 5 mg HS LIAM Administration Ondansetron HCl 4 mg 07/29/21 05:46 Ondansetron 4 Mg/2 Ml Inj IV Q8H PRN Nausea And Vomiting Paroxetine HCl 40 mg 07/29/21 10:00 08/05/21 10:25 Paroxetine 20 Mg Tab PO 40 mg DAILY LIAM Administration Simple Syrup 15 ml 08/01/21 13:28 Simple Syrup 15 Ml FEEDTUBE PRN PRN Hypoglycemia Simple Syrup 30 ml 08/01/21 13:28 Simple Syrup 15 Ml FEEDTUBE PRN PRN Hypoglycemia Sodium Bicarbonate 325 mg 08/01/21 13:28 Sodium Bicarbonate 325 Mg Tab FEEDTUBE PRN PRN For Clogged Feeding Tube Sodium Chloride 10 ml 07/29/21 00:47 08/01/21 21:29 Sodium Chloride 0.9% 10 Ml Flush Syringe IV 10 ml PRN PRN Administration LINE FLUSH
[2021-08-06] MEDS ORDERED: HYDROCORTISONE SOD SUCC 100 MG/2 ML VIAL IV ONE (11:00)
--- NOTE | 2021-08-06 11:05 | Progress Note ---
<JANUSZ FLROES - Last Filed: 08/06/21 18:11> Assessment and Plan Assessment and plan: This is a 85-year-old male with past medical history of HTN, DM, ESRF on HD, Previous CVA with debility, vascular dementia, GERD, and cerebral atherosclerosis who was initially admitted on the floor for unresponsiveness and possible STEMI which was later determine as an old infarct, no intervention required at this time. Patient antiplatelets and ASA were held this admit due to anemia and possible GIB. Patient was upgraded to IMCU overnight on 08/04 for worsening mental status and possible sepsis secondary to multifocal pneumonia and emphesema. Repeat CT head on 08/05 reveals subacute infarctions in the right frontal lobe and in the right cerebellar hemisphere. Hospital Course to Date: 08/05: CT head also noted with new subacute CVA, patient is not a candidate for ASA due to recent anemia and possible GIB. Orders placed for lipid panel, patient is already on statin therapy, and neurology consulted for further recommendations. Patient remains obtunded on the Bipap. Recent ABG and CXR noted, will wean off bipap since patient is still alerted. Plan for possible HD today per Nephro. Hypoglycemic this am, most likely due to NPO status. Resume TF once patient off bipap. Thorough discussion with patient's spouse,Fernanda Mg, at the bedside. She was notified of patient worsen condition, new CT head result, and overall poor prognosis. CODE status was also addressed. Patient's voiced that she knows her is tired and might not recover from this, she is leaning towards AND/DNR and possible comfort care. However she wants her children and the patient's children to be involve in that decision she will get back to us with a final decision. All questions and concerns were voiced at this time. Case management is aware and assisting with possible placement arrangement. 08/06: Patient is back on the bipap overnight due to increased work of breathing and tachypnea. Hypotensive this am, stress dose steroids and midodrine added. Patient's family opted for AND/DNR status, paperwork is signed and witnessed in the chart. Per case management plan for possible inpatient hospice tomorrow. C ontinue current supportive measures. 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 - Patient remains obtunded this am - Lipid panel noted - ASA and plavix held on admit due to anemia and possible GIB - Continue statin therapy - Neurology consulted for further recommendations - Aspiration precaution HOB above 30 #Acute Hypoxemic Respiratory Failure 07/09 #Pulmonary Edema vs #Multifocal Pneumonia #Concern for Possible Aspiration - CXR and CT showed multifocal pneumonia with emphysema - Remains on Bipap this am: 70% Fio2, 16/10. SPO2 at 100% - Pulmonary is on the case - Continue O2 supplementation and wean as tolerated - Continue SPO2 monitoring for SPO2 goal above 92% - Continue IV Abx - Aspiration precaution HOB above 30 - Plan for possible HD today per Nephro #Sepsis #Multifocal Pneumonia #Leukocytosis #Lactic Acidosis-improved - CXR and CT showed multifocal pneumonia with emphysema - Patient remains afebrile - Hypotensive this am- Stress dose steroids and midodrine added - Leukocytosis is unchanged - Lactic acid back down to less than 2 - Repeat Blood culture with NGTD - Continue IV Abx- zosyn for now - Continue to F/U on culture date - Daily CBC monitor - Consider ID consult if febrile or/and if leukocytosis persists #CAD s/p PCI with Stent - presentation initially appeared to be STEMI to ED physician but cardiology determined this was an old inf wall infarct noted by QS complexes in EKG this admission. - no symptoms of chest pain. - stent placed last year Jun 2020 for inferior wall GA - cardiology consulted. D/w Dr Ron who does not believe this is a stemi. Ok with d/c of antiplatelet agents and anticoagulants at this time - troponin 0.09, unchanged on serial measurements. Patient is an esrd patient thus cannot be extrapolated from. - atorvastatin 80 mg qhs - Echo: LVEF 55%, normal atria, normal RV size and function, sclerotic aortic valve with moderate stenosis. #Chronic Dysphagia - PEG placed about 1week prior to this admission at [facility]. - Dysphagia likely from stroke - TF currently on hold - Resume TF once off bipap #Hypoglycemia-improved #H/o Diabetes - TF back on hold, patient is back on Bipap - Continue SSI Q6hrs - Avoid Hypoglycemia - Continue Hypoglycemic protocol #Acute on chronic anemia the setting of ESRD #Acute blood loss Anemia #Possible GI Bleed - Hemoglobin dropped from a 9-5.9 in ED after initiating heparin infusion for possible acute GA, discontinued after few hours - Reportedly stool positive for occult blood, unclear if patient really had melena - Received PRBC x2 and hemoglobin stable since. - GI consulted and evaluated and determined no ongoing acute GI bleed - ASA and Plavix held - CT abdomen pelvis unremarkable - Recent EGD on 07/15 at [facility] showed erosive esophagitis. - Continue PPI- Prevacid #ESRD on hemodialysis - has left arm fistula - Nephrology consulted - Continue HD per Nephro - Strict intake and output - Avoid nephrotoxic medications; Renally dose medications - Monitor and replace electrolytes as needed #GI/DVT Prophylaxis - Continue PPI- Prevacid - BLE doppler negative for DVT - SCDs to bilateral lower extremities while in bed The high probability of a clinically significant, sudden or life threatening deterioration of the [multiple] system(s) required my full and direct attention, intervention and personal management. The aggregate critical care time was [60] minutes. This time is in addition to time spent performing reported procedures but includes the following: [x] Data Review and interpretation [x] Patient assessment and monitoring of vital signs [x] Documentation [x] Medication orders and management Disposition Plan: IMCU Total Time Spent with Patient (Minutes): 60 History Interval history: Patient seen and examined at this time. Remains obtunded only arousable to pain, back on the Bipap due to increased WOB overnight. Patient is hypotensive and remains tachypneic this am, crackles auscultated throughout his lungs. TF on hold. Hospitalist Physical - Constitutional Vitals: Temp Pulse Resp BP Pulse Ox 99.4 F 116 H 36 H 154/54 93 08/06/21 04:00 08/06/21 08:30 08/06/21 08:30 08/06/21 08:30 08/06/21 08:30 General appearance: Present: mild distress, cachectic, disheveled, other (Obtunded, on Bipap) - EENT Eyes: Present: PERRL - Respiratory Respiratory effort: labored, accessory muscle use Respiratory: bilateral: rales (Crackles) - Cardiovascular Rhythm: regular Heart Sounds: Present: S1 & S2 - Extremities Extremities: no ischemia, pulses intact, pulses symmetrical Extremity abnormal: edema - Peripheral Assessment Generalized Edema Type: Non-pitting Edema Degree: 2+ Capillary Refill: < 3 seconds Skin Temperature: Warm Peripheral Pulses: within normal limits - Abdominal General gastrointestinal: soft, non-distended, normal bowel sounds - Integumentary Integumentary: Present: warm, dry - Psychiatric Psychiatric: other (TAYE- Obtunded, on Bipap) - Neurologic Neurologic: other (TAYE- Obtunded, on Bipap) - Allied Health Allied health notes reviewed: nursing, case management HEART Score - HEART Score EKG: Significant ST-depression Age: > 65 Risk factors: > 3 risk factors or hx of atherosclerotic disease Troponin: Troponin T 0.095 ng/mL (0.00-0.029) H 07/29/21 05:49 Troponin: 1-3x normal limit Results - Labs CBC & Chem 7: 08/06/21 04:13 08/06/21 04:13 Labs: Laboratory Last Values WBC 31.1 K/mm3 (4.5-11.0) H 08/06/21 04:13 RBC 2.42 M/mm3 (3.65-5.03) L 08/06/21 04:13 Hgb 7.7 gm/dl (11.8-15.2) L 08/06/21 04:13 Hct 22.7 % (35.5-45.6) L 08/06/21 04:13 MCV 94 fl (84-94) 08/06/21 04:13 MCH 32 pg (28-32) 08/06/21 04:13 MCHC 34 % (32-34) 08/06/21 04:13 RDW 20.2 % (13.2-15.2) H 08/06/21 04:13 Plt Count 218 K/mm3 (140-440) 08/06/21 04:13 Lymph % (Auto) Senior [employer] 08/04/21 15:26 Lyon % (Auto) Senior [employer] 08/04/21 15:26 Eos % (Auto) Senior [employer] 08/04/21 15:26 Baso % (Auto) Senior [employer] 08/04/21 15:26 Lymph # (Auto) Senior [employer] Engineer 08/04/21 15:26 Lyon # (Auto) Senior [employer] Engineer 08/04/21 15:26 Eos # (Auto) Senior [employer] Engineer 08/04/21 15:26 Baso # (Auto) Senior [employer] 08/04/21 15:26 Add Manual Diff Complete 08/05/21 11:27 Total Counted 100 08/05/21 11:27 Seg Neutrophils % Senior [employer] 08/05/21 11:27 Seg Neuts % (Manual) 91.0 % (40.0-70.0) H 08/05/21 11:27 Band Neutrophils % 5.0 % 08/05/21 11:27 Lymphocytes % (Manual) 0 % (13.4-35.0) L 08/05/21 11:27 Reactive Lymphs % (Man) 0 % 08/05/21 11: Monocytes % (Manual) 4.0 % (0.0-7.3) 08/05/21 11: Eosinophils % (Manual) 0 % (0.0-4.3) 08/05/21 11:27 Basophils % (Manual) 0 % (0.0-1.8) 08/05/21 11:27 Metamyelocytes % 0 % 08/05/21 11:27 Myelocytes % 0 % 08/05/21 11:27 Promyelocytes % 0 % 08/05/21 11: Blast Cells % 0 % 08/05/21 11:27 Nucleated RBC % Not Reportable 08/05/21 11:27 Seg Neutrophils # Senior [employer] 08/04/21 15:26 Seg Neutrophils # Man 28.3 K/mm3 (1.8-7.7) H 08/05/21 11:27 Band Neutrophils # 1.6 K/mm3 08/05/21 11:27 Lymphocytes # (Manual) 0.0 K/mm3 (1.2-5.4) L 08/05/21 11:27 Abs React Lymphs (Man) 0.0 K/mm3 08/05/21 11:27 Monocytes # (Manual) 1.2 K/mm3 (0.0-0.8) H 08/05/21 11:27 Eosinophils # (Manual) 0.0 K/mm3 (0.0-0.4) 08/05/21 11:27 Basophils # (Manual) 0.0 K/mm3 (0.0-0.1) 08/05/21 11:27 Metamyelocytes # 0.0 K/mm3 08/05/21 11:27 Myelocytes # 0.0 K/mm3 08/05/21 11:27 Promyelocytes # 0.0 K/mm3 08/05/21 11:27 Blast Cells # 0.0 K/mm3 08/05/21 11:27 WBC Morphology Not Reportable 08/05/21 11:27 Hypersegmented Neuts Not Reportable 08/05/21 11:27 Hyposegmented Neuts Not Reportable 08/05/21 11:27 Hypogranular Neuts Not Reportable 08/05/21 11:27 Smudge Cells Not Reportable 08/05/21 11:27 Toxic Granulation Not Reportable 08/05/21 11:27 Toxic Vacuolation Not Reportable 08/05/21 11:27 Dohle Bodies Not Reportable 08/05/21 11:27 Pelger-Huet Anomaly Not Reportable 08/05/21 11:27 Bong Rods Not Reportable 08/05/21 11:27 Platelet Estimate Consistent w auto 08/05/21 11:27 Clumped Platelets Not Reportable 08/05/21 11:27 Plt Clumps, EDTA Not Reportable 08/05/21 11:27 Large Platelets Few 08/05/21 11:27 Giant Platelets Not Reportable 08/05/21 11:27 Platelet Satelliting Not Reportable 08/05/21 11:27 Plt Morphology Comment Not Reportable 08/05/21 11:27 RBC Morphology Not Reportable 08/05/21 11:27 Dimorphic RBCs Not Reportable 08/05/21 11:27 Polychromasia Not Reportable 08/05/21 11:27 Hypochromasia Not Reportable 08/05/21 11:27 Poikilocytosis Not Reportable 08/05/21 11:27 Anisocytosis 1+ 08/05/21 11:27 Microcytosis Not Reportable 08/05/21 11:27 Macrocytosis Few 08/05/21 11:27 Spherocytes Not Reportable 08/05/21 11:27 Pappenheimer Bodies Not Reportable 08/05/21 11:27 Sickle Cells Not Reportable 08/05/21 11:27 Target Cells 1+ 08/05/21 11:27 Tear Drop Cells Not Reportable 08/05/21 11:27 Ovalocytes Not Reportable 08/05/21 11:27 Helmet Cells Not Reportable 08/05/21 11:27 Rivas-Iron Belt Bodies Not Reportable 08/05/21 11:27 Jerome Rings Not Reportable 08/05/21 11:27 Kimberley Cells Not Reportable 08/05/21 11:27 Bite Cells Not Reportable 08/05/21 11:27 Crenated Cell Not Reportable 08/05/21 11:27 Elliptocytes Not Reportable 08/05/21 11:27 Acanthocytes (Spur) Not Reportable 08/05/21 11:27 Rouleaux Not Reportable 08/05/21 11:27 Hemoglobin C Crystals Not Reportable 08/05/21 11:27 Schistocytes Not Reportable 08/05/21 11:27 Malaria parasites Not Reportable 08/05/21 11:27 Andrés Bodies Not Reportable 08/05/21 11:27 Hem Pathologist Commnt No 08/05/21 11:27 PT 15.3 Sec. (12.2-14.9) H 07/28/21 21:49 INR 1.09 (0.87-1.13) 07/28/21 21:49 APTT 23.5 Sec. (24.2-36.6) L 07/28/21 21:49 Heparin Anti-Xa Level < 0.10 U.I./ml (0.3-0.7) L 07/29/21 12:41 ABG pH 7.481 pH Units (7.350-7.450) H 08/04/21 20:50 ABG pCO2 41.9 mm Hg 08/04/21 20:50 ABG pO2 245.4 mm Hg (80.0-90.0) H 08/04/21 20:50 ABG HCO3 30.6 mmol/L (20.0-26.0) H 08/04/21 20:50 ABG O2 Saturation 99.4 % (95.0-99.0) H 08/04/21 20:50 ABG O2 Content 11.2 (0.0-44) 08/04/21 20:50 ABG Base Excess 6.5 mmol/L (-2.0-3.0) H 08/04/21 20:50 ABG Hemoglobin 7.7 gm/dl (14.0-18.0) L 08/04/21 20:50 ABG Carboxyhemoglobin 1.9 % (0.0-5.0) 08/04/21 20:50 ABG Methemoglobin 0.4 % (0.0-1.5) 08/04/21 20:50 Oxyhemoglobin 97.1 % (95.0-99.0) 08/04/21 20:50 FiO2 100 % 08/04/21 20:50 Sodium 143 mmol/L (137-145) 08/06/21 04:13 Potassium 4.2 mmol/L (3.6-5.0) 08/06/21 04:13 Chloride 100.5 mmol/L (98-107) 08/06/21 04:13 Carbon Dioxide 28 mmol/L (22-30) 08/06/21 04:13 Anion Gap 19 mmol/L 08/06/21 04:13 BUN 49 mg/dL (9-20) H 08/06/21 04:13 Creatinine 5.4 mg/dL (0.8-1.3) H 08/06/21 04:13 Estimated GFR 12 ml/min 08/06/21 04:13 BUN/Creatinine Ratio 9 % 08/06/21 04:13 Glucose 189 mg/dL (75-100) H 08/06/21 04:13 POC Glucose 185 mg/dL (70-105) H 08/06/21 05:34 Lactic Acid 1.80 mmol/L (0.7-2.0) 08/05/21 11:27 Calcium 8.2 mg/dL (8.4-10.2) L 08/06/21 04:13 Total Bilirubin 0.60 mg/dL (0.1-1.2) 08/06/21 04:13 AST 39 units/L (5-40) 08/06/21 04:13 ALT 15 units/L (7-56) 08/06/21 04:13 Alkaline Phosphatase 136 units/L (35-129) H 08/06/21 04:13 Troponin T 0.095 ng/mL (0.00-0.029) H 07/29/21 05:49 NT-Pro-B Natriuret Pep 88215 pg/mL (0-900) H 07/28/21 21:49 Total Protein 6.0 g/dL (6.3-8.2) L 08/06/21 04:13 Albumin 2.0 g/dL (3.9-5) L 08/06/21 04:13 Albumin/Globulin Ratio 0.5 % 08/06/21 04:13 Triglycerides 62 mg/dL (2-149) 08/06/21 04:13 Cholesterol 64 mg/dL (50-199) 08/06/21 04:13 LDL Cholesterol Direct 11 mg/dL (50-130) L 08/06/21 04:13 HDL Cholesterol 36 mg/dL (40-59) L 08/06/21 04:13 Cholesterol/HDL Ratio 1.77 % 08/06/21 04:13 Lipase 96 units/L (13-60) H 07/28/21 21:49 Procalcitonin 27.52 ng/mL (<0.15) 08/04/21 15:26 Nasal Screen MRSA (PCR) Negative (Negative) 07/30/21 06:15 Coronavirus (PCR) Negative (Negative) 07/30/21 08:34 Hepatitis A IgM Ab Non-reactive (NonReactive) 07/30/21 09:22 Hep Bs Antigen Non-reactive (Negative) 07/30/21 09:22 Hep B Core IgM Ab Non-reactive (NonReactive) 07/30/21 09:22 Hepatitis C Antibody Non-reactive (NonReactive) 07/30/21 09:22 Blood Type AB POSITIVE 07/29/21 05:49 Antibody Screen Negative 07/29/21 05:49 Crossmatch See Detail 07/29/21 05:49 Microbiology: Microbiology 08/04/21 15:26 Peripheral/Venous Blood Culture - Preliminary NO GROWTH AFTER 24 HOURS 08/04/21 15:26 Peripheral/Venous Blood Culture - Preliminary NO GROWTH AFTER 24 HOURS Mcpherson/IV: Voiding Method Condom Catheter Active Medications - Current Medications Current Medications: Generic Name Dose Route Start Last Admin Trade Name Freq PRN Reason Stop Dose Admin Acetaminophen 650 mg 07/29/21 00:47 07/29/21 23:23 Acetaminophen 325 Mg Tab PO 650 mg Q6H PRN Administration Pain, Mild (1-3) Lipase/Protease/Amylase 1 each 08/01/21 13:28 Lipase 10,500/Protease 25,000/Amylase 43,750 (Units) Dr Tyler FEEDTUBE PRN PRN For Clogged Feeding Tube Arformoterol Tartrate 15 mcg 08/04/21 20:00 08/06/21 07:49 Arformoterol 15 Mcg/2 Ml Nebu IH 15 mcg Q12HRT LIAM Administration Atorvastatin Calcium 80 mg 07/29/21 22:00 08/05/21 21:14 Atorvastatin 40 Mg Tab PO 80 mg QHS LIAM Administration Budesonide 0.5 mg 08/04/21 20:00 08/06/21 07:49 Budesonide 0.5 Mg/2 Ml Nebu IH 0.5 mg Q12HRT LIAM Administration Dextrose 0 ml 07/29/21 01:06 07/31/21 02:05 Dextrose 10% *Hypoglycemia IV 75 ml DIRECT PRN Administration Hypoglycemia Protocol Epoetin Nicolas-epbx 20,000 unit 07/30/21 10:05 08/04/21 23:07 Epoetin Nicolas-Epbx 20,000 Unit/1 Ml Vial SUB-Q 20,000 unit ADRIENNE PRN Administration hemodialysis Heparin Sodium (Porcine) 3,000 unit 07/30/21 10:05 08/01/21 09:48 Heparin 10,000 Units/10 Ml Vial IV 3,000 unit ADRIENNE PRN Administration hemodialysis Sodium Chloride 100 mls @ 999 mls/hr 07/30/21 10:05 Nacl 0.9% IV ADRIENNE PRN Hypotension Piperacillin Sod/Tazobactam Sod 2.25 gm in 50 mls @ 100 mls/hr 08/04/21 13:00 08/06/21 04:12 Zosyn/Ns 2.25 Gm/50ml IV 100 mls/hr Q8H LIAM Administration Protocol Insulin Human Lispro 0 unit 07/29/21 06:00 08/06/21 06:09 Insulin Lispro 100 Unit/Ml SUB-Q 2 unit Q6HR LIAM Administration Protocol Lansoprazole 30 mg 08/02/21 10:00 08/06/21 09:48 Lansoprazole 30 Mg Solutab FEEDTUBE 30 mg BID LIAM Administration Memantine 5 mg 07/29/21 10:00 08/06/21 09:48 Memantine 5 Mg Tab PO 5 mg QDAY LIAM Administration Midodrine 10 mg 08/06/21 12:00 Midodrine 5 Mg Tab PO TID@0800,1200,1600 [facility] Nitroglycerin 0.4 mg 07/29/21 00:47 Nitroglycerin 0.4 Mg Tab Subl SL Q5M PRN Chest Pain Olanzapine 5 mg 07/29/21 22:00 08/05/21 21:14 Olanzapine 5 Mg Tab PO 5 mg HS LIAM Administration Ondansetron HCl 4 mg 07/29/21 05:46 Ondansetron 4 Mg/2 Ml Inj IV Q8H PRN Nausea And Vomiting Paroxetine HCl 40 mg 07/29/21 10:00 08/05/21 10:25 Paroxetine 20 Mg Tab PO 40 mg DAILY LIAM Administration Simple Syrup 15 ml 08/01/21 13:28 Simple Syrup 15 Ml FEEDTUBE PRN PRN Hypoglycemia Simple Syrup 30 ml 08/01/21 13:28 Simple Syrup 15 Ml FEEDTUBE PRN PRN Hypoglycemia Sodium Bicarbonate 325 mg 08/01/21 13:28 Sodium Bicarbonate 325 Mg Tab FEEDTUBE PRN PRN For Clogged Feeding Tube Sodium Chloride 10 ml 07/29/21 00:47 08/01/21 21:29 Sodium Chloride 0.9% 10 Ml Flush Syringe IV 10 ml PRN PRN Administration LINE FLUSH Nutrition/Malnutrition Assess - Dietary Evaluation Nutrition/Malnutrition Findings: Nutrition Notes Start: 07/29/21 15:44 Freq: Status: Active Protocol: Document 08/05/21 15:49 CHUY (Rec: 08/05/21 16:04 CHUY [id number]) Nutrition Notes Initial or Follow up Brief Note Current Diet NPO (since 08/04 am). Height 5 ft 4 in Weight 57 kg [place] Body Weight (kg) 59.09 BMI 21.5 Weight change and time frame 1.9 Kg body weight loss in 4 days reported. Weight Status Appropriate Subjective/Other Information RD consult for routine F/U on TF tolerance and continuation. Pt was d/c from TF on 08/04 am due to breathing complications. I spoke with RN and told me that Pt has been more stable today, and perhaps will resume TF this evening. Will reassess on F/U. Percent of energy/protein needs met: Pt currently on NPO. Nutrition Intervention Nutrition Support: TF d/c temporarily. Follow-Up By: 08/07/21 Additional Comments When pertinent, continue monitoring TF tolerance and BM . <SUSANA VICTOR - Last Filed: 08/07/21 07:02> Assessment and Plan Assessment and plan: I saw and evaluated the patient. I agree with the findings and the plan of care as documented in the Nurse Practitioner's~note, with the following corrections and additions. Hospitalist Physical - Constitutional Vitals: Temp Pulse Resp BP Pulse Ox 99.0 F 94 H 22 64/41 99 08/06/21 15:45 08/07/21 06:00 08/07/21 06:00 08/07/21 06:00 08/07/21 06:00 HEART Score - HEART Score Troponin: Troponin T 0.095 ng/mL (0.00-0.029) H 07/29/21 05:49 Results - Labs CBC & Chem 7: 08/07/21 05:23 08/07/21 05:23 Labs: Laboratory Last Values WBC 22.2 K/mm3 (4.5-11.0) H 08/07/21 05:23 RBC 2.30 M/mm3 (3.65-5.03) L 08/07/21 05:23 Hgb 7.0 gm/dl (11.8-15.2) L 08/07/21 05:23 Hct 21.4 % (35.5-45.6) L 08/07/21 05:23 MCV 93 fl (84-94) 08/07/21 05:23 MCH 31 pg (28-32) 08/07/21 05:23 MCHC 33 % (32-34) 08/07/21 05:23 RDW 19.6 % (13.2-15.2) H 08/07/21 05:23 Plt Count 194 K/mm3 (140-440) 08/07/21 05:23 Lymph % (Auto) Senior [employer] 08/04/21 15:26 Lyon % (Auto) Senior [employer] Engineer 08/04/21 15:26 Eos % (Auto) Senior [employer] Engineer 08/04/21 15:26 Baso % (Auto) Senior [employer] 08/04/21 15:26 Lymph # (Auto) Senior [employer] Engineer 08/04/21 15:26 Lyon # (Auto) Senior [employer] Engineer 08/04/21 15:26 Eos # (Auto) Senior [employer] Engineer 08/04/21 15:26 Baso # (Auto) Senior [employer] Engineer 08/04/21 15:26 Add Manual Diff Complete 08/05/21 11:27 Total Counted 100 08/05/21 11:27 Seg Neutrophils % Senior [employer] Engineer 08/05/21 11:27 Seg Neuts % (Manual) 91.0 % (40.0-70.0) H 08/05/21 11:27 Band Neutrophils % 5.0 % 08/05/21 11:27 Lymphocytes % (Manual) 0 % (13.4-35.0) L 08/05/21 11:27 Reactive Lymphs % (Man) 0 % 08/05/21 11:27 Monocytes % (Manual) 4.0 % (0.0-7.3) 08/05/21 11:27 Eosinophils % (Manual) 0 % (0.0-4.3) 08/05/21 11:27 Basophils % (Manual) 0 % (0.0-1.8) 08/05/21 11: Metamyelocytes % 0 % 08/05/21 11: Myelocytes % 0 % 08/05/21 11: Promyelocytes % 0 % 08/05/21 11: Blast Cells % 0 % 08/05/21 11: Nucleated RBC % Not Reportable 08/05/21 11:27 Seg Neutrophils # Senior [employer] Engineer 08/04/21 15:26 Seg Neutrophils # Man 28.3 K/mm3 (1.8-7.7) H 08/05/21 11:27 Band Neutrophils # 1.6 K/mm3 08/05/21 11: Lymphocytes # (Manual) 0.0 K/mm3 (1.2-5.4) L 08/05/21 11:27 Abs React Lymphs (Man) 0.0 K/mm3 08/05/21 11:27 Monocytes # (Manual) 1.2 K/mm3 (0.0-0.8) H 08/05/21 11:27 Eosinophils # (Manual) 0.0 K/mm3 (0.0-0.4) 08/05/21 11:27 Basophils # (Manual) 0.0 K/mm3 (0.0-0.1) 08/05/21 11:27 Metamyelocytes # 0.0 K/mm3 08/05/21 11:27 Myelocytes # 0.0 K/mm3 08/05/21 11:27 Promyelocytes # 0.0 K/mm3 08/05/21 11:27 Blast Cells # 0.0 K/mm3 08/05/21 11:27 WBC Morphology Not Reportable 08/05/21 11:27 Hypersegmented Neuts Not Reportable 08/05/21 11:27 Hyposegmented Neuts Not Reportable 08/05/21 11:27 Hypogranular Neuts Not Reportable 08/05/21 11:27 Smudge Cells Not Reportable 08/05/21 11:27 Toxic Granulation Not Reportable 08/05/21 11:27 Toxic Vacuolation Not Reportable 08/05/21 11:27 Dohle Bodies Not Reportable 08/05/21 11:27 Pelger-Huet Anomaly Not Reportable 08/05/21 11:27 Bong Rods Not Reportable 08/05/21 11:27 Platelet Estimate Consistent w auto 08/05/21 11:27 Clumped Platelets Not Reportable 08/05/21 11:27 Plt Clumps, EDTA Not Reportable 08/05/21 11:27 Large Platelets Few 08/05/21 11:27 Giant Platelets Not Reportable 08/05/21 11:27 Platelet Satelliting Not Reportable 08/05/21 11:27 Plt Morphology Comment Not Reportable 08/05/21 11:27 RBC Morphology Not Reportable 08/05/21 11:27 Dimorphic RBCs Not Reportable 08/05/21 11:27 Polychromasia Not Reportable 08/05/21 11:27 Hypochromasia Not Reportable 08/05/21 11:27 Poikilocytosis Not Reportable 08/05/21 11:27 Anisocytosis 1+ 08/05/21 11:27 Microcytosis Not Reportable 08/05/21 11:27 Macrocytosis Few 08/05/21 11:27 Spherocytes Not Reportable 08/05/21 11:27 Pappenheimer Bodies Not Reportable 08/05/21 11:27 Sickle Cells Not Reportable 08/05/21 11:27 Target Cells 1+ 08/05/21 11:27 Tear Drop Cells Not Reportable 08/05/21 11:27 Ovalocytes Not Reportable 08/05/21 11:27 Helmet Cells Not Reportable 08/05/21 11:27 Rivas-Iron Belt Bodies Not Reportable 08/05/21 11:27 Jerome Rings Not Reportable 08/05/21 11:27 Kimberley Cells Not Reportable 08/05/21 11:27 Bite Cells Not Reportable 08/05/21 11:27 Crenated Cell Not Reportable 08/05/21 11:27 Elliptocytes Not Reportable 08/05/21 11:27 Acanthocytes (Spur) Not Reportable 08/05/21 11:27 Rouleaux Not Reportable 08/05/21 11:27 Hemoglobin C Crystals Not Reportable 08/05/21 11:27 Schistocytes Not Reportable 08/05/21 11:27 Malaria parasites Not Reportable 08/05/21 11:27 Andrés Bodies Not Reportable 08/05/21 11:27 Hem Pathologist Commnt No 08/05/21 11:27 PT 15.3 Sec. (12.2-14.9) H 07/28/21 21:49 INR 1.09 (0.87-1.13) 07/28/21 21:49 APTT 23.5 Sec. (24.2-36.6) L 07/28/21 21:49 Heparin Anti-Xa Level < 0.10 U.I./ml (0.3-0.7) L 07/29/21 12:41 ABG pH 7.481 pH Units (7.350-7.450) H 08/04/21 20:50 ABG pCO2 41.9 mm Hg 08/04/21 20:50 ABG pO2 245.4 mm Hg (80.0-90.0) H 08/04/21 20:50 ABG HCO3 30.6 mmol/L (20.0-26.0) H 08/04/21 20:50 ABG O2 Saturation 99.4 % (95.0-99.0) H 08/04/21 20:50 ABG O2 Content 11.2 (0.0-44) 08/04/21 20:50 ABG Base Excess 6.5 mmol/L (-2.0-3.0) H 08/04/21 20:50 ABG Hemoglobin 7.7 gm/dl (14.0-18.0) L 08/04/21 20:50 ABG Carboxyhemoglobin 1.9 % (0.0-5.0) 08/04/21 20:50 ABG Methemoglobin 0.4 % (0.0-1.5) 08/04/21 20:50 Oxyhemoglobin 97.1 % (95.0-99.0) 08/04/21 20:50 FiO2 100 % 08/04/21 20:50 Sodium 146 mmol/L (137-145) H 08/07/21 05:23 Potassium 4.4 mmol/L (3.6-5.0) 08/07/21 05:23 Chloride 102.7 mmol/L (98-107) 08/07/21 05:23 Carbon Dioxide 26 mmol/L (22-30) 08/07/21 05:23 Anion Gap 22 mmol/L 08/07/21 05:23 BUN 67 mg/dL (9-20) H 08/07/21 05:23 Creatinine 6.2 mg/dL (0.8-1.3) H 08/07/21 05:23 Estimated GFR 11 ml/min 08/07/21 05:23 BUN/Creatinine Ratio 11 % 08/07/21 05:23 Glucose 143 mg/dL (75-100) H 08/07/21 05:23 POC Glucose 138 mg/dL (70-105) H 08/07/21 05:10 Lactic Acid 1.80 mmol/L (0.7-2.0) 08/05/21 11:27 Calcium 7.9 mg/dL (8.4-10.2) L 08/07/21 05:23 Total Bilirubin 0.60 mg/dL (0.1-1.2) 08/06/21 04:13 AST 39 units/L (5-40) 08/06/21 04:13 ALT 15 units/L (7-56) 08/06/21 04:13 Alkaline Phosphatase 136 units/L (35-129) H 08/06/21 04:13 Troponin T 0.095 ng/mL (0.00-0.029) H 07/29/21 05:49 NT-Pro-B Natriuret Pep 86909 pg/mL (0-900) H 07/28/21 21:49 Total Protein 6.0 g/dL (6.3-8.2) L 08/06/21 04:13 Albumin 2.0 g/dL (3.9-5) L 08/06/21 04:13 Albumin/Globulin Ratio 0.5 % 08/06/21 04:13 Triglycerides 62 mg/dL (2-149) 08/06/21 04:13 Cholesterol 64 mg/dL (50-199) 08/06/21 04:13 LDL Cholesterol Direct 11 mg/dL (50-130) L 08/06/21 04:13 HDL Cholesterol 36 mg/dL (40-59) L 08/06/21 04:13 Cholesterol/HDL Ratio 1.77 % 08/06/21 04:13 Lipase 96 units/L (13-60) H 07/28/21 21:49 Procalcitonin 27.52 ng/mL (<0.15) 08/04/21 15:26 Nasal Screen MRSA (PCR) Negative (Negative) 07/30/21 06:15 Coronavirus (PCR) Negative (Negative) 07/30/21 08:34 SARS-CoV-2 (PCR) Negative (Negative) 08/06/21 10:45 Hepatitis A IgM Ab Non-reactive (NonReactive) 07/30/21 09:22 Hep Bs Antigen Non-reactive (Negative) 07/30/21 09:22 Hep B Core IgM Ab Non-reactive (NonReactive) 07/30/21 09:22 Hepatitis C Antibody Non-reactive (NonReactive) 07/30/21 09:22 Blood Type AB POSITIVE 07/29/21 05:49 Antibody Screen Negative 07/29/21 05:49 Crossmatch See Detail 07/29/21 05:49 Microbiology: Microbiology 08/04/21 15:26 Peripheral/Venous Blood Culture - Preliminary NO GROWTH AFTER 48 HOURS 08/04/21 15:26 Peripheral/Venous Blood Culture - Preliminary NO GROWTH AFTER 48 HOURS Mcpherson/IV: Voiding Method Condom Catheter Active Medications - Current Medications Current Medications: Generic Name Dose Route Start Last Admin Trade Name Freq PRN Reason Stop Dose Admin Acetaminophen 650 mg 07/29/21 00:47 07/29/21 23:23 Acetaminophen 325 Mg Tab PO 650 mg Q6H PRN Administration Pain, Mild (1-3) Lipase/Protease/Amylase 1 each 08/01/21 13:28 Lipase 10,500/Protease 25,000/Amylase 43,750 (Units) Dr Tyler FEEDTUBE PRN PRN For Clogged Feeding Tube Arformoterol Tartrate 15 mcg 08/04/21 20:00 08/06/21 21:17 Arformoterol 15 Mcg/2 Ml Nebu IH 15 mcg Q12HRT LIAM Administration Atorvastatin Calcium 80 mg 07/29/21 22:00 08/06/21 22:35 Atorvastatin 40 Mg Tab PO 80 mg QHS LIAM Administration Budesonide 0.5 mg 08/04/21 20:00 08/06/21 21:17 Budesonide 0.5 Mg/2 Ml Nebu IH 0.5 mg Q12HRT LIAM Administration Dextrose 0 ml 07/29/21 01:06 07/31/21 02:05 Dextrose 10% *Hypoglycemia IV 75 ml DIRECT PRN Administration Hypoglycemia Protocol Epoetin Nicolas-epbx 20,000 unit 07/30/21 10:05 08/04/21 23:07 Epoetin Nicolas-Epbx 20,000 Unit/1 Ml Vial SUB-Q 20,000 unit ADRIENNE PRN Administration hemodialysis Heparin Sodium (Porcine) 3,000 unit 07/30/21 10:05 08/01/21 09:48 Heparin 10,000 Units/10 Ml Vial IV 3,000 unit ADRIENNE PRN Administration hemodialysis Hydrocortisone Sodium Succinate 100 mg 08/06/21 22:00 08/07/21 05:24 Hydrocortisone Sod Succ 100 Mg/2 Ml Vial IV 100 mg Q8HR LIAM Administration Sodium Chloride 100 mls @ 999 mls/hr 07/30/21 10:05 Nacl 0.9% IV ADRIENNE PRN Hypotension Piperacillin Sod/Tazobactam Sod 2.25 gm in 50 mls @ 100 mls/hr 08/04/21 13:00 08/07/21 05:23 Zosyn/Ns 2.25 Gm/50ml IV 100 mls/hr Q8H LIAM Administration Protocol Insulin Human Lispro 0 unit 07/29/21 06:00 08/07/21 05:24 Insulin Lispro 100 Unit/Ml SUB-Q Not Given Q6HR [facility] Protocol Lansoprazole 30 mg 08/02/21 10:00 08/06/21 22:36 Lansoprazole 30 Mg Solutab FEEDTUBE 30 mg BID LIAM Administration Memantine 5 mg 07/29/21 10:00 08/06/21 09:48 Memantine 5 Mg Tab PO 5 mg QDAY LIMA Administration Midodrine 10 mg 08/06/21 12:00 08/06/21 16:28 Midodrine 5 Mg Tab PO 10 mg TID@0800,1200,1600 LIAM Administration Nitroglycerin 0.4 mg 07/29/21 00:47 Nitroglycerin 0.4 Mg Tab Subl SL Q5M PRN Chest Pain Ondansetron HCl 4 mg 07/29/21 05:46 Ondansetron 4 Mg/2 Ml Inj IV Q8H PRN Nausea And Vomiting Paroxetine HCl 40 mg 07/29/21 10:00 08/06/21 10:45 Paroxetine 20 Mg Tab PO 40 mg DAILY LIAM Administration Simple Syrup 15 ml 08/01/21 13:28 Simple Syrup 15 Ml FEEDTUBE PRN PRN Hypoglycemia Simple Syrup 30 ml 08/01/21 13:28 Simple Syrup 15 Ml FEEDTUBE PRN PRN Hypoglycemia Sodium Bicarbonate 325 mg 08/01/21 13:28 Sodium Bicarbonate 325 Mg Tab FEEDTUBE PRN PRN For Clogged Feeding Tube Sodium Chloride 10 ml 07/29/21 00:47 08/01/21 21:29 Sodium Chloride 0.9% 10 Ml Flush Syringe IV 10 ml PRN PRN Administration LINE FLUSH Nutrition/Malnutrition Assess - Dietary Evaluation Nutrition/Malnutrition Findings: Nutrition Notes Start: 07/29/21 15:44 Freq: Status: Active Protocol: Document 08/05/21 15:49 CHUY (Rec: 08/05/21 16:04 CHUY [id number]) Nutrition Notes Initial or Follow up Brief Note Current Diet NPO (since 08/04 am). Height 5 ft 4 in Weight 57 kg [place] Body Weight (kg) 59.09 BMI 21.5 Weight change and time frame 1.9 Kg body weight loss in 4 days reported. Weight Status Appropriate Subjective/Other Information RD consult for routine F/U on TF tolerance and continuation. Pt was d/c from TF on 08/04 am due to breathing complications. I spoke with RN and told me that Pt has been more stable today, and perhaps will resume TF this evening. Will reassess on F/U. Percent of energy/protein needs met: Pt currently on NPO. Nutrition Intervention Nutrition Support: TF d/c temporarily. Follow-Up By: 08/07/21 Additional Comments When pertinent, continue monitoring TF tolerance and BM .
[2021-08-06] MEDS: MIDODRINE 5 MG TAB PO SCH ×2 (12:43→16:28)
--- NOTE | 2021-08-06 13:07 | Progress Note ---
Assessment and Plan - Patient Problems (1) Coronary artery disease Current Visit: Yes Status: Acute Plan to address problem: Patient presented with fever, leukocytosis and a right lower lobe pneumonia chest x-ray. Antiplatelet therapy on hold for severe anemia. Continue other guideline directed therapy for his coronary artery disease. He is now in the ICU, being managed for worsening bilateral pneumonia. Subjective Date of service: 08/06/21 Principal diagnosis: Pneumonia, sepsis Interval history: Patient is comfortable, currently on BiPAP, no new cardiac events reported. Objective Vital Signs Temp Pulse Pulse Pulse Resp Resp BP 08/06/21 08:30 116 H 36 H 154/54 08/06/21 08:00 113 H 113 H 34 H 125/64 08/06/21 07:49 11 L 25 H 08/06/21 07:30 113 H 36 H 90/42 08/06/21 07:00 115 H 34 H 111/70 08/06/21 06:40 116 H 32 H 125/81 08/06/21 06:30 116 H 29 H 125/81 08/06/21 06:00 119 H 29 H 149/87 08/06/21 05:30 113 H 31 H 134/75 08/06/21 05:00 108 H 15 118/59 08/06/21 04:30 108 H 26 H 108/62 08/06/21 04:00 99.4 F 108 H 109 H 23 121/60 08/06/21 03:30 110 H 23 111/56 08/06/21 03:00 109 H 21 128/58 08/06/21 02:30 110 H 22 112/30 08/06/21 02:05 116 H 30 H 125/81 08/06/21 02:00 109 H 18 106/34 08/06/21 01:30 110 H 20 114/28 08/06/21 01:00 109 H 20 115/25 08/06/21 00:30 109 H 21 124/51 08/06/21 00:00 99.4 F 112 H 110 H 18 124/51 08/05/21 23:30 109 H 21 124/51 08/05/21 23:11 112 H 08/05/21 23:04 112 H 22 119/57 08/05/21 23:00 111 H 22 119/57 08/05/21 22:30 111 H 23 129/48 08/05/21 22:15 08/05/21 22:00 110 H 21 111/45 08/05/21 21:30 111 H 20 134/53 08/05/21 21:00 111 H 23 162/45 08/05/21 20:30 109 H 21 124/49 08/05/21 20:29 108 H 20 08/05/21 20:00 99.8 F H 108 H 108 H 24 147/55 08/05/21 19:47 109 H 08/05/21 19:30 106 H 22 132/73 08/05/21 19:00 106 H 23 131/63 08/05/21 18:30 107 H 21 132/46 08/05/21 18:00 106 H 21 116/71 08/05/21 17:30 107 H 21 119/66 08/05/21 17:00 106 H 22 131/48 08/05/21 16:30 108 H 23 132/58 08/05/21 16:00 98.9 F 110 H 22 123/91 08/05/21 15:30 110 H 23 84/60 08/05/21 15:00 109 H 20 111/45 08/05/21 14:30 110 H 22 120/38 08/05/21 14:00 106 H 22 130/68 08/05/21 13:30 106 H 21 128/53 Pulse Ox 08/06/21 08:30 93 08/06/21 08:00 97 08/06/21 07:49 99 08/06/21 07:30 89 08/06/21 07:00 90 08/06/21 06:40 95 08/06/21 06:30 91 08/06/21 06:00 86 08/06/21 05:30 84 08/06/21 05:00 92 08/06/21 04:30 97 08/06/21 04:00 98 08/06/21 03:30 98 08/06/21 03:00 93 08/06/21 02:30 92 08/06/21 02:05 97 08/06/21 02:00 93 08/06/21 01:30 91 08/06/21 01:00 90 08/06/21 00:30 94 08/06/21 00:00 100 08/05/21 23:30 100 08/05/21 23:11 08/05/21 23:04 100 08/05/21 23:00 100 08/05/21 22:30 100 08/05/21 22:15 100 08/05/21 22:00 100 08/05/21 21:30 100 08/05/21 21:00 100 08/05/21 20:30 100 08/05/21 20:29 08/05/21 20:00 94 08/05/21 19:47 08/05/21 19:30 98 08/05/21 19:00 96 08/05/21 18:30 98 08/05/21 18:00 100 08/05/21 17:30 99 08/05/21 17:00 100 08/05/21 16:30 98 08/05/21 16:00 96 08/05/21 15:30 94 08/05/21 15:00 92 08/05/21 14:30 96 08/05/21 14:00 98 08/05/21 13:30 84 - Physical Examination General: Cachectic, Other (Chronically ill-appearing) HEENT: Positive: PERRL Neck: Positive: neck supple Cardiac: Positive: Reg Rate and Rhythm Lungs: Positive: Decreased Breath Sounds Neuro: Positive: Weakness (Generalized lethargy) Abdomen: Positive: Soft Skin: Positive: Clear Extremities: Absent: edema - Labs and Meds Cardiac Enzymes 08/06/21 Range/Units 04:13 AST 39 (5-40) units/L Lipids 08/06/21 Range/Units 04:13 Triglycerides 62 (2-149) mg/dL Cholesterol 64 (50-199) mg/dL HDL Cholesterol 36 L (40-59) mg/dL Cholesterol/HDL Ratio 1.77 % CBC 08/06/21 Range/Units 04:13 WBC 31.1 H (4.5-11.0) K/mm3 RBC 2.42 L (3.65-5.03) M/mm3 Hgb 7.7 L (11.8-15.2) gm/dl Hct 22.7 L (35.5-45.6) % Plt Count 218 (140-440) K/mm3 Comprehensive Metabolic Panel 08/06/21 Range/Units 04:13 Sodium 143 (137-145) mmol/L Potassium 4.2 (3.6-5.0) mmol/L Chloride 100.5 (98-107) mmol/L Carbon Dioxide 28 (22-30) mmol/L BUN 49 H (9-20) mg/dL Creatinine 5.4 H (0.8-1.3) mg/dL Glucose 189 H (75-100) mg/dL Calcium 8.2 L (8.4-10.2) mg/dL AST 39 (5-40) units/L ALT 15 (7-56) units/L Alkaline Phosphatase 136 H (35-129) units/L Total Protein 6.0 L (6.3-8.2) g/dL Albumin 2.0 L (3.9-5) g/dL
[2021-08-06] MEDS: HYDROCORTISONE SOD SUCC 100 MG/2 ML VIAL IV SCH (22:35)
[2021-08-07] MEDS: INSULIN LISPRO 100 UNIT/ML SUB-Q SCH ×2 (00:40→05:24)
[2021-08-07] MEDS: PIPERACIL-TAZO 2.25 GM/50 ML 2.25 GM/50 ML BAG IV SCH (05:23)
[2021-08-07] MEDS: HYDROCORTISONE SOD SUCC 100 MG/2 ML VIAL IV SCH (05:24)
[2021-08-07 05:42] LABS: Hematocrit 21.4 % (35.5-45.6); Mean Corpuscular HGB Conc 33 % (32-34); Mean Corpuscular Volume 93 fl (84-94); Platelet Count 194 K/mm3 (140-440); Red Cell Distribution Width 19.6 % (13.2-15.2)
[2021-08-07 06:00] LABS: Calcium 7.9 mg/dL (8.4-10.2)
[2021-08-07] MEDS: BUDESONIDE 0.5 MG/2 ML NEBU IH SCH (08:19)
[2021-08-07] MEDS ORDERED: LORazepam 2 MG/ML VIAL IV ONE (08:44)
[2021-08-07] MEDS ORDERED: DEXTROSE 50% IN WATER (25GM) 50 ML SYRINGE IV ONE (08:45)
[2021-08-07] MEDS ORDERED: D5W/0.9% NACL 1,000 ML IV SCH (09:00)
--- NOTE | 2021-08-07 09:07 | Discharge Summary ---
<JANUSZ FLORES - Last Filed: 08/07/21 09:15> Providers - Providers Date of Admission: 07/29/21 00:48 Date of discharge: 08/07/21 Attending physician: SUSANA VICTOR MD 07/29/21 Consult to Cardiac Rehabilitation [CONS] Routine Reason For Exam: Phase I 07/29/21 00:47 Consult to Physician [CONS] Routine Comment: Consulting Provider: VELASQUEZ HUDSON Physician Instructions: Reason For Exam: esrd 07/29/21 00:48 Consult to Cardiology [CONS] Routine Consulting Provider: GOPAL PASTOR Reason For Exam: Elevated troponin Consult to Dietitian/Nutrition [CONS] Routine Physician Instructions: Reason For Exam: Reason for Consult: Diet education 07/29/21 05:41 Consult to Physician [CONS] Routine Comment: Consulting Provider: MARILYN MORAES Physician Instructions: Reason For Exam: GIB 08/04/21 21:54 Consult to Physician [CONS] Routine Comment: Consulting Provider: JOHN KING Physician Instructions: Reason For Exam: Acute hypoxic Resp. faiulure 08/05/21 08:42 Consult to Physician [CONS] Urgent Comment: Consulting Provider: YUAN SCRUGGS Physician Instructions: Reason For Exam: Subacute Infarct Primary care physician: MARIKA TOUSSAINT MD Hospitalization Reason for admission: Unresponsiveness and STEMI Condition: Poor Hospital course: This is a 85-year-old male with past medical history of HTN, DM, ESRF on HD, Previous CVA with debility, vascular dementia, GERD, and cerebral atherosclerosis who was initially admitted on the floor for unresponsiveness and possible STEMI which was later determine as an old infarct, no intervention required at this time. Patient antiplatelets and ASA were held this admit due to anemia and possible GIB. Patient was upgraded to IMCU overnight on 08/04 for worsening mental status and possible sepsis secondary to multifocal pneumonia and emphesema. Repeat CT head on 08/05 reveals subacute infarctions in the right frontal lobe and in the right cerebellar hemisphere. Hospital Course to Date: 08/05: CT head also noted with new subacute CVA, patient is not a candidate for ASA due to recent anemia and possible GIB. Orders placed for lipid panel, patient is already on statin therapy, and neurology consulted for further recommendations. Patient remains obtunded on the Bipap. Recent ABG and CXR noted, will wean off bipap since patient is still alerted. Plan for possible HD today per Nephro. Hypoglycemic this am, most likely due to NPO status. Resume TF once patient off bipap. Thorough discussion with patient's spouse,Fernanda Mg, at the bedside. She was notified of patient worsen condition, new CT head result, and overall poor prognosis. CODE status was also addressed. Patient's voiced that she knows her is tired and might not recover from this, she is leaning towards AND/DNR and possible comfort care. However she wants her children and the patient's children to be involve in that decision she will get back to us with a final decision. All questions and concerns were voiced at this time. Case management is aware and assisting with possible placement kay boggs. 08/06: Patient is back on the bipap overnight due to increased work of breathing and tachypnea. Hypotensive this am, stress dose steroids and midodrine added. Patient's family opted for AND/DNR status, paperwork is signed and witnessed in the chart. Per case management plan for possible inpatient hospice tomorrow. Continue current supportive measures. Assessment and Plan #New Subacute CVA #H/o CVA with right hemiparesis - Aphasic/nonverbal at baseline with dementia - Initially brought to ER with altered mental status, however improved back to his baseline mental status on the floor - CT head on admit with no acute abnormality - Worsen mentation on 08/04 transfer to [facility] - Repeat CT head with subacute infarctions in the right frontal lobe and in the right cerebellar hemisphere. - Patient remains obtunded this am - Lipid panel noted - ASA and plavix held on admit due to anemia and possible GIB - Continue statin therapy - Neurology consulted for further recommendations - Aspiration precaution HOB above 30 #Acute Hypoxemic Respiratory Failure 2/ #Pulmonary Edema vs #Multifocal Pneumonia #Concern for Possible Aspiration - CXR and CT showed multifocal pneumonia with emphysema - Remains on Bipap this am: 70% Fio2, 16/10. SPO2 at 100% - Pulmonary is on the case - Continue O2 supplementation and wean as tolerated - Continue SPO2 monitoring for SPO2 goal above 92% - Continue IV Abx - Aspiration precaution HOB above 30 - Plan for possible HD today per Nephro #Sepsis #Multifocal Pneumonia #Leukocytosis #Lactic Acidosis-improved - CXR and CT showed multifocal pneumonia with emphysema - Patient remains afebrile - Hypotensive this am- Stress dose steroids and midodrine added - Leukocytosis is unchanged - Lactic acid back down to less than 2 - Repeat Blood culture with NGTD - Continue IV Abx- zosyn for now - Continue to F/U on culture date - Daily CBC monitor - Consider ID consult if febrile or/and if leukocytosis persists #CAD s/p PCI with Stent - presentation initially appeared to be STEMI to ED physician but cardiology determined this was an old inf wall infarct noted by QS complexes in EKG this admission. - no symptoms of chest pain. - stent placed last year Jun 2020 for inferior wall OK - cardiology consulted. D/w Dr Ron who does not believe this is a stemi. Ok with d/c of antiplatelet agents and anticoagulants at this time - troponin 0.09, unchanged on serial measurements. Patient is an esrd patient thus cannot be extrapolated from. - atorvastatin 80 mg qhs - Echo: LVEF 55%, normal atria, normal RV size and function, sclerotic aortic valve with moderate stenosis. #Chronic Dysphagia - PEG placed about 1week prior to this admission at [facility]. - Dysphagia likely from stroke - TF currently on hold - Resume TF once off bipap #Hypoglycemia-improved #H/o Diabetes - TF back on hold, patient is back on Bipap - Continue SSI Q6hrs - Avoid Hypoglycemia - Continue Hypoglycemic protocol #Acute on chronic anemia the setting of ESRD #Acute blood loss Anemia #Possible GI Bleed - Hemoglobin dropped from a 9-5.9 in ED after initiating heparin infusion for possible acute OK, discontinued after few hours - Reportedly stool positive for occult blood, unclear if patient really had melena - Received PRBC x2 and hemoglobin stable since. - GI consulted and evaluated and determined no ongoing acute GI bleed - ASA and Plavix held - CT abdomen pelvis unremarkable - Recent EGD on 07/15 at [facility] showed erosive esophagitis. - Continue PPI- Prevacid #ESRD on hemodialysis - has left arm fistula - Nephrology consulted - Continue HD per Nephro - Strict intake and output - Avoid nephrotoxic medications; Renally dose medications - Monitor and replace electrolytes as needed #GI/DVT Prophylaxis - Continue PPI- Prevacid - BLE doppler negative for DVT - SCDs to bilateral lower extremities while in bed Disposition: 51 HOSPICE/MEDICAL FACILITY Final Discharge Diagnosis (Prints w/discharge instructions): Acute CVA Time spent for discharge: 35 Core Measure Documentation - Palliative Care Palliative Care/ Comfort Measures: Hospice Care Exam - Constitutional Vitals: Temp Pulse Resp BP Pulse Ox 98.4 F 99 H 45 H 54/20 100 08/07/21 07:16 08/07/21 08:19 08/07/21 08:19 08/07/21 08:01 08/07/21 08:10 General appearance: Present: mild distress, cachectic, other (Unresponsive) - EENT Eyes: Present: PERRL - Respiratory Respiratory effort: labored, accessory muscle use Respiratory: bilateral: rhonchi - Cardiovascular Rhythm: regular Heart Sounds: Present: S1 & S2 - Extremities Extremities: no ischemia, pulses intact, pulses symmetrical Extremity abnormal: edema - Peripheral Assessment Generalized Edema Type: Non-pitting Edema Degree: 2+ Capillary Refill: < 3 seconds Skin Temperature: Warm Peripheral Pulses: within normal limits - Abdominal General gastrointestinal: Present: soft, non-distended, normal bowel sounds Male genitourinary: Present: deferred - Rectal Rectal Exam: deferred - Integumentary Integumentary: Present: warm, dry - Musculoskeletal Musculoskeletal: generalized weakness - Psychiatric Psychiatric: other (TAYE) - Neurologic Neurologic: other (TAYE) - Allied Health Allied health notes reviewed: nursing, case management Plan Activity: other (Per facility) Diet: other (TF) Wound: open to air Follow up with: MARIKA TOUSSAINT MD [Primary Care Provider] - 3-5 Days <SUSANA VICTOR - Last Filed: 08/08/21 09:35> Providers - Providers Date of Admission: 07/29/21 00:48 Attending physician: SUSANA VICTOR MD 07/29/21 Consult to Cardiac Rehabilitation [CONS] Routine Reason For Exam: Phase I 07/29/21 00:47 Consult to Physician [CONS] Routine Comment: Consulting Provider: VELASQUEZ HUDSON Physician Instructions: Reason For Exam: esrd 07/29/21 00:48 Consult to Cardiology [CONS] Routine Consulting Provider: GOPAL PASTOR Reason For Exam: Elevated troponin Consult to Dietitian/Nutrition [CONS] Routine Physician Instructions: Reason For Exam: Reason for Consult: Diet education 07/29/21 05:41 Consult to Physician [CONS] Routine Comment: Consulting Provider: MARILYN MORAES Physician Instructions: Reason For Exam: GIB 08/04/21 21:54 Consult to Physician [CONS] Routine Comment: Consulting Provider: JOHN KING Physician Instructions: Reason For Exam: Acute hypoxic Resp. faiulure 08/05/21 08:42 Consult to Physician [CONS] Urgent Comment: Consulting Provider: YUAN SCRUGGS Physician Instructions: Reason For Exam: Subacute Infarct Primary care physician: MARIKA TOUSSAINT MD Hospitalization Hospital course: I saw and evaluated the patient. I agree with the findings and the plan of care as documented in the Nurse Practitioner's~note, with the following corrections and additions. Exam - Constitutional Vitals: Temp Pulse Resp BP Pulse Ox 98.4 F 95 H 21 104/42 100 08/07/21 07:16 08/07/21 09:31 08/07/21 09:31 08/07/21 09:31 08/07/21 09:56
[2021-08-07] MEDS: ARFORMOTEROL 15 MCG/2 ML NEBU IH SCH (09:56)
[2021-08-07 11:48] VITALS: BP 104/42
== END 2021-08-07 10:30 | disposition hospice, inpatient (51) | DRG 871 ==
LOC: ED 20:30 → 4A 07-29 00:48 → IMCU 07-29 01:20 → 4A 07-31 12:37 → CC1 08-04 18:30
PROVIDERS: ADMIT Hospitalist; ATTEND Internal Medicine
PROC: 30233N1 Transfusion of Nonautologous Red Blood Cells into Peripheral Vein, Percutaneous Approach (ICD-10-PCS; principal; 2021-07-29)
PROC: 5A1D70Z Performance of Urinary Filtration, Intermittent, Less than 6 Hours Per Day (ICD-10-PCS; 2021-07-30)
PROC: 5A1D70Z Performance of Urinary Filtration, Intermittent, Less than 6 Hours Per Day (ICD-10-PCS; 2021-08-01)
PROC: 4A033R1 Measurement of Arterial Saturation, Peripheral, Percutaneous Approach (ICD-10-PCS; 2021-08-04)
PROC: 5A1D70Z Performance of Urinary Filtration, Intermittent, Less than 6 Hours Per Day (ICD-10-PCS; 2021-08-04)
PROC: 5A09457 Assistance with Respiratory Ventilation, 24-96 Consecutive Hours, Continuous Positive Airway Pressure (ICD-10-PCS; 2021-08-04)
PROC: 5A1D70Z Performance of Urinary Filtration, Intermittent, Less than 6 Hours Per Day (ICD-10-PCS; 2021-08-06)
DX: A41.9 Sepsis, unspecified organism (principal); J18.9 Pneumonia, unspecified organism; N18.6 End stage renal disease; I63.9 Cerebral infarction, unspecified; J96.01 Acute respiratory failure with hypoxia; I24.9 Acute ischemic heart disease, unspecified; I12.0 Hypertensive chronic kidney disease with stage 5 chronic kidney disease or end stage renal disease; K92.2 Gastrointestinal hemorrhage, unspecified; D62 Acute posthemorrhagic anemia; R47.01 Aphasia; E11.22 Type 2 diabetes mellitus with diabetic chronic kidney disease; K21.9 Gastro-esophageal reflux disease without esophagitis; E11.649 Type 2 diabetes mellitus with hypoglycemia without coma; F01.50 Vascular dementia, unspecified severity, without behavioral disturbance, psychotic disturbance, mood disturbance, and anxiety; E87.5 Hyperkalemia; I25.10 Atherosclerotic heart disease of native coronary artery without angina pectoris; Z20.822 Contact with and (suspected) exposure to COVID-19; Z98.61 Coronary angioplasty status; I25.2 Old myocardial infarction
CPT/HCPCS: 36415; 36600; 70450; 71045; 71250; 74174; 80048; 80053; 80061; 80074; 82140; 82803; 82962; 83690; 83880; 84145; 84484; 85007; 85014; 85018; 85025; 85027; 85520; 85610; 85730; 86850; 86900; 86901; 86920; 87040; 87641; 93005; 93010; 93306; 93970; 94640; 94660; 94760; G0378; J3490; Q0162; Q9967; C8929; C9113; J0295; J0456; J0696; J0885; J1644; J1720; J1815; J2405; J2543; J3480; J7030; P9016; U0003